=== PATIENT | male | born 1965 | race Caucasian/White ===

== ENCOUNTER → 2020-12-15 12:38 | Outpatient (BNVA) | payer OTHER, SELFPAY | PROVIDERS: PCP Internal Medicine; Visit Provider Orthopaedic Surgery | DX: M16.11 Unilateral primary osteoarthritis, right hip (principal) | CPT/HCPCS: 99212 ==

== ENCOUNTER 2021-01-23 10:00 | Outpatient (RCR) | payer OTHER, SELFPAY | END 2021-03-10 13:21 | disposition home or self-care (01) | LOC: HO.PT 10:00 | PROVIDERS: PCP Internal Medicine; Visit Provider Physician Assistant | DX: M16.10 Unilateral primary osteoarthritis, unspecified hip (principal); Z86.73 Personal history of transient ischemic attack (TIA), and cerebral infarction without residual deficits | CPT/HCPCS: 97110; 97162 ==

== ENCOUNTER 2021-03-15 01:34 | Emergency (ER) | payer MEDICARE, MEDICAID, SELFPAY ==
--- NOTE | ~2021-03-15 | CT_ITS ---
EXAMINATION: CT ABDOMEN AND PELVIS WITH CONTRAST CLINICAL INFORMATION: Left lower quadrant pain COMPARISON: 07/23/2012 TECHNIQUE: Multidetector volumetric images were obtained from the superior aspect of the liver through the pubic symphysis following administration 85 mL of Omnipaque 350 intravenous contrast. Sagittal and coronal reformatted images were obtained on the technologist's workstation. Oral contrast: No This CT examination was performed using dose optimization techniques as appropriate, variously including the following: *Automated exposure control *Adjustment of mA and/or kV according to patient size (this includes techniques or standardized protocols for targeted exams where dose is matched to indication/reason for exam; i.e. extremities or head) *Use of iterative reconstruction technique DLP: 1008 mGy-cm FINDINGS: LUNG BASES: The visualized lung bases demonstrate dependent atelectasis. LIVER, GALLBLADDER, AND BILIARY TREE: The liver demonstrates hypoattenuation suspicious for steatosis. No ductal dilatation is present. The gallbladder is unremarkable with no evidence of radiopaque gallstones, gallbladder wall thickening, or obvious pericholecystic inflammatory changes. PANCREAS: Unremarkable. SPLEEN: Unremarkable. ADRENAL GLANDS: Unremarkable. KIDNEYS AND URETERS: There is a 3 mm calculus in the proximal left ureter resulting in mild hydronephrosis. There is moderate perinephric stranding which tracks along the left retroperitoneum. Left nephrogram appears slightly delayed. Lateral left renal cysts are noted. No right hydronephrosis. BLADDER: Unremarkable. GASTROINTESTINAL TRACT: The small and large bowel are unremarkable. The appendix is unremarkable. No free air is seen. ABDOMINAL WALL: No significant hernia is appreciated. LYMPH NODES: Normal. VASCULAR: Unremarkable. PELVIC VISCERA: Unremarkable. OSSEOUS STRUCTURES: Degenerative changes are noted in the hips, right more severe than left. Mild degenerative changes are present in the spine. CT/CT abdomen pelvis w con IMPRESSION: 1. Proximal left ureteral calculus measuring 3 mm with mild hydronephrosis and moderate perinephric stranding. 2. Hepatic steatosis.
[2021-03-15 01:37] VITALS: BP 180/100; PULSE 87; O2SAT 94
[2021-03-15 01:45] VITALS: BP 178/111; BMI 28.7
--- NOTE | 2021-03-15 01:52 | ECG_ITS ---
Test Reason : CHEST PAIN Blood Pressure : / mmHG Vent. Rate : 094 BPM Atrial Rate : 094 BPM P-R Int : 198 ms QRS Dur : 078 ms QT Int : 364 ms P-R-T Axes : 050 014 024 degrees QTc Int : 455 ms Normal sinus rhythm Septal infarct , age undetermined Abnormal ECG When compared with ECG of 02-AUG-2019 10:35, Septal infarct is now Present Referred By: Tanisha Peck Electronically Signed By:BRENDAN WALLACE MD
--- NOTE | 2021-03-15 01:53 | ED_ITS ---
HPI - Abdominal Pain General Chief Complaint: Nausea/Vomiting/Diarrhea Stated Complaint: ABD PAIN Time Seen by Provider: 03/15/21 01:45 Source: patient and EMS Mode of arrival: EMS Limitations: no limitations History of Present Illness HPI narrative: Patient comes emergency room complaining of left lower quadrant pain. Patient states it is sharp, constant, has been present for the last 3 hours. Patient states he also has diffuse abdominal pain but is more painful in the left lower quadrant. Patient complaining of nausea vomiting, no diarrhea. Patient states that he has never had kidney stones in the past but most people in his family to have kidney stone issues. Patient denies chest pain or shortness of breath MD elicited complaint: abdominal pain Related Data Previous Rx's Medication Instructions Recorded ondansetron HCl [Zofran] 4 mg PO Q6H PRN #14 tab 03/15/21 prednisone 20 mg PO DAILY #4 tab 03/15/21 tamsulosin [Flomax] 0.4 mg PO BEDTIME #10 cap 03/15/21 tramadol 50 mg PO TID PRN #14 tab 03/15/21 Allergies Allergy/AdvReac Type Severity Reaction Status Date / Time diclofenac [From VOLTAREN] Allergy Unknown SEVERE Verified 03/15/21 02:12 RASH, FACIAL SWELLING Diclofenac Sodium Allergy Unknown swelling Uncoded 05/31/19 00:00 valtran Allergy Unknown Unknown Uncoded 03/15/21 02:12 Review of Systems Review of Systems Constitutional : No Weight loss, No Fever, No Chills, No Night Sweats, No Fatigue, No Malaise ENT/Mouth : No Hearing loss, No Ear Pain, No Nasal Congestion, No Sinus Pain, No Hoarseness, No sore throat, No Rhinorrhea, No Swallowing Difficulty Eyes: No Eye Pain, No Swelling, No Redness, No Foreign Body, No Discharge, No Vision Changes Cardiovascular : No Chest Pain, No SOB, No Dyspnea on Exertion, No Orthopnea, No Edema, No Palpitations Respiratory : No Cough, No Sputum, No Wheezing, No Smoke Exposure, No Dyspnea Gastrointestinal : Complaining of nausea and vomiting, No Diarrhea, No Constipation, complaining of left lower quadrant pain, No Hematochezia, No Melena Genitourinary : no irregular bleeding, No Dysuria, No Urinary Frequency, No Akin turia, No Urinary Incontinence, No Urgency, No Flank Pain, No Urinary Flow Changes, No Hesitancy Musculoskeletal : No joint pain, No Myalgias, No Joint Swelling Skin : No Skin Lesions, No rash Neuro : No Weakness, No Numbness, No Paresthesias, No Loss of Consciousness, No Dizziness, No Headache Psych : No Anxiety/Panic, No Depression, No SI/HI/AH/VH, No Social Issues, Heme/Lymph: No Bruising, No Bleeding,No Lymphadenopathy Endocrine : No Polyuria, No Polydipsia, No Temperature Intolerance Physical Exam Vital Signs: Vital Signs: Last Vital Signs Pulse 101 H 03/15/21 03:21 Resp 18 03/15/21 03:21 BP 153/102 H 03/15/21 03:21 Pulse Ox 97 03/15/21 03:21 Body Mass Index 28.7 Appearance: Alert. Oriented X3. Seems very uncomfortable Eyes: Pupils equal, round and reactive to light. ENT: Pharynx normal. Neck: Normal inspection. Neck supple. No lymph nodes noted. No crepitus CVS: Normal heart rate and rhythm. Pulses normal. Normal S1 and S2 Respiratory: No respiratory distress. Breath sounds normal. No Wheezing. No rales Abdomen: Soft , pain to palpation in the entire abdomen but much worse in the left lower quadrant, No rigidity. No distention. No CVA tenderness bilaterally Skin: Skin warm and clammy. Mildly pale, Normal skin turgor. Extremities: No lower extremity edema. No Lacerations. No Rash Neuro: Oriented X 3. No motor deficit. No sensory deficit. Moving all extermities. No slurred speech. Course Course Course Narrative: I discussed with the patient that he has a 3 mm stone. At this time, patient feeling much better, patient will be sent home, instructed to follow-up with urology. MDM - Abdominal Pain Lab Data Result diagrams: 03/15/21 02:13 03/15/21 02:13 Labs: Lab Results 03/15/21 03/15/21 03/15/21 Range/Units 02:13 02:13 02:13 WBC 8.2 (4.8-10.8) X10*3/uL RBC 5.02 (4.60-5.80) X10*6/uL Hgb 16.0 (14.0-18.0) g/dl Hct 45.9 (42-52) % MCV 91.4 (80-98) fL MCH 31.9 (27.0-33.0) pg MCHC 34.9 (31.0-36.0) g/dl RDW 12.6 (11.0-16.0) % Plt Count 176 (160-400) X10*3/uL MPV 9.3 L (9.4-12.4) fL Immature Gran % (Auto) 0.9 H (0.0-0.4) % Neut % (Auto) 73.2 H (45-73) % Lymph % (Auto) 15.4 L (20-40) % Frontier % (Auto) 8.4 (2-11) % Eos % (Auto) 1.9 (0-4) % Baso % (Auto) 0.2 (0-2) % Lymph # (Auto) 1.3 (1.2-4.9) X10*3/uL Frontier # (Auto) 0.7 (0.1-1.2) X10*3/uL Eos # (Auto) 0.2 (0.0-0.4) X10*3/uL Baso # (Auto) 0.0 (0.0-0.2) X10*3/uL Abs Immat Gran (auto) 0.07 H (0.00-0.03) X10*3/uL Absolute Neuts (auto) 6.0 (2.0-8.3) X10*3/uL Absolute Nucleated RBC 0.000 (0.0-0.012) X10*3/uL Nucleated RBC % (auto) 0.0 (0.0-0.2) /100WBC PT 12.4 (9.9-13.0) SEC INR 1.1 (0.9-1.1) Sodium 143 (135-145) mmol/L Potassium 4.2 (3.3-5.1) mmol/L Chloride 110 H (96-108) mmol/L Carbon Dioxide 23 (22-29) mmol/L Anion Gap 14 (12-20) BUN 19 H (9-16) mg/dL Creatinine 1.10 (0.5-1.4) mg/dL Estim Creat Clear Calc 100.3 Estimated GFR > 60 Random Glucose 123 H (60-115) mg/dL Calcium 8.9 (8.4-10.2) mg/dL Total Bilirubin 0.6 (0.0-1.0) mg/dL Direct Bilirubin 0.3 (0.0-0.5) mg/dL AST 35 (5-37) U/L ALT 59 H (0-40) U/L Alkaline Phosphatase 85 (39-117) U/L Troponin I High Sens (<3.5-35.0) ng/L Total Protein 7.5 (6.5-8.0) g/dL Albumin 4.4 (3.5-5.0) g/dL Lipase 45 (8-78) U/L Urine Color Urine Appearance Urine pH (5.0-8.0) Ur Specific Linch (1.005-1.025) Urine Protein (NEG-TRACE) MG/DL Urine Glucose (UA) (NEG) MG/DL Urine Ketones (NEG) MG/DL Urine Blood (NEG) Urine Nitrite (NEG) Ur Leukocyte Esterase (NEG) Urine RBC (0) /HPF Urine WBC (0-4) /HPF Ur Squamous Epith Cells /LPF Urine Bacteria /LPF Urine Mucus /LPF 03/15/21 03/15/21 Range/Units 02:13 03:22 WBC (4.8-10.8) X10*3/uL RBC (4.60-5.80) X10*6/uL Hgb (14.0-18.0) g/dl Hct (42-52) % MCV (80-98) fL MCH (27.0-33.0) pg MCHC (31.0-36.0) g/dl RDW (11.0-16.0) % Plt Count (160-400) X10*3/uL MPV (9.4-12.4) fL Immature Gran % (Auto) (0.0-0.4) % Neut % (Auto) (45-73) % Lymph % (Auto) (20-40) % Frontier % (Auto) (2-11) % Eos % (Auto) (0-4) % Baso % (Auto) (0-2) % Lymph # (Auto) (1.2-4.9) X10*3/uL Frontier # (Auto) (0.1-1.2) X10*3/uL Eos # (Auto) (0.0-0.4) X10*3/uL Baso # (Auto) (0.0-0.2) X10*3/uL Abs Immat Gran (auto) (0.00-0.03) X10*3/uL Absolute Neuts (auto) (2.0-8.3) X10*3/uL Absolute Nucleated RBC (0.0-0.012) X10*3/uL Nucleated RBC % (auto) (0.0-0.2) /100WBC PT (9.9-13.0) SEC INR (0.9-1.1) Sodium (135-145) mmol/L Potassium (3.3-5.1) mmol/L Chloride (96-108) mmol/L Carbon Dioxide (22-29) mmol/L Anion Gap (12-20) BUN (9-16) mg/dL Creatinine (0.5-1.4) mg/dL Estim Creat Clear Calc Estimated GFR Random Glucose (60-115) mg/dL Calcium (8.4-10.2) mg/dL Total Bilirubin (0.0-1.0) mg/dL Direct Bilirubin (0.0-0.5) mg/dL AST (5-37) U/L ALT (0-40) U/L Alkaline Phosphatase (39-117) U/L Troponin I High Sens < 3.5 (<3.5-35.0) ng/L Total Protein (6.5-8.0) g/dL Albumin (3.5-5.0) g/dL Lipase (8-78) U/L Urine Color YELLOW Urine Appearance HAZY Urine pH 6.0 (5.0-8.0) Ur Specific Linch >= 1.030 H (1.005-1.025) Urine Protein TRACE (NEG-TRACE) MG/DL Urine Glucose (UA) NEG (NEG) MG/DL Urine Ketones NEG (NEG) MG/DL Urine Blood 3+ H (NEG) Urine Nitrite NEG (NEG) Ur Leukocyte Esterase NEG (NEG) Urine RBC 50-75 H (0) /HPF Urine WBC 1-4 (0-4) /HPF Ur Squamous Epith Cells 1+ /LPF Urine Bacteria 1+ /LPF Urine Mucus 2+ /LPF Imaging Data CT scan - abdomen: Radiologist's impression: FINDINGS: LUNG BASES: The visualized lung bases demonstrate dependent atelectasis. LIVER, GALLBLADDER, AND BILIARY TREE: The liver demonstrates hypoattenuation suspicious for steatosis. No ductal dilatation is present. The gallbladder is unremarkable with no evidence of radiopaque gallstones, gallbladder wall thickening, or obvious pericholecystic inflammatory changes. PANCREAS: Unremarkable. SPLEEN: Unremarkable. ADRENAL GLANDS: Unremarkable. KIDNEYS AND URETERS: There is a 3 mm calculus in the proximal left ureter resulting in mild hydronephrosis. There is moderate perinephric stranding which tracks along the left retroperitoneum. Left nephrogram appears slightly delayed. Lateral left renal cysts are noted. No right hydronephrosis. BLADDER: Unremarkable. GASTROINTESTINAL TRACT: The small and large bowel are unremarkable. The appendix is unremarkable. No free air is seen. ABDOMINAL WALL: No significant hernia is appreciated. LYMPH NODES: Normal. VASCULAR: Unremarkable. PELVIC VISCERA: Unremarkable. OSSEOUS STRUCTURES: Degenerative changes are noted in the hips, right more severe than left. Mild degenerative changes are present in the spine. CT/CT abdomen pelvis w con IMPRESSION: 1. Proximal left ureteral calculus measuring 3 mm with mild hydronephrosis and moderate perinephric stranding. 2. Hepatic steatosis. ECG Data Attestation: I personally reviewed and interpreted this ECG as follows: (Normal sinus rhythm, heart rate 94, no ST segment depression or elevation, no T-wave inversion, QTC 455) Discharge Plan Discharge Clinical Impression: Ureterolithiasis Patient Disposition: Home, Self-Care Instructions: Kidney Stones (ED) Additional Instructions: Please follow-up with your primary care physician tomorrow. If you have any worsening or new symptoms, please return to the emergency room or call 911 Prescriptions: New tramadol 50 mg tablet 50 mg PO TID PRN (Reason: pain) Qty: 14 RF: 0 ondansetron HCl [Zofran] 4 mg tablet 4 mg PO Q6H PRN (Reason: nausea and vomiting) Qty: 14 RF: 0 tamsulosin [Flomax] 0.4 mg capsule 0.4 mg PO BEDTIME Qty: 10 RF: 0 prednisone 20 mg tablet 20 mg PO DAILY Qty: 4 RF: 0 Referrals: Wiley Christie MD [Physician] - 2 days [facility] Past Medical History Medical History (Updated 03/15/21 @ 05:09 by Tanisha Peck MD) Atrial fibrillation CVA (cerebral vascular accident) Social History Social History Advance Directives: No Advance Directives Information Provided: Yes
[2021-03-15] MEDS: ondansetron HCL 4 MG/2 ML VIAL IVPUSH (01:58)
[2021-03-15] MEDS: Morphine Sulfate 4 MG/ML CARTRIDGE IVPUSH (01:58)
[2021-03-15] MEDS: 0.9 % Sodium Chloride 1,000 ML 999 ML IVCONT (01:59)
[2021-03-15 02:00] VITALS: BP 178/111
[2021-03-15 02:17] LABS: MANUAL DIFF FLAG NO
[2021-03-15 02:19] LABS: Basophils Percent Auto 0.2 % (0-2); Eosinophils Absolute Auto 0.2 X10*3/uL (0.0-0.4); Eosinophils Percent Auto 1.9 % (0-4); Hematocrit 45.9 % (42-52); Imm Gran Abs Auto 0.07 X10*3/uL (0.00-0.03); Imm Gran Pct Auto 0.9 % (0.0-0.4); Lymphocytes Absolute Auto 1.3 X10*3/uL (1.2-4.9); Lymphocytes Percent Auto 15.4 % (20-40); Mean Corpuscular HGB Conc 34.9 g/dl (31.0-36.0); Mean Corpuscular Hemoglobin 31.9 pg (27.0-33.0); Mean Corpuscular Volume 91.4 fL (80-98); Mean Platelet Volume 9.3 fL (9.4-12.4); Monocytes Absolute Auto 0.7 X10*3/uL (0.1-1.2); Monocytes Percent Auto 8.4 % (2-11); Neutrophils Percent Auto 73.2 % (45-73); Platelet Count 176 X10*3/uL (160-400); Red Blood Count 5.02 X10*6/uL (4.60-5.80); Red Cell Distribution Width 12.6 % (11.0-16.0); White Blood Count 8.2 X10*3/uL (4.8-10.8)
[2021-03-15 02:24] LABS: INTERNATIONAL NORM RATIO 1.1 (0.9-1.1); Prothrombin Time 12.4 SEC (9.9-13.0)
[2021-03-15 02:41] LABS: Alanine Aminotransferase 59 U/L (0-40); Albumin Level 4.4 g/dL (3.5-5.0); Alkaline Phosphatase 85 U/L (39-117); Anion Gap 14 (12-20); Aspartate Amino Transferase 35 U/L (5-37); Bilirubin Direct 0.3 mg/dL (0.0-0.5); Bilirubin Total 0.6 mg/dL (0.0-1.0); Blood Urea Nitrogen 19 mg/dL (9-16); Calcium 8.9 mg/dL (8.4-10.2); Carbon Dioxide 23 mmol/L (22-29); Chloride 110 mmol/L (96-108); Creatinine Clr Calc Pharmacy 100.3; Estimated Glomerular Filt Rate > 60; Glucose Random 123 mg/dL (60-115); Lipase 45 U/L (8-78); Potassium 4.2 mmol/L (3.3-5.1); Sodium 143 mmol/L (135-145); Total Protein 7.5 g/dL (6.5-8.0)
[2021-03-15 02:45] LABS: Troponin-I High Sensitivity < 3.5 ng/L (<3.5-35.0)
[2021-03-15] MEDS: HYDROmorphone HCl 1 MG/ML SYRINGE IVPUSH (02:47)
[2021-03-15] MEDS: Prochlorperazine Edisylate 10 MG/2 ML VIAL IVPUSH (02:47)
[2021-03-15 03:21] VITALS: BP 153/102; PULSE 101; RESP 18; O2SAT 97
[2021-03-15 03:31] LABS: Glucose Urine UA NEG (NEG); Leukocyte Esterase Urine NEG (NEG); Nitrite Urine NEG (NEG); Specific Gravity - Urine >= 1.030 (1.005-1.025); Urine Blood 3+ (NEG); Urine Ketones NEG (NEG); Urine Protein TRACE MG/DL (NEG-TRACE)
[2021-03-15 03:32] LABS: Appearance Urine HAZY; Color Urine YELLOW
[2021-03-15 03:44] LABS: Bacteria Urine 1+ /LPF; Mucus Urine 2+ /LPF; RBC Urine 50-75 /HPF (0); Squamous Epithelial Cell Urine 1+ /LPF
[2021-03-15] MEDS: iohexoL 350 MG/ML 100 ML INFUS..BTL 85 ML IV (04:19)
== END 2021-03-15 05:59 | disposition home or self-care (01) ==
PROVIDERS: Emergency Provider Emergency Medicine; PCP Internal Medicine
DX: N13.2 Hydronephrosis with renal and ureteral calculous obstruction (principal); R10.32 Left lower quadrant pain; I48.91 Unspecified atrial fibrillation; Z86.73 Personal history of transient ischemic attack (TIA), and cerebral infarction without residual deficits
CPT/HCPCS: 36415; 74177; 80048; 80076; 81001; 83690; 84484; 85025; 85610; 93005; 96361; 96374; 96375; 99284; J1170; J2270; J2405; Q9967

== ENCOUNTER → 2021-03-31 11:36 | Outpatient (BNVA) | payer MEDICARE, MEDICAID, SELFPAY | PROVIDERS: PCP Internal Medicine; Visit Provider Urology | DX: N20.0 Calculus of kidney (principal) | CPT/HCPCS: Q3014 ==

== ENCOUNTER 2021-06-29 09:02 | Outpatient (REF) | payer MEDICARE, MEDICAID, SELFPAY | END 2021-06-29 09:03 | disposition home or self-care (01) | LOC: HO.HOSX 09:02 | PROVIDERS: Visit Provider Orthopaedic Surgery | DX: Z13.89 Encounter for screening for other disorder (principal) ==

== ENCOUNTER 2021-08-06 12:13 | Outpatient (REF) | payer MEDICARE, MEDICAID, SELFPAY | END 2021-08-06 12:14 | disposition home or self-care (01) | LOC: HO.HOSX 12:13 | PROVIDERS: Visit Provider Orthopaedic Surgery | DX: Z13.89 Encounter for screening for other disorder (principal) ==

== ENCOUNTER 2021-08-24 11:44 | Outpatient (REF) | payer OTHER, MEDICAID, SELFPAY ==
--- NOTE | ~2021-08-24 | XR_ITS ---
EXAMINATION: XR PELVIS CLINICAL INFORMATION: Hip pain COMPARISON: 04/05/2019 TECHNIQUE: AP view of the pelvis. FINDINGS: No fracture or dislocation. The hips are appropriately aligned. There is superior joint space narrowing of both hips with [id number] appearance. Subchondral sclerosis with marginal osteophyte formation noted. The pelvic rim is intact. The sacroiliac joints and pubic sepsis are intact. Normal bowel gas pattern. XR/XR pelvis 1-2V IMPRESSION: Severe degenerative changes of both hips which are progressed from 2019.
== END 2021-08-24 11:45 | disposition home or self-care (01) ==
LOC: HO.HOSX 11:44
PROVIDERS: Visit Provider Orthopaedic Surgery
DX: M16.11 Unilateral primary osteoarthritis, right hip (principal); I63.9 Cerebral infarction, unspecified; I48.91 Unspecified atrial fibrillation
CPT/HCPCS: 72170; 99212

== ENCOUNTER 2021-09-28 13:38 | Outpatient (REF) | payer OTHER, MEDICAID, SELFPAY ==
--- NOTE | ~2021-09-28 | XR_ITS ---
EXAMINATION: XR CHEST CLINICAL INFORMATION: Dyspnea. COMPARISON: CTA chest dated 08/02/2019. TECHNIQUE: 2 views of the chest were obtained. FINDINGS: No focal airspace consolidation. No pleural effusion or pneumothorax. Stable cardiomediastinal silhouette. No acute osseous abnormality. XR/XR chest 2V IMPRESSION: No acute cardiopulmonary findings.
== END 2021-09-28 13:39 | disposition home or self-care (01) ==
LOC: HO.XRAY 13:38
PROVIDERS: PCP Internal Medicine; Visit Provider Internal Medicine
DX: R06.00 Dyspnea, unspecified (principal); I63.9 Cerebral infarction, unspecified; F41.9 Anxiety disorder, unspecified; F32.A Depression, unspecified
CPT/HCPCS: 71046; 99202

== ENCOUNTER 2021-10-13 13:27 | Outpatient (REF) | payer OTHER, MEDICAID, SELFPAY ==
--- NOTE | ~2021-10-13 | US_ITS ---
EXAMINATION: US RETROPERITONEAL LIMITED (RENAL ONLY) CLINICAL INFORMATION: Calculus of kidney.. COMPARISON: CT abdomen pelvis 03/15/2021 TECHNIQUE: Routine retroperitoneal ultrasound of kidneys is performed FINDINGS: RIGHT KIDNEY: (SAG x AP x TRV). The kidney is normal in size, contour, and echogenicity. Renal cortical thickness is normal. No calculi or focal parenchymal lesions. No hydronephrosis. LEFT KIDNEY: There is anechoic upper/mid pole cysts measuring 4.0 3.8 x 3.6 cm and 4.2 x 2.1 x 4.6 cm (SAG x AP x TRV). The kidney is normal in size, contour, and echogenicity. Renal cortical thickness is normal. No calculi or focal parenchymal lesions. No hydronephrosis. US/US renal BI IMPRESSION: 2 anechoic cyst in the upper midpole left kidney. These were noted on the previous CT abdomen exam 03/15/2021 No echogenic stones or hydronephrosis.
== END 2021-10-13 13:28 | disposition home or self-care (01) ==
LOC: HO.US 13:27
PROVIDERS: PCP Internal Medicine; Visit Provider Urology
DX: N20.0 Calculus of kidney (principal)
CPT/HCPCS: 76775

== ENCOUNTER 2021-10-15 10:40 | Emergency (ER) | payer OTHER, MEDICAID, SELFPAY ==
[2021-10-15 10:49] VITALS: BP 151/96; PULSE 91; RESP 16; TEMP 35.7; O2SAT 96; BMI 29.7
--- NOTE | 2021-10-15 11:20 | ED.EAR ---
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 He reports about a month ago he put a Keith head screwdriver in his ear to scratch and itch but ended up causing significant trauma. He reports there was a large amount of bleeding. He was not evaluated at that time and reports bloody discharge for a few days. It eventually improved. He states about 5 days ago he started having recurrent pain and is now constant. He does not have any hearing loss or drainage. No fever or chills. He has been taking 2 or 3 showers a day to get water in his ear and rinse it out with no improvement. MD Complaint: ear pain Location: right ear Duration: constant Severity: moderate Relieving factors: nothing Exacerbating factors: nothing Context: trauma Discharge from ear: no Associated symptoms ear: external ear tenderness Treatment prior to arrival: none Related Data Home Medications Medication Instructions Recorded Confirmed apixaban 2.5 mg tablet (Eliquis) 2.5 mg PO BID 08/24/21 omeprazole 20 mg capsule,delayed 20 mg PO DAILY 08/24/21 release sertraline 150 mg capsule 150 mg PO DAILY 08/24/21 atorvastatin 80 mg tablet 80 mg PO DAILY 09/28/21 clonazepam 1 mg tablet (Klonopin) 1 mg PO DAILY PRN 09/28/21 diazepam 5 mg tablet 5 mg PO TID PRN 09/28/21 fluticasone furoate 100 1 ea INHALATION DAILY 09/28/21 mcg-vilanterol 25 mcg/dose inhalation powder (Breo Ellipta) olanzapine 2.5 mg tablet 2.5 mg PO BID 09/28/21 quetiapine 400 mg tablet 400 mg PO BEDTIME 09/28/21 Previous Rx's Medication Instructions Recorded ondansetron HCl 4 mg tablet 4 mg PO Q6H PRN #14 tab 03/15/21 (Zofran) amoxicillin 875 mg-potassium 1 tab PO BID #20 tab 10/15/21 clavulanate 125 mg tablet ciprofloxacin 0.2 %-hydrocortisone 3 drp OTIC (EARS) BID 7 Days #10 ml 10/15/21 1 % ear drops,suspension (Cipro HC) Allergies Allergy/AdvReac Type Severity Reaction Status Date / Time diclofenac [From VOLTAREN] Allergy Unknown SEVERE Verified 09/28/21 16:05 RASH, FACIAL SWELLING Diclofenac Sodium Allergy Unknown swelling Uncoded 09/28/21 16:05 valtran Allergy Unknown Unknown Uncoded 09/28/21 16:05 Review of Systems Review of Systems: Constitutional: No Fever, No Chills ENT/Mouth: No sore throat, No Rhinorrhea, No Swallowing Difficulty, +Otalgia, No hearing loss Cardiovascular: No Chest Pain, No SOB Respiratory: No Cough, No Sputum Gastrointestinal: No Nausea, No Vomiting, No abdominal Pain Musculoskeletal: No joint pain, No Myalgias Skin: No Skin Lesions, No rash Neuro: No Weakness, No Numbness, No Dizziness, No Headache Psych: + Anxiety/Panic, No Depression Heme/Lymph: No Bruising, No Lymphadenopathy PMFSH Past Medical History Medical History (Updated 10/15/21 @ 11:26 by KIMBERLY Russ) Anxiety and depression Atrial fibrillation CVA (cerebral vascular accident) Dyspnea on exertion Social History Social History Patient Tobacco Use Status: Never used Tobacco Advance Directives: No Advance Directives Information Provided: No Physical Exam Vital Signs: Vital Signs: Last Vital Signs Temp 96.3 F L 10/15/21 10:49 Pulse 91 10/15/21 10:49 Resp 16 10/15/21 10:49 BP 151/96 H 10/15/21 10:49 Pulse Ox 96 10/15/21 10:49 BMI result Body Mass Index 29.7 Appearance: Alert. Oriented X3. No acute distress. HEENT: normal external inspection. Normal left EAC and left TM. Right EAC with erythema and tenderness, no swelling. Right TM with fluid behind the membrane, mild ertyhema, no bulging, no TM perforation. normal oropharynx CVS: Normal heart rate and rhythm. Pulses normal. Respiratory: No respiratory distress. Speaking in complete sentences Skin: Skin warm and dry. Normal skin color. Normal skin turgor. No rashes. Extremities: normal inspection x4 Neuro: Oriented X 3. No motor deficit. No sensory deficit. Course Course Course Narrative: 56-year-old male presents to the ER with right ear pain after he stuck a screwdriver in his ear to scratch and itch about a month ago and caused trauma with bleeding. Exam today shows no TM perforation, it is possible he perforated his ear drum at that time and it is now healed. There is fluid behind the membrane that may be infected, his EAC is erythematous and tender. Will empirically treat for otitis media and external, will refer to ENT if no improvement in pain with treatment. patient agrees with plan. stable for d/c home. Discharge Plan Discharge Clinical Impression: Otitis externa, Otitis media Patient Disposition: Home, Self-Care Instructions: Otitis Externa (DC), Ear Infection (ED) Additional Instructions: Take the prescribed oral antibiotics as directed, take the entire course. Use the prescribed antibiotic drops as directed for 1 week. Do not get water in the ear, when you take a shower but a small piece of cotton in the ear. If you have no improvement after complete treatment, recommend following up with investigative research specialist-name and number below. Prescriptions: New amoxicillin-pot clavulanate 875-125 mg tablet 1 tab PO BID Qty: 20 0RF Cipro HC 0.2-1 % drops,suspension 3 drp otic (ears) BID 7 Days Qty: 10 0RF No Action ondansetron HCl [Zofran] 4 mg tablet 4 mg PO Q6H PRN (Reason: nausea and vomiting) Qty: 14 0RF quetiapine 400 mg tablet 400 mg PO BEDTIME 0RF Breo Ellipta 100-25 mcg/dose blister with device 1 ea inhalation DAILY 0RF diazepam 5 mg tablet 5 mg PO TID PRN0RF olanzapine 2.5 mg tablet 2.5 mg PO BID 0RF atorvastatin 80 mg tablet 80 mg PO DAILY 0RF sertraline 150 mg capsule 150 mg PO DAILY 0RF omeprazole 20 mg capsule,delayed release(DR/EC) 20 mg PO DAILY 0RF Eliquis 2.5 mg tablet 2.5 mg PO BID 0RF clonazepam [Klonopin] 1 mg tablet 1 mg PO DAILY PRN0RF Referrals: Jacoby Rabago [Physician] - 1 week
== END 2021-10-15 11:39 | disposition home or self-care (01) ==
PROVIDERS: Emergency Provider Emergency Medicine; PCP Internal Medicine
DX: H60.91 Unspecified otitis externa, right ear (principal); H66.91 Otitis media, unspecified, right ear; H92.01 Otalgia, right ear; I48.91 Unspecified atrial fibrillation; Z86.73 Personal history of transient ischemic attack (TIA), and cerebral infarction without residual deficits; Z79.01 Long term (current) use of anticoagulants
CPT/HCPCS: 99283

== ENCOUNTER → 2021-10-20 08:35 | Outpatient (BNVA) | payer OTHER, MEDICAID, SELFPAY | PROVIDERS: PCP Internal Medicine; Visit Provider Urology | DX: N28.1 Cyst of kidney, acquired (principal); Z87.442 Personal history of urinary calculi | CPT/HCPCS: Q3014 ==

== ENCOUNTER 2021-10-22 14:25 | Outpatient (REF) | payer OTHER, MEDICAID, SELFPAY ==
--- NOTE | 2021-10-22 17:19 | PFT_ITS ---
FLOWS: FEV1 86% of predicted at 3.58 L. FVC 92% of predicted at 5.02 L. FEV1 to FVC ratio of 0.71. No bronchodilator response. LUNG VOLUMES: Total lung capacity 99% of predicted at 7.54 L. Residual volume 115% of predicted at 2.67 L. Slow vital capacity 92% of predicted at 4.87 L. Expiratory reserve volume 21% of predicted at 0.36 L. Diffusion capacity is mildly decreased, diffusion capacity corrects to normal after adjustment for alveolar ventilation. IMPRESSION: Mild obstructive ventilatory defect. No bronchodilator response. Decreased expiratory reserve volume suggests extrathoracic restriction, likely secondary to abdominal obesity. Sergio Mcneil MD AP/MODL / [id number]
== END 2021-10-22 14:26 | disposition home or self-care (01) ==
LOC: HO.RESP 14:25
PROVIDERS: PCP Internal Medicine; Visit Provider Internal Medicine
DX: R06.00 Dyspnea, unspecified (principal); I63.9 Cerebral infarction, unspecified
CPT/HCPCS: 94060; 94727; 94729

== ENCOUNTER → 2021-10-28 14:34 | Outpatient (BNVA) | payer OTHER, MEDICAID, SELFPAY | PROVIDERS: PCP Internal Medicine; Visit Provider Internal Medicine | DX: J44.9 Chronic obstructive pulmonary disease, unspecified (principal); R06.00 Dyspnea, unspecified; F41.9 Anxiety disorder, unspecified; F32.A Depression, unspecified | CPT/HCPCS: 99212 ==

== ENCOUNTER → 2021-11-09 14:10 | Outpatient (BNVA) | payer OTHER, MEDICAID, SELFPAY | PROVIDERS: PCP Internal Medicine; Visit Provider Internal Medicine Cardiovascular Disease | DX: Z01.810 Encounter for preprocedural cardiovascular examination (principal); M16.11 Unilateral primary osteoarthritis, right hip; I48.91 Unspecified atrial fibrillation; J44.9 Chronic obstructive pulmonary disease, unspecified; R06.00 Dyspnea, unspecified; F41.8 Other specified anxiety disorders; Z86.73 Personal history of transient ischemic attack (TIA), and cerebral infarction without residual deficits; Z88.6 Allergy status to analgesic agent; Z88.8 Allergy status to other drugs, medicaments and biological substances; Z79.899 Other long term (current) drug therapy | CPT/HCPCS: 93005; 99202 ==

== ENCOUNTER → 2021-11-18 07:13 | Outpatient (REF) | payer OTHER, MEDICAID, SELFPAY ==
--- NOTE | ~2021-11-18 | NM_ITS ---
EXERCISE MYOCARDIAL PERFUSION STUDY INDICATION: Shortness of breath, preoperative examination, assess for coronary disease and ischemia TECHNIQUE: The patient was brought in for an exercise perfusion study on 11/18/2021. Patient performed exercise as per Jose J protocol and was injected 39 mCi of sestamibi once target heart rate was achieved. Images were obtained using the SPECT gamma camera interlaced with the gating device. Images were obtained in supine position. Resting perfusion study was performed on 11/19/2021. Patient was administered 39 mCi of sestamibi intravenously at rest. Images were then obtained in supine position. Total DLP 123mGy-cm. Images were processed with the software and compared side to side in short axis, horizontal long axis and vertical long axis views. FINDINGS: Raw images were reviewed. The stress perfusion study showed diminished tracer uptake along the inferior wall. There is improvement with CT attenuation correction suggestive of diaphragmatic attenuation artifact. The gated study shows normal LV systolic function with calculated LVEF of 63%. LV cavity is normal in size. The gated study shows normal wall thickening and contraction of segments. Resting study shows diminished tracer uptake along the inferior wall. There is improvement with CT attenuation correction suggestive of diaphragmatic attenuation artifact. Gating at rest reveals normal wall motion with ejection fraction at 70%. The findings are consistent with fixed inferior defect. No reversible defects. NM/NE cardiolite stress test IMPRESSION: 1. Myocardial perfusion imaging study shows no evidence of any ischemia or infarction. 2. Gated LVEF is 63% during stress and 70% during rest. 3. Transient ischemic dilatation not present. EKG component of the test reported separately.
--- NOTE | 2021-11-18 07:21 | CA_ITS ---
Transthoracic Echocardiogram Patient (Last, First, Middle): Edward Shaw E Gender: Male Date of : 1965 Age: 56 Procedure Date: 11/18/2021 Procedure Type: Transthoracic Echocardiogram Location: OP Height: 185.42 cm Weight: 106.6 kg BSA: 2.30 m2 Heart Rate: bpm BP: 118 / 82 mmHg Dinkey Engine Operator: RED Referring MD: Anders German MD Symptoms: R06.00 - Dyspnea, unspecified Study Quality: Fair Conclusions: - Normal left ventricular size, thickness, and systolic function. The visually estimated ejection fraction is between 55-60%. - Normal right ventricular cavity size and systolic function. - There is mild dilatation of the ascending aorta measuring 3.40 cm. - We will bring him back for a bubble study given h/o stroke and ?intracardiac shunt. Findings Left Ventricle Normal left ventricular size, thickness, and systolic function. The visually estimated ejection fraction is between 55-60%. Regional wall motion abnormalities can not be excluded due to suboptimal endocardial definition. Diastolic function is normal for age. Right Ventricle Normal right ventricular cavity size and systolic function. Atria The left atrium is mildly dilated. Aortic Valve There is a normal trileaflet aortic valve. There is no aortic valve stenosis. There is no aortic valve regurgitation. Mitral Valve The mitral valve appears normal. There is no mitral valve regurgitation. There is no mitral valve stenosis. Pulmonic Valve Normal pulmonic valve structure and function. There is trace pulmonic valve regurgitation. Tricuspid Valve Normal tricuspid valve structure and function. There is trace tricuspid valve regurgitation. Normal right atrial pressure. There is no evidence of pulmonary hypertension. Great Vessels There is mild dilatation of the ascending aorta measuring 3.40 cm. The visualized portions of the pulmonary artery and branches are normal. Venous The inferior vena cava is normal in size and collapses greater than 50% with inspiration. Pericardium/Pleural There is no evidence of pericardial effusion. Prior Study Comparison No prior study available for comparison. Recommendations, Care & Conclusions Recommend contrast study to evaluate intracardiac shunting. Measurements 2D Linear Measurements IVSd: 1.06 0.6-0.9/0.6-1.0 cm LVIDd: 4.16 3.9-5.3/4.2-5.9 cm LVIDd Index: 1.81 2.4-3.2/2.2-3.1 cm/m2 LVIDs: 2.45 2.0-3.6 cm LVPWd: 0.87 0.7-1.1 cm LA Diam: 3.40 2.7-3.8/3.0-4.0 cm LAIDs Index: 1.48 1.5-2.3 cm/m2 LV Mass: 159.91 67-162/88-224 g LV Mass Index: 69.53 43-95/49-115 g/m2 LVOT Diam: 2.00 3.0+(-)1.3 cm Mitral Valve MV Pk E: 0.48 MV PK A: 0.71 MV Decel Time: 185.00 E/A: 0.70 E'Lateral: 10.70 E'Medial: 6.31 E/E' Med: 7.60 E/E' Lat: 4.50 PHT: 54.00 MVA PHT: 4.07 Decel [place]: 2.58 Aortic Valve AoV Pk Juan Manuel: 1.24 AoV Mn Juan Manuel: 0.91 AoV VTI: 0.23 AoV Pk Grad: 6.00 Aov Mn Grad: 4.00 GALLO Cont.VTI: 2.88 LVOT LVOT Pk Juan Manuel: 1.22 LVOT Mn Juan Manuel: 0.84 LVOT VTI: 0.21 LVOT Pk Grad: 6.00 LVOT Mn Grad: 3.00 LVOT Diam: 2.00 LVOT Area: 3.14 Diastolic Function MV Pk E: 0.48 MV Pk A: 0.71 E/A: 0.70 E'Medial: 6.31 E/E' Med: 7.60 E' Laterial: 10.70 E/E' Lat: 4.50 Right Ventricle TAPSE (mm): 2.09 TVS' Juan Manuel: 9.90 Tricuspid Valve TR Pk Juan Manuel: 1.97 TR Pk Grad: 16.00 RA Press: 3.00 RVSP: 19.00 Great Vessels Aorta Sinus of Valsalva: 3.29 2.0-3.[address] [place]: 2.53 1.7-3.4 cm Ao Asc: 3.40 2.1-3.4 cm Ao Arch: 3.20 Updated in Other Vendor System with Status of Final Anders German MD electronically signed on 11/19/2021 10:41:17 AM with status of Final
--- NOTE | 2021-11-18 07:21 | CA_ITS ---
Acquisition Time: 2021-11-18 08:58:49 Total Exercise Time: 00:05:29 Test Indications: SOB,, AFIB, PREOP Medications: SEE CHART Protocol: JYOTSNA Max HR: 136 BPM 82% of Pred: 165 BPM Max BP: 132/068 mmHG Max Work Load: 7.0 METS Exercise stress test with exercise 5 min 29 sec of Jyotsna protocol, with mod sob and report of hip pain with request to slow exercise.EKG nondiagnostic for ischemia due to suboptimal heart rate 76% MPHR. Treadmill slowed to 1 MPH for additional 2.5 min. Test changed to a pharmacological stress test with Lexiscan injection, without anginal symptoms, without arrythmia, with normotensive response to injection, with nondiagnostic EKG for ischemia. In recovery he did have prolonged sinus tachycardia and was treated with Aminophyllne 75mg IVP to reverse Lexiscan with improvement in heart rate. Nuclear images pending. Test reviewed [facility] Dr Garcia. Referred By: Anders German Overread By: JACKIE PENA
== END ==
LOC: HO.CARD 07:13
PROVIDERS: Visit Provider Internal Medicine Cardiovascular Disease
DX: Z01.810 Encounter for preprocedural cardiovascular examination (principal); R06.00 Dyspnea, unspecified
CPT/HCPCS: 78452; 93017; 93306; A9500; J0280; J2785

== ENCOUNTER → 2021-11-26 12:21 | Outpatient (BNVA) | payer OTHER, MEDICAID, SELFPAY | PROVIDERS: PCP Internal Medicine; Visit Provider Physician Assistant | DX: M16.11 Unilateral primary osteoarthritis, right hip (principal) | CPT/HCPCS: 99212 ==

== ENCOUNTER → 2021-11-27 07:05 | Outpatient (REF) | payer OTHER, MEDICAID, SELFPAY ==
--- NOTE | 2021-11-27 07:09 | CA_ITS ---
Transthoracic Echocardiogram Patient (Last, First, Middle): Edward Shaw E Gender: Male Date of : 1965 Age: 56 Procedure Date: 11/27/2021 Procedure Type: Transthoracic Echocardiogram Location: OP Height: 182.88 cm Weight: 104.33 kg BSA: 2.26 m2 Heart Rate: bpm BP: 120 / 90 mmHg Movie Shot Camera Operator: Referring MD: Anders German MD Forming Yardage Control Operator: Anders German MD Symptoms: I63.9 - Cerebral infarction, unspecified Study Quality: Fair ECG Rhythm: Sinus Conclusions: - 1. No evidence of PFO 2. Normal LV systolic function Findings Procedure Information Contrast agent, definity, is being given per protocol without apparent complications. Left Ventricle Normal left ventricular size, thickness, and systolic function. The visually estimated ejection fraction is between 60-65%. There is no evidence of regional wall motion abnormalities. Spectral Doppler is indicative of an impaired relaxation filling pattern. Evidence suggests grade I (mild) diastolic dysfunction. Atria There is no evidence of interatrial shunt by agitated saline. Measurements Tricuspid Valve TR Pk Juan Manuel: 2.45 TR Pk Grad: 24.00 RA Press: 3.00 RVSP: 27.00 Updated in Other Vendor System with Status of Final Branden Carter MD electronically signed on 11/28/2021 12:29:06 PM with status of Final
== END ==
LOC: HO.CARD 07:05
PROVIDERS: PCP Internal Medicine; Visit Provider Internal Medicine Cardiovascular Disease
DX: I63.9 Cerebral infarction, unspecified (principal)
CPT/HCPCS: 93306; Q9957

== ENCOUNTER 2021-12-02 06:15 | Inpatient (IN) | payer OTHER, MEDICAID, SELFPAY ==
[2021-11-19 13:30] VITALS: BP 118/77; PULSE 108; RESP 20; O2SAT 94; BMI 31.7
--- NOTE | 2021-11-19 13:51 | P.CONAN_ITS ---
Documented by User: Nina Cunningham NP 12/01/21 08:45 HPI - Anesthesia Eval Consult details Narrative: 56yo M for Right Total Hip Replacement Elquis for hx stroke Cardiac w/u for SOB. Cleared at [facility] per pulmo [facility] Active Problems Active Problems: All Active Problems (Updated 11/19/21 @ 13:45 by Karely Philippe RN) Osteoarthritis of right hip (Acute) Nephrolithiasis (Acute) Dyspnea on exertion (Acute) Preop cardiovascular exam (Acute) COPD (chronic obstructive pulmonary disease) (Acute) Anxiety and depression (Acute) Dyspnea on exertion (Acute) CVA (cerebral vascular accident) (Acute) Atrial fibrillation (Acute) Past Medical History Medical History (Updated 11/26/21 @ 13:19 by Ana Cristina Mixon) Anxiety and depression Arthritis Atrial fibrillation COPD (chronic obstructive pulmonary disease) CVA (cerebral vascular accident) Dyspnea on exertion GERD (gastroesophageal reflux disease) Kidney stones On anticoagulant therapy Tremor, anxiety related Family History Family History Mother No problems noted. Father No problems noted. Family history of problems with anesthesia: No Surgical History Surgical History (Updated 11/18/21 @ 10:00 by Karely Philippe RN) H/O removal of cyst History of varicose vein ligation and stripping Hx of surgical procedure History of Problems with Anesthesia: No Social History Social History (Updated 11/09/21 @ 14:49 by MIKE Briscoe) Are you a primary skin care technician to a significant other at home: No Do you presently have visiting nurse or other home services: Yes (Home Health Aide) Alcohol intake: never Patient Tobacco Use Status: Never used Tobacco Substance Use Type Other:: Former heavy Marijuana use-> 30 yr ago Have you been hit, kicked, punched, or otherwise hurt by someone within the past year? If so, by whom?: No Are you DNR?: No Advance Directives: No Advance Directives Information Provided: Yes (Given info) Advance Directives on File: No Recently lost weight without trying: No Eating poorly because of decreased appetite: No Nutrition Risks: No Nutritional Risk Narrative Narrative: No recent illness No angina. KING current cardiac w/u Meds Allergies Allergy/AdvReac Type Severity Reaction Status Date / Time diclofenac [From VOLTAREN] Allergy Unknown SEVERE Verified 12/02/21 06:23 RASH, FACIAL SWELLING Home Medications Medication Instructions Recorded Confirmed Last Taken Type apixaban 2.5 mg tablet (Eliquis) 2.5 mg PO BID 08/24/21 12/02/21 11/29/21 History omeprazole 20 mg capsule,delayed 20 mg PO DAILY 08/24/21 11/17/21 Unknown History release atorvastatin 80 mg tablet 80 mg PO DAILY 09/28/21 11/17/21 Unknown History diazepam 5 mg tablet 5 mg PO TID PRN 09/28/21 11/17/21 Unknown History quetiapine 400 mg tablet 400 mg PO BEDTIME 09/28/21 11/17/21 Unknown History hydroxyzine pamoate 25 mg capsule 25 mg PO BID 10/28/21 11/17/21 Unknown History sertraline 150 mg capsule 200 mg PO DAILY cap 10/28/21 11/17/21 Unknown History quetiapine 25 mg tablet 1 tab PO TID PRN 11/18/21 11/18/21 Unknown History Exam Exam Date and Time: November 19, 2021 1351 Height,Weight and Vital Signs: Height 6 ft Weight 106.141 kg Last Vital Signs Pulse 108 H 11/19/21 13:30 Resp 20 11/19/21 13:30 BP 118/77 11/19/21 13:30 Pulse Ox 94 11/19/21 13:30 Pertinent Lab Results Pertinent Lab Results: Laboratory Tests 11/19/21 11/19/21 14:58 14:58 WBC 6.4 Hgb 16.7 Hct 49.3 Plt Count 162 Sodium 140 Potassium 4.3 Chloride 110 H Carbon Dioxide 26 BUN 12 Creatinine 0.83 Narrative Narrative: EKG 10/2021 Sinus rhythm 98 beats per minute, T-wave inversions in inferior and lateral leads with differentials of left ventricle hypertrophy versus ischemia, QT interval 413 milliseconds. ECHO 10/2021 Conclusions: - Normal left ventricular size, thickness, and systolic function. The visually estimated ejection fraction is between 55-60%.? ? ? - Normal right ventricular cavity size and systolic function.? ? - There is mild dilatation of the ascending aorta measuring 3.40 cm.? - We will bring him back for a bubble study given h/o stroke and ?intracardiac shunt. ?? Bubble Study 11/2021 Conclusions: - 1.? No evidence of PFO ? 2. Normal LV systolic function? NM cardiolite stress test 10/2021 IMPRESSION: ? 1.? Myocardial perfusion imaging study shows no evidence of any ischemia or infarction. 2.? Gated LVEF is 63% during stress and 70% during rest. 3. Transient ischemic dilatation not present. ? EKG component of the test reported separately. (Nondiagnostic) PFT 10/2021 IMPRESSION:? Mild obstructive ventilatory defect.? No bronchodilator response.? Decreased expiratory reserve volume suggests extrathoracic restriction, likely secondary to abdominal obesity. Airway Mallampati Class: III (small mouth opening) TM Dist: >3cm Neck ROM: Full Heart: RRR Lungs: CTAB Assessment and Plan Assessment Anesthesia Assessment: Anesthesia Plan Discussed and PAT Visit Final Anesthetic Review Family History of Problems with Anesthesia: No History of Problems with Anesthesia: No Documented by User: Hamilton Lim MD 12/02/21 07:19 [facility] Past Medical History Medical History (Updated 11/26/21 @ 13:19 by Ana Cristina Mixon) Anxiety and depression Arthritis Atrial fibrillation COPD (chronic obstructive pulmonary disease) CVA (cerebral vascular accident) Dyspnea on exertion GERD (gastroesophageal reflux disease) Kidney stones On anticoagulant therapy Tremor, anxiety related Family History Family History Mother No problems noted. Father No problems noted. Surgical History Surgical History (Updated 11/18/21 @ 10:00 by Karely Philippe RN) H/O removal of cyst History of varicose vein ligation and stripping Hx of surgical procedure Social History Social History (Updated 11/09/21 @ 14:49 by MIKE Briscoe) Are you a primary skin care technician to a significant other at home: No Do you presently have visiting nurse or other home services: Yes (Home Health Aide) Alcohol intake: never Patient Tobacco Use Status: Never used Tobacco Substance Use Type Other:: Former heavy Marijuana use-> 30 yr ago Have you been hit, kicked, punched, or otherwise hurt by someone within the past year? If so, by whom?: No Are you DNR?: No Advance Directives: No Advance Directives Information Provided: Yes (Given info) Advance Directives on File: No Recently lost weight without trying: No Eating poorly because of decreased appetite: No Nutrition Risks: No Nutritional Risk Meds Allergies Allergy/AdvReac Type Severity Reaction Status Date / Time diclofenac [From VOLTAREN] Allergy Unknown SEVERE Verified 12/02/21 06:23 RASH, FACIAL SWELLING Home Medications Medication Instructions Recorded Confirmed Last Taken Type apixaban 2.5 mg tablet (Eliquis) 2.5 mg PO BID 08/24/21 12/02/21 11/29/21 History omeprazole 20 mg capsule,delayed 20 mg PO DAILY 08/24/21 11/17/21 Unknown History release atorvastatin 80 mg tablet 80 mg PO DAILY 09/28/21 11/17/21 Unknown History diazepam 5 mg tablet 5 mg PO TID PRN 09/28/21 11/17/21 Unknown History quetiapine 400 mg tablet 400 mg PO BEDTIME 09/28/21 11/17/21 Unknown History hydroxyzine pamoate 25 mg capsule 25 mg PO BID 10/28/21 11/17/21 Unknown History sertraline 150 mg capsule 200 mg PO DAILY cap 10/28/21 11/17/21 Unknown History quetiapine 25 mg tablet 1 tab PO TID PRN 11/18/21 11/18/21 Unknown History Assessment and Plan Assessment Anesthesia Assessment: Chart Reviewed Final Anesthetic Review NPO: Yes ASA Class: III Final Preanesthetic Review: No Changes in Pt Med Stat, Meds/Allgs Chart Reviewed, Consent Obtained/Reviewed and Anes Risks/Benef Reviewed Patient Risk: Intermediate Procedure Risk: Intermediate Anesthetic Plan Anesthetic Plan: GA Disposition: Standard PACU
[2021-11-19 15:09] LABS: Hematocrit 49.3 % (42.0-52.0); Hemoglobin 16.7 g/dl (14.0-18.0); Mean Corpuscular HGB Conc 33.9 g/dl (31.0-36.0); Mean Corpuscular Hemoglobin 30.5 pg (27.0-33.0); Mean Corpuscular Volume 90.1 fL (80.0-98.0); Mean Platelet Volume 8.9 fL (9.4-12.4); Platelet Count 162 X10*3/uL (160-400); Red Blood Count 5.47 X10*6/uL (4.60-5.80); Red Cell Distribution Width 12.5 % (11.0-16.0); White Blood Count 6.4 X10*3/uL (4.8-10.8)
[2021-11-19 15:50] LABS: Anion Gap 8 (12-20); Blood Urea Nitrogen 12 mg/dL (9-16); Calcium 9.2 mg/dL (8.4-10.2); Carbon Dioxide 26 mmol/L (22-29); Chloride 110 mmol/L (96-108); Creatinine Clr Calc Pharmacy 126.6; Estimated Glomerular Filt Rate > 60; Glucose Random 83 mg/dL (60-115); Potassium 4.3 mmol/L (3.3-5.1); Sodium 140 mmol/L (135-145)
[2021-11-19 16:56] LABS: MRSA Nasal PCR NEGATIVE (Negative); SA Nasal PCR POSITIVE (Negative)
[2021-12-02] VITALS (15 sets, daily range): BP systolic 112–202; BP diastolic 74–119; PULSE 85–114; RESP 9–20; TEMP 36.2–36.8; O2SAT 90–99
--- NOTE | ~2021-12-02 | XR_ITS ---
EXAMINATION: XR PELVIS CLINICAL INFORMATION: Post hip replacement. COMPARISON: Previous x-ray of the pelvis August 2021. TECHNIQUE: AP view of the pelvis. FINDINGS: There is a new right hip replacement in satisfactory position. No fracture or dislocation is seen. There is arthritis of the left hip joint. There are postoperative changes to the soft tissues. XR/XR pelvis 1-2V IMPRESSION: Satisfactory appearance of right hip replacement.
[2021-12-02 06:39] LABS: MANUAL DIFF FLAG NO
[2021-12-02 06:42] LABS: Basophils Percent Auto 0.6 % (0-2); Eosinophils Absolute Auto 0.5 X10*3/uL (0.0-0.4); Eosinophils Percent Auto 6.4 % (0-4); Hematocrit 49.4 % (42.0-52.0); Hemoglobin 17.2 g/dl (14.0-18.0); Imm Gran Abs Auto 0.03 X10*3/uL (0.00-0.03); Imm Gran Pct Auto 0.4 % (0.0-0.4); Lymphocytes Absolute Auto 2.2 X10*3/uL (1.2-4.9); Lymphocytes Percent Auto 31.6 % (20-40); Mean Corpuscular HGB Conc 34.8 g/dl (31.0-36.0); Mean Corpuscular Hemoglobin 31.2 pg (27.0-33.0); Mean Corpuscular Volume 89.5 fL (80.0-98.0); Mean Platelet Volume 9.2 fL (9.4-12.4); Monocytes Percent Auto 13.7 % (2-11); Neutrophils Absolute Auto 3.3 x10*3/uL (2.0-8.3); Neutrophils Percent Auto 47.3 % (45-73); Platelet Count 201 X10*3/uL (160-400); Red Blood Count 5.52 X10*6/uL (4.60-5.80); Red Cell Distribution Width 12.7 % (11.0-16.0)
[2021-12-02 06:46] LABS: COVID-19 Test Negative (Negative)
[2021-12-02] MEDS: oxyCODONE HCl ER 10 MG TAB.ER.12H PO ×2 (06:50→19:51)
[2021-12-02] MEDS: Lactated Ringers 1,000 ML 100 ML IVCONT ×3 (07:00→19:49)
[2021-12-02] MEDS: Albuterol Sulfate (0.083%) 2.5 MG/3 ML VIAL.NEB INHALE (07:14)
--- NOTE | 2021-12-02 09:07 | MHC.SHP ---
Pre-Procedural Eval Section A Date of Service: 12/02/21 The patient is an INPATIENT: No Changes since office visit: Yes Patient answered all questions; No Cold of Flu in the past 2 weeks, No New Medical Problems and No Changes in Medication The History & Physical has been completed within 30 days and I have reviewed it.: Yes Section B Chief Complaint: RTHA Allergies: Allergies Allergy/AdvReac Type Severity Reaction Status Date / Time diclofenac [From VOLTAREN] Allergy Unknown SEVERE Verified 12/02/21 06:23 RASH, FACIAL SWELLING Plan I have reviewed the history and physical and performed a pertinent physical examination on my patient. No changes have occurred unless specified.
--- NOTE | 2021-12-02 09:08 | P.BOP_ITS ---
Brief Operative Note Date of Service: 12/02/21 Pre-op diagnosis: right hip OA Post-op diagnosis: same Procedure: Right PANCHITO Implants: Strykler Trident 54/20 deg lip; Accolade 2 127 deg #5 / +2.5 36 ceramic Surgeon: Melo Bucio MD Anesthesia: GETA Was an Evaluation Specialist used for this Procedure?: Yes Evaluation Specialist: Uzma Estrella Estimated blood loss (mL): 250 IV fluids (mL): 1,000 Pathology: other Condition: stable Disposition: PACU
--- NOTE | 2021-12-02 09:11 | P.OP_ITS ---
Operative Note Operative Note Date of Service: 12/02/21 Narrative: Date of Service: 12/02/21 Pre-op diagnosis: right hip OA Post-op diagnosis: same Procedure: Right PANCHITO Implants: Strykler Trident? 54/20 deg lip; Accolade 2 127 deg #5 / +2.5 36 ceramic Surgeon: Melo Bucio MD Anesthesia: GETA Was an Cardiology Clinical Consultant used for this Procedure?: Yes Cardiology Clinical Consultant: Uzma Estrella Estimated blood loss (mL): 250 IV fluids (mL): 1,000 Pathology: other Condition: stable Disposition: PACU Procedure in detail: Patient was brought into the operating room and placed in the left lateral decubitus position. All bony prominences were well padded and the limb was prepped and draped in standard sterile fashion. Time-out was called to identify proper site procedure proper surgeon IV antibiotics and 1 g of transaxemic acid were administered. I began by making a curvilinear incision over the posterolateral aspect of the greater trochanter. Dissection was taken down to the tensor fascia which was incised in line with the incision and a Charnley retractor was placed. Cautery was used to maintain hemostasis. A Werewolf cautery wand was used to maintain hemostasis. The hip was internally rotated and the external rotators were identified. The vessels were cauterized and a full- thickness capsular/external rotator layer was developed starting just proximal to the piriformis. This layer was tagged and a dull Hohmann retractor was placed underneath the neck in the hip was dislocated. The head was deformed and eburnated.. A neck cut was made 1 cm proximal to the lesser trochanter and the head and neck were removed and measured on the back table. I started with a 46mm reamer and sequentially reamed up to a size 54 and impacted a 54 mm cup at approximately 45 degrees of inclination and 25 degrees of version. I then placed a 20 deg posterior-lipped liner and turned my attention to the femur. I identified the piriformis insertion and used this as a starting point for my lexie cutter. The medius tendon was protected with a Hibs retractor. I then used a Charnley awl to identify the canal and a curved curette to remove the lateral bone. I irrigated copiously. I then sequentially broached in the patient's natural version to a size #5 and placed my trial implants. Using a trail head I took the hip through range of motion. I was very satisfied with the stability and length. Therefore I removed all instrumentation and copiously irrigated. I placed my final femoral implant and again took the hip through range of motion and was satisfied with the stability and length using a +2.5 6 trial. The final ceramic head was implanted. I then irrigated for 3 minutes with iodine and placed 1 g of local tranaxemic acid. I then performed a capsular closure with 2.0 fiberwire, Joesph's fascia with 0 Vicryl, subcuticular with 2-0 Vicryl and the skin with gurmeet. Patient was placed into a sterile dressing. Patient was extubated brought to the recovery room in stable condition.There were no known complications.
[2021-12-02] MEDS: oxyCODONE HCl Immed Release 5 MG TABLET PO (10:25)
--- NOTE | 2021-12-02 11:18 | PHA.MEDREC ---
Pharmacy Consult ? Medication Reconciliation Pharmacy has completed the medication reconciliation.
[2021-12-02] MEDS: Sertraline HCL 100 MG TABLET 200 MG PO (12:13)
[2021-12-02] MEDS: Acetaminophen 325 MG TABLET 650 MG PO (12:14)
[2021-12-02] MEDS: HYDROmorphone HCl 0.5 MG/0.5 ML SYRINGE 0.25 MG IVPUSH ×2 (15:23→21:59)
--- NOTE | 2021-12-02 15:59 | P.CONHOSP_ITS ---
History of Present Illness Data of Consult Service Date: 12/02/21 Primary Care Provider: Giovani Choi MD HPI Reason for consult: Routine Medical This is a 56 y/o M with a PMH as outlined below who is admitted post op R PANCHITO. Medical consult requested for routine medical management. Patient is seen and examined in his room this afternoon. He denies any complaints other than hip soreness. Denies cp or sob. In regards to his medical history -- reports a history of CVA, and PAF. Reports he is on Eliquis. Review of Systems Review of Systems: negative except HPI [facility] Medical History Anxiety and depression Arthritis Atrial fibrillation COPD (chronic obstructive pulmonary disease) CVA (cerebral vascular accident) Dyspnea on exertion GERD (gastroesophageal reflux disease) Kidney stones On anticoagulant therapy Tremor, anxiety related Family History Mother No problems noted. Father No problems noted. Surgical History H/O removal of cyst History of varicose vein ligation and stripping Hx of surgical procedure Social History Household Members: None Housing: House Are you a primary morning caregiver to a significant other at home: No Do you presently have visiting nurse or other home services: No Alcohol intake: never Patient Tobacco Use Status: Never used Tobacco Use of substances other than those prescribed or required for medical reasons: No Substance Use Type Other:: Former heavy Marijuana use-> 30 yr ago Have you been hit, kicked, punched, or otherwise hurt by someone within the past year? If so, by whom?: No Do you feel safe in your current relationship?: No Current Relationship Is there a partner from a previous relationship who is making you feel unsafe no w?: No Are you made to feel afraid or neglected: No Amish Healthcare Practices: protestant Are you DNR?: No Advance Directives: No Advance Directives Information Provided: Yes (Given info) Advance Directives on File: No Do you have thoughts of harming others: None Do you have a plan to hurt others: No Plan Recently lost weight without trying: No Eating poorly because of decreased appetite: No Nutrition Risks: No Nutritional Risk Meds Allergies Allergy/AdvReac Type Severity Reaction Status Date / Time diclofenac [From VOLTAREN] Allergy Unknown SEVERE Verified 12/02/21 06:23 RASH, FACIAL SWELLING Active Medications: Current Medications Acetaminophen (Acetaminophen 325 Mg Tablet) 650 mg PO Q6H PRN PRN Reason: Pain, Mild (Pain Scale 1-3) Last Admin: 12/02/21 12:14 Dose: 650 mg Documented by: Atorvastatin Calcium (Atorvastatin Calcium 80 Mg Tablet) 80 mg PO BEDTIME [facility] Celecoxib (Celecoxib 200 Mg Capsule) 200 mg PO BID [facility] Diazepam (Diazepam 5 Mg Tablet) 5 mg PO TID PRN PRN Reason: Anxiety Docusate Sodium (Docusate Sodium 100 Mg Capsule) 100 mg PO BID [facility] Hydromorphone HCl (Hydromorphone Hcl 0.5 Mg/0.5 Ml Syringe) 0.25 mg IVPUSH Q4H PRN; Protocol PRN Reason: Pain, Severe (Pain Scale 7-10) Last Admin: 12/02/21 15:23 Dose: 0.25 mg Documented by: Hydroxyzine HCl (Hydroxyzine Hcl 25 Mg Tablet) 25 mg PO BID [facility] Lactated Ringer's (Lr) 1,000 mls @ 100 mls/hr IVCONT .Q10H [facility] Last Admin: 12/02/21 15:28 Dose: Not Given Documented by: Cefazolin Sodium/Dextrose (Ancef) 2 gm in 50 mls @ 100 mls/hr IV POSTOP [facility] Omeprazole (Omeprazole 20 Mg Capsule.Dr) 20 mg PO DAILY@0630 [facility] Ondansetron HCl (Ondansetron Hcl 4 Mg/2 Ml Vial) 4 mg IVPUSH Q8H PRN PRN Reason: Nausea and Vomiting Oxycodone HCl (Oxycodone Hcl Immed Release 5 Mg Tablet) 5 mg PO Q4H PRN PRN Reason: Pain, Moderate (Pain Scale 4-6 Last Admin: 12/02/21 10:25 Dose: 5 mg Documented by: Oxycodone HCl (Oxycodone Hcl Er 10 Mg Tab.Er.12h) 10 mg PO BID [facility] Quetiapine Fumarate (Quetiapine Fumarate 400 Mg Tablet) 400 mg PO BEDTIME [facility] Sertraline HCl (Sertraline Hcl 100 Mg Tablet) 200 mg PO DAILY [facility] Last Admin: 12/02/21 12:13 Dose: 200 mg Documented by: Sodium Chloride (0.9 % Sodium Chloride Flush 3 Ml Syringe) 3 [facility]USH [facility] Last Admin: 12/02/21 15:15 Dose: Not Given Documented by: Home Medications Medication Instructions Recorded Confirmed Last Taken Type apixaban 2.5 mg tablet (Eliquis) 2.5 mg PO BID 08/24/21 12/02/21 11/29/21 History omeprazole 20 mg capsule,delayed 20 mg PO DAILY 08/24/21 11/17/21 11/29/21 History release atorvastatin 80 mg tablet 80 mg PO DAILY 09/28/21 11/17/21 11/29/21 History diazepam 5 mg tablet 5 mg PO TID PRN 09/28/21 11/17/21 11/29/21 History quetiapine 400 mg tablet 400 mg PO BEDTIME 09/28/21 11/17/21 11/29/21 History hydroxyzine pamoate 25 mg capsule 25 mg PO BID 10/28/21 11/17/21 11/29/21 History sertraline 150 mg capsule 200 mg PO DAILY cap 10/28/21 11/17/21 11/29/21 History multivitamin 1 tab PO DAILY 12/02/21 12/02/21 11/29/21 History sertraline 100 mg tablet 2 tab PO DAILY 12/02/21 12/02/21 11/29/21 History Physical Exam Vital Signs and Narrative: Vital Signs: Last Vital Signs Temp 98.0 F 12/02/21 15:38 Pulse 106 H 12/02/21 15:38 Resp 18 12/02/21 15:38 BP 112/76 12/02/21 15:38 Pulse Ox 90 L 12/02/21 15:38 BMI result Body Mass Index 31.7 Const: Other: Constitutional - Awake and Alert, No apparent distress Eyes - PERRLA, EOMI Cardiovascular - S1S2, RRR, No edema Respiratory - Normal lung expansion, Normal respiratory effort, No respiratory distress, CTA bilaterally Gastrointestinal - NT / ND; +BS; No rebound or guarding - No CVA tenderness Extremities - no calf tenderness bilaterally, no swelling Musculoskeletal - Normal inspection, normal ROM Skin - Warm/Dry Neurological - Alert & oriented x3, No focal deficit Psychological - Appropriate affect Results Labs CBC and Chem 7: 12/02/21 06:30 03/31/22 14:58 Labs: Laboratory Results - last 24 hr 12/02/21 12/02/21 06:15 06:30 MCV 89.5 MCH 31.2 MCHC 34.8 RDW 12.7 Plt Count 201 MPV 9.2 L Immature Gran % (Auto) 0.4 Neut % (Auto) 47.3 Lymph % (Auto) 31.6 [place] % (Auto) 13.7 H Eos % (Auto) 6.4 H Baso % (Auto) 0.6 Lymph # (Auto) 2.2 [place] # (Auto) 1.0 Eos # (Auto) 0.5 H Baso # (Auto) 0.0 Abs Immat Gran (auto) 0.03 Absolute Neuts (auto) 3.3 Absolute Nucleated RBC 0.000 Nucleated RBC % (auto) 0.0 COVID-19 (YENNI) Negative COVID-19 Clin Com See Note Assessment and Plan (1) Atrial fibrillation: Status: Acute Plan 56 yo M with a history of PAF, CVA, Mild COPD not on inhalers who is admitted post elective R PANCHITO. Medical consult requested for routine medical management. The patient appears to be medically stable. In regards to his PAF and Eliquis -- he has had a previous CVA and this Eliquis should be resumed as soon as safe from surgical perspective. In regards to his mild COPD -- he does not appear to be on any inhalers at baseline. Currently no respiratory issues. Anxiety/Depression - continue his baseline medications R PANCHITO -- mgmt per ortho Medically stable at this time, will sign off. Please reconsult or tigerconnect with questions.
[2021-12-02] MEDS: Celecoxib 200 MG CAPSULE PO (19:52)
[2021-12-02] MEDS: QUEtiapine Fumarate 400 MG TABLET PO (19:52)
[2021-12-02] MEDS: hydrOXYzine HCL 25 MG TABLET PO (19:53)
[2021-12-02] MEDS: Docusate Sodium 100 MG CAPSULE PO (19:53)
[2021-12-02] MEDS: 0.9 % Sodium Chloride Flush 3 ML SYRINGE IVFLUSH (19:54)
[2021-12-02] MEDS: diazePAM 5 MG TABLET PO (21:59)
[2021-12-03] VITALS (8 sets, daily range): BP systolic 111–144; BP diastolic 67–79; PULSE 92–107; RESP 16–18; TEMP 36.1–36.7; O2SAT 93–97
[2021-12-03] MEDS: Omeprazole 20 MG CAPSULE.DR PO (05:33)
[2021-12-03] MEDS: Lactated Ringers 1,000 ML 100 ML IVCONT ×2 (05:33→18:28)
[2021-12-03 06:21] LABS: Basophils Percent Auto 0.1 % (0-2); Hematocrit 36.3 % (42.0-52.0); Hemoglobin 12.1 g/dl (14.0-18.0); Imm Gran Abs Auto 0.06 X10*3/uL (0.00-0.03); Imm Gran Pct Auto 0.5 % (0.0-0.4); Lymphocytes Absolute Auto 1.1 X10*3/uL (1.2-4.9); Lymphocytes Percent Auto 9.8 % (20-40); MANUAL DIFF FLAG SCAN; Mean Corpuscular HGB Conc 33.3 g/dl (31.0-36.0); Mean Corpuscular Hemoglobin 30.2 pg (27.0-33.0); Mean Corpuscular Volume 90.5 fL (80.0-98.0); Mean Platelet Volume 9.4 fL (9.4-12.4); Monocytes Absolute Auto 1.6 X10*3/uL (0.1-1.2); Monocytes Percent Auto 14.3 % (2-11); Neutrophils Absolute Auto 8.3 x10*3/uL (2.0-8.3); Neutrophils Percent Auto 75.3 % (45-73); Platelet Count 173 X10*3/uL (160-400); Red Blood Count 4.01 X10*6/uL (4.60-5.80); Red Cell Distribution Width 12.9 % (11.0-16.0); SCAN SMEAR FLAG 1
[2021-12-03 06:40] LABS: Anion Gap 13 (12-20); Blood Urea Nitrogen 22 mg/dL (9-16); Calcium 8.9 mg/dL (8.4-10.2); Carbon Dioxide 27 mmol/L (22-29); Chloride 103 mmol/L (96-108); Creatinine Clr Calc Pharmacy 131.3; Estimated Glomerular Filt Rate > 60; Glucose Fasting 137 mg/dL (60-99); Potassium 4.4 mmol/L (3.3-5.1); Sodium 139 mmol/L (135-145)
[2021-12-03 06:41] LABS: SLIDE REVIEW VERIFIED
--- NOTE | 2021-12-03 06:42 | HO.POSTANES ---
Post Anesthesia Evaluation Post Anesthesia Evaluation Vital Signs: Vital Signs Temp Pulse Resp BP Pulse Ox 12/03/21 03:45 97.6 F 104 H 16 111/67 93 12/02/21 23:47 98.2 F 108 H 16 134/74 92 12/02/21 19:38 98.1 F 108 H 20 141/91 H 93 Anesthesia: General Mental Status: Awake Pain Control: Satisfactory Nausea/Vomiting: None Hydration: Adequate Anesthesia-Related Issues: No Anes. Related Issues
[2021-12-03] MEDS: hydrOXYzine HCL 25 MG TABLET PO ×2 (07:39→20:50)
[2021-12-03] MEDS: Docusate Sodium 100 MG CAPSULE PO ×2 (07:39→20:50)
[2021-12-03] MEDS: oxyCODONE HCl ER 10 MG TAB.ER.12H PO ×2 (07:39→20:50)
[2021-12-03] MEDS: Sertraline HCL 100 MG TABLET 200 MG PO (07:40)
[2021-12-03] MEDS: oxyCODONE HCl Immed Release 5 MG TABLET PO ×3 (07:40→20:55)
[2021-12-03] MEDS: Celecoxib 200 MG CAPSULE PO ×2 (07:40→20:51)
--- NOTE | 2021-12-03 08:48 | P.PNOP_ITS ---
Subjective Subjective Date of Service: 12/03/21 Interval history: POD1 s/p RTHA. Patient resting comfortably in the chair. No overnight events. Pain is managed. No additional compaints. Physical Exam Vital Signs: Vital Signs: Last Vital Signs Temp 97.6 F 12/03/21 07:47 Pulse 92 12/03/21 08:27 Resp 17 12/03/21 07:47 BP 144/77 H 12/03/21 08:27 Pulse Ox 95 12/03/21 08:27 BMI result Body Mass Index 31.7 Const: General: cooperative, healthy appearing and no acute distress Resp: Effort & Inspection: normal respiratory effort and able to speak in complete sentences Cardio: Rate: regular rate Peripheral pulses: Peripheral pulses 2+ throughout GI: Palpation (GI): Soft to palpation Skin: Lesions: no lesions Rashes: no rashes Extrem: Other: Right hip Aquacel is clean, dry, and intact. NVI. Procedures Date of Service Date of Service: 12/03/21 Progress Note: A&P Assessment and plan (1) Status post total hip replacement, right: Status: Acute Assessment and Plan: Continue pain mgmnt Begin ASA for dvt ppx begin PT for RTHA- WBAT Dispo planning-Pending PT eval, pain mgmnt Fall Risk Details Current Medications: Current Medications Acetaminophen (Acetaminophen 325 Mg Tablet) 650 mg PO Q6H PRN PRN Reason: Pain, Mild (Pain Scale 1-3) Last Admin: 12/02/21 12:14 Dose: 650 mg Documented by: Aspirin (Aspirin 325 Mg Tablet) 325 mg PO BID@1100,2300 [facility] Atorvastatin Calcium (Atorvastatin Calcium 80 Mg Tablet) 80 mg PO BEDTIME [facility] Celecoxib (Celecoxib 200 Mg Capsule) 200 mg PO BID [facility] Last Admin: 12/03/21 07:40 Dose: 200 mg Documented by: Diazepam (Diazepam 5 Mg Tablet) 5 mg PO TID PRN PRN Reason: Anxiety Last Admin: 12/02/21 21:59 Dose: 5 mg Documented by: Docusate Sodium (Docusate Sodium 100 Mg Capsule) 100 mg PO BID [facility] Last Admin: 12/03/21 07:39 Dose: 100 mg Documented by: Hydromorphone HCl (Hydromorphone Hcl 0.5 Mg/0.5 Ml Syringe) 0.25 mg IVPUSH Q4H PRN; Protocol PRN Reason: Pain, Severe (Pain Scale 7-10) Last Admin: 12/02/21 21:59 Dose: 0.25 mg Documented by: Hydroxyzine HCl (Hydroxyzine Hcl 25 Mg Tablet) 25 mg PO BID [facility] Last Admin: 12/03/21 07:39 Dose: 25 mg Documented by: Lactated Ringer's (Lr) 1,000 mls @ 100 mls/hr IVCONT .Q10H [facility] Last Admin: 12/03/21 05:33 Dose: 100 mls/hr Documented by: Cefazolin Sodium/Dextrose (Ancef) 2 gm in 50 mls @ 100 mls/hr IV POSTOP [facility] Omeprazole (Omeprazole 20 Mg Capsule.Dr) 20 mg PO DAILY@0630 [facility] Last Admin: 12/03/21 05:33 Dose: 20 mg Documented by: Ondansetron HCl (Ondansetron Hcl 4 Mg/2 Ml Vial) 4 mg IVPUSH Q8H PRN PRN Reason: Nausea and Vomiting Oxycodone HCl (Oxycodone Hcl Immed Release 5 Mg Tablet) 5 mg PO Q4H PRN PRN Reason: Pain, Moderate (Pain Scale 4-6 Last Admin: 12/03/21 07:40 Dose: 5 mg Documented by: Oxycodone HCl (Oxycodone Hcl Er 10 Mg Tab.Er.12h) 10 mg PO BID [facility] Last Admin: 12/03/21 07:39 Dose: 10 mg Documented by: Quetiapine Fumarate (Quetiapine Fumarate 400 Mg Tablet) 400 mg PO BEDTIME [facility] Last Admin: 12/02/21 19:52 Dose: 400 mg Documented by: Sertraline HCl (Sertraline Hcl 100 Mg Tablet) 200 mg PO DAILY [facility] Last Admin: 12/03/21 07:40 Dose: 200 mg Documented by: Sodium Chloride (0.9 % Sodium Chloride Flush 3 Ml Syringe) 3 ml IVFLUSH QSHIFT [facility] Last Admin: 12/02/21 19:54 Dose: 3 ml Documented by: Time Spent With Patient Time: Total time spent is greater than 50% in coordination of care (as documented) at patient's floor/unit and/or counseling patient: Quality Stroke Does the patient have a stroke diagnosis?: No VTE Prior VTE?: No VTE Risk Level:: Surgical - very high VTE Device Contraindication: N/A - Device Ordered VTE Drug Contraindication: N/A - Med Ordered
[2021-12-03] MEDS: Aspirin 325 MG TABLET PO ×2 (11:46→22:13)
--- NOTE | 2021-12-03 16:13 | MHC.CM.PN ---
PATIENT LIVES ALONE HE HAS 19 HOURS OF WEEKLY EPIC APPLICATION COORDINATOR SERVICES HE ALSO HAS A WALKER AND ROLLATOR NEW REFERRAL TO [facility] PER REQUEST. POSSIBLE DC TO HOME TOMORROW BROTHER IN LAW [facility] WILL PROVIDE TRANSPORT HOME. PATIENT HAS BEEN COVID-19 VACCINATED X 2. PFIZER SERIES. IMM 12/03 IN CHART.
[2021-12-03] MEDS: 0.9 % Sodium Chloride Flush 3 ML SYRINGE IVFLUSH (18:10)
[2021-12-03] MEDS: QUEtiapine Fumarate 400 MG TABLET PO (20:50)
[2021-12-03] MEDS: Atorvastatin Calcium 80 MG TABLET PO (20:51)
[2021-12-03] MEDS: diazePAM 5 MG TABLET PO (20:55)
[2021-12-04 03:43] VITALS: BP 110/73; PULSE 88; RESP 16; TEMP 36.8; O2SAT 93
[2021-12-04] MEDS: Lactated Ringers 1,000 ML 100 ML IVCONT (04:17)
[2021-12-04 05:58] LABS: MANUAL DIFF FLAG NO
[2021-12-04 06:01] LABS: Basophils Percent Auto 0.4 % (0-2); Eosinophils Absolute Auto 0.1 X10*3/uL (0.0-0.4); Eosinophils Percent Auto 1.4 % (0-4); Hematocrit 33.2 % (42.0-52.0); Hemoglobin 11.1 g/dl (14.0-18.0); Imm Gran Pct Auto 1.1 % (0.0-0.4); Lymphocytes Absolute Auto 2.4 X10*3/uL (1.2-4.9); Lymphocytes Percent Auto 26.8 % (20-40); Mean Corpuscular HGB Conc 33.4 g/dl (31.0-36.0); Mean Corpuscular Hemoglobin 31.1 pg (27.0-33.0); Mean Platelet Volume 9.3 fL (9.4-12.4); Monocytes Absolute Auto 1.3 X10*3/uL (0.1-1.2); Monocytes Percent Auto 14.2 % (2-11); Neutrophils Percent Auto 56.1 % (45-73); Platelet Count 131 X10*3/uL (160-400); Red Blood Count 3.57 X10*6/uL (4.60-5.80); Red Cell Distribution Width 13.2 % (11.0-16.0)
[2021-12-04] MEDS: Omeprazole 20 MG CAPSULE.DR PO (06:03)
[2021-12-04 06:31] LABS: Anion Gap 9 (12-20); Blood Urea Nitrogen 20 mg/dL (9-16); Carbon Dioxide 29 mmol/L (22-29); Chloride 106 mmol/L (96-108); Creatinine Clr Calc Pharmacy 129.7; Estimated Glomerular Filt Rate > 60; Glucose Fasting 110 mg/dL (60-99); Potassium 4.2 mmol/L (3.3-5.1); Sodium 140 mmol/L (135-145)
[2021-12-04 07:44] VITALS: BP 151/105; PULSE 84; RESP 18; TEMP 36; O2SAT 97
--- NOTE | 2021-12-04 08:09 | P.DS_ITS ---
DS: Providers Provider Date of Service: 12/04/21 Date of admission: 12/02/21 06:15 Primary care physician: Giovani Choi MD Consults: 12/02/21 11:00 Consult to Hospitalist Routine Consulting Provider: Hospitalist Reason For Exam: routine medical management DS: Diagnosis Discharge Diagnosis (1) Status post total hip replacement, right: Status: Acute DS: Summary Hospital Course Hospital Course: The patient underwent a successful arthroplasty, was transferred to PACU and then to the floor to recover. During their stay, their vitals were stable, afebrile at 96.8 . Labs were unremarkable, H/H 11.1/33.2. POD 1 he was started on ASA for DVT ppx- resume eliquis PO d 2 . He also received services PT and OT twice a day. Prior to discharge, their dressing was change, incision clean dry and intact, new Aquacel dressing applied and the plan was to be discharged home with vna Time Spent with Patient Time attestation: Total time spent providing and/or coordinating discharge services: Discharge coordination time: Less than 30 minutes Quality: Safe Use of Opioids Does Pt have an Active Cancer Diagnosis on the Problem List?: No Quality: Stroke Does the patient have a stroke diagnosis?: No Physical Exam Vital Signs: Vital Signs: Last Vital Signs Temp 96.8 F 12/04/21 07:44 Pulse 84 12/04/21 07:44 Resp 18 12/04/21 07:44 BP 151/105 H 12/04/21 07:44 Pulse Ox 97 12/04/21 07:44 BMI result Body Mass Index 31.7 Extrem: Other: incision clean dry and intact. Stephanie intact. No erythema or effusion. Calf supple nontender. Neurovascularly intact. DS: Data Data Completed and Pending Pending studies at discharge: Pending at discharge 12/02/21 08:48 Surgical [PTH] Routine Labs on day of discharge: Laboratory Results - last 24 hr 12/04/21 12/04/21 05:44 05:44 WBC 9.0 RBC 3.57 L Hgb 11.1 L Hct 33.2 L MCV 93.0 MCH 31.1 MCHC 33.4 RDW 13.2 Plt Count 131 L MPV 9.3 L Immature Gran % (Auto) 1.1 H Neut % (Auto) 56.1 Lymph % (Auto) 26.8 [place] % (Auto) 14.2 H Eos % (Auto) 1.4 Baso % (Auto) 0.4 Lymph # (Auto) 2.4 [place] # (Auto) 1.3 H Eos # (Auto) 0.1 Baso # (Auto) 0.0 Abs Immat Gran (auto) 0.10 H Absolute Neuts (auto) 5.0 Absolute Nucleated RBC 0.000 Nucleated RBC % (auto) 0.0 Sodium 140 Potassium 4.2 Chloride 106 Carbon Dioxide 29 Anion Gap 9 L BUN 20 H Creatinine 0.81 Estim Creat Clear Calc 129.7 Estimated GFR > 60 Fasting Glucose 110 H Calcium 8.0 L D Discharge Plan Discharge Patient Disposition: Home Health Service Discharge Diagnosis: s/p RTHA Referrals: Uzma Estrella PA-C [Physician Weed Control Inspector] - 1 Week (12/17/21 at 1:45) Discharge Medications: New celecoxib 200 mg Capsule 200 mg PO BID 30 Days Qty: 60 0RF docusate sodium 100 mg Capsule 100 mg PO BID 30 Days Qty: 60 0RF oxycodone 5 mg Tablet 5 mg PO Q4H PRN (Reason: Pain, Moderate (Pain Scale 4-6) 7 Days Qty: 42 0RF acetaminophen 325 mg Tablet 650 mg PO Q6H PRN (Reason: Pain, Mild (Pain Scale 1-3)) 30 Days Qty: 240 0RF Continued (DME) Electric reclining chair See Rx Instructions .ROUTE .MEDSUPPLY Qty: 1 0RF Rx Instructions: As directed multivitamin Tablet 1 tab PO DAILY 0RF sertraline 100 mg tablet 2 tab PO DAILY 0RF quetiapine 400 mg tablet 400 mg PO BEDTIME 0RF diazepam 5 mg tablet 5 mg PO TID PRN (Reason: Anxiety) 0RF atorvastatin 80 mg tablet 80 mg PO DAILY 0RF omeprazole 20 mg capsule,delayed release(DR/EC) 20 mg PO DAILY 0RF Eliquis 2.5 mg tablet 2.5 mg PO BID 0RF sertraline 150 mg capsule 200 mg PO DAILY 0RF hydroxyzine pamoate 25 mg capsule 25 mg PO BID 0RF Discharge Orders: Discharge Order (Routine); Ordered 12/04/21 Ordered By: Wero Ramirez Diet: regular diet Activity on Discharge: Use cane or walker Stand Alone Forms: Patient Portal Discharge page Care Plan Goals: rstore fxn to right hip Health Concerns: none Plan of Treatment: Physical Therapy for total hip arthroplasty: posterior precautions, gait training, ROM, strength Limit stair climbing No showering, no tub bath-keep dressing clean, dry and intact No driving x6 weeks Continue Eliquis at regular dose Follow up with [facility] in 2 weeks Assessment: stable for d/c
[2021-12-04 08:50] VITALS: PULSE 84; O2SAT 97
[2021-12-04] MEDS: Aspirin 325 MG TABLET PO (09:21)
[2021-12-04] MEDS: Docusate Sodium 100 MG CAPSULE PO (09:22)
[2021-12-04] MEDS: Celecoxib 200 MG CAPSULE PO (09:22)
[2021-12-04] MEDS: hydrOXYzine HCL 25 MG TABLET PO (09:22)
[2021-12-04] MEDS: oxyCODONE HCl Immed Release 5 MG TABLET PO (09:22)
[2021-12-04] MEDS: oxyCODONE HCl ER 10 MG TAB.ER.12H PO (09:23)
[2021-12-04 11:22] VITALS: BP 129/90; PULSE 84; RESP 18; TEMP 36.2; O2SAT 97
--- NOTE | 2021-12-04 11:38 | MHC.CM.PN ---
NURSE CAR STARTER NOTE DISCHARGE PLAN HOME WITH [facility] REFERRAL FOR HOME PHYSICAL THERAPY TRANSPORTATION PATIENT TO SELF [facility] ORTHOPEDIC SURGEON FOLLOW UP PER DISCHARGE INSTRUCTIONS IMM COMPLETED ON 12/02/21
--- NOTE | 2021-12-04 12:19 | W.MHC.F2F ---
Service Date Service Date: 12/04/21 Encounter Date of encounter: 12/04/21 Reasons for Services Signs and symptoms assessed: Pt. is considered homebound due to recent surgery. Unable to drive, poor balance, poor gait mechanics. Reason for physical therapy: home safety and mobility, therapeutic exercises, restore joint function, gait/transfer training, assess need for DME and ADL training Homebound: Leaving the home is medically contraindicated at this time without the asist of a device and/or another person due th the listed conditions above and below. Reason homebound: unsteady gait / fall risk, leg weakness, pain with ambulation, pain with transfers, poor balance / fall risk and unable to drive Homebound supporting statement: Pt. is considered homebound due to recent surgery. Unable to drive, poor balance, poor gait mechanics. Certification: Based on the above findings, I certify that this patient is confined to the home and needs intermittent intermediate care, physical therapy and/or speech therapy, or continues to need occupational therapy. The patient is under my care, and I have initiated the establishment of the plan of care. The patient will be followed by a physician who will periodically review the plan of care.
== END 2021-12-04 13:16 | disposition home health service (06) | DRG 470 ==
LOC: HO.SSSA 06:19 → HO.S3 10:01
PROVIDERS: Nurse Practitioner; Physician Assistant; Admitting Provider Orthopaedic Surgery; PCP Internal Medicine; Visit Provider Orthopaedic Surgery
PROC: 0SR903A Replacement of Right Hip Joint with Ceramic Synthetic Substitute, Uncemented, Open Approach (ICD-10-PCS; CPT 27130; principal; 2021-12-02 07:30)
DX: M16.11 Unilateral primary osteoarthritis, right hip (principal); K21.9 Gastro-esophageal reflux disease without esophagitis; F41.9 Anxiety disorder, unspecified; F32.A Depression, unspecified; I48.0 Paroxysmal atrial fibrillation; J44.9 Chronic obstructive pulmonary disease, unspecified; Z87.442 Personal history of urinary calculi; Z86.73 Personal history of transient ischemic attack (TIA), and cerebral infarction without residual deficits; Z20.822 Contact with and (suspected) exposure to COVID-19; Z79.01 Long term (current) use of anticoagulants; Z79.899 Other long term (current) drug therapy
CPT/HCPCS: 36415; 72170; 80048; 85025; 85027; 86850; 86900; 86901; 87635; 87640; 87641; 88304; 88311; 97110; 97116; 97162; 97166; C1776; J0131; J0690; J1100; J1170; J2250; J2405; J3010

== ENCOUNTER → 2021-12-09 10:23 | Outpatient (BNVA) | payer OTHER, MEDICAID, SELFPAY | PROVIDERS: PCP Internal Medicine; Visit Provider Physician Assistant | DX: Z47.1 Aftercare following joint replacement surgery (principal); Z96.641 Presence of right artificial hip joint | CPT/HCPCS: 99212 ==

== ENCOUNTER 2021-12-17 08:43 | Outpatient (RCR) | payer OTHER, MEDICAID, SELFPAY | END 2022-01-29 09:43 | disposition home or self-care (01) | LOC: HO.PT 08:43 | PROVIDERS: PCP Internal Medicine; Visit Provider Physician Assistant | DX: Z96.641 Presence of right artificial hip joint (principal) ==

== ENCOUNTER → 2021-12-18 09:39 | Outpatient (BNVA) | payer OTHER, MEDICAID, SELFPAY | PROVIDERS: PCP Internal Medicine; Visit Provider Orthopaedic Surgery | DX: Z47.1 Aftercare following joint replacement surgery (principal); Z96.641 Presence of right artificial hip joint | CPT/HCPCS: 99212 ==

== ENCOUNTER → 2022-01-15 11:10 | Outpatient (BNVA) | payer OTHER, MEDICAID, SELFPAY | PROVIDERS: PCP Internal Medicine; Visit Provider Physician Assistant | DX: Z47.1 Aftercare following joint replacement surgery (principal); Z96.641 Presence of right artificial hip joint | CPT/HCPCS: 99212 ==

== ENCOUNTER → 2022-01-28 10:31 | Outpatient (BNVA) | payer OTHER, MEDICAID, SELFPAY | PROVIDERS: PCP Internal Medicine; Visit Provider Internal Medicine | DX: Z01.810 Encounter for preprocedural cardiovascular examination (principal); I48.92 Unspecified atrial flutter; Q21.1 Atrial septal defect; Z86.73 Personal history of transient ischemic attack (TIA), and cerebral infarction without residual deficits; R06.00 Dyspnea, unspecified; J44.9 Chronic obstructive pulmonary disease, unspecified; F41.9 Anxiety disorder, unspecified; F32.A Depression, unspecified | CPT/HCPCS: 99212 ==

== ENCOUNTER 2022-02-17 10:00 | Outpatient (RCR) | payer OTHER, MEDICAID, SELFPAY ==
--- NOTE | 2022-01-13 08:49 | MHC.PT.EP ---
[facility] [place] Office [place] Office [place] Office [address] Isacc [place] [address] [phone] F: [phone] F: [phone] F: [phone] F: [phone] Physical Therapy Plan of Care Date of Evaluation: Date of Surgery: 12/02/2021 Diagnosis: s/p R THR Assessment: Patient is a 56 year old male presenting to PT s/p R THR on 12/02/2021. He presents today with impairments in pain, hip strength, hip ROM, gait mechanics. Pt's current occupation is none since stroke in 2019, with baseline physical activities including ambulation, self care, stair negotiation. Pt expresses terminal supervisor goal of getting back to normal, and is motivated to work towards this in PT. Clinical presentation today is most consistent with signs and sx associated with s/p R THR and pt will benefit from skilled PT to address the following problems and impairments noted upon evaluation: pain, hip strength, hip ROM, gait mechanics. These problems limit the patient with the following functional activities: ambulation, stair negotiation, and ADLs. The prescribed treatment plan of care is medically necessary. Co-morbidities of afib, taking anticoagulants, and hx CVA were identified and taken into considerations of plan of care. Pt was educated on HEP, role of PT, prognosis, POC, reviewed posterior hip precautions. Frequency and Duration: The patient will be seen 2 x week x 4 weeks Short Term Goals: Pt will demonstrate improved hip strength by 1/3 MMT in 2 weeks for improved lumbopelvic stability. Pt will demonstrate gait mechanics with min to no antalgia in 2 weeks. Chcf Goals: Pt will demonstrate improved LEFI score by 9 points in 4 weeks for improved functional mobility. Pt will demonstrate step over step on stairs in 4 weeks with min to no pain. Pt will demonstrate ability to ambulate community distances with min to no pain in 4 weeks for return to PLOF. Treatment Plan: Modalities to reduce pain, spasms and effusion. Manual therapy to restore motion and function. Therapeutic exercise to improve strength and flexibility. Neuromuscular re-education for posture and balance. Therapeutic activities to return to functional activities of daily living. Electronically signed by: Jasmin Lou, PT, DPT, ATC Please sign and return to therapist. Thank you for your referral.
--- NOTE | 2022-02-23 15:41 | MHC.PT.DC ---
[facility] [place] Office [place] Office [place] Office [address] Isacc [place] [address] [phone] F: [phone] F: [phone] F: [phone] F: [phone] Physical Therapy Discharge Report Diagnosis: s/p R THR Date of Surgery: 12/02/2021 Date of Evaluation: 01/13/22 Date of Discharge: 02/23/22 Treatments to Date: 7 Cancellations to Date: 2 No Shows to Date: 2 Discharge Status: Improved Function Independent with HEP Discharge Summary: Pt attended last scheduled appointment with TEST GRADER. Pt is now functioning at baseline and having minimal to no pain. He is independent and compliant with his HEP. Skilled PT is no longer indicated at this time. Electronically signed by: Jasmin Lou, PT, DPT, ATC Please sign and return to therapist. Thank you for your referral.
== END 2022-02-23 15:42 | disposition home or self-care (01) ==
LOC: HO.PTCHIC 10:00
PROVIDERS: PCP Internal Medicine; Visit Provider Physician Assistant
DX: Z96.641 Presence of right artificial hip joint (principal)
CPT/HCPCS: 97110; 97162; 97530

== ENCOUNTER 2022-02-26 08:30 | Outpatient (REF) | payer OTHER, MEDICAID, SELFPAY ==
--- NOTE | ~2022-02-26 | XR_ITS ---
EXAMINATION: XR AP PELVIS XR HIP, RIGHT CLINICAL INFORMATION: Hip pain. COMPARISON: None TECHNIQUE: AP pelvis one view. Right hip 3 views. FINDINGS: AP PELVIS: There is a right hip prosthesis in satisfactory alignment. There is severe loss of left hip joint space with periarticular spurring and subchondral cystic changes along the superior lateral femoral head and the acetabulum. No loose body seen. RIGHT HIP: There is right hip femoral and acetabular prosthesis in satisfactory alignment. No periprosthetic loosening or fracture seen. The soft tissues are normal. There are no loose bodies. XR/XR pelvis 1-2V IMPRESSION: Severe degenerative changes left hip joint. Total right hip prosthesis in satisfactory alignment without any fracture, periprosthetic loosening or loose bodies.
--- NOTE | ~2022-02-26 | XR_ITS ---
EXAMINATION: XR AP PELVIS XR HIP, RIGHT CLINICAL INFORMATION: Hip pain. COMPARISON: None TECHNIQUE: AP pelvis one view. Right hip 3 views. FINDINGS: AP PELVIS: There is a right hip prosthesis in satisfactory alignment. There is severe loss of left hip joint space with periarticular spurring and subchondral cystic changes along the superior lateral femoral head and the acetabulum. No loose body seen. RIGHT HIP: There is right hip femoral and acetabular prosthesis in satisfactory alignment. No periprosthetic loosening or fracture seen. The soft tissues are normal. There are no loose bodies. XR/XR hip RT min 2V IMPRESSION: Severe degenerative changes left hip joint. Total right hip prosthesis in satisfactory alignment without any fracture, periprosthetic loosening or loose bodies.
== END 2022-02-26 08:31 | disposition home or self-care (01) ==
LOC: HO.HOSX 08:30
PROVIDERS: Visit Provider Physician Assistant
DX: M25.551 Pain in right hip (principal); M25.552 Pain in left hip; Z96.641 Presence of right artificial hip joint
CPT/HCPCS: 72170; 73502; 99212

== ENCOUNTER 2022-03-02 11:32 | Emergency (ER) | payer OTHER, MEDICAID, SELFPAY ==
--- NOTE | ~2022-03-02 | XR_ITS ---
EXAMINATION: XR CHEST CLINICAL INFORMATION: Chest pain COMPARISON: None TECHNIQUE: Frontal view of the chest was obtained. FINDINGS: No significant abnormality is noted involving the heart, lungs, mediastinum, bony thorax or soft tissues. XR/XR chest 1V IMPRESSION: Unremarkable chest examination.
--- NOTE | 2022-03-02 11:35 | ECG_ITS ---
Test Reason : shortness of breath/ chest pain Blood Pressure : / mmHG Vent. Rate : 095 BPM Atrial Rate : 095 BPM P-R Int : 168 ms QRS Dur : 072 ms QT Int : 322 ms P-R-T Axes : 054 018 016 degrees QTc Int : 404 ms Normal sinus rhythm Nonspecific T wave abnormality Abnormal ECG When compared with ECG of 15-MAR-2021 02:20, Criteria for Septal infarct are no longer Present Referred By: Generic ED Physician Electronically Signed By:BRENDAN WALLACE MD
[2022-03-02 11:52] LABS: MANUAL DIFF FLAG NO
[2022-03-02 11:54] LABS: Basophils Absolute Auto 0.1 X10*3/uL (0.0-0.2); Basophils Percent Auto 0.4 % (0-2); Eosinophils Absolute Auto 0.6 X10*3/uL (0.0-0.4); Eosinophils Percent Auto 5.2 % (0-4); Hematocrit 52.1 % (42.0-52.0); Imm Gran Abs Auto 0.09 X10*3/uL (0.00-0.03); Imm Gran Pct Auto 0.8 % (0.0-0.4); Lymphocytes Absolute Auto 3.3 X10*3/uL (1.2-4.9); Lymphocytes Percent Auto 29.3 % (20-40); Mean Corpuscular HGB Conc 34.5 g/dl (31.0-36.0); Mean Corpuscular Hemoglobin 30.2 pg (27.0-33.0); Mean Corpuscular Volume 87.3 fL (80.0-98.0); Monocytes Absolute Auto 1.5 X10*3/uL (0.1-1.2); Monocytes Percent Auto 13.2 % (2-11); Neutrophils Absolute Auto 5.8 x10*3/uL (2.0-8.3); Neutrophils Percent Auto 51.1 % (45-73); Platelet Count 257 X10*3/uL (160-400); Red Blood Count 5.97 X10*6/uL (4.60-5.80); Red Cell Distribution Width 12.4 % (11.0-16.0); White Blood Count 11.4 X10*3/uL (4.8-10.8)
[2022-03-02 12:01] LABS: D Dimer High Sensitivity 201 NG/ML
[2022-03-02 12:06] VITALS: BP 119/86; PULSE 102; RESP 19; TEMP 36.6; O2SAT 92; BMI 30.4
[2022-03-02 12:10] LABS: Appearance Urine CLEAR; Color Urine YELLOW; Glucose Urine UA NEG (NEG); Leukocyte Esterase Urine NEG (NEG); Nitrite Urine NEG (NEG); PH 5.5 (5.0-8.0); Specific Gravity - Urine >= 1.030 (1.005-1.025); Urine Blood NEG (NEG); Urine Ketones NEG (NEG); Urine Protein NEG (NEG-TRACE)
[2022-03-02 12:18] LABS: Troponin-I High Sensitivity < 3.5 ng/L (<3.5-35.0)
[2022-03-02 12:19] LABS: Anion Gap 14 (12-20); Blood Urea Nitrogen 24 mg/dL (9-16); Calcium 9.3 mg/dL (8.4-10.2); Carbon Dioxide 23 mmol/L (22-29); Chloride 107 mmol/L (96-108); Creatinine Clr Calc Pharmacy 106.3; Estimated Glomerular Filt Rate > 60; Glucose Random 93 mg/dL (60-115); Potassium 4.4 mmol/L (3.3-5.1); Sodium 140 mmol/L (135-145)
== END 2022-03-02 17:27 | disposition left against medical advice (07) ==
PROVIDERS: Emergency Provider Emergency Medicine; PCP Internal Medicine
DX: R07.89 Other chest pain (principal); R06.02 Shortness of breath; Z79.899 Other long term (current) drug therapy
CPT/HCPCS: 36415; 71045; 80048; 81003; 84484; 85025; 85379; 93005; 99283; 99284

== ENCOUNTER 2022-03-03 05:42 | Emergency (ER) | payer OTHER, MEDICAID, SELFPAY ==
[2022-03-03 06:06] VITALS: BP 131/91; PULSE 77; RESP 20; TEMP 36.6; O2SAT 96; BMI 31.1
--- NOTE | 2022-03-03 07:17 | ED.SOB ---
HPI - SOB/Dyspnea General Chief Complaint: General Medical Stated Complaint: sent by pcp after lab results Time Seen by Provider: 03/03/22 06:40 Source: patient and old records reviewed Mode of arrival: ambulatory Limitations: no limitations History of Present Illness HPI Narrative: 56 yo male with hx of COPD not on INH, CVA, anxiety, afib on eliquis, PFO here with weeks of dyspnea which he suspects it is due to anxiety. At this time he is not toxic. He has no complaints he feels reassured that his labs, CXR, EKG was negative. He just wanted someone to go over his labs and has no complaints today. He plans to follow up with his PCP today. They are going to put him on an INH soon. MD elicited complaint: shortness of breath Pertinent past history: COPD Onset (ago): month(s) Timing: intermittent Severity: mild Exacerbating factors: exertion Relieving factors: nothing Known history of: COPD Associated symptoms: other (anxiety) Treatment prior to arrival: none Related Data Home Medications Medication Instructions Recorded Confirmed omeprazole 20 mg capsule,delayed 20 mg PO DAILY 08/24/21 01/28/22 release atorvastatin 80 mg tablet 80 mg PO DAILY 09/28/21 01/28/22 diazepam 5 mg tablet 5 mg PO TID PRN Anxiety 09/28/21 01/28/22 hydroxyzine pamoate 25 mg capsule 25 mg PO BID 10/28/21 01/28/22 multivitamin 1 tab PO DAILY 12/02/21 01/28/22 sertraline 100 mg tablet 2 tab PO DAILY 12/02/21 01/28/22 lisinopril 10 mg tablet 10 mg PO DAILY 01/28/22 01/28/22 olanzapine 2.5 mg tablet mg PO DAILY 01/28/22 01/28/22 quetiapine 400 mg tablet 400 mg PO BEDTIME PRN 01/28/22 01/28/22 melatonin 3 mg tablet 3 - 6 mg PO BEDTIME PRN 02/26/22 Previous Rx's Medication Instructions Recorded Electric reclining chair #1 ea 12/01/21 acetaminophen 325 mg tablet 650 mg PO Q6H PRN Pain, Mild (Pain 12/04/21 Scale 1-3) 30 days #240 tabs celecoxib 200 mg capsule 200 mg PO BID 30 days #60 caps 12/04/21 apixaban 5 mg tablet 5 mg PO BID #60 tabs 01/28/22 Allergies Allergy/AdvReac Type Severity Reaction Status Date / Time diclofenac [From VOLTAREN] Allergy Unknown SEVERE Verified 02/26/22 10:31 RASH, FACIAL SWELLING Review of Systems Review of Systems: Constitutional : No Fever, No Chills ENT/Mouth : No sore throat, No Rhinorrhea, No Swallowing Difficulty Eyes: No Eye Pain, No Swelling, No Redness Cardiovascular : No Chest Pain, positive SOB, No Orthopnea, no Edema Respiratory : No Cough, No Sputum, No Wheezing, positive dyspnea Gastrointestinal : No Nausea, No Vomiting, No Diarrhea, No abdominal Pain, No Hematochezia, No Melena Genitourinary : No Dysuria, No Urinary Frequency, No Hematuria Musculoskeletal : No joint pain, No Myalgias Skin : No Skin Lesions, No rash Neuro : No Weakness, No Numbness, No Dizziness, No Headache Psych : pos Anxiety/Panic, No Depression Heme/Lymph: No Bruising, No Lymphadenopathy Endocrine : No Polyuria, No Polydipsia All other systems reviewed and are negative [facility] Past Medical History Medical History Anxiety and depression Arthritis Atrial fibrillation COPD (chronic obstructive pulmonary disease) CVA (cerebral vascular accident) Dyspnea on exertion GERD (gastroesophageal reflux disease) Kidney stones On anticoagulant therapy Tremor, anxiety related Surgical History H/O removal of cyst History of right hip replacement History of varicose vein ligation and stripping Hx of surgical procedure Family History Family History Mother No problems noted. Father No problems noted. Social History Social History Household Members: None Housing: House Are you a primary health careers instructor to a significant other at home: No Do you presently have visiting nurse or other home services: No Alcohol intake: never Patient Tobacco Use Status: Never used Tobacco service: No Current occupational status: disabled Physical Exam Vital Signs: Vital Signs: Last Vital Signs Temp 97.8 F 03/03/22 06:06 Pulse 81 03/03/22 07:47 Resp 18 03/03/22 07:47 BP 131/91 H 03/03/22 06:06 Pulse Ox 96 03/03/22 06:06 O2 Del Method 03/03/22 06:06 BMI result Body Mass Index 31.1 Appearance: Alert. Oriented X3. No acute distress. Anxious Eyes: Pupils equal, round and reactive to light. ENT: Pharynx normal. Neck: Normal inspection. Neck supple. CVS: Normal heart rate and rhythm. Pulses normal. Respiratory: No respiratory distress. Breath sounds very faint upper lobe end exp wheezes - mild Abdomen: Soft and nontender. Skin: Skin warm and dry. Normal skin color. Normal skin turgor. Extremities: No lower extremity edema. No calf ttp Neuro: Oriented X 3. No motor deficit. No sensory deficit. MDM - SOB/Dyspnea MDM Narrative Medical decision making narrative: 56 yo male with hx of COPD not on INH, CVA, anxiety, afib on eliquis, PFO comes in with dyspnea for weeks duration - his workup yesterday was reassuring including labs, CXR, EKG he feels reassured and has no complaints today. I do note a faint wheeze on exam. He does not have a rescue INH will order albuterol INH and refer him to his PCP. Discharge Plan Discharge Clinical Impression: Acute bronchospasm Patient Disposition: Home, Self-Care Instructions: Bronchospasm (ED) Additional Instructions: return to ED for any worsening symptoms or concerns please follow up with your doctor to go back on maintenance inhalers you can take the albuterol INH 2 puffs every 4 hours as needed for wheezing Prescriptions: No Action (DME) Electric reclining chair See Rx Instructions .ROUTE .MEDSUPPLY Qty: 1 0RF Rx Instructions: As directed multivitamin Tablet 1 tab PO DAILY sertraline 100 mg tablet 2 tab PO DAILY celecoxib 200 mg Capsule 200 mg PO BID 30 Days Qty: 60 0RF acetaminophen 325 mg Tablet 650 mg PO Q6H PRN (Reason: Pain, Mild (Pain Scale 1-3)) 30 Days Qty: 240 0RF diazepam 5 mg tablet 5 mg PO TID PRN (Reason: Anxiety) atorvastatin 80 mg tablet 80 mg PO DAILY quetiapine 400 mg tablet 400 mg PO BEDTIME PRN melatonin 3 mg tablet 3 - 6 mg PO BEDTIME PRN omeprazole 20 mg capsule,delayed release(DR/EC) 20 mg PO DAILY hydroxyzine pamoate 25 mg capsule 25 mg PO BID olanzapine 2.5 mg tablet PO DAILY lisinopril 10 mg tablet 10 mg PO DAILY apixaban 5 mg tablet 5 mg PO BID Qty: 60 4RF Interventions: ED Discharge Assessment Last Done: 03/03/22 07:49 Discharge Date/Time: 03/03/22 07:49
[2022-03-03] MEDS: Albuterol Sulfate 90 MCG 8 GM INHALER 2 PUFF INHALE (07:43)
[2022-03-03 07:47] VITALS: PULSE 81; RESP 18; O2SAT 96
== END 2022-03-03 07:49 | disposition home or self-care (01) ==
PROVIDERS: Emergency Provider Emergency Medicine; PCP Internal Medicine
DX: J98.01 Acute bronchospasm (principal); F41.9 Anxiety disorder, unspecified; I48.91 Unspecified atrial fibrillation; J44.9 Chronic obstructive pulmonary disease, unspecified; Z86.73 Personal history of transient ischemic attack (TIA), and cerebral infarction without residual deficits; Z79.01 Long term (current) use of anticoagulants; Z79.02 Long term (current) use of antithrombotics/antiplatelets; Z79.899 Other long term (current) drug therapy
CPT/HCPCS: 94640; 99284

== ENCOUNTER → 2022-04-27 13:33 | Outpatient (BNVA) | payer OTHER, MEDICAID, SELFPAY | PROVIDERS: PCP Internal Medicine; Visit Provider Internal Medicine | DX: J44.9 Chronic obstructive pulmonary disease, unspecified (principal); F41.9 Anxiety disorder, unspecified; F32.A Depression, unspecified; R06.00 Dyspnea, unspecified | CPT/HCPCS: 99212 ==

== ENCOUNTER → 2022-05-13 12:44 | Outpatient (BNVA) | payer OTHER, MEDICAID, SELFPAY | PROVIDERS: PCP Internal Medicine; Visit Provider Physician Assistant | DX: M16.12 Unilateral primary osteoarthritis, left hip (principal) | CPT/HCPCS: 99212 ==

== ENCOUNTER 2022-05-18 06:00 | Inpatient (IN) | payer OTHER, MEDICAID, SELFPAY ==
[2022-05-12 11:59] VITALS: BP 118/90; PULSE 86; RESP 18; O2SAT 95; BMI 31.7
[2022-05-12 13:59] LABS: MRSA Nasal PCR NEGATIVE (Negative); SA Nasal PCR POSITIVE (Negative)
--- NOTE | 2022-05-17 08:39 | HO.ANESPROP2 ---
Documented by User: Nina Cunningham NP 05/17/22 09:01 HPI - Anesthesia Eval Consult details Narrative: 57yo M for Left Hip Total Replacement s/p Right Total Hip 11/2021 with GA-ETT 7.5 (no issues) PCP cleared Cardiac cleared (was w/u prior to left hip and Bubble study did not show PFO, but per 01/28/22 Dr Gemran visit, pt had JIMMY at [facility] that showed clear PFO reported which was noted to be fenestrated and complex . Closure not indicated at this time. Eval by pulnael 04/2022 for SOB. Thought to be r/t deconditioning and anxiety Eliquis for afib/PFO/hx stroke [facility] Active Problems Active Problems: All Active Problems (Updated 05/13/22 @ 20:34 by Wero Ramirez PA-C) Osteoarthritis of left hip (Acute) Osteoarthritis of right hip (Acute) Nephrolithiasis (Acute) Dyspnea on exertion (Acute) Preop cardiovascular exam (Acute) Status post total hip replacement, right (Acute) Atrial flutter (Acute) PFO (patent foramen ovale) (Acute) COPD (chronic obstructive pulmonary disease) (Acute) Anxiety and depression (Acute) Dyspnea on exertion (Acute) CVA (cerebral vascular accident) (Acute) Past Medical History Medical History Anxiety and depression Arthritis Atrial fibrillation COPD (chronic obstructive pulmonary disease) CVA (cerebral vascular accident) Dyspnea on exertion Elevated cholesterol GERD (gastroesophageal reflux disease) HTN (hypertension) Kidney stones On anticoagulant therapy Tremor, anxiety related Family History Family History Mother No problems noted. Father No problems noted. 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 If so, by whom?: No Spiritual Healthcare Practices: none Episcopalian Healthcare Practices: prayer Cultural Healthcare Practices: none Are you DNR?: No Advance Directives: No Advance Directives Information Provided: Yes Advance Directives on File: No Recently lost weight without trying: No Nutrition Risks: No Nutritional Risk Poor oral hygiene: No service: No Current occupational status: disabled Meds Allergies Allergy/AdvReac Type Severity Reaction Status Date / Time diclofenac [From VOLTAREN] Allergy Severe SEVERE Verified 05/12/22 11:58 RASH, FACIAL SWELLING, hives Home Medications Medication Instructions Recorded Confirmed Last Taken Type omeprazole 20 mg capsule,delayed 20 mg PO DAILY 08/24/21 05/13/22 05/17/22 History release atorvastatin 80 mg tablet 80 mg PO BEDTIME 09/28/21 05/13/22 05/15/22 History diazepam 5 mg tablet 5 mg PO TID PRN Anxiety 09/28/21 05/13/22 05/17/22 History hydroxyzine pamoate 25 mg capsule 25 mg PO BID PRN Anxiety 10/28/21 05/13/22 04/17/22 History multivitamin 1 tab PO DAILY 12/02/21 05/13/22 05/17/22 History sertraline 100 mg tablet 2 tab PO DAILY 12/02/21 05/13/22 05/15/22 History lisinopril 10 mg tablet 10 mg PO DAILY 01/28/22 05/13/22 05/15/22 History quetiapine 400 mg tablet 400 mg PO BEDTIME PRN Anxiety 01/28/22 05/13/22 05/12/22 History Exam Exam Date and Time: May 17, 2022 0839 Height,Weight and Vital Signs: Height 6 ft Weight 106.2 kg Last Vital Signs Pulse 86 05/12/22 11:59 Resp 18 05/12/22 11:59 BP 118/90 H 05/12/22 11:59 Pulse Ox 95 05/12/22 11:59 O2 Del Method 05/12/22 11:59 Pertinent Lab Results Pertinent Lab Results: Laboratory Tests 05/12/22 05/12/22 12:30 12:36 Nasal Screen MRSA (PCR) NEGATIVE Nasal S. aureus Screen POSITIVE A Nasal MRSA/S.aureus Interp SEE NOTE Blood Type AB Positive Antibody Screen NEGATIVE Labs from outside lab 04/29/22: BMP and CBC WNL Narrative Narrative: EKG 02/2022 Vent. Rate : 095 BPM ? ? Atrial Rate : 095 BPM ?? P-R Int : 168 ms? QRS Dur : 072 ms ? ? QT Int : 322 ms ? ? ? P-R-T Axes : 054 018 016 degrees ?? QTc Int : 404 ms ? Normal sinus rhythm Nonspecific T wave abnormality Abnormal ECG When compared with ECG of 15-MAR-2021 02:20, Criteria for Septal infarct are no longer Present ECHO 10/2021 Conclusions: - Normal left ventricular size, thickness, and systolic function. The visually estimated ejection fraction is between 55-60%.? ? ? - Normal right ventricular cavity size and systolic function.? ? - There is mild dilatation of the ascending aorta measuring 3.40 cm.? - We will bring him back for a bubble study given h/o stroke and ?intracardiac shunt. ?? Bubble Study 11/2021 Conclusions: - 1.? No evidence of PFO ? 2. Normal LV systolic function? NM cardiolite stress test 10/2021 IMPRESSION: ? 1.? Myocardial perfusion imaging study shows no evidence of any ischemia or infarction. 2.? Gated LVEF is 63% during stress and 70% during rest. 3. Transient ischemic dilatation not present. ? EKG component of the test reported separately. (Nondiagnostic) PFT 10/2021 IMPRESSION:? Mild obstructive ventilatory defect.? No bronchodilator response.? Decreased expiratory reserve volume suggests extrathoracic restriction, likely secondary to abdominal obesity. Assessment and Plan Assessment Anesthesia Assessment: Chart Reviewed Final Anesthetic Review Family History of Problems with Anesthesia: No History of Problems with Anesthesia: No Documented by User: Jcarlos Johnson MD 05/18/22 16:55 HPI - Anesthesia Eval Consult details Narrative: 57yo M for Left Hip Total Replacement s/p Right Total Hip 11/2021 with GA-ETT 7.5 (no issues) PCP cleared Cardiac cleared (was w/u prior to left hip and Bubble study did not show PFO, but per 01/28/22 Dr German visit, pt had JIMMY at [facility] that showed clear PFO reported which was noted to be fenestrated and complex . Closure not indicated at this time. Eval by celso 04/2022 for SOB. Thought to be r/t deconditioning and anxiety Eliquis for afib/PFO/hx stroke SOB and hand tremors since CVA , left sided weakness improved now [facility] Past Medical History Medical History Anxiety and depression Arthritis Atrial fibrillation COPD (chronic obstructive pulmonary disease) CVA (cerebral vascular accident) Dyspnea on exertion Elevated cholesterol GERD (gastroesophageal reflux disease) HTN (hypertension) Kidney stones On anticoagulant therapy Tremor, anxiety related Family History Family History Mother No problems noted. Father No problems noted. 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 If so, by whom?: No Spiritual Healthcare Practices: none Episcopalian Healthcare Practices: prayer Cultural Healthcare Practices: none Are you DNR?: No Advance Directives: No Advance Directives Information Provided: Yes Advance Directives on File: No Recently lost weight without trying: No Nutrition Risks: No Nutritional Risk Poor oral hygiene: No service: No Current occupational status: disabled Meds Allergies Allergy/AdvReac Type Severity Reaction Status Date / Time diclofenac [From VOLTAREN] Allergy Severe SEVERE Verified 05/12/22 11:58 RASH, FACIAL SWELLING, hives Home Medications Medication Instructions Recorded Confirmed Last Taken Type omeprazole 20 mg capsule,delayed 20 mg PO DAILY 08/24/21 05/13/22 05/17/22 History release atorvastatin 80 mg tablet 80 mg PO BEDTIME 09/28/21 05/13/22 05/15/22 History diazepam 5 mg tablet 5 mg PO TID PRN Anxiety 09/28/21 05/13/22 05/17/22 History hydroxyzine pamoate 25 mg capsule 25 mg PO BID PRN Anxiety 10/28/21 05/13/22 04/17/22 History multivitamin 1 tab PO DAILY 12/02/21 05/13/22 05/17/22 History sertraline 100 mg tablet 2 tab PO DAILY 12/02/21 05/13/22 05/15/22 History lisinopril 10 mg tablet 10 mg PO DAILY 01/28/22 05/13/22 05/15/22 History quetiapine 400 mg tablet 400 mg PO BEDTIME PRN Anxiety 01/28/22 05/13/22 05/12/22 History Exam Airway Mallampati Class: IV TM Dist: >3cm Neck ROM: Full Loose/Missing/Broken Teeth: Yes (Chipped teeth and fillings ) Heart: S1,S2 Lungs: b/l breath sounds Assessment and Plan Assessment Anesthesia Assessment: Anesthesia Plan Discussed Final Anesthetic Review NPO: Yes ASA Class: III Final Preanesthetic Review: Meds/Allgs Chart Reviewed, Consent Obtained/Reviewed and Anes Risks/Benef Reviewed Patient Risk: Intermediate Procedure Risk: Intermediate Anesthetic Plan Anesthetic Plan: GA Disposition: Standard PACU
[2022-05-18] VITALS (21 sets, daily range): BP systolic 95–151; BP diastolic 47–96; PULSE 89–108; RESP 12–22; TEMP 36.2–37.2; O2SAT 93–97
--- NOTE | ~2022-05-18 | XR_ITS ---
EXAMINATION: XR PELVIS CLINICAL INFORMATION: Left hip replacement COMPARISON: Previous x-ray February 2022 TECHNIQUE: AP view of the pelvis. FINDINGS: There is a new left hip replacement in satisfactory position. No fracture or dislocation is seen. There is a right hip replacement that appears unremarkable. Bones of the pelvis are unremarkable. XR/XR pelvis 1-2V IMPRESSION: Satisfactory appearance of left hip replacement.
[2022-05-18 06:38] LABS: COVID-19 Test Negative (Negative); IDNOW Serial# 16C4AD1C
[2022-05-18] MEDS: oxyCODONE HCl ER 10 MG TAB.ER.12H PO ×2 (06:45→20:02)
[2022-05-18] MEDS: Albuterol Sulfate (0.083%) 2.5 MG/3 ML VIAL.NEB INHALE (06:54)
[2022-05-18] MEDS: Lactated Ringers 1,000 ML 100 ML IVCONT ×2 (07:22→14:13)
--- NOTE | 2022-05-18 07:39 | MHC.SHP ---
Pre-Procedural Eval Section A Date of Service: 05/18/22 The patient is an INPATIENT: No Changes since office visit: Yes Patient answered all questions; No Cold of Flu in the past 2 weeks, No New Medical Problems and No Changes in Medication The History & Physical has been completed within 30 days and I have reviewed it.: Yes Section B Chief Complaint: LT PANCHITO Allergies: Allergies Allergy/AdvReac Type Severity Reaction Status Date / Time diclofenac [From VOLTAREN] Allergy Severe SEVERE Verified 05/12/22 11:58 RASH, FACIAL SWELLING, hives Plan I have reviewed the history and physical and performed a pertinent physical examination on my patient. No changes have occurred unless specified.
[2022-05-18] MEDS: ceFAZolin Sodium/Dextrose,Iso 2 GM/50 ML PIGGYBACK IV ×2 (07:47→14:16)
--- NOTE | 2022-05-18 09:41 | PM.OP ---
Brief Operative Note Date of Service: 05/18/22 Pre-op diagnosis: Left hip OA Post-op diagnosis: same Procedure: Left PANCHITO Implants: [place] Accolade2 #54/post lipped liner Rafael Stryker2 #6/ +2.5 36 ceramic femoral head Surgeon: Melo Bucio MD Anesthesia: GETA and local Was an Dispatcher Automobile Rental used for this Procedure?: Yes Dispatcher [employer] Rental: Wero Ramirez Estimated blood loss (mL): 250 IV fluids (mL): 1,000 Pathology: other Condition: stable Disposition: PACU
--- NOTE | 2022-05-18 09:48 | W.PM.OPN ---
Operative Note Operative Note Date of Service: 05/18/22 Narrative: Brief Operative Note Date of Service: 05/18/22 Pre-op diagnosis: Left hip OA Post-op diagnosis: same Procedure: Left PANCHITO Implants: Rafael Accolade2 #54/post lipped liner Rafael Stryker2 #6/ +2.5 36 ceramic femoral head Surgeon: Melo Bucio MD Anesthesia: GETA and local Was an Hardwood Flooring Specialist used for this Procedure?: Yes Hardwood Flooring Specialist: Wero Ramirez Estimated blood loss (mL): 250 IV fluids (mL): 1,000 Pathology: other Condition: stable Disposition: PACU Procedure in detail: Patient was brought into the operating room and placed in the right lateral decubitus position. All bony prominences were well padded and the limb was prepped and draped in standard sterile fashion. Time-out was called to identify proper site procedure proper surgeon IV antibiotics and 1 g of transaxemic acid were administered. I began by making a curvilinear incision over the posterolateral aspect of the greater trochanter. Dissection was taken down to the tensor fascia which was incised in line with the incision and a Charnley retractor was placed. Cautery was used to maintain hemostasis. A werewolf device was also used. The hip was internally rotated and the external rotators were identified. The vessels were cauterized and a full-thickness capsular/external rotator layer was developed starting just proximal to the piriformis. This layer was tagged and a dull Hohmann retractor was placed underneath the neck in the hip was dislocated. A neck cut was made 1 cm proximal to the lesser trochanter and the head and neck were removed and measured as a 50mm on the back table. The head was eburnated. I started with a 46mm reamer and sequentially reamed up to a size 54 and impacted a 54mm cup at approximately 45 degrees of inclination and 25 degrees of version. I then placed a 20deg posterior lipped liner and turned my attention to the femur. I identified the piriformis insertion and used this as a starting point for my lexie cutter. The medius tendon was protected with a Hibs retractor. I then used a Charnley awl to identify the canal and a curved curette to remove the lateral bone. I irrigated copiously. I then sequentially broached in the patient's natural version to a size 6, 127deg and placed my trial implants. Using a trail head I took the hip through range of motion. I was very satisfied with the stability and length. Therefore I removed all instrumentation and copiously irrigated. I placed my final femoral implant and again took the hip through range of motion and was satisfied with the stability and length using a +2.5 36 mm head. The head was impacted in place and the hip was reduced. I then irrigated for 3 minutes with iodine and placed 1 g of local tranaxemic acid. I performed a capsular closure with 2.0 fiberwire, Joesph's fascia with 0 Vicryl, subcuticular with 2-0 Vicryl and the skin with gurmeet. Patient was placed into a sterile dressing. Patient was extubated brought to the recovery room in stable condition. There were no known complications.
[2022-05-18] MEDS: HYDROmorphone HCl 0.5 MG/0.5 ML SYRINGE 0.25 MG IVPUSH ×3 (10:25→23:10)
--- NOTE | 2022-05-18 17:34 | P.CONHOSP_ITS ---
History of Present Illness Data of Consult Service Date: 05/18/22 Primary Care Provider: Giovani Choi MD HPI 54 yo male with HTN, HLD, GERD, HTN, h/o stroke with residual tremors, s/p righ PANCHITO in past and underwent Left PANCHITO today and is doing very well post op, ambulating with walker and pain is well controlled. Review of Systems Review of Systems: no fever no hip pain Yes all other systems are reviewed and are negative [facility] Medical History Anxiety and depression Arthritis Atrial fibrillation COPD (chronic obstructive pulmonary disease) CVA (cerebral vascular accident) Dyspnea on exertion Elevated cholesterol GERD (gastroesophageal reflux disease) HTN (hypertension) Kidney stones On anticoagulant therapy Tremor, anxiety related Family History Mother No problems noted. Father No problems noted. Surgical History H/O removal of cyst History of right hip replacement History of varicose vein ligation and stripping Hx of surgical procedure Social History Household Members: None Housing: House Are you a primary home health care provider to a significant other at home: No Do you presently have visiting nurse or other home services: Yes ([employer] 19 hours/week) Alcohol intake: never Patient Tobacco Use Status: Never used Tobacco Use of substances other than those prescribed or required for medical reasons: No Currently Displaying Signs/Symptoms of Drug Intoxication Withdrawal: No Have you been hit, kicked, punched, or otherwise hurt by someone within the past year? If so, by whom?: No Spiritual Healthcare Practices: none Jew Healthcare Practices: prayer Cultural Healthcare Practices: none Are you DNR?: No Advance Directives: No Advance Directives Information Provided: Yes Advance Directives on File: No Recently lost weight without trying: No Nutrition Risks: No Nutritional Risk Poor oral hygiene: No service: No Current occupational status: disabled Meds Allergies Allergy/AdvReac Type Severity Reaction Status Date / Time diclofenac [From VOLTAREN] Allergy Severe SEVERE Verified 05/12/22 11:58 RASH, FACIAL SWELLING, hives Active Medications: Current Medications Acetaminophen (Acetaminophen 325 Mg Tablet) 650 mg PO Q6H PRN PRN Reason: Pain, Mild (Pain Scale 1-3) Aspirin (Aspirin 325 Mg Tablet) 325 mg PO BID [facility] Celecoxib (Celecoxib 200 Mg Capsule) 200 mg PO BID [facility] Diazepam (Diazepam 5 Mg Tablet) 5 mg PO TID PRN PRN Reason: Anxiety Docusate Sodium (Docusate Sodium 100 Mg Capsule) 100 mg PO BID [facility] Hydromorphone HCl (Hydromorphone Hcl 0.5 Mg/0.5 Ml Syringe) 0.25 mg IVPUSH Q4H PRN; Protocol PRN Reason: Pain, Severe (Pain Scale 7-10) Hydroxyzine HCl (Hydroxyzine Hcl 25 Mg Tablet) 25 mg PO BID PRN PRN Reason: Anxiety Lactated Ringer's (Lr) 1,000 mls @ 100 mls/hr IVCONT .Q10H [facility] Stop: 05/19/22 14:09 Last Admin: 05/18/22 14:13 Dose: 100 mls/hr Omeprazole (Omeprazole 20 Mg Capsule.Dr) 20 mg PO DAILY@0600 [facility] Ondansetron HCl (Ondansetron Hcl 4 Mg/2 Ml Vial) 4 mg IVPUSH Q8H PRN PRN Reason: Nausea and Vomiting Oxycodone HCl (Oxycodone Hcl Immed Release 5 Mg Tablet) 5 mg PO Q4H PRN PRN Reason: Pain, Moderate (Pain Scale 4-6 Oxycodone HCl (Oxycodone Hcl Er 10 Mg Tab.Er.12h) 10 mg PO BID [facility] Quetiapine Fumarate (Quetiapine Fumarate 400 Mg Tablet) 400 mg PO BEDTIME PRN PRN Reason: Anxiety Sertraline HCl (Sertraline Hcl 100 Mg Tablet) 200 mg PO DAILY [facility] Sodium Chloride (0.9 % Sodium Chloride Flush 3 Ml Syringe) 3 ml IVFLUSH QSHIFT [facility] Home Medications Medication Instructions Recorded Confirmed Last Taken Type omeprazole 20 mg capsule,delayed 20 mg PO DAILY 08/24/21 05/13/22 05/17/22 History release atorvastatin 80 mg tablet 80 mg PO BEDTIME 09/28/21 05/13/22 05/15/22 History diazepam 5 mg tablet 5 mg PO TID PRN Anxiety 09/28/21 05/13/22 05/17/22 History hydroxyzine pamoate 25 mg capsule 25 mg PO BID PRN Anxiety 10/28/21 05/13/22 04/17/22 History multivitamin 1 tab PO DAILY 12/02/21 05/13/22 05/17/22 History sertraline 100 mg tablet 2 tab PO DAILY 12/02/21 05/13/22 05/15/22 History lisinopril 10 mg tablet 10 mg PO DAILY 01/28/22 05/13/22 05/15/22 History quetiapine 400 mg tablet 400 mg PO BEDTIME PRN Anxiety 01/28/22 05/13/22 05/12/22 History metoprolol succinate 25 mg 1 tab PO DAILY 05/18/22 05/18/22 Unknown History tablet,extended release 24 hr Physical Exam Vital Signs and Narrative: Vital Signs: Last Vital Signs Temp 97.6 F 05/18/22 17:31 Pulse 108 H 05/18/22 17:31 Resp 18 05/18/22 17:31 BP 131/84 05/18/22 17:31 Pulse Ox 95 05/18/22 17:31 O2 Del Method 05/18/22 17:31 O2 Flow Rate 2 05/18/22 17:31 BMI result Body Mass Index 31.7 Const: Other: General: AO X 3, no acute distress Resp: CTA bilateral CVS: S1,S2,RRR GI: +BS, NT, no distention Skin: No rash Neuro: motor grossly intact Psych: appropriate affect Results Labs CBC and Chem 7: 05/19/22 06:13 05/19/22 06:13 Labs: Laboratory Results - last 24 hr 05/18/22 06:11 COVID-19 (YENNI) Negative COVID-19 Clin Com See Note Imaging Radiologist's Impressions: Impressions Pelvis X-Ray 05/18/22 11:25 IMPRESSION: Satisfactory appearance of left hip replacement. Assessment and Plan (1) Atrial flutter: Status: Acute (2) PFO (patent foramen ovale): Status: Acute (3) COPD (chronic obstructive pulmonary disease): Status: Acute Plan #Aflutter--metoprolol for rate control, stroke prevention witn Gautam once Ok with surgery #HTN--metoprolol, Lisinopril #HLD--Lipitor #Anxiety/Depression--Seroquel, Sertraline #GERD--Omeprazol #s/p Left PANCHITO... management per Ortho, including as soon as possible to be back on Eliquis
[2022-05-18] MEDS: Atorvastatin Calcium 80 MG TABLET PO (20:02)
[2022-05-18] MEDS: Celecoxib 200 MG CAPSULE PO (20:02)
[2022-05-18] MEDS: Docusate Sodium 100 MG CAPSULE PO (20:02)
[2022-05-19] VITALS (7 sets, daily range): BP systolic 108–134; BP diastolic 61–76; PULSE 95–104; RESP 16–20; TEMP 36.1–36.9; O2SAT 94–96
[2022-05-19] MEDS: Lactated Ringers 1,000 ML 100 ML IVCONT ×2 (00:13→10:49)
[2022-05-19] MEDS: Omeprazole 20 MG CAPSULE.DR PO (06:37)
[2022-05-19] MEDS: oxyCODONE HCl Immed Release 5 MG TABLET PO (06:42)
[2022-05-19 07:14] LABS: Basophils Percent Auto 0.1 % (0-2); Eosinophils Percent Auto 0.1 % (0-4); Hematocrit 33.9 % (42.0-52.0); Hemoglobin 11.5 g/dl (14.0-18.0); Imm Gran Abs Auto 0.08 X10*3/uL (0.00-0.03); Imm Gran Pct Auto 0.6 % (0.0-0.4); Lymphocytes Absolute Auto 1.6 X10*3/uL (1.2-4.9); Lymphocytes Percent Auto 11.2 % (20-40); MANUAL DIFF FLAG SCAN; Mean Corpuscular HGB Conc 33.9 g/dl (31.0-36.0); Mean Corpuscular Hemoglobin 30.8 pg (27.0-33.0); Mean Corpuscular Volume 90.9 fL (80.0-98.0); Mean Platelet Volume 9.5 fL (9.4-12.4); Monocytes Absolute Auto 1.7 X10*3/uL (0.1-1.2); Platelet Count 188 X10*3/uL (160-400); Red Blood Count 3.73 X10*6/uL (4.60-5.80); Red Cell Distribution Width 13.7 % (11.0-16.0); SCAN SMEAR FLAG 1; White Blood Count 14.5 X10*3/uL (4.8-10.8)
--- NOTE | 2022-05-19 07:30 | PM.PNORT ---
Subjective Subjective Date of Service: 05/19/22 Interval history: POD1 s/p LTHA. Resting in bed comfortably. No overnight events. Pain is managed. No additional complaints. Physical Exam Vital Signs: Vital Signs: Last Vital Signs Temp 97 F 05/19/22 07:01 Pulse 101 H 05/19/22 07:01 Resp 18 05/19/22 07:01 BP 108/66 05/19/22 07:01 Pulse Ox 94 05/19/22 07:01 O2 Del Method 05/19/22 07:01 O2 Flow Rate 2 05/18/22 17:31 BMI result Body Mass Index 31.7 Const: General: cooperative, healthy appearing and no acute distress Resp: Effort & Inspection: normal respiratory effort and able to speak in complete sentences Cardio: Rate: regular rate Peripheral pulses: Peripheral pulses 2+ throughout GI: Palpation (GI): Soft to palpation Skin: Lesions: no lesions Rashes: no rashes Extrem: Other: Left hip Aquacel is clean, dry, and intact. Able to dorsiflex and plantarflex. Sensation intact. Pedal pulse intact., Procedures Date of Service Date of Service: 05/19/22 Progress Note: A&P Assessment and plan (1) S/P total left hip arthroplasty: Status: Acute Assessment and Plan: Continue pain mgmnt Begin ASA for dvt ppx - resume Eliquis at 48 hours begin PT for LTHA Dispo planning-Pending PT eval, pain mgmnt Time Spent With Patient Time: Total time spent is greater than 50% in coordination of care (as documented) at patient's floor/unit and/or counseling patient: Quality Stroke Does the patient have a stroke diagnosis?: No VTE Prior VTE?: No VTE Risk Level:: Medical - moderate - high VTE Device Contraindication: N/A - Device Ordered VTE Drug Contraindication: N/A - Med Ordered
[2022-05-19 08:03] LABS: Anion Gap 12 (12-20); Blood Urea Nitrogen 19 mg/dL (9-16); Calcium 8.7 mg/dL (8.4-10.2); Carbon Dioxide 28 mmol/L (22-29); Chloride 102 mmol/L (96-108); Creatinine Clr Calc Pharmacy 128.2; Estimated Glomerular Filt Rate > 60; Glucose Fasting 132 mg/dL (60-99); Potassium 4.4 mmol/L (3.3-5.1); Sodium 138 mmol/L (135-145)
[2022-05-19] MEDS: Sertraline HCL 100 MG TABLET 200 MG PO (08:06)
[2022-05-19] MEDS: oxyCODONE HCl ER 10 MG TAB.ER.12H PO ×2 (08:06→20:55)
[2022-05-19] MEDS: Celecoxib 200 MG CAPSULE PO ×2 (08:06→20:55)
[2022-05-19] MEDS: lisinopriL 10 MG TABLET PO (08:07)
[2022-05-19] MEDS: Docusate Sodium 100 MG CAPSULE PO ×2 (08:07→20:55)
[2022-05-19] MEDS: Metoprolol Succinate ER 25 MG TAB.ER.24H PO (08:07)
[2022-05-19] MEDS: Aspirin 325 MG TABLET PO ×2 (08:07→20:55)
[2022-05-19] MEDS: HYDROmorphone HCl 0.5 MG/0.5 ML SYRINGE 0.25 MG IVPUSH ×2 (08:08→18:24)
[2022-05-19 08:23] LABS: SLIDE REVIEW VERIFIED
--- NOTE | 2022-05-19 09:16 | MHC.CM.PN ---
PATIENT LIVES ALONE.HE HAS A NEW FURNACE CONVERTER WHO PROVIDES 15 HOURS OF HOME AND ADL ASSISTANCE. NEW REFERRAL TO [facility] FOR HOME P.T. HCP TO BE COMPLETED AND PLACED IN CHART HE IS NAMING HIS SISTER AGENT. HE HAS A CANE AND WALKER IN PREP FOR THIS SURGERY. COVID VACCINATED. IMM 05/19 IN CHART
--- NOTE | 2022-05-19 12:33 | HO.PM.IMPN ---
Subjective Subjective Date of Service: 05/19/22 Interval History: f/u on med consult, s/p elective LTHA doing well, pain is controlled Review of Systems no fever no hip pain Physical Exam Vital Signs: Vital Signs: Last Vital Signs Temp 97.4 F 05/19/22 11:02 Pulse 101 H 05/19/22 11:02 Resp 18 05/19/22 11:02 BP 109/61 05/19/22 11:02 Pulse Ox 94 05/19/22 11:02 O2 Del Method 05/19/22 11:02 O2 Flow Rate 2 05/18/22 17:31 BMI result Body Mass Index 31.7 Const: Other: General: AO X 3, no acute distress Resp: CTA bilateral CVS: S1,S2,RRR GI: +BS, NT, no distention Skin: No rash Neuro: motor grossly intact Psych: appropriate affect Objective Data Active Medications Acetaminophen (Acetaminophen 325 Mg Tablet) 650 mg PO Q6H PRN PRN Reason: Pain, Mild (Pain Scale 1-3) Aspirin (Aspirin 325 Mg Tablet) 325 mg PO BID [facility] Last Admin: 05/19/22 08:07 Dose: 325 mg Documented By: DOROTA Atorvastatin Calcium (Atorvastatin Calcium 80 Mg Tablet) 80 mg PO BEDTIME [facility] Last Admin: 05/18/22 20:02 Dose: 80 mg Documented By: JOSSELIN Celecoxib (Celecoxib 200 Mg Capsule) 200 mg PO BID [facility] Last Admin: 05/19/22 08:06 Dose: 200 mg Documented By: DOROTA Diazepam (Diazepam 5 Mg Tablet) 5 mg PO TID PRN PRN Reason: Anxiety Docusate Sodium (Docusate Sodium 100 Mg Capsule) 100 mg PO BID [facility] Last Admin: 05/19/22 08:07 Dose: 100 mg Documented By: DOROTA Hydromorphone HCl (Hydromorphone Hcl 0.5 Mg/0.5 Ml Syringe) 0.25 mg IVPUSH Q4H PRN; Protocol PRN Reason: Pain, Severe (Pain Scale 7-10) Last Admin: 05/19/22 08:08 Dose: 0.25 mg Documented By: DOROTA Hydroxyzine HCl (Hydroxyzine Hcl 25 Mg Tablet) 25 mg PO BID PRN PRN Reason: Anxiety Lactated Ringer's (Lr) 1,000 mls @ 100 mls/hr IVCONT .Q10H [facility] Stop: 05/19/22 14:09 Last Admin: 05/19/22 10:49 Dose: 100 mls/hr Documented By: DOROTA Lisinopril (Lisinopril 10 Mg Tablet) 10 mg PO DAILY [facility]; Protocol Last Admin: 05/19/22 08:07 Dose: 10 mg Documented By: DOROTA Metoprolol Succinate (Metoprolol Succinate Er 25 Mg Tab.Er.24h) 25 mg PO DAILY [facility]; Protocol Last Admin: 05/19/22 08:07 Dose: 25 mg Documented By: DOROTA Omeprazole (Omeprazole 20 Mg Capsule.Dr) 20 mg PO DAILY@0600 [facility] Last Admin: 05/19/22 06:37 Dose: 20 mg Documented By: DOROTA Ondansetron HCl (Ondansetron Hcl 4 Mg/2 Ml Vial) 4 mg IVPUSH Q8H PRN PRN Reason: Nausea and Vomiting Oxycodone HCl (Oxycodone Hcl Immed Release 5 Mg Tablet) 5 mg PO Q4H PRN PRN Reason: Pain, Moderate (Pain Scale 4-6 Last Admin: 05/19/22 06:42 Dose: 5 mg Documented By: DOROTA Oxycodone HCl (Oxycodone Hcl Er 10 Mg Tab.Er.12h) 10 mg PO BID [facility] Last Admin: 05/19/22 08:06 Dose: 10 mg Documented By: DOROTA Quetiapine Fumarate (Quetiapine Fumarate 400 Mg Tablet) 400 mg PO BEDTIME PRN PRN Reason: Anxiety Sertraline HCl (Sertraline Hcl 100 Mg Tablet) 200 mg PO DAILY [facility] Last Admin: 05/19/22 08:06 Dose: 200 mg Documented By: DOROTA Sodium Chloride (0.9 % Sodium Chloride Flush 3 Ml Syringe) 3 ml IVFLUSH QSHIFT [facility] Last Admin: 05/19/22 06:30 Dose: Not Given Documented By: DOROTA Non-Admin Reason: IV Running Labs CBC & Chem 7: 05/19/22 06:13 05/19/22 06:13 Labs: Laboratory Results - last 24 hr 05/19/22 05/19/22 06:13 06:13 MCV 90.9 MCH 30.8 MCHC 33.9 RDW 13.7 Plt Count 188 D MPV 9.5 Immature Gran % (Auto) 0.6 H Neut % (Auto) 76.0 H Lymph % (Auto) 11.2 L [place] % (Auto) 12.0 H Eos % (Auto) 0.1 Baso % (Auto) 0.1 Lymph # (Auto) 1.6 [place] # (Auto) 1.7 H Eos # (Auto) 0.0 Baso # (Auto) 0.0 Abs Immat Gran (auto) 0.08 H Absolute Neuts (auto) 11.0 H Absolute Nucleated RBC 0.000 Nucleated RBC % (auto) 0.0 Smear Tech's Comments VERIFIED Anion Gap 12 Estim Creat Clear Calc 128.2 Estimated GFR > 60 Fasting Glucose 132 H Calcium 8.7 D Assessment and Plan (1) HTN (hypertension): Status: Acute (2) Atrial flutter: Status: Acute Plan 57/m with HTN, HLD, AFIB history of storke, here w/ elective PANCHITO #Permanent Aflutter--metoprolol for rate control, stroke prevention witn Eliquis once Ok with surgery #HTN--continue metoprolol, Lisinopril #HLD--continue Lipitor #Anxiety/Depression--Seroquel, Sertraline #GERD--Omeprazol #s/p Left PANCHITO... management per Ortho, including as soon as possible to be back on Eliquis Quality Stroke Does the patient have a stroke diagnosis?: No VTE Prior VTE?: No VTE Risk Level:: Medical - moderate - high VTE Device Contraindication: N/A - Device Ordered VTE Drug Contraindication: N/A - Med Ordered
--- NOTE | 2022-05-19 14:44 | HO.POSTANES ---
Post Anesthesia Evaluation Post Anesthesia Evaluation Vital Signs: Vital Signs Temp Pulse Resp BP Pulse Ox O2 Del Method 05/19/22 14:16 101 H 109/61 94 05/19/22 11:02 97.4 F 101 H 18 109/61 94 Room Air 05/19/22 08:08 101 H 108/66 94 05/19/22 07:01 97 F 101 H 18 108/66 94 Room Air 05/19/22 03:16 97.0 F 104 H 16 122/72 95 Room Air Anesthesia: General Mental Status: Awake Pain Control: Satisfactory Nausea/Vomiting: None Hydration: Adequate Anesthesia-Related Issues: No Anes. Related Issues
[2022-05-19] MEDS: 0.9 % Sodium Chloride Flush 3 ML SYRINGE IVFLUSH ×2 (17:02→20:55)
[2022-05-19] MEDS: QUEtiapine Fumarate 400 MG TABLET PO (20:55)
[2022-05-19] MEDS: Atorvastatin Calcium 80 MG TABLET PO (20:55)
[2022-05-20] VITALS: BP 130/72; PULSE 93; RESP 18; TEMP 36.1; O2SAT 92
[2022-05-20 03:29] VITALS: BP 108/59; PULSE 93; RESP 18; TEMP 36.1; O2SAT 96
[2022-05-20 06:11] LABS: MANUAL DIFF FLAG NO
[2022-05-20] MEDS: Omeprazole 20 MG CAPSULE.DR PO (06:11)
[2022-05-20 06:20] LABS: Basophils Percent Auto 0.2 % (0-2); Eosinophils Absolute Auto 0.2 X10*3/uL (0.0-0.4); Hematocrit 31.4 % (42.0-52.0); Hemoglobin 10.4 g/dl (14.0-18.0); Imm Gran Abs Auto 0.07 X10*3/uL (0.00-0.03); Imm Gran Pct Auto 0.8 % (0.0-0.4); Lymphocytes Absolute Auto 2.6 X10*3/uL (1.2-4.9); Lymphocytes Percent Auto 28.7 % (20-40); Mean Corpuscular HGB Conc 33.1 g/dl (31.0-36.0); Mean Corpuscular Hemoglobin 30.5 pg (27.0-33.0); Mean Corpuscular Volume 92.1 fL (80.0-98.0); Mean Platelet Volume 9.5 fL (9.4-12.4); Monocytes Absolute Auto 1.2 X10*3/uL (0.1-1.2); Monocytes Percent Auto 13.1 % (2-11); Neutrophils Percent Auto 55.2 % (45-73); Platelet Count 137 X10*3/uL (160-400); Red Blood Count 3.41 X10*6/uL (4.60-5.80); Red Cell Distribution Width 14.1 % (11.0-16.0); White Blood Count 9.1 X10*3/uL (4.8-10.8)
[2022-05-20 06:52] LABS: Anion Gap 11 (12-20); Blood Urea Nitrogen 23 mg/dL (9-16); Calcium 8.1 mg/dL (8.4-10.2); Carbon Dioxide 26 mmol/L (22-29); Chloride 106 mmol/L (96-108); Creatinine Clr Calc Pharmacy 136.6; Estimated Glomerular Filt Rate > 60; Glucose Fasting 98 mg/dL (60-99); Potassium 4.2 mmol/L (3.3-5.1); Sodium 139 mmol/L (135-145)
[2022-05-20 07:37] VITALS: BP 105/61; PULSE 88; RESP 18; TEMP 36.7; O2SAT 93
[2022-05-20 08:29] VITALS: BP 105/61; PULSE 88; O2SAT 93
--- NOTE | 2022-05-20 08:43 | P.DS_ITS ---
DS: Providers Provider Date of Service: 05/20/22 Date of admission: 05/18/22 06:00 Primary care physician: Giovani Choi MD Consults: 05/18/22 17:05 Consult to Hospitalist Routine Consulting Provider: Hospitalist Reason For Exam: H/O STROKE, MEDICAL MANAGEMENT DS: Diagnosis Discharge Diagnosis (1) HTN (hypertension): Status: Acute (2) Atrial flutter: Status: Acute DS: Summary Hospital Course Hospital Course: The patient underwent a successful Left total hip arthroplasty, they were transferred to PACU and then to the floor to recover. During their stay, their vitals were stable, afebrile at 98.1. Labs were unremarkable, H/H 10.4/31.4. POD 1 they were started on Lovenox for DVT ppx and then he was to resume Eliquis 5mg po BID at 48hrs post op, they also received Physical Therapy services twice a day. Prior to discharge, their dressing was changed, incision clean dry and intact, new Aquacel dressing applied and the plan was to be discharged home with VNA services. Time Spent with Patient Time attestation: Total time spent providing and/or coordinating discharge services: Discharge coordination time: Less than 30 minutes Quality: Safe Use of Opioids Does Pt have an Active Cancer Diagnosis on the Problem List?: No Quality: Stroke Does the patient have a stroke diagnosis?: No Physical Exam Vital Signs: Vital Signs: Last Vital Signs Temp 98.1 F 05/20/22 07:37 Pulse 88 05/20/22 08:29 Resp 18 05/20/22 07:37 BP 105/61 05/20/22 08:29 Pulse Ox 93 05/20/22 08:29 O2 Del Method 05/20/22 07:37 O2 Flow Rate 2 05/18/22 17:31 BMI result Body Mass Index 31.7 Const: General: cooperative, healthy appearing and no acute distress Resp: Effort & Inspection: normal respiratory effort and able to speak in complete sentences Cardio: Rate: regular rate Peripheral pulses: Peripheral pulses 2+ throughout GI: Palpation (GI): Soft to palpation Skin: Lesions: no lesions Rashes: no rashes Extrem: Other: Left hip Aquacel changed. Incision site is clean, dry, intact with no erythema or drainage. Stephanie intact. Able to dorsiflex and plantarflex. Sensation intact. Pedal pulse intact., DS: Data Data Completed and Pending Completed studies during hospitalization [Text1]: Procedures Replacement of Right Hip Joint with Ceramic Synthetic Substitute, Uncemented, Open Approach (12/02/21) Pending studies at discharge: Pending at discharge 05/18/22 08:50 Surgical [PTH] Routine Labs on day of discharge: Laboratory Results - last 24 hr 05/20/22 05/20/22 05:30 06:02 WBC 9.1 RBC 3.41 L Hgb 10.4 L Hct 31.4 L MCV 92.1 MCH 30.5 MCHC 33.1 RDW 14.1 Plt Count 137 L D MPV 9.5 Immature Gran % (Auto) 0.8 H Neut % (Auto) 55.2 Lymph % (Auto) 28.7 [place] % (Auto) 13.1 H Eos % (Auto) 2.0 Baso % (Auto) 0.2 Lymph # (Auto) 2.6 [place] # (Auto) 1.2 Eos # (Auto) 0.2 Baso # (Auto) 0.0 Abs Immat Gran (auto) 0.07 H Absolute Neuts (auto) 5.0 Absolute Nucleated RBC 0.000 Nucleated RBC % (auto) 0.0 Sodium 139 Potassium 4.2 Chloride 106 Carbon Dioxide 26 Anion Gap 11 L BUN 23 H Creatinine 0.76 Estim Creat Clear Calc 136.6 Estimated GFR > 60 Fasting Glucose 98 Calcium 8.1 L D Discharge Plan Discharge Patient Disposition: Home Health Service Discharge Diagnosis: LT PANCHITO Referrals: Wero Ramirez PA-C [Physician Insurance Adjustor] - 2 Weeks (06/03/22 12:45 [facility] Orthopedic Surgeons Wero Ramirez PA-C) Discharge Medications: New celecoxib 200 mg Capsule 200 mg PO BID 14 Days Qty: 28 0RF acetaminophen 325 mg Tablet 650 mg PO Q6H PRN (Reason: Pain, Mild (Pain Scale 1-3)) 30 Days Qty: 240 0RF docusate sodium 100 mg Capsule 100 mg PO BID 14 Days Qty: 28 0RF oxycodone 5 mg Tablet 5 mg PO Q4H PRN (Reason: Pain, Moderate (Pain Scale 4-6) 7 Days Qty: 42 0RF Rx Instructions: Partial Fill upon patient request. Continued (DME) Electric reclining chair See Rx Instructions .ROUTE .MEDSUPPLY Qty: 1 0RF Rx Instructions: As directed multivitamin Tablet 1 tab PO DAILY sertraline 100 mg tablet 2 tab PO DAILY metoprolol succinate 25 mg tablet extended release 24 hr 1 tab PO DAILY diazepam 5 mg tablet 5 mg PO TID PRN (Reason: Anxiety) atorvastatin 80 mg tablet 80 mg PO BEDTIME quetiapine 400 mg tablet 400 mg PO BEDTIME PRN (Reason: Anxiety) omeprazole 20 mg capsule,delayed release(DR/EC) 20 mg PO DAILY hydroxyzine pamoate 25 mg capsule 25 mg PO BID PRN (Reason: Anxiety) lisinopril 10 mg tablet 10 mg PO DAILY apixaban 5 mg tablet 5 mg PO BID Qty: 60 4RF Discharge Orders: Discharge Order (Routine); Ordered 05/20/22 Ordered By: Uzma Estrella Diet: Regular diet Activity on Discharge: Use cane or walker Stand Alone Forms: Patient Portal Discharge page Care Plan Goals: Restore function of joint Health Concerns: none Plan of Treatment: Physical Therapy Pain management DVT prophylaxis Assessment: * Physical Therapy for Total hip arthroplasty: wbat, posterior precautions, gait training, ROM, strength * Limit stair climbing * No showering, no tub bath-keep dressing clean, dry and intact * No driving x6 weeks * Resume Eliquis 48 hours after surgery * Follow up with [facility] Orthopedics in 2 weeks: 06/03/22 @ 12;45pm * --you will also have your first out patient PT eval on the day of your post op appt-so please plan on being in the office that day for an extended period of time.
--- NOTE | 2022-05-20 08:53 | HO.PM.IMPN ---
Subjective Subjective Date of Service: 05/20/22 Interval History: f/u on med consult, s/p elective LTHA doing well, pain is controlled, no new issues Review of Systems no fever no hip pain Physical Exam Vital Signs: Vital Signs: Last Vital Signs Temp 98.1 F 05/20/22 07:37 Pulse 88 05/20/22 08:29 Resp 18 05/20/22 07:37 BP 105/61 05/20/22 08:29 Pulse Ox 93 05/20/22 08:29 O2 Del Method 05/20/22 07:37 O2 Flow Rate 2 05/18/22 17:31 BMI result Body Mass Index 31.7 Const: Other: General: AO X 3, no acute distress Resp: CTA bilateral CVS: S1,S2,RRR GI: +BS, NT, no distention Skin: No rash, surgery wound intact Neuro: motor grossly intact Psych: appropriate affect Objective Data Active Medications Acetaminophen (Acetaminophen 325 Mg Tablet) 650 mg PO Q6H PRN PRN Reason: Pain, Mild (Pain Scale 1-3) Aspirin (Aspirin 325 Mg Tablet) 325 mg PO BID [facility] Last Admin: 05/19/22 20:55 Dose: 325 mg Documented By: SHARMAINE Atorvastatin Calcium (Atorvastatin Calcium 80 Mg Tablet) 80 mg PO BEDTIME [facility] Last Admin: 05/19/22 20:55 Dose: 80 mg Documented By: SHARMAINE Celecoxib (Celecoxib 200 Mg Capsule) 200 mg PO BID [facility] Last Admin: 05/19/22 20:55 Dose: 200 mg Documented By: SHARMAINE Diazepam (Diazepam 5 Mg Tablet) 5 mg PO TID PRN PRN Reason: Anxiety Docusate Sodium (Docusate Sodium 100 Mg Capsule) 100 mg PO BID [facility] Last Admin: 05/19/22 20:55 Dose: 100 mg Documented By: SHARMAINE Hydromorphone HCl (Hydromorphone Hcl 0.5 Mg/0.5 Ml Syringe) 0.25 mg IVPUSH Q4H PRN; Protocol PRN Reason: Pain, Severe (Pain Scale 7-10) Last Admin: 05/19/22 18:24 Dose: 0.25 mg Documented By: DOROTA Hydroxyzine HCl (Hydroxyzine Hcl 25 Mg Tablet) 25 mg PO BID PRN PRN Reason: Anxiety Lisinopril (Lisinopril 10 Mg Tablet) 10 mg PO DAILY [facility]; Protocol Last Admin: 05/19/22 08:07 Dose: 10 mg Documented By: DOROTA Metoprolol Succinate (Metoprolol Succinate Er 25 Mg Tab.Er.24h) 25 mg PO DAILY [facility]; Protocol Last Admin: 05/19/22 08:07 Dose: 25 mg Documented By: DOROTA Omeprazole (Omeprazole 20 Mg Capsule.Dr) 20 mg PO DAILY@0600 [facility] Last Admin: 05/20/22 06:11 Dose: 20 mg Documented By: SHARMAINE Ondansetron HCl (Ondansetron Hcl 4 Mg/2 Ml Vial) 4 mg IVPUSH Q8H PRN PRN Reason: Nausea and Vomiting Oxycodone HCl (Oxycodone Hcl Immed Release 5 Mg Tablet) 5 mg PO Q4H PRN PRN Reason: Pain, Moderate (Pain Scale 4-6 Last Admin: 05/19/22 06:42 Dose: 5 mg Documented By: DOROTA Oxycodone HCl (Oxycodone Hcl Er 10 Mg Tab.Er.12h) 10 mg PO BID [facility] Last Admin: 05/19/22 20:55 Dose: 10 mg Documented By: SHARMAINE Quetiapine Fumarate (Quetiapine Fumarate 400 Mg Tablet) 400 mg PO BEDTIME PRN PRN Reason: Anxiety Last Admin: 05/19/22 20:55 Dose: 400 mg Documented By: SHARMAINE Sertraline HCl (Sertraline Hcl 100 Mg Tablet) 200 mg PO DAILY [facility] Last Admin: 05/19/22 08:06 Dose: 200 mg Documented By: DOROTA Sodium Chloride (0.9 % Sodium Chloride Flush 3 Ml Syringe) 3 ml IVFLUSH QSHIFT [facility] Last Admin: 05/19/22 20:55 Dose: 3 ml Documented By: SHARMAINE Labs CBC & Chem 7: 05/20/22 05:30 05/20/22 06:02 Labs: Laboratory Results - last 24 hr 05/20/22 05/20/22 05:30 06:02 MCV 92.1 MCH 30.5 MCHC 33.1 RDW 14.1 Plt Count 137 L D MPV 9.5 Immature Gran % (Auto) 0.8 H Neut % (Auto) 55.2 Lymph % (Auto) 28.7 [place] % (Auto) 13.1 H Eos % (Auto) 2.0 Baso % (Auto) 0.2 Lymph # (Auto) 2.6 [place] # (Auto) 1.2 Eos # (Auto) 0.2 Baso # (Auto) 0.0 Abs Immat Gran (auto) 0.07 H Absolute Neuts (auto) 5.0 Absolute Nucleated RBC 0.000 Nucleated RBC % (auto) 0.0 Anion Gap 11 L Estim Creat Clear Calc 136.6 Estimated GFR > 60 Fasting Glucose 98 Calcium 8.1 L D Assessment and Plan (1) HTN (hypertension): Status: Acute Plan 57/m with HTN, HLD, AFIB history of storcuong, here w/ elective PANCHITO #Permanent Aflutter--metoprolol for rate control, stroke prevention witn Eliquis once Ok with surgery #HTN--continue metoprolol, Lisinopril #HLD--continue Lipitor #Anxiety/Depression--Seroquel, Sertraline #GERD--Omeprazol #s/p Left PANCHITO... management per Ortho, including as soon as possible to be back on Eliquis medically ok to dc and may resume prior home meds Quality Stroke Does the patient have a stroke diagnosis?: No VTE Prior VTE?: No VTE Risk Level:: Medical - moderate - high VTE Device Contraindication: N/A - Device Ordered VTE Drug Contraindication: N/A - Med Ordered
--- NOTE | 2022-05-20 09:18 | W.MHC.F2F ---
Service Date Service Date: 05/20/22 Encounter Date of encounter: 05/20/22 Reasons for Services Signs and symptoms assessed: Pt. is considered homebound due to recent surgery. Unable to drive, poor balance, poor gait mechanics. Reason for physical therapy: home safety and mobility, therapeutic exercises, restore joint function, gait/transfer training, assess need for DME and ADL training Reason for occupational therapy: home safety and mobility, therapeutic exercises, restore joint function, gait/transfer training, assess need for DME and ADL training Homebound: Leaving the home is medically contraindicated at this time without the asist of a device and/or another person due th the listed conditions above and below. Reason homebound: unsteady gait / fall risk, leg weakness, pain with ambulation, pain with transfers and unable to drive Homebound supporting statement: Pt. is considered homebound due to recent surgery. Unable to drive, poor balance, poor gait mechanics. Certification: Based on the above findings, I certify that this patient is confined to the home and needs intermittent care home care, physical therapy and/or speech therapy, or continues to need occupational therapy. The patient is under my care, and I have initiated the establishment of the plan of care. The patient will be followed by a physician who will periodically review the plan of care.
--- NOTE | 2022-05-20 09:19 | MHC.CM.PN ---
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 RN AWARE OF PLAN.
[2022-05-20] MEDS: oxyCODONE HCl ER 10 MG TAB.ER.12H PO (09:34)
[2022-05-20] MEDS: Celecoxib 200 MG CAPSULE PO (09:34)
[2022-05-20] MEDS: Sertraline HCL 100 MG TABLET 200 MG PO (09:34)
[2022-05-20] MEDS: Aspirin 325 MG TABLET PO (09:35)
[2022-05-20] MEDS: Metoprolol Succinate ER 25 MG TAB.ER.24H PO (09:35)
[2022-05-20] MEDS: Docusate Sodium 100 MG CAPSULE PO (09:35)
[2022-05-20] MEDS: 0.9 % Sodium Chloride Flush 3 ML SYRINGE IVFLUSH (09:35)
[2022-05-20] MEDS: lisinopriL 10 MG TABLET PO (09:35)
[2022-05-20 10:49] VITALS: BP 95/57; PULSE 92; RESP 18; TEMP 36.3; O2SAT 96
== END 2022-05-20 14:00 | disposition home health service (06) | DRG 470 ==
LOC: HO.SSSA 06:09 → HO.S3 16:52
PROVIDERS: Physician Assistant; Admitting Provider Orthopaedic Surgery; PCP Internal Medicine; Visit Provider Orthopaedic Surgery
PROC: 0SRB03A Replacement of Left Hip Joint with Ceramic Synthetic Substitute, Uncemented, Open Approach (ICD-10-PCS; CPT 27130; principal; 2022-05-18 07:30)
DX: M16.12 Unilateral primary osteoarthritis, left hip (principal); I48.92 Unspecified atrial flutter; I10 Essential (primary) hypertension; F32.A Depression, unspecified; F41.9 Anxiety disorder, unspecified; G25.2 Other specified forms of tremor; I69.398 Other sequelae of cerebral infarction; Z20.822 Contact with and (suspected) exposure to COVID-19; Z96.641 Presence of right artificial hip joint; Z79.01 Long term (current) use of anticoagulants; Z79.899 Other long term (current) drug therapy
CPT/HCPCS: 27130; 36415; 72170; 80048; 85025; 86850; 86900; 86901; 87635; 87640; 87641; 88304; 88305; 88311; 97110; 97116; 97162; 97166; C1776; J0131; J0690; J1100; J1170; J2250; J2370; J2405; J2550; J2795; J3010

== ENCOUNTER 2022-06-23 | Outpatient (REF) | payer OTHER, MEDICAID, SELFPAY ==
--- NOTE | ~2022-06-23 | XR_ITS ---
EXAMINATION: XR HIP, LEFT CLINICAL INFORMATION: Pain. COMPARISON: AP pelvis 05/18/2022 TECHNIQUE: Two views of the left hip. AP pelvis one view FINDINGS: AP pelvis and left hip: There are bilateral hip prosthesis in alignment. Visualized SI joints are symmetrical. AP and frog-leg views left hip reveal left hip prosthesis in alignment with no lucency seen along the femoral stem to suspect any loosening. There is minimal lucency along the acetabular prosthesis measuring 3 mm, similar to previous exam from 05/18/2022.. XR/XR hip LT w PEL1V IMPRESSION: Total hip prostheses are stable compared to previous study 05/18/2022. No periprosthetic fracture seen. Minimal lucency along the left femoral prosthesis is stable compared to 05/18/2022.
== END 2022-06-23 00:01 | disposition home or self-care (01) ==
LOC: HO.HOSX
PROVIDERS: Visit Provider Physician Assistant
DX: M25.552 Pain in left hip (principal)
CPT/HCPCS: 73502

== ENCOUNTER 2022-07-13 13:00 | Outpatient (RCR) | payer OTHER, MEDICAID, SELFPAY ==
--- NOTE | 2022-06-03 14:04 | MHC.PT.EP ---
[facility] [place] Office [place] Office [place] Office [address] Isacc Newton [address] [phone] F: [phone] F: [phone] F: [phone] F: [phone] Physical Therapy Plan of Care Date of Evaluation: Date of Surgery: 05/18/22 Diagnosis: S/P LEFT PANCHITO Assessment: 57 YO MALE REF TO PT S/P LEFT PANCHITO (POSTERIOR APPROACH) ON 05/18/22. OF IMPORTANCE, HE UNDERWENT Rt PANCHITO (POSTERIOR APPROACH) IN 11/2021. HE RESIDES ALONE IN A 1 LEVEL HOME AND IS CURRENTLY AMB W A CANE. 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 OBJECTIVE FINDINGS: PO ROM DEFICITS LEFT HIP, TIGHT HIP FLEXORS/ CALF MM, (+) STRENGTH DEFICITS, AND MILD LEFT PROX LE DISCOMFORT AND HS SORENESS. Pt IS SAFETY AWARE WITH RESTRICTIONS/ PRECAUTIONS. FUNCTIONALLY, Pt IS CURRENTLY HAS ALTERED GAIT MECHANICS, DIFFIC STAIR MGMT, AND RESTRICTED WITH MORE PHYSICALLY DEMANDING ADLs. Pt WOULD BENEFIT FROM PT AT THIS TIME TO GUIDE HIM IN HIS POST-OP COURSE, DEV A PROGR HEP, ADDRESS PAIN MGMT, AND OBTAINING MAXIMAL LEVEL OF FUNCTIONAL INDEPENDENCE. Frequency and Duration: The patient will be seen 2 x WK x 10 WKS Short Term Goals: *Pt INDEP W PANCHITO POSTERIOR APPROACH PRECAUTIONS AND SELF-MGMT OF POST-OP STATUS TO PROMOTE OPTIMAL HEALING *Pt WILL DEMON EFFICIENT GAIT MECHANICS W LEAST RESTRICTIVE ASST DEVICE ON LEVEL GROUND AND STAIRS *Pt'S LEFT HIP PAIN WILL DECR TO 2-10/29 *Pt DEMON APPROP BED MOB/ POSITIONING/ SIT <-> STAND/ CAR TRANSFERS *Pt DEMON IMPROVED SELF-PACING OF HEP Penitentiary Goals: *Pt WILL IMPROVE LUMBOPELVIC/ ROSA LE STRENGTH TO 5-/5 *Pt INCREASE FUNCT INDEP / ACTIVITY JACLYN EVIDENT W IMPROVED LEFI SCORE (AT EVAL 26/80) *Pt INDEP W PROGR HEP AND SELF-SX MGMT TECHN Treatment Plan: Modalities to reduce pain, spasms and effusion. Manual therapy to restore motion and function. Therapeutic exercise to improve strength and flexibility. Neuromuscular re-education for posture and balance. Therapeutic activities to return to functional activities of daily living. Electronically signed by: CLAUDIA WEAVERPT Please sign and return to therapist. Thank you for your referral.
--- NOTE | 2022-07-22 14:29 | MHC.PT.DC ---
[facility] [place] Office [place] Office [place] Office [address] Isacc Newton [address] [phone] F: [phone] F: [phone] F: [phone] F: [phone] Physical Therapy Discharge Report Diagnosis: S/P LEFT PANCHITO Date of Surgery: 05/18/22 Date of Evaluation: 06/03/22 Date of Discharge: 07/22/22 Treatments to Date: 7 Cancellations to Date: 4 No Shows to Date: 3 Discharge Status: Visit Non-compliance Discharge Summary: Pt has failed to comply with [facility] attendance policy and no showed his last 3 scheduled appointments. Electronically signed by: Jasmin Lou, PT, DPT, ATC Please sign and return to therapist. Thank you for your referral.
== END 2022-07-22 14:29 | disposition home or self-care (01) ==
LOC: HO.PTCHIC 13:00
PROVIDERS: Visit Provider Physician Assistant
DX: Z96.642 Presence of left artificial hip joint (principal)
CPT/HCPCS: 97110; 97140; 97162

== ENCOUNTER → 2022-09-16 09:56 | Outpatient (BNVA) | payer OTHER, MEDICAID, SELFPAY | PROVIDERS: PCP Internal Medicine; Visit Provider Internal Medicine | DX: R06.00 Dyspnea, unspecified (principal); G47.33 Obstructive sleep apnea (adult) (pediatric); F41.9 Anxiety disorder, unspecified; F32.A Depression, unspecified; E66.9 Obesity, unspecified; Z68.32 Body mass index [BMI] 32.0-32.9, adult | CPT/HCPCS: 99212 ==

== ENCOUNTER → 2022-10-06 11:04 | Outpatient (REF) | payer OTHER, MEDICAID, SELFPAY | LOC: HO.SL 11:04 | PROVIDERS: Visit Provider Internal Medicine | DX: Z13.89 Encounter for screening for other disorder (principal) ==

== ENCOUNTER 2022-10-13 08:30 | Outpatient (REF) | payer OTHER, MEDICAID, SELFPAY ==
--- NOTE | ~2022-10-13 | US_ITS ---
EXAMINATION: US RETROPERITONEAL LIMITED (RENAL ONLY) CLINICAL INFORMATION: Calculus of kidney. COMPARISON: Ultrasound retroperitoneal limited (renal only) 10/13/2021. CT abdomen and pelvis with contrast 03/15/2021. Ultrasound abdomen complete 11/08/2013. TECHNIQUE: Real-time imaging of the kidneys. FINDINGS: RIGHT KIDNEY: 11.2 x 6.4 x 6.3 cm (SAG x AP x TRV). The kidney is normal in size, contour, and echogenicity. Renal cortical thickness is normal. No renal calculi or hydronephrosis. Lower pole 1.5 cm hypoechoic mass versus cyst. LEFT KIDNEY: 13.2 x 6.0 x 6.5 cm (SAG x AP x TRV). The kidney is normal in size, contour, and echogenicity. Renal cortical thickness is normal. No renal calculi or hydronephrosis. Benign-appearing cysts measuring up to 5.1 cm. US/US renal BI IMPRESSION: 1. Right lower pole 1.5 cm hypoechoic mass versus cyst. Recommend further evaluation with CT or MR renal protocol. 2. Benign-appearing left renal cysts. Followup imaging is not routinely recommended for benign appearing cysts.
== END 2022-10-13 08:31 | disposition home or self-care (01) ==
LOC: HO.US 08:30
PROVIDERS: PCP Internal Medicine; Visit Provider Urology
DX: N20.0 Calculus of kidney (principal)
CPT/HCPCS: 76775

== ENCOUNTER 2022-10-20 07:14 | Outpatient (REF) | payer OTHER, MEDICAID, SELFPAY ==
--- NOTE | ~2022-10-20 | MR_ITS ---
EXAMINATION: MR BRAIN WITHOUT CONTRAST CLINICAL INFORMATION: Tremor, cerebellar infarction COMPARISON: CTA head and neck 08/23/2019, MRI brain without contrast 06/02/2019 TECHNIQUE: Multiplanar multisequence MR imaging of the brain was obtained without intravenous contrast. FINDINGS: There is no acute infarct on diffusion-weighted imaging. There is no intracranial hemorrhage on iron-sensitive imaging. No extra-axial collection or mass effect/herniation. Scattered periventricular and deep white matter T2 FLAIR hyperintensities consistent with mild underlying microangiopathy. Chronic infarct involving the posterior right cerebellum. Small chronic lacunar infarcts involving the inferomedial left cerebellar hemisphere. No hydrocephalus. The ventricles are normal in morphology and size. The major flow voids at the skull base are preserved. The midline structures are normal. The cerebellar tonsils are normally positioned. The craniocervical junction is normal. Marrow signal is within normal limits. The visualized soft tissues are without significant abnormality. Moderate ethmoid sinus opacification and mild mucosal thickening and retention cysts involving the maxillary sinuses a small layering fluid in the right maxillary antrum. MR/MR head/brain wo con IMPRESSION: 1. No acute intracranial abnormality 2. Chronic right cerebellar infarct and small chronic lacunar infarcts involving the inferomedial left cerebellum. No evidence of new interval ischemic injury. 3. Mild chronic microangiopathy
== END 2022-10-20 07:15 | disposition home or self-care (01) ==
LOC: HO.MRI 07:14
PROVIDERS: PCP Internal Medicine; Visit Provider Psychiatry & Neurology Neurology
DX: R25.1 Tremor, unspecified (principal); Z86.73 Personal history of transient ischemic attack (TIA), and cerebral infarction without residual deficits
CPT/HCPCS: 70551

== ENCOUNTER → 2022-10-21 08:23 | Outpatient (BNVA) | payer OTHER, MEDICAID, SELFPAY | PROVIDERS: PCP Internal Medicine; Visit Provider Urology | DX: N20.0 Calculus of kidney (principal); N28.1 Cyst of kidney, acquired | CPT/HCPCS: 99212 ==

== ENCOUNTER → 2023-01-10 08:54 | Outpatient (BNVA) | payer OTHER, MEDICAID, SELFPAY | PROVIDERS: PCP Internal Medicine; Visit Provider Internal Medicine | DX: I48.91 Unspecified atrial fibrillation (principal); I63.9 Cerebral infarction, unspecified; Z86.010 Personal history of colon polyps | CPT/HCPCS: 99202 ==

== ENCOUNTER 2023-03-02 10:20 | Outpatient (AMB) | payer OTHER, MEDICAID, SELFPAY ==
--- NOTE | 2023-03-02 10:25 | A.OFFVIS_ITS ---
Intake Vital Signs 03/02/23 10:26 Height 6 ft 1 in Weight 244 lb 11.41 oz BMI 32.3 BP 104/80 Blood Pressure Location Lt brachial Position Sitting Pulse 72 Pulse Source Monitor Intake Visit Reasons: OVERDUE 6 MON FUP Intake Note: Overdue 6 month follow up with EKG. Pt c/o stabbing chest pains that comes and goes instantly. He is also very short of breath with exertion. Sheet Tailer Required: No Accompanied by: Self / Same As Patient Allergies diclofenac [From VOLTAREN] Allergy (Severe, Verified 03/02/23 10:28) SEVERE RASH, FACIAL SWELLING, hives Medication List - Last Reconciled 03/02/23 by Anders German MD albuterol sulfate 90 mcg/actuation 2 puffs inhalation Q4H PRN apixaban 5 mg PO BID atorvastatin 80 mg PO BEDTIME diazepam 5 mg PO TID PRN [Electric reclining chair As directed] lisinopril 10 mg PO DAILY metoprolol succinate ER 1 tab PO DAILY multivitamin 1 tab PO DAILY olanzapine mg PO omeprazole 20 mg PO DAILY peg 3350-electrolytes 236-22.74-6.74 -5.86 gram (Golytely) 240 mL PO Q10M primidone 50 mg PO BID quetiapine 400 mg PO BEDTIME PRN sertraline 2 tabs PO DAILY HPI HPI Comments History of Present Illness Details Pleasant 56-year-old gentleman who was referred to us for perioperative cardiovascular risk assessment for right hip surgery. He has background history of atrial fibrillation, DVT / PE and CVA. He has been on Eliquis. he is saying since the stroke he has been short of breath with minimal exertion. He has seen Dr. Sanchez for pulmonology and he has been found to have mild obstructive lung disease. His dyspnea is out of proportion to the lung disease. He is a lifelong nonsmoker. He has no exertional chest discomfort. He has tremors in his hands for which he has seen Neurology in the past but no obvious improvement has happened. he has significant anxiety which mostly developed after the stroke. Received his chart from [facility] which showed that he had a fenestrated PFO with [id number]-ca-yepf shunting noticed on JIMMY. He saw [facility] Cardiology after discharge. I had a discussion with Dr. Reji Gomez who saw the patient after discharge from [place]. It appears he had a cardiac event monitor which showed atrial flutter. It was decided to start the patient on Eliquis and not disclose the patent [place] ovale unless he develops another episode of TIA/stroke. Since then he has been taking Eliquis and has been stable. We did stress testing and echocardiography which did not show any significant issues. His transthoracic echocardiography with bubble study did not show a PFO but it appears with JIMMY done in [place] he had a clear PFO reported which was noted to be fenestrated and complex. He continues to be is fairly short of breath but he has been told by pulmonology that this is all related to anxiety. He was taught some breathing exercises and he plans to start doing them. He is concerning left hip surgery now. He underwent right hip replacement uneventfully. 03/02/23: He returns for follow-up. He is saying he underwent bilateral hip replacement and has been recovering well. He is exercising. He has atypical left-sided needle like sensation off and on lasting for few seconds. He is still complaining of dyspnea and is saying that pulmonology has told him that this is due to anxiety. He has a PFO and I have checked his oxygen level laying and standing and it does not change with upright posture. [facility], [facility] Medical History (Updated 03/02/23 @ 19:21 by Anders German MD) Anxiety and depression Arthritis Atrial fibrillation Atrial flutter COPD (chronic obstructive pulmonary disease) CVA (cerebral vascular accident) Dyspnea on exertion Elevated cholesterol GERD (gastroesophageal reflux disease) HTN (hypertension) Kidney stones Obesity (BMI 30-39.9) On anticoagulant therapy [place] (obstructive sleep apnea) PFO (patent foramen ovale) Somnolence Tremor, anxiety related Surgical History H/O removal of cyst History of right hip replacement History of varicose vein ligation and stripping Hx of colonoscopy Hx of surgical procedure Family History Mother No problems noted. Father No problems noted. 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) Alcohol intake: never Patient Tobacco Use Status: Never used Tobacco service: No Current occupational status: disabled Review of Systems Const Denies weakness ENT Denies dizziness Card Denies chest pain, Denies chest pain with activity, Denies syncope, Denies rapid heart rate, Denies pedal edema, Denies edema, Denies leg edema, Denies lightheadedness, Denies palpitations, Denies dyspnea, Denies dyspnea on exertion and Denies orthopnea Resp Denies cough, Denies dyspnea and Denies dyspnea on exertion GI Denies hematochezia and Denies change in stool character Musc Denies abnormal gait, Denies muscle cramps, Denies muscle weakness, Denies numbness, Denies radiating pain into limb and Denies tingling Neuro Denies abnormal gait, Denies dizziness, Denies syncope, Denies numbness, Denies tingling and Denies weakness Endo Denies palpitations Physical Exam Vital Signs: Last Vital Signs Pulse 72 03/02/23 10:26 BP 104/80 03/02/23 10:26 BMI result Body Mass Index 32.3 GENERAL APPEARANCE: in no acute distress, pleasant. Anxious appearing NECK: no carotid bruit, no jugular venous distention. SKIN: no suspicious lesions, warm and dry. HEART: no murmurs, regular rate and rhythm. LUNGS: clear to auscultation bilaterally. ABDOMEN: soft, nontender. EXTREMITIES: no edema. significant tremors both hands. PERIPHERAL PULSES: equal. NEUROLOGIC: No gross deficits, AAO X 3 Office Procedures EKG Details: Sinus with premature atrial complexes 70 per minute, normal axis, can not rule out septal infarct, QTC 411 milliseconds. [id number], Complete Assessment & Plan Assessment & Plan (1) Dyspnea on exertion: Code(s): R06.00 - Dyspnea, unspecified (2) CVA (cerebral vascular accident): Comment: 05/2019 Code(s): I63.9 - Cerebral infarction, unspecified (3) Atrial flutter: Code(s): I48.92 - Unspecified atrial flutter Plan Pleasant 57-year-old gentleman who is here for follow-up. He previously had a stroke and was diagnosed with a PFO. He had workup done and was diagnosed with atrial flutter and started on Eliquis. Since then he had not had his stroke. He did not have PFO closure. He has dyspnea which is out of proportion to lung disease or any cardiovascular issues. He has significant anxiety which is definitely cardiac waiting to dyspnea. A checked his saturations laying and standing and oxygen saturations actually improved from laying to standing position. I do not believe that the PFO is causing any dyspnea/platypnea orthodeoxia. Blood pressure control is good. Continue same medications for now. Thank you for allowing me to participate in the care of your patient. Please feel free to contact me if you have any questions. Coding Level of Care Code Est Pt Level 4 (11389) Diagnoses Dyspnea on exertion R06.00 CVA (cerebral vascular accident) I63.9 Atrial flutter I48.92 CPT Codes EKG - CPT: 30777-[id number], Complete ([id number])
[2023-03-02 10:26] VITALS: BP 104/80; PULSE 72; BMI 32.3
== END 2023-03-02 10:55 | disposition home or self-care (01) ==
PROVIDERS: Visit Provider Internal Medicine Cardiovascular Disease
DX: I49.1 Atrial premature depolarization (principal)
CPT/HCPCS: 93010; 99214

== ENCOUNTER → 2023-03-02 10:20 | Outpatient (BNVA) | payer OTHER, MEDICAID, SELFPAY | PROVIDERS: Visit Provider Internal Medicine Cardiovascular Disease | DX: I48.92 Unspecified atrial flutter (principal); R06.00 Dyspnea, unspecified; I63.9 Cerebral infarction, unspecified; I26.99 Other pulmonary embolism without acute cor pulmonale; Q21.12 Patent foramen ovale; I49.1 Atrial premature depolarization; Z79.01 Long term (current) use of anticoagulants | CPT/HCPCS: 93005; 99212 ==

== ENCOUNTER → 2023-03-03 09:36 | Outpatient (REF) | payer OTHER, MEDICAID, SELFPAY | LOC: HO.SL 09:36 | PROVIDERS: Visit Provider Internal Medicine | DX: G47.33 Obstructive sleep apnea (adult) (pediatric) (principal); R40.0 Somnolence | CPT/HCPCS: 95806 ==

== ENCOUNTER → 2023-03-03 09:52 | Outpatient (BNV) | payer OTHER, MEDICAID, SELFPAY | PROVIDERS: Visit Provider Internal Medicine | DX: R06.83 Snoring (principal) | CPT/HCPCS: 95806 ==

== ENCOUNTER 2023-05-20 15:21 | Outpatient (REF) | payer OTHER, MEDICAID, SELFPAY ==
--- NOTE | ~2023-05-20 | MR_ITS ---
EXAMINATION: MR KIDNEYS, WITHOUT AND WITH CONTRAST CLINICAL INFORMATION: Complex renal cyst. COMPARISON: Previous CT of the abdomen and pelvis February 2021 and renal ultrasound September 2022. TECHNIQUE: Sagittal axial and coronal sequences through the abdomen without and with contrast. Patient received 10 mL IV Gadavist contrast. FINDINGS: The lung bases are clear. Liver is normal in size and contour. There is signal loss in the liver on out of phase sequences suggestive of fatty infiltration. There are several small cysts in the liver. The largest measures 1 cm in the posterior segment of the right lobe. The gallbladder is normal. No intrahepatic or extrahepatic biliary duct dilatation. The pancreas is normal. The spleen is normal. There is a 1.4 cm lesion exophytic to the anterior limb of the left adrenal gland. This is low signal on T1-weighted sequences, high signal on T2-weighted sequences and demonstrates no evidence of enhancement. This is compatible with a simple cyst. The adrenal glands are otherwise normal. The kidneys are normal in contour and symmetric in size. There are small subcentimeter simple left renal cysts, Bosniak type I. There is a bilobed cyst exophytic to the lateral left kidney with single thin septation. This is low signal on T1-weighted sequences and high signal on T2-weighted sequences. This measures 6.4 x 4.3 x 4.7 cm in dimensions. This demonstrates no solid component and no evidence of enhancement. This is suggestive of a Bosniak type II cyst. No imaging followup of left renal cysts recommended. There is mild diverticulosis of the colon. No ascites or enlarged lymph nodes. Vascular structures are normal. Small umbilical hernia containing fat. Degenerative changes of the spine. MR/MR kidney wo/w con IMPRESSION: Left renal cysts. Bilobed cyst with single thin septation exophytic to the lateral left kidney, Bosniak type II cyst. This measures 6.4 x 4.7 cm in greatest dimensions. Multiple left renal subcentimeter simple Bosniak type I renal cysts. No imaging followup of left renal cysts recommended. Fatty liver. Small liver cysts. Diverticulosis of the colon.
[2023-05-20] MEDS: gadobutroL 10 ML VIAL IVPUSH (16:30)
[2023-05-20 16:49] LABS: Blood Urea Nitrogen 19 mg/dL (9-16); Estimated Glomerular Filt Rate > 60
== END 2023-05-20 15:22 | disposition home or self-care (01) ==
LOC: HO.MRI 15:21
PROVIDERS: Absent Provider Urology; PCP Internal Medicine; Visit Provider Urology
DX: N28.1 Cyst of kidney, acquired (principal)
CPT/HCPCS: 36415; 74181; 82565; 84520; A9585

== ENCOUNTER 2023-06-03 09:12 | Outpatient (AMB) | payer OTHER, MEDICAID, SELFPAY ==
--- NOTE | 2023-06-03 09:18 | MHC.OFFVIS ---
Intake Intake Visit Reasons: 6 month/MRI(set) Intake Note: Patient is Present for Telephone Follow Up MRI Urology Med: None Antibiotic Allergy: None Blood Thinner: Apixaban Pharamcy: CVS Allergies diclofenac [From VOLTAREN] Allergy (Severe, Verified 06/03/23 09:21) SEVERE RASH, FACIAL SWELLING, hives Medication List - Last Reconciled 06/03/23 by Wiley Christie MD albuterol sulfate 90 mcg/actuation 2 puffs inhalation Q4H PRN apixaban 5 mg PO BID atorvastatin 80 mg PO BEDTIME diazepam 5 mg PO TID PRN [Electric reclining chair As directed] lisinopril 10 mg PO DAILY metoprolol succinate ER 1 tab PO DAILY multivitamin 1 tab PO DAILY olanzapine mg PO omeprazole 20 mg PO DAILY peg 3350-electrolytes 236-22.74-6.74 -5.86 gram (Golytely) 240 mL PO Q10M primidone 50 mg PO BID quetiapine 400 mg PO BEDTIME PRN sertraline 2 tabs PO DAILY HPI HPI Comments History of Present Illness Details Edward is a pleasant male. He is a patient of Dr Choi. He is seen for the following urologic conditions - nephrolithiasis - renal cyst Telemedicine Evaluation 15 min Consultation [employer] Becki Video attempted MRI renal cyst Bosniak 2 Continue 12 month follow-up for stones Nephrolithiasis Seen at the emergency room February 2021 Distal left ureteric stone - Was able to pass with medical expulsion therapy Renal imaging CT scan - 03/11 left distal ureteric stone 3 mm with perinephric stranding, 5 mm stone lower pole right side - 10/13 renal ultrasound left renal cysts stable 3-5 cm, no evidence of stones - 03/13 renal MRI, Bosniak 2 4 cm cyst left side, no evidence stones Therapeutic plan - increase fluid intake - interval surveillance [facility] Medical History Somnolence [place] (obstructive sleep apnea) Obesity (BMI 30-39.9) Elevated cholesterol HTN (hypertension) PFO (patent foramen ovale) Atrial flutter Tremor, anxiety related On anticoagulant therapy Kidney stones Arthritis GERD (gastroesophageal reflux disease) COPD (chronic obstructive pulmonary disease) Anxiety and depression Dyspnea on exertion CVA (cerebral vascular accident) Atrial fibrillation Surgical History Hx of colonoscopy History of right hip replacement Hx of surgical procedure History of varicose vein ligation and stripping H/O removal of cyst Family History Mother No problems noted. Father No problems noted. 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) Alcohol intake: never Patient Tobacco Use Status: Never used Tobacco service: No Current occupational status: disabled Review of Systems Const All systems reviewed & are unremarkable except as noted in HPI and below Reports no additional complaints Resp Reports no additional complaints GI Reports no additional complaints Reports as per HPI Musc Reports no additional complaints Physical Exam Telemedicine evaluation Appropriate responses Regular breathing rate and rhythm HEENT Head: Yes normal to inspection Ears: hearing grossly normal bilaterally Eyes General: appearance normal, both eyes and all related structures Neck Neck: Yes normal visual inspection Chest Chest palpation & inspection: normal inspection of the chest Resp Effort & Inspection: normal respiratory effort and able to speak in complete sentences Assessment & Plan Assessment & Plan (1) Complex renal cyst: Code(s): N28.1 - Cyst of kidney, acquired (2) Nephrolithiasis: Code(s): N20.0 - Calculus of kidney Plan Twelve month follow-up Orders: Orders US renal BI 364 Days N20.0 - Calculus of kidney Patient Instructions: Imaging studies, laboratory and physical exam results were discussed and reviewed in detail. No major barriers to patient understanding were identified. An opportunity to ask questions regarding the treatment plan was provided. All questions were answered. The patient expressed understanding and agreement with the above treatment plan. The patient is aware they should contact our office by phone for worsening of their current condition or the appearance of new urologic symptoms. Compliance is encouraged with any medications and followup testing that is ordered. It is a privilege to participate in the urologic care of your patient. If you have any questions or concerns regarding treatment for the above conditions, or other urologic issues, please do not hesitate to contact me. The office telephone contact is [phone]. This note is constructed using voice recognition software. While every effort has been made to ensure accuracy aircraft lay out worker errors may have been included. Yours sincerely, Dr Wiley Christie MD, [facility] - Urology Providers of Expert, Compassionate Care for the Genitourinary System Telehealth Telehealth Location of provider rendering services: practice address Location of patient: address on file Patient Identification confirmed using: Name, : Yes Telehealth method: video Patient verbally consented to treatment: Yes Patient verbally consented to billing insurance company: Yes Patient informed of any privacy concerns related to visit: Yes Coding Level of Care Code Est Pt Level 4 (45139) Diagnoses Complex renal cyst N28.1 Nephrolithiasis N20.0
== END 2023-06-03 10:45 | disposition home or self-care (01) ==
LOC: HO.HUSH 09:12
PROVIDERS: PCP Internal Medicine; Visit Provider Urology
DX: N28.1 Cyst of kidney, acquired (principal); N20.0 Calculus of kidney
CPT/HCPCS: 99213

== ENCOUNTER → 2023-06-03 09:12 | Outpatient (BNVA) | payer OTHER, MEDICAID, SELFPAY | PROVIDERS: PCP Internal Medicine; Visit Provider Urology ==

== ENCOUNTER 2023-07-04 11:55 | Outpatient (REF) | payer OTHER, MEDICAID, SELFPAY ==
--- NOTE | ~2023-07-04 | XR_ITS ---
EXAMINATION: XR LUMBOSACRAL SPINE CLINICAL INFORMATION: Lower back pain COMPARISON: None available. TECHNIQUE: Three views of the lumbosacral spine. FINDINGS: There are 5 not ribs bearing vertebral bodies and lumbar spine. Vertebral bodies are well aligned and intervertebral discs are preserved. Pedicles are intact. There is minimal marginal spurring of endplates of lumbar spine vertebral bodies. XR/XR lumbar spine 2-3V IMPRESSION: Mild degenerative changes with marginal spurring.
== END 2023-07-04 11:56 | disposition home or self-care (01) ==
LOC: HO.HMGCX 11:55
PROVIDERS: PCP Internal Medicine; Visit Provider Internal Medicine
DX: M54.50 Low back pain, unspecified (principal)
CPT/HCPCS: 72100

== ENCOUNTER 2023-08-03 07:46 | Day surgery (SDC) | payer OTHER, MEDICAID, SELFPAY ==
--- NOTE | 2023-08-01 13:49 | P.CONAN_ITS ---
Documented by User: Nina Cunningham NP 08/02/23 09:10 HPI - Anesthesia Eval Consult details Narrative: 58yo M for Colonoscopy Cardiac cleared Eliquis for afib PMFSH Active Problems Active Problems: All Active Problems (Updated 03/02/23 @ 19:21 by Anders German MD) Atrial flutter (Acute) Atrial fibrillation (Acute) Personal history of colonic polyps (Acute) Complex renal cyst (Acute) Somnolence (Acute) CAM[place] (obstructive sleep apnea) (Acute) Obesity (BMI 30-39.9) (Acute) S/P total left hip arthroplasty (Acute) Osteoarthritis of left hip (Acute) Osteoarthritis of right hip (Acute) Nephrolithiasis (Acute) Dyspnea on exertion (Acute) Preop cardiovascular exam (Acute) Status post total hip replacement, right (Acute) Anxiety and depression (Acute) Dyspnea on exertion (Acute) CVA (cerebral vascular accident) (Acute) Past Medical History Medical History Somnolence CAM[place] (obstructive sleep apnea) Obesity (BMI 30-39.9) Elevated cholesterol HTN (hypertension) PFO (patent foramen ovale) Atrial flutter Tremor, anxiety related On anticoagulant therapy Kidney stones Arthritis GERD (gastroesophageal reflux disease) COPD (chronic obstructive pulmonary disease) Anxiety and depression Dyspnea on exertion CVA (cerebral vascular accident) Atrial fibrillation Family History Family History Mother No problems noted. Father No problems noted. 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) Alcohol intake: never Comment: patient refused alarm Patient Tobacco Use Status: Never used Tobacco service: No Current occupational status: disabled Meds Allergies Allergy/AdvReac Type Severity Reaction Status Date / Time diclofenac [From [facility]] Allergy Severe SEVERE Verified 06/03/23 09:21 RASH, FACIAL SWELLING, hives Home Medications Medication Instructions Recorded Confirmed Last Taken Type omeprazole 20 mg capsule,delayed 20 mg PO DAILY 08/24/21 06/03/23 05/17/22 History release atorvastatin 80 mg tablet 80 mg PO BEDTIME 09/28/21 06/03/23 05/15/22 History diazepam 5 mg tablet 5 mg PO TID PRN Anxiety 09/28/21 06/03/23 05/17/22 History multivitamin 1 tab PO DAILY 12/02/21 06/03/23 05/17/22 History sertraline 100 mg tablet 2 tab PO DAILY 12/02/21 06/03/23 05/15/22 History lisinopril 10 mg tablet 10 mg PO DAILY 01/28/22 06/03/23 05/15/22 History quetiapine 400 mg tablet 400 mg PO BEDTIME PRN Anxiety 01/28/22 06/03/23 05/12/22 History metoprolol succinate 25 mg 1 tab PO DAILY 05/18/22 06/03/23 Unknown History tablet,extended release 24 hr primidone 50 mg tablet 50 mg PO BID 10/21/22 06/03/23 Unknown History albuterol sulfate 90 mcg/actuation 2 puff inhalation Q4H PRN 03/02/23 06/03/23 Unknown History aerosol inhaler olanzapine 2.5 mg tablet mg PO 03/02/23 06/03/23 Unknown History Exam Narrative Narrative: EKG 02/2023 Sinus with premature atrial complexes 70 per minute, normal axis, can not rule out septal infarct, QTC 411 milliseconds. ECHO 2021 Conclusions: - Normal left ventricular size, thickness, and systolic function. The visually estimated ejection fraction is between 55-60%. - Normal right ventricular cavity size and systolic function. - There is mild dilatation of the ascending aorta measuring 3.40 cm. - We will bring him back for a bubble study given h/o stroke and ?intracardiac shunt. W/ Contrast Conclusions: - 1. No evidence of PFO 2. Normal LV systolic function Assessment and Plan Assessment Anesthesia Assessment: Chart Reviewed Final Anesthetic Review Family History of Problems with Anesthesia: No History of Problems with Anesthesia: No Documented by User: Brad Rhodes MD 08/03/23 07:30 [facility] Past Medical History Medical History Somnolence [place] (obstructive sleep apnea) Obesity (BMI 30-39.9) Elevated cholesterol HTN (hypertension) PFO (patent foramen ovale) Atrial flutter Tremor, anxiety related On anticoagulant therapy Kidney stones Arthritis GERD (gastroesophageal reflux disease) COPD (chronic obstructive pulmonary disease) Anxiety and depression Dyspnea on exertion CVA (cerebral vascular accident) Atrial fibrillation Family History Family History Mother No problems noted. Father No problems noted. 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) Alcohol intake: never Comment: patient refused alarm Patient Tobacco Use Status: Never used Tobacco service: No Current occupational status: disabled Meds Allergies Allergy/AdvReac Type Severity Reaction Status Date / Time diclofenac [From [facility]] Allergy Severe SEVERE Verified 06/03/23 09:21 RASH, FACIAL SWELLING, hives Home Medications Medication Instructions Recorded Confirmed Last Taken Type omeprazole 20 mg capsule,delayed 20 mg PO DAILY 08/24/21 06/03/23 05/17/22 History release atorvastatin 80 mg tablet 80 mg PO BEDTIME 09/28/21 06/03/23 05/15/22 History diazepam 5 mg tablet 5 mg PO TID PRN Anxiety 09/28/21 06/03/23 05/17/22 History multivitamin 1 tab PO DAILY 12/02/21 06/03/23 05/17/22 History sertraline 100 mg tablet 2 tab PO DAILY 12/02/21 06/03/23 05/15/22 History lisinopril 10 mg tablet 10 mg PO DAILY 01/28/22 06/03/23 05/15/22 History quetiapine 400 mg tablet 400 mg PO BEDTIME PRN Anxiety 01/28/22 06/03/23 05/12/22 History metoprolol succinate 25 mg 1 tab PO DAILY 05/18/22 06/03/23 Unknown History tablet,extended release 24 hr primidone 50 mg tablet 50 mg PO BID 10/21/22 06/03/23 Unknown History albuterol sulfate 90 mcg/actuation 2 puff inhalation Q4H PRN 03/02/23 06/03/23 Unknown History aerosol inhaler olanzapine 2.5 mg tablet mg PO 03/02/23 06/03/23 Unknown History Exam Airway Mallampati Class: II TM Dist: >3cm Neck ROM: Limited Heart: rrr Lungs: cta Assessment and Plan Assessment Anesthesia Assessment: Anesthesia Plan Discussed Final Anesthetic Review NPO: Yes ASA Class: III Final Preanesthetic Review: No Changes in Pt Med Stat, Meds/Allgs Chart Reviewed, Consent Obtained/Reviewed and Anes Risks/Benef Reviewed Patient Risk: Intermediate Procedure Risk: Low Anesthetic Plan Anesthetic Plan: MAC: and Agree w/ Assess. and Plan Disposition: Standard PACU
[2023-08-03 07:57] VITALS: BMI 33.9
[2023-08-03 08:28] VITALS: BP 109/82; PULSE 89; RESP 16; TEMP 35.8; O2SAT 94
[2023-08-03] MEDS: Lactated Ringers 1,000 ML 100 ML IVCONT (08:30)
--- NOTE | 2023-08-03 08:56 | MHC.SHP ---
Pre-Procedural Eval Section A Date of Service: 08/03/23 Section B Chief Complaint: screening Relevant Family History (Specify if Yes): No Relevant Social History: None Present Medications: see Short Stay Collaborative assessment Medical History: Significant History (Somnolence [place] (obstructive sleep apnea) Obesity (BMI 30-39.9) Elevated cholesterol HTN (hypertension) PFO (patent foramen ovale) Atrial flutter Tremor, anxiety related On anticoagulant therapy Kidney stones Arthritis GERD (gastroesophageal reflux disease) COPD (chronic obstructive pulmonary disease) History of Previous Operations: Relevant previous surgery/procedure and date(s) (Hx of colonoscopy History of right hip replacement Hx of surgical procedure History of varicose vein ligation and stripping H/O removal of cyst) Allergies: Allergies Allergy/AdvReac Type Severity Reaction Status Date / Time diclofenac [From [facility]] Allergy Severe SEVERE Verified 08/03/23 08:00 RASH, FACIAL SWELLING, hives Review of Systems Sugical H&P ROS: Negative: Constitution, Cardiovascular, Respiratory, Neurological, Psychiatric, Hem-Onc, Allergic/Immunologic, Gastrointestinal, Genitourinary, Musculoskeletal, Integumentary, Endocrine and Eyes/Ears/Nose/Throat Exam Surgical H&P Exam: Normal: HEENT, Normal: Heart, Normal: Lungs, Normal: Extremities, Normal: Abdomen, Normal: Skin and Normal: Neurological Plan Diagnosis/Plan: Unchanged I have reviewed the history and physical and performed a pertinent physical examination on my patient. No changes have occurred unless specified. Time Spent With Patient Time: Total time managing care of this patient today ____ minutes.
--- NOTE | 2023-08-03 08:57 | W.PM.OPN ---
Operative Note Operative Note Date of Service: 08/03/23 Narrative: Operative Information Procedure Description: Colonoscopy Indication: colon screening Anesthesia: MAC COLONOSCOPY Instrument: Olympus variable stiffness ADULT scope 190L Colonoscopy Monitoring: Vital signs and clinical assessment, continuous EKG monitoring, Pulse oximetry, Carbon Dioxide monitoring and blood pressure monitoring were done throughout the procedure. Colon withdrawal time was 10 minutes. Procedure: The patient was placed in the left lateral decubitis position and pre-procedure medications were administered. After a digital rectal examination of the ano-rectum, the video colonoscope was inserted into the rectum and advanced through the colon to the cecum/TI. The colonoscope was slowly withdrawn in a retrograde panoramic fashion and the colon mucosa was carefully examined including a retroflexed view of the rectum. Findings and interventions are described below. Procedure Difficulty: easy Findings: Terminal Ileum-normal Cecum:normal Ascending Colon: 5-6 mm sessile polyp, removed with cold snare Transverse Colon -normal Descending Colon:normal Sigmoid Colon: 3-5 mm sessile polyp removed with cold forceps Rectum: Retroflexion with small internal hemorrhoids, grade I Anorectum - normal Colon preparation: [place] Bowel Preparation Scale Right colon; 1-2 Transverse colon: 2 Left colon; 1-2 (0 = Unprepared colon segment with mucosa not seen due to solid stool that cannot be cleared. 1 = Portion of mucosa of the colon segment seen, but other areas of the colon segment not well seen due to staining, residual stool and/or opaque liquid. 2 = Minor amount of residual staining, small fragments of stool and/or opaque liquid, but mucosa of colon segment seen well. 3 = Entire mucosa of colon segment seen well with no residual staining, small fragments of stool or opaque liquid) Impression and Post Procedure Diagnosis: poor prep polyps internal hemorrhoids Plan: High fiber diet leaflet Avoid straining at stool, epsom salts and sitz bath, anusol supps or cream Repeat Colonoscopy in 1- year due to prep or earlier if clinically indicated Above findings were reviewed with the patient and relevant handouts were provided if indicated.
[2023-08-03 09:38] VITALS: BP 94/59; PULSE 93; RESP 16; TEMP 36.6; O2SAT 94
[2023-08-03 09:53] VITALS: BP 106/77; PULSE 97; RESP 15; TEMP 36.6; O2SAT 95
== END 2023-08-03 12:11 | disposition home or self-care (01) ==
PROVIDERS: PCP Internal Medicine; Visit Provider Internal Medicine Gastroenterology
PROC: 0DJD8ZZ Inspection of Lower Intestinal Tract, Via Natural or Artificial Opening Endoscopic (ICD-10-PCS; CPT 45378; principal; 2023-08-03 09:30)
DX: Z12.11 Encounter for screening for malignant neoplasm of colon (principal); Z86.010 Personal history of colon polyps; D12.2 Benign neoplasm of ascending colon; K63.5 Polyp of colon; K64.0 First degree hemorrhoids; Q21.12 Patent foramen ovale; I48.92 Unspecified atrial flutter; I48.91 Unspecified atrial fibrillation; E78.00 Pure hypercholesterolemia, unspecified; G47.33 Obstructive sleep apnea (adult) (pediatric); J44.9 Chronic obstructive pulmonary disease, unspecified; F41.8 Other specified anxiety disorders; Z86.73 Personal history of transient ischemic attack (TIA), and cerebral infarction without residual deficits; E66.9 Obesity, unspecified; Z68.32 Body mass index [BMI] 32.0-32.9, adult; Z79.01 Long term (current) use of anticoagulants; Z79.899 Other long term (current) drug therapy; Z88.8 Allergy status to other drugs, medicaments and biological substances; Z98.890 Other specified postprocedural states
CPT/HCPCS: 45385; 45380; 88305; J2704

== ENCOUNTER → 2023-08-03 07:46 | Outpatient (BNV) | payer OTHER, MEDICAID, SELFPAY | PROVIDERS: PCP Internal Medicine; Visit Provider Internal Medicine Gastroenterology | DX: Z12.11 Encounter for screening for malignant neoplasm of colon (principal); D12.2 Benign neoplasm of ascending colon; D12.5 Benign neoplasm of sigmoid colon; K64.0 First degree hemorrhoids; Z91.198 Patient's noncompliance with other medical treatment and regimen for other reason | CPT/HCPCS: 45380; 45385 ==

== ENCOUNTER 2023-09-07 08:18 | Outpatient (AMB) | payer OTHER, MEDICAID, SELFPAY ==
[2023-09-07 09:02] VITALS: BP 120/70; PULSE 89; BMI 34.1
--- NOTE | 2023-09-07 09:02 | MHC.OFFVIS ---
Intake Vital Signs 09/07/23 09:02 Height 6 ft Weight 251 lb 5.231 oz BMI 34.1 BP 120/70 Blood Pressure Location Lt brachial Position Sitting Pulse 89 Pulse Source Pulse Oximeter Intake Visit Reasons: 6 mth f/up Intake Note: 6 mnth f/up pt its feeling its good. [employer] Agent Required: No Accompanied by: Self / Same As Patient Allergies diclofenac [From [facility]] Allergy (Severe, Verified 09/07/23 09:44) SEVERE RASH, FACIAL SWELLING, hives Medication List - Last Reviewed 09/07/23 by Aliya Webb MA apixaban (Eliquis) 5 mg PO BID atorvastatin 80 mg PO BEDTIME diazepam 5 mg PO TID PRN [Electric reclining chair As directed] metoprolol succinate ER 1 tab PO DAILY multivitamin 1 tab PO DAILY omeprazole 20 mg PO DAILY primidone 50 mg PO BID quetiapine 400 mg PO BEDTIME PRN sertraline 2 tabs PO DAILY HPI HPI Comments History of Present Illness Details Pleasant 58-year-old gentleman who was referred to us for perioperative cardiovascular risk assessment for right hip surgery. He has background history of atrial fibrillation, DVT / PE and CVA. He has been on Eliquis. he is saying since the stroke he has been short of breath with minimal exertion. He has seen Dr. Sanchez for pulmonology and he has been found to have mild obstructive lung disease. His dyspnea is out of proportion to the lung disease. He is a lifelong nonsmoker. He has no exertional chest discomfort. He has tremors in his hands for which he has seen Neurology in the past but no obvious improvement has happened. he has significant anxiety which mostly developed after the stroke. Received his chart from [facility] which showed that he had a fenestrated PFO with [id number] shunting noticed on JIMMY. He saw [facility] after discharge. I had a discussion with Dr. Reji Gomez who saw the patient after discharge from [place]. It appears he had a cardiac event monitor which showed atrial flutter. It was decided to start the patient on Eliquis and not disclose the patent [place] ovale unless he develops another episode of TIA/stroke. Since then he has been taking Eliquis and has been stable. We did stress testing and echocardiography which did not show any significant issues. His transthoracic echocardiography with bubble study did not show a PFO but it appears with JIMMY done in [place] he had a clear PFO reported which was noted to be fenestrated and complex. He continues to be is fairly short of breath but he has been told by pulmonology that this is all related to anxiety. He was taught some breathing exercises and he plans to start doing them. He is concerning left hip surgery now. He underwent right hip replacement uneventfully. 03/02/23: He returns for follow-up. He is saying he underwent bilateral hip replacement and has been recovering well. He is exercising. He has atypical left-sided needle like sensation off and on lasting for few seconds. He is still complaining of dyspnea and is saying that pulmonology has told him that this is due to anxiety. He has a PFO and I have checked his oxygen level laying and standing and it does not change with upright posture. 09/07/23: He returns for follow-up. He is getting non anginal left-sided chest pains as before. He is saying his breathing is similar to before. He has noticed some wheezing recently when the cord weather. He is taking primidone for tremors and tremors are improving. [facility] Medical History (Updated 09/07/23 @ 09:52 by Dipesh Sanchez MD) Snoring Asthma Somnolence [place] (obstructive sleep apnea) Obesity (BMI 30-39.9) Elevated cholesterol HTN (hypertension) PFO (patent foramen ovale) Atrial flutter Tremor, anxiety related On anticoagulant therapy Kidney stones Arthritis GERD (gastroesophageal reflux disease) COPD (chronic obstructive pulmonary disease) Anxiety and depression Dyspnea on exertion CVA (cerebral vascular accident) Atrial fibrillation Surgical History Hx of colonoscopy History of right hip replacement Hx of surgical procedure History of varicose vein ligation and stripping H/O removal of cyst Family History Mother No problems noted. Father No problems noted. 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) Alcohol intake: never Comment: patient refused alarm Patient Tobacco Use Status: Never used Tobacco service: No Current occupational status: disabled Review of Systems Const Reports chills, Reports fatigue, Reports fever(s), Reports frequent falls, Reports weakness, Reports weight gain and Reports weight loss ENT Reports dizziness Card Reports chest pain, Reports leg edema, Reports lightheadedness, Reports palpitations, Reports dyspnea and Reports dyspnea on exertion Resp Reports cough, Reports dyspnea and Reports dyspnea on exertion GI Reports hematochezia Musc Reports abnormal gait, Reports muscle weakness, Reports numbness, Reports radiating pain into limb and Reports tingling Neuro Reports abnormal gait, Reports dizziness, Reports frequent falls, Reports numbness, Reports tingling and Reports weakness Endo Reports fatigue and Reports palpitations Physical Exam Vital Signs: Last Vital Signs Pulse 89 09/07/23 09:02 BP 120/70 09/07/23 09:02 BMI result Body Mass Index 34.1 GENERAL APPEARANCE: in no acute distress, pleasant. NECK: no carotid bruit, no jugular venous distention. SKIN: no suspicious lesions, warm and dry. HEART: no murmurs, regular rate and rhythm. LUNGS: Mild end expiratory wheezes. ABDOMEN: soft, nontender. EXTREMITIES: no edema. Mild tremors in hands. PERIPHERAL PULSES: equal. NEUROLOGIC: No gross deficits, AAO X 3 Assessment & Plan Assessment & Plan (1) Atrial flutter: Code(s): I48.92 - Unspecified atrial flutter (2) CVA (cerebral vascular accident): Comment: 05/2019 Code(s): I63.9 - Cerebral infarction, unspecified (3) Dyspnea on exertion: Code(s): R06.00 - Dyspnea, unspecified Plan Pleasant 58 year gentleman here for follow-up. He has history of previous CVA and was found to have a PFO. His workup revealed atrial flutter and was started on Eliquis and PFO was not closed. He has done well since then and has no further CVA/TIA. He has chronic dyspnea. This was felt to be related to anxiety in the past. He is getting some wheezes with the change in weather. I have advised him to see Dr. Sanchez. Previously he could not tolerate inhalers due to significant tremors in his hands. He is currently taking primidone and tremors are improving. Overall clinically stable. No bleeding concerns with apixaban. He will see us back in 6 months. Thank you for allowing me to participate in the care of your patient. Please feel free to contact me if you have any questions. Coding Level of Care Code Est Pt Level 3 (05960) Diagnoses Atrial flutter I48.92 CVA (cerebral vascular accident) I63.9 Dyspnea on exertion R06.00
== END 2023-09-07 09:29 | disposition home or self-care (01) ==
PROVIDERS: PCP Internal Medicine; Visit Provider Internal Medicine Cardiovascular Disease
DX: I48.92 Unspecified atrial flutter (principal); I63.9 Cerebral infarction, unspecified; R06.00 Dyspnea, unspecified
CPT/HCPCS: 99213

== ENCOUNTER → 2023-09-07 08:18 | Outpatient (BNVA) | payer OTHER, MEDICAID, SELFPAY | PROVIDERS: PCP Internal Medicine; Visit Provider Internal Medicine Cardiovascular Disease | DX: J45.20 Mild intermittent asthma, uncomplicated (principal); R06.83 Snoring; F41.9 Anxiety disorder, unspecified; F32.A Depression, unspecified; I48.92 Unspecified atrial flutter; R06.00 Dyspnea, unspecified; Z86.73 Personal history of transient ischemic attack (TIA), and cerebral infarction without residual deficits | CPT/HCPCS: 94010; 99212 ==

== ENCOUNTER 2023-09-07 09:27 | Outpatient (AMB) | payer OTHER, MEDICAID, SELFPAY ==
[2023-09-07 09:32] VITALS: BP 100/62; PULSE 92; O2SAT 95; BMI 34.3
--- NOTE | 2023-09-07 09:32 | MHC.OFFVIS ---
Intake Vital Signs 09/07/23 09:32 Height 6 ft Weight 253 lb BMI 34.3 BP 100/62 Blood Pressure Location Lt brachial Position Sitting Pulse 92 Pulse Source Pulse Oximeter Pulse Oximetry (%) 95 Oxygen Delivery Method Room Air Intake Visit Reasons: Wheezing Intake Note: pt is here for same day sick visit, pt states whenever anything strenous he wheezes. Was better for a while but is now back for 2 weeks. Radiation Control Health Physicist Required: No Allergies diclofenac [From VOLTAREN] Allergy (Severe, Verified 09/07/23 09:44) SEVERE RASH, FACIAL SWELLING, hives Medication List - Last Reconciled 09/07/23 by Dipesh Sanchez MD apixaban (Eliquis) 5 mg PO BID atorvastatin 80 mg PO BEDTIME diazepam 5 mg PO TID PRN [Electric reclining chair As directed] metoprolol succinate ER 1 tab PO DAILY multivitamin 1 tab PO DAILY omeprazole 20 mg PO DAILY primidone 50 mg PO BID quetiapine 400 mg PO BEDTIME PRN sertraline 2 tabs PO DAILY Do you need a note to return to daycare/school/sports/work: No HPI Wheezing HPI Details THIS 58 YEARS OLD GENTLEMAN IS SENT FROM CARDIOLOGY OFFICE FOR AN URGENT VISIT THIS A.M., HE WAS FOUND TO HAVE SOME EXPIRATORY WHEEZES. THE PATIENT CLAIMS THAT HE HAS OCCASIONAL, INTERMITTENT WHEEZING, MOSTLY WHEN HE IS VERY ANXIOUS. HE WAS SEEN BY ME IN AUGUST 2022 AND WHO THERE WAS NO SIGNIFICANT OBSTRUCTIVE AIRWAY DISORDER, HOWEVER HE WAS ADVISED TO HAVE ALBUTEROL HFA ON HAND AND USE IT P.R.N.. HE CLAIMS THAT ALBUTEROL MAKES HIM MORE ANXIOUS AND INCREASES THE TREMORS, SO HE HAS NOT USED IT AT ALL. WHEN I SAW HIM LAST YEAR IN AUGUST THERE WAS A QUESTION OF SLEEP APNEA. HE DID HAVE HOME-BASED SLEEP STUDY IN FEBRUARY 2023 AND THERE WAS NO EVIDENCE OF SLEEP APNEA BUT HE DID HAVE SNORING FOR 50% OF THE SLEEP TIME. HE DID NOT NEED. TO USE CPAP SINCE THEN HE HAS NOT COME BACK FOR FOLLOW-UP, EXCEPT TODAY FOR AN URGENT. VISIT THIS GENTLEMAN QUIT SMOKING LONG TIME AGO AND DENIES ANY DRINKING OF ALCOHOL. HE HAS A CASE OF SEVERE ANXIETY AND DEPRESSION WITH PSYCHOTIC FEATURES. HE IS ON SEROQUEL 400 MG AT NIGHTTIME ALONG WITH PRIMIDONE 50 MG B.I.D. AND SERTRALINE 100 MG 2 TABLETS A DAY. HE DOES HAVE ONGOING FINE TREMORS PROBABLY SECONDARY TO SIDE EFFECT FROM SEROQUEL. BUT HE WALKS AROUND WITHOUT ANY PROBLEM [facility] Medical History (Updated 09/07/23 @ 11:18 by Dipesh Sanchez MD) Snoring Asthma Somnolence [place] (obstructive sleep apnea) Obesity (BMI 30-39.9) Elevated cholesterol HTN (hypertension) PFO (patent foramen ovale) Atrial flutter Tremor, anxiety related On anticoagulant therapy Kidney stones Arthritis GERD (gastroesophageal reflux disease) COPD (chronic obstructive pulmonary disease) Anxiety and depression Dyspnea on exertion CVA (cerebral vascular accident) Atrial fibrillation Surgical History Hx of colonoscopy History of right hip replacement Hx of surgical procedure History of varicose vein ligation and stripping H/O removal of cyst Family History Mother No problems noted. Father No problems noted. 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 All systems reviewed & are unremarkable except as noted in HPI and below Eyes Reports no additional complaints ENT Reports no additional complaints Card Denies chest pain, Reports irregular heart rhythm and Denies leg edema Resp Reports as per HPI GI Reports no additional complaints Reports no additional complaints Musc Reports arthralgias (hips) Skin/Breast Reports system reviewed and no additional complaints, except as documented Neuro Reports lack of coordination and Reports tremor(s) (hands) Psych Reports anxiety Endo Reports no additional complaints Physical Exam Vital Signs: Last Vital Signs Pulse 92 09/07/23 09:32 BP 100/62 09/07/23 09:32 Pulse Ox 95 09/07/23 09:32 Oxygen Delivery Method Room Air 09/07/23 09:32 BMI result Body Mass Index 34.3 Const General: comfortable (Somewhat anxious.), no acute distress, alert and awake Orientation/consciousness: patient oriented x3 HEENT Head: Yes normal to inspection General nose exam: No nasal polyps present and No nasal discharge present Face and sinus: Yes sinuses nontender Mouth: oropharynx abnormals (OROPHARYNX IS SOMEWHAT CROWDED, MALLAMPATI CLASS 4) Throat: Yes posterior oropharynx normal Eyes General: appearance normal, both eyes and all related structures Neck Neck: Yes normal visual inspection, Yes no lymphadenopathy, Yes trachea midline, Yes no JVD and Yes other (NECK CIRCUMFERENCE 17 IN) Thyroid: Thyroid normal Chest Chest palpation & inspection: normal inspection of the chest, normal palpation of entire chest wall and no tenderness Resp Other: I have listen to his chest very carefully and I did not hear any wheezes or crepitations. Effort & Inspection: normal respiratory effort Auscultation: clear to auscultation bilaterally, no crackles, no rhonchi and no wheezes Percussion: percussion normal Cardio Palpation: normal PMI Rate: regular rate Rhythm: regular rhythm Heart sounds: no gallops and no murmurs Peripheral pulses: Peripheral pulses 2+ throughout GI Palpation (GI): Soft to palpation, nontender, No hepatosplenomegaly present and no masses Auscultation: normal bowel sounds Back/Spine/Pelvis Thoracic/Lumbar Spine: thoracic and lumbar spine normal to inspection Skin General skin exam: no rashes or lesions noted Neuro General: patient oriented x3 and no focal motor deficits Cranial nerves: Yes CN's II-XII intact bilaterally Extrem General: Yes normal to inspection, Yes no clubbing, cyanosis or edema and Yes no calf tenderness Psych Appearance: grossly normal and well kempt Speech and movement: Normal speech and movement present Affect: Anxious affect present Office Procedures Spirometry Testing Spirometry Comments: Spirometry done in the office, Dr. Sanchez has the results results scanned to his chart. 71460- Spirometry Results Reviewed Results Reviewed: HOME-BASED SLEEP STUDY IN FEBRUARY 2023 WAS NEGATIVE FOR SLEEP APNEA, BUT DID RECORD EXCESSIVE SNORING, FOR 50% OF THE SLEEP TIME. SPIROMETRY IN OFFICE Assessment & Plan Assessment & Plan (1) Asthma: Comment: HE DOES HAVE MILD INTERMITTENT BRONCHIAL ASTHMA. CAN NOT USE ALBUTEROL BECAUSE IT INCREASES THE TREMORS AND CAUSES ANXIETY. Code(s): J45.909 - Unspecified asthma, uncomplicated Plan: WILL PRESCRIBE LEVALBUTEROL HFA TO USE 1 OR 2 PUFFS Q 4-6 HOURS P.R.N.. HE MAY NEED TO USE IT ONLY ONCE IN A WHILE. (2) Snoring: Comment: PER SLEEP STUDY HE DID SHOW EXCESSIVE AMOUNT OF SNORING. ON EXAMINATION DOES NOT SEEM TO HAVE ANY SIGNIFICANT NARROWING OF THE UPPER AIRWAYS. Code(s): R06.83 - Snoring Plan: ADVISED TO SLEEP IN LATERAL POSITION, HE HAS ALREADY LOST SOME WEIGHT. (3) Anxiety and depression: Comment: Patient does have H/O chronic Anxiety , and Depression , being treated with meds , and is stable . But I think it flares up every now and then. Some of his wheezing is related to anxiety. Code(s): F41.9 - Anxiety disorder, unspecified; F32.A - Depression, unspecified Plan: I explained to him in detail and advised him to keep on taking his medications regularly. Orders: Orders AMB Spirometry Testing Today J45.909 - Unspecified asthma, uncomplicated Coding Level of Care Code Est Pt Level 3 (36666) Diagnoses Asthma J45.909 Snoring R06.83 Anxiety and depression F41.9; F32.A CPT Codes Spirometry - CPT: 78885- Spirometry ([id number])
== END 2023-09-07 09:59 | disposition home or self-care (01) ==
PROVIDERS: PCP Internal Medicine; Visit Provider Internal Medicine
DX: J45.909 Unspecified asthma, uncomplicated (principal); R06.83 Snoring; F41.9 Anxiety disorder, unspecified; F32.A Depression, unspecified
CPT/HCPCS: 94010; 99213

== ENCOUNTER 2023-11-14 09:16 | Outpatient (AMB) | payer OTHER, MEDICAID, SELFPAY ==
--- NOTE | 2023-11-14 09:33 | A.OFFVIS_ITS ---
Intake Vital Signs 11/14/23 09:34 Height 6 ft Weight 255 lb 11.779 oz BMI 34.7 BP 114/80 Blood Pressure Location Lt brachial Position Sitting Pulse 95 Pulse Source Pulse Oximeter Pulse Oximetry (%) 95 Oxygen Delivery Method Room Air Intake Visit Reasons: Wheezing Intake Note: pt is here for follow up and states he is now mountain biking, still whee zing,nightime sleep is doing well. please send in levalbuterol. 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 Required: No Allergies diclofenac [From VOLTAREN] Allergy (Severe, Verified 11/14/23 09:51) SEVERE RASH, FACIAL SWELLING, hives Medication List - Last Reconciled 11/14/23 by Dipesh Sanchez MD apixaban (Eliquis) 5 mg PO BID atorvastatin 80 mg PO BEDTIME diazepam 5 mg PO TID PRN [Electric reclining chair As directed] levalbuterol tartrate 45 mcg/actuation 2 puffs inhalation Q4-6H PRN 30 days metoprolol succinate ER 1 tab PO DAILY multivitamin 1 tab PO DAILY omeprazole 20 mg PO DAILY primidone 50 mg PO BID quetiapine 400 mg PO BEDTIME PRN sertraline 2 tabs PO DAILY Do you need a note to return to daycare/school/sports/work: No HPI Wheezing HPI Details THIS 58 YEARS OLD GENTLEMAN IS HERE FOR FOLLOW-UP AFTER 3 MONTHS, HIS DIAGNOSIS IS MAINLY BRONCHIAL ASTHMA, WHICH REMAINS UNDER CONTROL. HE GETS THE WHEEZING AND SOME TIGHT FEELING IN THE CHEST ONLY WHEN HE GOES FOR MOUNTAIN BIKING, OR WHEN HE EXERTS, LEVALBUTEROL INHALER 1 OR 2 PUFFS DO HELP. HE IS TRYING TO WALK AND HIKE MUCH HE CAN, TO LOSE WEIGHT. OVERALL HE FEELS GOOD. HE CLAIMS THAT HE SLEEPS OKAY, STILL SNORES SOME. [facility] Medical History Snoring Asthma Somnolence [place] (obstructive sleep apnea) Obesity (BMI 30-39.9) Elevated cholesterol HTN (hypertension) PFO (patent foramen ovale) Atrial flutter Tremor, anxiety related On anticoagulant therapy Kidney stones Arthritis GERD (gastroesophageal reflux disease) COPD (chronic obstructive pulmonary disease) Anxiety and depression Dyspnea on exertion CVA (cerebral vascular accident) Atrial fibrillation Surgical History Hx of colonoscopy History of right hip replacement Hx of surgical procedure History of varicose vein ligation and stripping H/O removal of cyst Family History Mother No problems noted. Father No problems noted. 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 All systems reviewed & are unremarkable except as noted in HPI and below Eyes Reports no additional complaints ENT Reports no additional complaints Card Denies chest pain, Reports irregular heart rhythm and Denies leg edema Resp Reports as per HPI GI Reports no additional complaints Reports no additional complaints Musc Reports arthralgias (hips) Skin/Breast Reports system reviewed and no additional complaints, except as documented Neuro Reports lack of coordination and Reports tremor(s) (hands) Psych Reports anxiety Endo Reports no additional complaints Physical Exam Vital Signs: Last Vital Signs Pulse 95 11/14/23 09:34 BP 114/80 11/14/23 09:34 Pulse Ox 95 11/14/23 09:34 Oxygen Delivery Method Room Air 11/14/23 09:34 BMI result Body Mass Index 34.7 Const General: comfortable (Somewhat anxious.), no acute distress, alert and awake Orientation/consciousness: patient oriented x3 HEENT Head: Yes normal to inspection General nose exam: No nasal polyps present and No nasal discharge present Face and sinus: Yes sinuses nontender Mouth: oropharynx abnormals (OROPHARYNX IS SOMEWHAT CROWDED, MALLAMPATI CLASS 4) Throat: Yes posterior oropharynx normal Eyes General: appearance normal, both eyes and all related structures Neck Neck: Yes normal visual inspection, Yes no lymphadenopathy, Yes trachea midline, Yes no JVD and Yes other (NECK CIRCUMFERENCE 17 IN) Thyroid: Thyroid normal Chest Chest palpation & inspection: normal inspection of the chest, normal palpation of entire chest wall and no tenderness Resp Other: PERCUSSION NOTE IS RESONANT, BREATH SOUNDS ARE EQUAL ON BOTH SIDES NO WHEEZES OR RHONCHI ARE HEARD Effort & Inspection: normal respiratory effort Auscultation: clear to auscultation bilaterally, no crackles, no rhonchi and no wheezes Percussion: percussion normal Cardio Palpation: normal PMI Rate: regular rate Rhythm: regular rhythm Heart sounds: no gallops and no murmurs Peripheral pulses: Peripheral pulses 2+ throughout GI Palpation (GI): Soft to palpation, nontender, No hepatosplenomegaly present and no masses Auscultation: normal bowel sounds Back/Spine/Pelvis Thoracic/Lumbar Spine: thoracic and lumbar spine normal to inspection Skin General skin exam: no rashes or lesions noted Neuro General: patient oriented x3 and no focal motor deficits Cranial nerves: Yes CN's II-XII intact bilaterally Extrem General: Yes normal to inspection, Yes no clubbing, cyanosis or edema and Yes no calf tenderness Psych Appearance: grossly normal and well kempt Speech and movement: Normal speech and movement present Affect: Anxious affect present Assessment & Plan Assessment & Plan (1) Asthma: Comment: HE DOES HAVE MILD INTERMITTENT BRONCHIAL ASTHMA. CAN NOT USE ALBUTEROL BECAUSE IT INCREASES THE TREMORS AND CAUSES ANXIETY. Code(s): J45.909 - Unspecified asthma, uncomplicated Plan: LEVALBUTEROL-45 2 PUFFS Q 6 HOURS P.R.N. (2) Snoring: Comment: PER SLEEP STUDY HE DID SHOW EXCESSIVE AMOUNT OF SNORING. ON EXAMINATION DOES NOT SEEM TO HAVE ANY SIGNIFICANT NARROWING OF THE UPPER AIRWAYS. Code(s): R06.83 - Snoring Plan: STRESSED THAT HE SHOULD TRY TO LOSE WEIGHT,. HE EDUCATED THAT HE SHOULD ALWAYS TRY TO SLEEP IN LATERAL POSITION. Coding Level of Care Code Est Pt Level 3 (71850) Diagnoses Asthma J45.909 Snoring R06.83
[2023-11-14 09:34] VITALS: BP 114/80; PULSE 95; O2SAT 95; BMI 34.7
== END 2023-11-14 09:51 | disposition home or self-care (01) ==
PROVIDERS: PCP Internal Medicine; Visit Provider Internal Medicine
DX: J45.909 Unspecified asthma, uncomplicated (principal); R06.83 Snoring
CPT/HCPCS: 99213

== ENCOUNTER → 2023-11-14 09:16 | Outpatient (BNVA) | payer OTHER, MEDICAID, SELFPAY | PROVIDERS: PCP Internal Medicine; Visit Provider Internal Medicine | DX: J45.909 Unspecified asthma, uncomplicated (principal) | CPT/HCPCS: 99212 ==

== ENCOUNTER 2024-03-12 08:48 | Outpatient (AMB) | payer OTHER, MEDICAID, SELFPAY ==
[2024-03-12 08:57] VITALS: BP 120/60; PULSE 92; BMI 34.9
--- NOTE | 2024-03-12 08:57 | MHC.OFFVIS ---
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: No Accompanied by: Self / Same As Patient Allergies diclofenac [From VOLTAREN] Allergy (Severe, Verified 11/14/23 09:51) SEVERE RASH, FACIAL SWELLING, hives Medication List - Last Reconciled 03/12/24 by Anders German MD apixaban (Eliquis) 5 mg PO BID atorvastatin 80 mg PO BEDTIME diazepam 5 mg PO TID PRN [Electric reclining chair As directed] levalbuterol tartrate 45 mcg/actuation 2 puffs inhalation Q4-6H PRN 30 days metoprolol succinate ER 25 mg PO DAILY multivitamin 1 tab PO DAILY omeprazole 20 mg PO DAILY quetiapine 400 mg PO BEDTIME PRN sertraline 2 tabs PO DAILY HPI Comments Details: Pleasant 58-year-old gentleman who was referred to us for perioperative cardiovascular risk assessment for right hip surgery. He has background history of atrial fibrillation, DVT / PE and CVA. He has been on Eliquis. he is saying since the stroke he has been short of breath with minimal exertion. He has seen Dr. Sanchez for pulmonology and he has been found to have mild obstructive lung disease. His dyspnea is out of proportion to the lung disease. He is a lifelong nonsmoker. He has no exertional chest discomfort. He has tremors in his hands for which he has seen Neurology in the past but no obvious improvement has happened. he has significant anxiety which mostly developed after the stroke. Received his chart from [facility] which showed that he had a fenestrated PFO with [id number] shunting noticed on JIMMY. He saw [facility] after discharge. I had a discussion with Dr. Reji Gomez who saw the patient after discharge from [place]. It appears he had a cardiac event monitor which showed atrial flutter. It was decided to start the patient on Eliquis and not disclose the patent [place] ovale unless he develops another episode of TIA/stroke. Since then he has been taking Eliquis and has been stable. We did stress testing and echocardiography which did not show any significant issues. His transthoracic echocardiography with bubble study did not show a PFO but it appears with JIMMY done in [place] he had a clear PFO reported which was noted to be fenestrated and complex. He continues to be is fairly short of breath but he has been told by pulmonology that this is all related to anxiety. He was taught some breathing exercises and he plans to start doing them. He is concerning left hip surgery now. He underwent right hip replacement uneventfully. 03/02/23: He returns for follow-up. He is saying he underwent bilateral hip replacement and has been recovering well. He is exercising. He has atypical left-sided needle like sensation off and on lasting for few seconds. He is still complaining of dyspnea and is saying that pulmonology has told him that this is due to anxiety. He has a PFO and I have checked his oxygen level laying and standing and it does not change with upright posture. 09/07/23: He returns for follow-up. He is getting non anginal left-sided chest pains as before. He is saying his breathing is similar to before. He has noticed some wheezing recently when the cord weather. He is taking primidone for tremors and tremors are improving. 03/12/24: He is here for follow-up. He is saying that he has good and bad days but mostly good days. When he gets symptoms he notices that he is wheezing and is short of breath. Taking medications regularly. Compliant with Eliquis. [facility] Medical History Snoring Asthma Somnolence [place] (obstructive sleep apnea) Obesity (BMI 30-39.9) Elevated cholesterol HTN (hypertension) PFO (patent foramen ovale) Atrial flutter Tremor, anxiety related On anticoagulant therapy Kidney stones Arthritis GERD (gastroesophageal reflux disease) COPD (chronic obstructive pulmonary disease) Anxiety and depression Dyspnea on exertion CVA (cerebral vascular accident) Atrial fibrillation Surgical History Hx of colonoscopy History of right hip replacement Hx of surgical procedure History of varicose vein ligation and stripping H/O removal of cyst Family History Mother No problems noted. Father No problems noted. 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) Alcohol intake: never Comment: patient refused alarm Patient Tobacco Use Status: Never used Tobacco service: No Current occupational status: disabled Review of Systems Const Denies chills, Denies fatigue, Denies fever(s), Denies frequent falls, Denies weakness, Denies weight gain and Denies weight loss ENT Denies dizziness Card Denies chest pain, Denies leg edema, Denies lightheadedness, Denies palpitations, Denies dyspnea and Denies dyspnea on exertion Resp Denies cough, Denies dyspnea and Denies dyspnea on exertion GI Denies hematochezia Musc Denies abnormal gait, Denies muscle weakness, Denies numbness, Denies radiating pain into limb and Denies tingling Neuro Denies abnormal gait, Denies dizziness, Denies frequent falls, Denies numbness, Denies tingling and Denies weakness Endo Denies fatigue and Denies palpitations Physical Exam Vital Signs: Last Vital Signs Pulse 92 03/12/24 08:57 BP 120/60 03/12/24 08:57 BMI result Body Mass Index 34.9 GENERAL APPEARANCE: in no acute distress, pleasant. NECK: no carotid bruit, no jugular venous distention. SKIN: no suspicious lesions, warm and dry. HEART: no murmurs, regular rate and rhythm. LUNGS: Clear to auscultation.. ABDOMEN: soft, nontender. EXTREMITIES: no edema. No tremors. PERIPHERAL PULSES: equal. NEUROLOGIC: No gross deficits, AAO X 3 Office Procedures EKG Details: Sinus rhythm 90 beats per minute, normal axis, nonspecific T-wave changes, QTC 420 milliseconds. [id number], Complete Assessment & Plan Assessment & Plan (1) Atrial flutter: Code(s): I48.92 - Unspecified atrial flutter Category: Medical (2) CVA (cerebral vascular accident): Comment: 05/2019 Code(s): I63.9 - Cerebral infarction, unspecified Category: Medical (3) Dyspnea on exertion: Code(s): R06.00 - Dyspnea, unspecified Category: Medical Plan Pleasant 58 year gentleman here for follow-up. He has history of previous CVA and was found to have a PFO. His workup revealed atrial flutter and was started on Eliquis and PFO was not closed. He has done well since then and has no further CVA/TIA. He has chronic dyspnea. He follows up with pulmonology. Clinically stable and not heart failure. No bleeding concerns with apixaban. He will see us back in 6 months. Thank you for allowing me to participate in the care of your patient. Please feel free to contact me if you have any questions. Coding Level of Care Code Est Pt Level 3 (99238) Diagnoses Atrial flutter I48.92 CVA (cerebral vascular accident) I63.9 Dyspnea on exertion R06.00 CPT Codes EKG - CPT: 51596-Eszttnzurjzpcozuf, Complete ([id number])
== END 2024-03-12 09:26 | disposition home or self-care (01) ==
PROVIDERS: PCP Internal Medicine; Visit Provider Internal Medicine Cardiovascular Disease
DX: I48.92 Unspecified atrial flutter (principal); I63.9 Cerebral infarction, unspecified; R06.00 Dyspnea, unspecified
CPT/HCPCS: 93010; 99213

== ENCOUNTER → 2024-03-12 08:48 | Outpatient (BNVA) | payer OTHER, MEDICAID, SELFPAY | PROVIDERS: PCP Internal Medicine; Visit Provider Internal Medicine Cardiovascular Disease | DX: I48.92 Unspecified atrial flutter (principal); R06.00 Dyspnea, unspecified; Z79.01 Long term (current) use of anticoagulants; Z86.73 Personal history of transient ischemic attack (TIA), and cerebral infarction without residual deficits | CPT/HCPCS: 93005; 99212 ==

== ENCOUNTER 2024-05-23 07:33 | Outpatient (REF) | payer MEDICARE, MEDICAID, SELFPAY ==
--- NOTE | ~2024-05-23 | US_ITS ---
EXAMINATION: US RETROPERITONEAL LIMITED (RENAL ONLY) CLINICAL INFORMATION: Calculus of kidney. COMPARISON: MRI kidney 05/20/2023. Renal ultrasound 10/13/2022 and 10/13/2021. CT abdomen and pelvis 03/15/2021. TECHNIQUE: Real-time imaging of the kidneys. FINDINGS: RIGHT KIDNEY: 10.7 x 7.0 x 5.6 cm (SAG x AP x TRV). The kidney is normal in size, contour, and echogenicity. Renal cortical thickness is normal. No calculi or focal parenchymal lesions. No hydronephrosis. LEFT KIDNEY: 11.0 x 6.4 x 5.8 cm (SAG x AP x TRV). The kidney is normal in size, contour, and echogenicity. Renal cortical thickness is normal. No renal calculi or hydronephrosis. At the upper pole of the left kidney there are either 2 adjacent benign Bosniak class I cysts or a single cyst with a thin septation noted, unchanged from prior. On the MRI, this had more of the appearance of a single cyst with a septation, Bosniak class II. In any event, This requires no additional imaging or follow up. No solid renal masses are seen. US/US renal BI IMPRESSION: Benign left renal cysts. Similar findings have been shown at the time of the patient's prior MRI. There is no need for any additional follow-up. Electronically signed by: Josep Pepe MD 07/06/2024 05:16 [facility]
== END 2024-05-23 07:34 | disposition home or self-care (01) ==
LOC: HO.US 07:33
PROVIDERS: PCP Internal Medicine; Visit Provider Urology
DX: N20.0 Calculus of kidney (principal); J45.909 Unspecified asthma, uncomplicated; R06.83 Snoring; R06.00 Dyspnea, unspecified
CPT/HCPCS: 76775; 99212

== ENCOUNTER 2024-05-23 08:30 | Outpatient (AMB) | payer MEDICARE, MEDICAID, SELFPAY ==
[2024-05-23 09:12] VITALS: BP 102/70; PULSE 89; O2SAT 94; BMI 35.0
--- NOTE | 2024-05-23 09:12 | MHC.OFFVIS ---
Vital Signs 05/23/24 09:12 Height 6 ft Weight 257 lb 15.053 oz BMI 35.0 BP 102/70 Blood Pressure Location Lt brachial Position Sitting Pulse 89 Pulse Source Pulse Oximeter Pulse Oximetry (%) 94 Oxygen Delivery Method Room Air Intake Visit Reasons: Wheezing Intake Note: pt is here for follow up and states walking is bad with breathing, but riding a bike is okay. 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: No Allergies diclofenac [From [facility]] Allergy (Severe, Verified 05/23/24 09:22) SEVERE RASH, FACIAL SWELLING, hives Medication List - Last Reconciled 05/23/24 by Dipesh Sanchez MD apixaban (Eliquis) 5 mg PO BID atorvastatin 80 mg PO BEDTIME diazepam 5 mg PO TID PRN [Electric reclining chair As directed] levalbuterol tartrate 45 mcg/actuation 2 puffs inhalation Q4-6H PRN 30 days metoprolol succinate ER 25 mg PO DAILY multivitamin 1 tab PO DAILY omeprazole 20 mg PO DAILY peg 3350-electrolytes 236-22.74-6.74 -5.86 gram (Golytely) 240 mL PO Q10M quetiapine 400 mg PO BEDTIME PRN sertraline 2 tabs PO DAILY Do you need a note to return to daycare/school/sports/work: No HPI HPI Wheezing: Details: This 59 years old gentleman is here for follow-up after 6 months He is a case of mild obstructive airway disorder, and has been treated for very mild bronchial asthma. His main complaint is getting short of breath if he walks fast or up hill, however he is bicycling up to 30 minutes at home without much shortness of breath. When he is bicycling his O2 sat remains around 96%. He still has difficulty in walking especially if he walks up hill and his O2 sat does go down. He says that he sleeps very well . Off course this is with the help of meds, Quetiapine 400 mg at bedtime and sertraline 100 mg b.i.d.. He has not been able to lose weight as he can not walk much due to tremors. [facility] Medical History Snoring Asthma Somnolence [place] (obstructive sleep apnea) Obesity (BMI 30-39.9) Elevated cholesterol HTN (hypertension) PFO (patent foramen ovale) Atrial flutter Tremor, anxiety related On anticoagulant therapy Kidney stones Arthritis GERD (gastroesophageal reflux disease) COPD (chronic obstructive pulmonary disease) Anxiety and depression Dyspnea on exertion CVA (cerebral vascular accident) Atrial fibrillation Surgical History Hx of colonoscopy History of right hip replacement Hx of surgical procedure History of varicose vein ligation and stripping H/O removal of cyst Family History Mother No problems noted. Father No problems noted. 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 All systems reviewed & are unremarkable except as noted in HPI and below Eyes Reports no additional complaints ENT Reports no additional complaints Card Denies chest pain, Reports irregular heart rhythm and Denies leg edema Resp Reports as per HPI GI Reports no additional complaints Reports no additional complaints Musc Reports arthralgias (hips) Skin/Breast Reports system reviewed and no additional complaints, except as documented Neuro Reports lack of coordination and Reports tremor(s) (hands) Psych Reports anxiety Endo Reports no additional complaints Physical Exam Vital Signs: Last Vital Signs Pulse 89 05/23/24 09:12 BP 102/70 05/23/24 09:12 Pulse Ox 94 05/23/24 09:12 Oxygen Delivery Method Room Air 05/23/24 09:12 BMI result Body Mass Index 35.0 Const General: comfortable (Somewhat anxious.), no acute distress, alert and awake Orientation/consciousness: patient oriented x3 HEENT Head: Yes normal to inspection General nose exam: No nasal polyps present and No nasal discharge present Face and sinus: Yes sinuses nontender Mouth: oropharynx abnormals (OROPHARYNX IS SOMEWHAT CROWDED, MALLAMPATI CLASS 4) Throat: Yes posterior oropharynx normal Eyes General: appearance normal, both eyes and all related structures Neck Neck: Yes normal visual inspection, Yes no lymphadenopathy, Yes trachea midline, Yes no JVD and Yes other (NECK CIRCUMFERENCE 17 IN) Thyroid: Thyroid normal Chest Chest palpation & inspection: normal inspection of the chest, normal palpation of entire chest wall and no tenderness Resp Other: PERCUSSION NOTE IS RESONANT, BREATH SOUNDS ARE EQUAL ON BOTH SIDES NO WHEEZES OR RHONCHI ARE HEARD Effort & Inspection: normal respiratory effort Auscultation: clear to auscultation bilaterally, no crackles, no rhonchi and no wheezes Percussion: percussion normal Cardio Palpation: normal PMI Rate: regular rate Rhythm: regular rhythm Heart sounds: no gallops and no murmurs Peripheral pulses: Peripheral pulses 2+ throughout GI Palpation (GI): Soft to palpation, nontender, No hepatosplenomegaly present and no masses Auscultation: normal bowel sounds Back/Spine/Pelvis Thoracic/Lumbar Spine: thoracic and lumbar spine normal to inspection Skin General skin exam: no rashes or lesions noted Neuro General: patient oriented x3 and no focal motor deficits Cranial nerves: Yes CN's II-XII intact bilaterally Extrem General: Yes normal to inspection, Yes no clubbing, cyanosis or edema and Yes no calf tenderness Psych Appearance: grossly normal and well kempt Speech and movement: Normal speech and movement present Affect: Anxious affect present Assessment & Plan Assessment & Plan (1) Asthma: Comment: HE DOES HAVE MILD INTERMITTENT BRONCHIAL ASTHMA. CANNOT USE ALBUTEROL BECAUSE IT INCREASES THE TREMORS AND CAUSES ANXIETY. Code(s): J45.909 - Unspecified asthma, uncomplicated Category: Medical Plan: Use levalbuterol-45, 2 puffs Q 6 hours p.r.n. if there is any persistent wheezing , prescription is renewed (2) Snoring: Comment: PER SLEEP STUDY HE DID SHOW EXCESSIVE AMOUNT OF SNORING BUT NO SLEEP APNEA. HE DID HAVE A MILD NOCTURNAL HYPOXEMIA. Code(s): R06.83 - Snoring Category: Medical Plan: HE HAS BEEN INSTRUCTED TO LOSE WEIGHT BUT IT IS DIFFICULT TO ACHIEVE IN HIS CASE. HE DOES NOT HAVE ANY OBSTRUCTIVE CONDITIONS OF THE NASOPHARYNX. HE IS ADVISED TO ALWAYS TRY TO SLEEP IN LATERAL POSITION. (3) Dyspnea on exertion: Comment: Most likely Functional . MAY BE SEC TO POOR PHYSICAL CONDITIONING , AND ANXIETY . PATIENT EDUCATED AND REASSURED. Code(s): R06.00 - Dyspnea, unspecified Category: Medical Plan: PATIENT EDUCATED AND REASSURED AND REINSTRUCTED TO DO DEEP BREATHING EXERCISES 3 TIMES A DAY. Coding Level of Care Code Est Pt Level 3 (17773) Diagnoses Asthma J45.909 Snoring R06.83 Dyspnea on exertion R06.00
== END 2024-05-23 09:37 | disposition home or self-care (01) ==
PROVIDERS: PCP Internal Medicine; Visit Provider Internal Medicine
DX: J45.909 Unspecified asthma, uncomplicated (principal); R06.83 Snoring; R06.00 Dyspnea, unspecified
CPT/HCPCS: 99213

== ENCOUNTER 2024-06-05 08:54 | Outpatient (AMB) | payer MEDICARE, MEDICAID, SELFPAY ==
--- NOTE | 2024-06-05 09:16 | A.OFFVIS_ITS ---
Intake Visit Reasons: 1Y Ultrasound(set) Intake Note: Patient is Present for 1y f/u Urology Med: None Antibiotic Allergy: None Blood Thinner: Apixaban High Reach Operator Required: No Allergies diclofenac [From [facility]] Allergy (Severe, Verified 06/05/24 09:17) SEVERE RASH, FACIAL SWELLING, hives HPI Comments Details: Edward is a pleasant male. He is a patient of Dr Choi. He is seen for the following urologic conditions - nephrolithiasis - renal cyst Yearly stone follow-up MRI renal cyst Bosniak 2 Continue 12 month follow-up for stones Discussed diet changes for obesity Unable to walk secondary to stroke 12 month follow-up Nephrolithiasis Seen at the emergency room February 2021 Distal left ureteric stone - Was able to pass with medical expulsion therapy Renal imaging CT scan - 03/11 left distal ureteric stone 3 mm with perinephric stranding, 5 mm stone lower pole right side - 10/13 renal ultrasound left renal cysts stable 3-5 cm, no evidence of stones - 03/13 renal MRI, Bosniak 2 4 cm cyst left side, no evidence stones - 03/14 renal MRI, Bosniak 2 4 cm lesion and no evidence of stones Therapeutic plan - increase fluid intake - interval surveillance [facility] Medical History Snoring Asthma Somnolence [place] (obstructive sleep apnea) Obesity (BMI 30-39.9) Elevated cholesterol HTN (hypertension) PFO (patent foramen ovale) Atrial flutter Tremor, anxiety related On anticoagulant therapy Kidney stones Arthritis GERD (gastroesophageal reflux disease) COPD (chronic obstructive pulmonary disease) Anxiety and depression Dyspnea on exertion CVA (cerebral vascular accident) Atrial fibrillation Surgical History Hx of colonoscopy History of right hip replacement Hx of surgical procedure History of varicose vein ligation and stripping H/O removal of cyst Family History Mother No problems noted. Father No problems noted. 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) Alcohol intake: never Comment: patient refused alarm Patient Tobacco Use Status: Never used Tobacco service: No Current occupational status: disabled Review of Systems Const Denies chills and Denies fever(s) Card Reports no additional complaints and Denies syncope Resp Denies cough GI Denies abdominal pain and Denies heartburn Reports as per HPI and Denies change in libido Neuro Denies syncope Psych Denies change in libido Endo Denies change in libido Physical Exam Const General: cooperative, healthy appearing, comfortable and no acute distress Orientation/consciousness: patient oriented x3 HEENT Face and sinus: Yes normal facial exam Mouth: moist mucous membranes Neck Neck: Yes normal visual inspection, Yes full ROM and Yes trachea midline Chest Chest palpation & inspection: normal inspection of the chest Resp Effort & Inspection: normal respiratory effort, able to speak in complete sentences and no respiratory distress GI Inspection: Yes normal to inspection Back/Spine/Pelvis Cervical Spine: normal cervical lordosis Thoracic/Lumbar Spine: thoracic and lumbar spine normal to inspection Skin General skin exam: no rashes or lesions noted Neuro General: patient oriented x3, gait normal, tone normal and moves all extremities Extrem General: Yes normal to inspection and Yes capillary refill normal Assessment & Plan Assessment & Plan (1) Complex renal cyst: Code(s): N28.1 - Cyst of kidney, acquired Category: Medical Plan Twelve month follow-up imaging Orders: Orders US renal BI 12 Months N28.1 - Cyst of kidney, acquired Patient Instructions: Imaging studies, laboratory and physical exam results were discussed and reviewed in detail. No major barriers to patient understanding were identified. An opportunity to ask questions regarding the treatment plan was provided. All questions were answered. The patient expressed understanding and agreement with the above treatment plan. The patient is aware they should contact our office by phone for worsening of their current condition or the appearance of new urologic symptoms. Compliance is encouraged with any medications and followup testing that is ordered. It is a privilege to participate in the urologic care of your patient. If you have any questions or concerns regarding treatment for the above conditions, or other urologic issues, please do not hesitate to contact me. The office telephone contact is [phone]. This note is constructed using voice recognition software. While every effort has been made to ensure accuracy solutions manager errors may have been included. Yours sincerely, Dr Wiley Christie MD, MALIKA [facility] - Urology Providers of Expert, Compassionate Care for the Genitourinary System Coding Level of Care Code Est Pt Level 4 (69320) Diagnoses Complex renal cyst N28.1
== END 2024-06-05 09:57 | disposition home or self-care (01) ==
PROVIDERS: PCP Internal Medicine; Visit Provider Urology
DX: N28.1 Cyst of kidney, acquired (principal)
CPT/HCPCS: 99214

== ENCOUNTER → 2024-06-05 08:54 | Outpatient (BNVA) | payer MEDICARE, MEDICAID, SELFPAY | PROVIDERS: PCP Internal Medicine; Visit Provider Urology | DX: N28.1 Cyst of kidney, acquired (principal); N20.0 Calculus of kidney | CPT/HCPCS: 99212 ==

== ENCOUNTER 2024-06-14 05:59 | Outpatient (REF) | payer MEDICARE, MEDICAID, SELFPAY ==
[2024-06-14 06:14] LABS: MANUAL DIFF FLAG NO
[2024-06-14 07:59] LABS: Basophils Percent Auto 0.6 % (0-2); Eosinophils Absolute Auto 0.4 X10*3/uL (0.0-0.4); Eosinophils Percent Auto 5.3 % (0-4); Hematocrit 46.6 % (42.0-52.0); Imm Gran Abs Auto 0.01 X10*3/uL (0.00-0.03); Imm Gran Pct Auto 0.1 % (0.0-0.4); Lymphocytes Absolute Auto 2.6 X10*3/uL (1.2-4.9); Lymphocytes Percent Auto 38.4 % (20-40); Mean Corpuscular HGB Conc 34.5 g/dl (31.0-36.0); Mean Corpuscular Hemoglobin 31.6 pg (27.0-33.0); Mean Corpuscular Volume 91.6 fL (80.0-98.0); Mean Platelet Volume 9.4 fL (9.4-12.4); Monocytes Absolute Auto 0.7 X10*3/uL (0.1-1.2); Monocytes Percent Auto 10.7 % (2-11); Neutrophils Absolute Auto 3.1 x10*3/uL (2.0-8.3); Neutrophils Percent Auto 44.9 % (45-73); Platelet Count 178 X10*3/uL (160-400); Red Blood Count 5.09 X10*6/uL (4.60-5.80); Red Cell Distribution Width 12.7 % (11.0-16.0); White Blood Count 6.8 X10*3/uL (4.8-10.8)
[2024-06-14 08:02] LABS: Estimated Average Glucose 111 mg/dL; Hemoglobin A1C 153.0721 umol/L; Hemoglobin A1c % 5.5 % (<6.0); Total Hemoglobin (HGBA1C) 4133.0682 umol/L
[2024-06-14 08:11] LABS: Amphetamine Screen Urine Not Detected (Not Detect); Barbiturates, Urine Not Detected (Not Detect); Benzodiazepines Screen Urine POSITIVE (Not Detect); Buprenorphine Scr Not Detected (Not Detect); Cannabinoid Screen Urine Not Detected (Not Detect); Cocaine Screen Urine Not Detected (Not Detect); Fentanyl, urine Not Detected (Not Detect); Methadone Screen, Urine Not Detected (Not Detect); Opiate Screen Urine Not Detected (Not Detect); Oxycodone Screen Urine Not Detected (Not Detect); Phencyclidine Screen Urine Not Detected (Not Detect)
[2024-06-14 08:17] LABS: Hemoglobin 16.1 g/dl (14.0-18.0)
[2024-06-14 08:27] LABS: Alanine Aminotransferase 78 U/L (0-40); Albumin Level 3.9 g/dL (3.5-5.0); Alkaline Phosphatase 68 U/L (39-117); Aspartate Amino Transferase 58 U/L (5-37); Bilirubin Direct 0.2 mg/dL (0.0-0.5); Bilirubin Total 0.7 mg/dL (0.0-1.0); Blood Urea Nitrogen 19 mg/dL (9-16); Cholesterol 157 mg/dL (<200); HDL Cholesterol 38 mg/dL (>40); LDL Cholesterol Calculated 85 mg/dL (<100); Total Protein 7.3 g/dL (6.5-8.0); Triglycerides 171 mg/dL (<150)
== END 2024-06-14 06:00 | disposition home or self-care (01) ==
LOC: HO.LAB 05:59
PROVIDERS: PCP Internal Medicine; Visit Provider Registered Nurse Psychiatric/Mental Health
DX: Z79.899 Other long term (current) drug therapy (principal)
CPT/HCPCS: 80061; 80076; 80307; 83036; 84436; 84443; 84520; 85025

== ENCOUNTER 2024-07-20 10:17 | Outpatient (REF) | payer MEDICARE, MEDICAID, SELFPAY | END 2024-07-20 10:18 | disposition home or self-care (01) | LOC: HO.CT 10:17 | PROVIDERS: PCP Internal Medicine; Visit Provider Registered Nurse | DX: I63.9 Cerebral infarction, unspecified (principal) | CPT/HCPCS: 70450 ==

== ENCOUNTER 2024-08-07 06:40 | Day surgery (SDC) | payer MEDICARE, MEDICAID, SELFPAY ==
[2024-08-03 14:00] VITALS: BMI 34.0
--- NOTE | 2024-08-06 09:55 | HO.ANESPROP2 ---
Documented by User: Nina Cunningham NP 08/06/24 09:57 HPI - Anesthesia Eval Consult details Narrative: 59yo M for Colonoscopy Eliquis for afib Follows [facility]. Afib, PFO (not closed), CVA. Last office visit 02/2024 and stable [facility] Active Problems Active Problems: All Active Problems Personal history of colonic polyps (Acute) Complex renal cyst (Acute) S/P total left hip arthroplasty (Acute) Osteoarthritis of left hip (Acute) Status post total hip replacement, right (Acute) Preop cardiovascular exam (Acute) Dyspnea on exertion (Acute) Nephrolithiasis (Acute) Osteoarthritis of right hip (Acute) Tremor, anxiety related (Acute) Snoring (Acute) Asthma (Acute) Atrial flutter (Acute) Atrial fibrillation (Acute) Somnolence (Acute) [place] (obstructive sleep apnea) (Acute) Obesity (BMI 30-39.9) (Acute) Anxiety and depression (Acute) Dyspnea on exertion (Acute) CVA (cerebral vascular accident) (Acute) Past Medical History Medical History Snoring Asthma Somnolence [place] (obstructive sleep apnea) Obesity (BMI 30-39.9) Elevated cholesterol HTN (hypertension) PFO (patent foramen ovale) Atrial flutter Tremor, anxiety related On anticoagulant therapy Kidney stones Arthritis GERD (gastroesophageal reflux disease) COPD (chronic obstructive pulmonary disease) Anxiety and depression Dyspnea on exertion CVA (cerebral vascular accident) Atrial fibrillation Family History Family History Mother No problems noted. Father No problems noted. 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 If so, by whom?: No Are you DNR?: No Advance Directives: No Advance Directives Information Provided: Yes service: No Current occupational status: disabled Meds Allergies Allergy/AdvReac Type Severity Reaction Status Date / Time diclofenac [From [facility]] Allergy Severe SEVERE Verified 06/05/24 09:17 RASH, FACIAL SWELLING, hives Home Medications ?Medication ?Instructions ?Recorded ?Confirmed ?Last Taken ?Type omeprazole 20 mg capsule,delayed 20 mg PO DAILY 08/24/21 08/03/24 08/05/24 History release atorvastatin 80 mg tablet 80 mg PO BEDTIME 09/28/21 08/03/24 08/05/24 History diazepam 5 mg tablet 5 mg PO TID PRN Anxiety 09/28/21 08/03/24 08/06/24 22:00 History sertraline 100 mg tablet 2 tab PO DAILY 12/02/21 08/03/24 08/05/24 History quetiapine 400 mg tablet 400 mg PO BEDTIME PRN Anxiety 01/28/22 08/03/24 08/05/24 History metoprolol succinate 25 mg 25 mg PO DAILY 03/12/24 08/03/24 04/09/24 History tablet,extended release 24 hr multivitamin 1 tab PO DAILY 03/12/24 08/03/24 08/05/24 History Exam Height,Weight and Vital Signs: Height 6 ft 1 in Weight 117.027 kg Assessment and Plan Assessment Anesthesia Assessment: Chart Reviewed Final Anesthetic Review Family History of Problems with Anesthesia: No History of Problems with Anesthesia: No Documented by User: Pat Jones MD 08/07/24 08:35 PMFSH Active Problems Active Problems: All Active Problems Personal history of colonic polyps (Acute) Complex renal cyst (Acute) S/P total left hip arthroplasty (Acute) Osteoarthritis of left hip (Acute) Status post total hip replacement, right (Acute) Preop cardiovascular exam (Acute) Dyspnea on exertion (Acute) Nephrolithiasis (Acute) Osteoarthritis of right hip (Acute) Tremor, anxiety related (Acute) Snoring (Acute) Asthma (Acute) Atrial flutter (Acute) Atrial fibrillation (Acute) Somnolence (Acute) [place] (obstructive sleep apnea) (Acute) Obesity (BMI 30-39.9) (Acute) Anxiety and depression (Acute) Dyspnea on exertion (Acute) CVA (cerebral vascular accident) (Acute)2019 On eliquis. Last dose 08/05/24 Past Medical History Medical History Snoring Asthma Somnolence [place] (obstructive sleep apnea) Obesity (BMI 30-39.9) Elevated cholesterol HTN (hypertension) PFO (patent foramen ovale) Atrial flutter Tremor, anxiety related On anticoagulant therapy Kidney stones Arthritis GERD (gastroesophageal reflux disease) COPD (chronic obstructive pulmonary disease) Anxiety and depression Dyspnea on exertion CVA (cerebral vascular accident) Atrial fibrillation Family History Family History Mother No problems noted. Father No problems noted. 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 If so, by whom?: No Are you DNR?: No Advance Directives: No Advance Directives Information Provided: Yes service: No Current occupational status: disabled Meds Allergies Allergy/AdvReac Type Severity Reaction Status Date / Time diclofenac [From [facility]] Allergy Severe SEVERE Verified 06/05/24 09:17 RASH, FACIAL SWELLING, hives Home Medications ?Medication ?Instructions ?Recorded ?Confirmed ?Last Taken ?Type omeprazole 20 mg capsule,delayed 20 mg PO DAILY 08/24/21 08/03/24 08/05/24 History release atorvastatin 80 mg tablet 80 mg PO BEDTIME 09/28/21 08/03/24 08/05/24 History diazepam 5 mg tablet 5 mg PO TID PRN Anxiety 09/28/21 08/03/24 08/06/24 22:00 History sertraline 100 mg tablet 2 tab PO DAILY 12/02/21 08/03/24 08/05/24 History quetiapine 400 mg tablet 400 mg PO BEDTIME PRN Anxiety 01/28/22 08/03/24 08/05/24 History metoprolol succinate 25 mg 25 mg PO DAILY 03/12/24 08/03/24 04/09/24 History tablet,extended release 24 hr multivitamin 1 tab PO DAILY 03/12/24 08/03/24 08/05/24 History Exam Height,Weight and Vital Signs: Height 6 ft 1 in Weight 117.027 kg Vital Signs Temp Pulse Resp BP Pulse Ox O2 Del Method 08/07/24 07:00 98.5 F 91 20 152/90 H 94 Room Air Airway Mallampati Class: III TM Dist: >3cm Neck ROM: Full Loose/Missing/Broken Teeth: No Heart: RRR Lungs: CTAB Assessment and Plan Assessment Anesthesia Assessment: Anesthesia Plan Discussed and Chart Reviewed Final Anesthetic Review Family History of Problems with Anesthesia: No History of Problems with Anesthesia: No NPO: Yes ASA Class: III Final Preanesthetic Review: No Changes in Pt Med Stat, Meds/Allgs Chart Reviewed, Consent Obtained/Reviewed and Anes Risks/Benef Reviewed Patient Risk: Intermediate Procedure Risk: Low Assessment/Block/Sedation in SS: Assess/Block/Sedation-SS Anesthetic Plan Anesthetic Plan: TIVA Disposition: Standard PACU
[2024-08-07 07:00] VITALS: BP 152/90; PULSE 91; RESP 20; TEMP 36.9; O2SAT 94; BMI 34.4
[2024-08-07] MEDS: Lactated Ringers 1,000 ML 100 ML IVCONT (07:23)
--- NOTE | 2024-08-07 07:43 | MHC.SHP ---
Pre-Procedural Eval Section A - 24 Hr Update-Section A only Date of Service: 08/07/24 Section B - Complete if H&P > 30 days Chief Complaint: Personal history of colonic polyps Details of Present Illness: uncle with CRC Relevant Family History (Specify if Yes): Yes Relevant Social History: None Present Medications: see Short Stay Collaborative assessment Medical History: Significant History ( Snoring Asthma Somnolence [place] (obstructive sleep apnea) Obesity (BMI 30-39.9) Elevated cholesterol HTN (hypertension) PFO (patent foramen ovale) Atrial flutter Tremor, anxiety related On anticoagulant therapy Kidney stones Arthritis GERD (gastroesophageal reflux disease) COPD (chronic obstructive p) History of Previous Operations: Relevant previous surgery/procedure and date(s) (History of total left hip replacement Hx of colonoscopy History of right hip replacement Hx of surgical procedure History of varicose vein ligation and stripping H/O removal of cyst) Allergies: Allergies Allergy/AdvReac Type Severity Reaction Status Date / Time diclofenac [From VOLTAREN] Allergy Severe SEVERE Verified 06/05/24 09:17 RASH, FACIAL SWELLING, hives Review of Systems Sugical H&P ROS: Negative: Constitution, Cardiovascular, Respiratory, Neurological, Psychiatric, Hem-Onc, Allergic/Immunologic, Gastrointestinal, Genitourinary, Musculoskeletal, Integumentary, Endocrine and Eyes/Ears/Nose/Throat Exam Surgical H&P Exam: Normal: HEENT, Normal: Heart, Normal: Lungs, Normal: Extremities, Normal: Abdomen, Normal: Skin and Normal: Neurological Plan Diagnosis/Plan: Unchanged I have reviewed the history and physical and performed a pertinent physical examination on my patient. No changes have occurred unless specified. Time Spent With Patient Time: Total time managing care of this patient today ____ minutes.
--- NOTE | 2024-08-07 08:50 | P.OPN-COLO_ITS ---
Colonoscopy Operative Note Operative Note Date of Service: 08/07/24 Narrative: Operative Information Procedure Description: Colonoscopy Indication: screening Anesthesia: MAC COLONOSCOPY Instrument: Olympus variable stiffness ADULT scope 190L Colonoscopy Monitoring: Vital signs and clinical assessment, continuous EKG monitoring, Pulse oximetry, Carbon Dioxide monitoring and blood pressure monitoring were done throughout the procedure. Colon withdrawal time was 14 minutes. Procedure: The patient was placed in the left lateral decubitis position and pre-procedure medications were administered. After a digital rectal examination of the ano-rectum, the video colonoscope was inserted into the rectum and advanced through the colon to the cecum/TI. The colonoscope was slowly withdrawn in a retrograde panoramic fashion and the colon mucosa was carefully examined including a retroflexed view of the rectum. Findings and interventions are described below. Procedure Difficulty: easy Findings: Terminal Ileum-normal Cecum: 2-3 mm sessile polyp removed with cold forceps Ascending Colon: x2 sessile polyps 4-6 mm removed with cold forceps, x2 sessile polyps 7-9 mm removed with cold snare Transverse Colon -normal Descending Colon:normal Sigmoid Colon: mild diverticulosis Rectum: Retroflexion with small internal hemorrhoids seen, grade I Anorectum - normal Intervention: cold snare, cold forceps Colon preparation: [place] Bowel Preparation Scale Right colon; 2 Transverse colon: 2 Left colon; 1-2 (0 = Unprepared colon segment with mucosa not seen due to solid stool that cannot be cleared. 1 = Portion of mucosa of the colon segment seen, but other areas of the colon segment not well seen due to staining, residual stool and/or opaque liquid. 2 = Minor amount of residual staining, small fragments of stool and/or opaque liquid, but mucosa of colon segment seen well. 3 = Entire mucosa of colon segment seen well with no residual staining, small fragments of stool or opaque liquid) Impression and Post Procedure Diagnosis: diverticulosis colon polyps x 5 internal hemorrhoids Plan: High fiber diet leaflet Avoid straining at stool, epsom salts and sitz bath, anusol supps or cream Repeat Colonoscopy in 1 year due to polyps and fair prep on the left or earlier if clinically indicated can restart apixiban tomorrow Above findings were reviewed with the patient and relevant handouts were provided if indicated.
[2024-08-07 08:56] VITALS: BP 113/73; PULSE 75; RESP 15; TEMP 36.7; O2SAT 93
[2024-08-07 09:18] VITALS: BP 128/81; PULSE 72; RESP 17; TEMP 36.7; O2SAT 96
== END 2024-08-07 09:34 | disposition home or self-care (01) ==
PROVIDERS: PCP Internal Medicine; Visit Provider Internal Medicine Gastroenterology
PROC: 0DJD8ZZ Inspection of Lower Intestinal Tract, Via Natural or Artificial Opening Endoscopic (ICD-10-PCS; CPT 45378; principal; 2024-08-07 08:20)
DX: Z12.11 Encounter for screening for malignant neoplasm of colon (principal); K51.40 Inflammatory polyps of colon without complications; D12.2 Benign neoplasm of ascending colon; K57.30 Diverticulosis of large intestine without perforation or abscess without bleeding; K64.0 First degree hemorrhoids; Z86.0101 Personal history of adenomatous and serrated colon polyps; I10 Essential (primary) hypertension; E78.00 Pure hypercholesterolemia, unspecified; I48.91 Unspecified atrial fibrillation; J45.909 Unspecified asthma, uncomplicated; G47.33 Obstructive sleep apnea (adult) (pediatric); Z86.73 Personal history of transient ischemic attack (TIA), and cerebral infarction without residual deficits; Z79.01 Long term (current) use of anticoagulants; Z79.02 Long term (current) use of antithrombotics/antiplatelets; Z79.899 Other long term (current) drug therapy
CPT/HCPCS: 45385; 45380; 88305; J2003; J2704

== ENCOUNTER → 2024-08-07 06:40 | Outpatient (BNV) | payer MEDICARE, MEDICAID, SELFPAY | PROVIDERS: PCP Internal Medicine; Visit Provider Internal Medicine Gastroenterology | DX: Z12.11 Encounter for screening for malignant neoplasm of colon (principal); D12.2 Benign neoplasm of ascending colon; K63.5 Polyp of colon; K57.30 Diverticulosis of large intestine without perforation or abscess without bleeding; K64.0 First degree hemorrhoids | CPT/HCPCS: 45380; 45385 ==

== ENCOUNTER 2024-09-03 08:36 | Outpatient (REF) | payer MEDICARE, MEDICAID, SELFPAY ==
[2024-09-03 13:47] LABS: MANUAL DIFF FLAG NO
[2024-09-03 14:42] LABS: Basophils Percent Auto 0.4 % (0-2); Eosinophils Absolute Auto 0.3 X10*3/uL (0.0-0.4); Hematocrit 47.1 % (42.0-52.0); Hemoglobin 16.7 g/dl (14.0-18.0); Imm Gran Abs Auto 0.02 X10*3/uL (0.00-0.03); Imm Gran Pct Auto 0.3 % (0.0-0.4); Lymphocytes Absolute Auto 2.2 X10*3/uL (1.2-4.9); Lymphocytes Percent Auto 31.6 % (20-40); Mean Corpuscular HGB Conc 35.5 g/dl (31.0-36.0); Mean Corpuscular Hemoglobin 32.1 pg (27.0-33.0); Mean Corpuscular Volume 90.6 fL (80.0-98.0); Mean Platelet Volume 9.9 fL (9.4-12.4); Monocytes Absolute Auto 0.8 X10*3/uL (0.1-1.2); Monocytes Percent Auto 12.2 % (2-11); Neutrophils Absolute Auto 3.5 x10*3/uL (2.0-8.3); Neutrophils Percent Auto 50.5 % (45-73); Platelet Count 202 X10*3/uL (160-400); Red Cell Distribution Width 12.6 % (11.0-16.0); White Blood Count 6.9 X10*3/uL (4.8-10.8)
[2024-09-03 14:44] LABS: INTERNATIONAL NORM RATIO 1.1 (0.9-1.1)
[2024-09-03 15:37] LABS: Albumin Level 4.2 g/dL (3.5-5.0); Alkaline Phosphatase 81 U/L (39-117); Anion Gap 9 (12-20); Aspartate Amino Transferase 42 U/L (5-37); Bilirubin Total 0.5 mg/dL (0.0-1.0); Blood Urea Nitrogen 17 mg/dL (9-16); Carbon Dioxide 26 mmol/L (22-29); Chloride 108 mmol/L (96-108); Estimated Glomerular Filt Rate > 60; Ferritin 177 ng/mL (20-250); Glucose Random 85 mg/dL (60-115); Potassium 4.3 mmol/L (3.3-5.1); Sodium 139 mmol/L (135-145); Total Protein 8.1 g/dL (6.5-8.0)
[2024-09-03 18:48] LABS: Alanine Aminotransferase 51 U/L (0-40)
[2024-09-04 04:47] LABS: HBc Num1 0.07 S/CO (0.00-0.79); HBsAGNum1 0.33 S/CO (0.00-0.99); Hepatitis A Antibody IgM 0.17 Index (0-0.79); Hepatitis B Core Antibody Nonreactive (Nonreactive); Hepatitis B Surface Antigen Negative (Negative); ~HepC Num1 0.08 S/CO (0.00-0.79); ~Hepatitis A Antibody IgM Nonreactive (Nonreactive); ~Hepatitis B Surface Antibody NONREACTIVE (Nonreactive); ~Hepatitis C Antibody Nonreactive (Nonreactive)
[2024-09-04 16:18] LABS: Immunoglobulin G 1433 mg/dL (600-1640)
[2024-09-05 14:49] LABS: Anti Nuclear Antibody Screen NEGATIVE (NEGATIVE)
[2024-09-05 17:23] LABS: Transglutaminase Ab IgG <1.0 U/mL; Transglutaminase IgA <1.0 U/mL
[2024-09-05 19:28] LABS: Alpha 1 Anti-trypsin 150 mg/dL (83-199); Ceruloplasmin 20 mg/dL (14-30)
[2024-09-06 18:14] LABS: Smooth Muscle Antibody <20 U (<20)
[2024-09-10 10:58] LABS: FIB-ALT 41 U/L (9-46); FIB-Alpha-2-Macroglobulin 402 mg/dL (106-279); FIB-Apolipoprotein A1 157 mg/dL (94-176); FIB-GGT 52 U/L (3-85); FIB-Haptoglobin 137 mg/dL (43-212); FIB-Total Bilirubin 0.4 mg/dL (0.2-1.2); Liver Fibrosis Score 0.56; Liver Fibrosis Stage F2; Nec Inflam Act Grade A1; Reference ID 5293608
== END 2024-09-03 08:37 | disposition home or self-care (01) ==
LOC: HO.LAB 08:36
PROVIDERS: PCP Internal Medicine; Visit Provider Internal Medicine Gastroenterology
DX: R10.33 Periumbilical pain (principal); G89.29 Other chronic pain; R79.89 Other specified abnormal findings of blood chemistry; K52.839 Microscopic colitis, unspecified; R79.82 Elevated C-reactive protein (CRP); K75.81 Nonalcoholic steatohepatitis (NASH); Z11.59 Encounter for screening for other viral diseases; Z72.89 Other problems related to lifestyle
CPT/HCPCS: 36415; 80053; 81596; 82103; 82390; 82728; 82784; 85025; 85610; 86015; 86038; 86364; 86704; 86706; 86709; 86803; 87340

== ENCOUNTER 2024-09-03 08:36 | Outpatient (AMB) | payer MEDICARE, MEDICAID, SELFPAY ==
--- NOTE | 2024-09-03 08:36 | A.OFFVIS_ITS ---
Intake Visit Reasons: f/u Intake Note: Edward presents as a telehealth today - states that he has been feeling good and not having any concerns! 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 Required: No Allergies diclofenac [From VOLTAREN] Allergy (Severe, Verified 09/03/24 08:36) SEVERE RASH, FACIAL SWELLING, hives HPI HPI f/u: Details: 59 yr old m being called for f/u Reviewed colonoscopy 08/14 x 5 polyps removed, mild diverticulosis prior hx of polyps removed at colonoscopy at [facility] He feels well no drinking or smoking no abdo pain, nausea, abn bowel s he has been told he has fatty liver, LFT are mildly elevated, CT a/P 2020 with steatosis exam: good color talking easily, no SOB A/P: 1/ colon polyps, 2/ possible MASLD PLAN: 1/ check liver serologies, 2/ repeat colon later in the year with 2 d prep and stop eliquis 2 d before 3/ genetic testing if >10 polyps over cumulative colonoscopies PFSH Medical History Snoring Asthma Somnolence CAMDEN (obstructive sleep apnea) Obesity (BMI 30-39.9) Elevated cholesterol HTN (hypertension) PFO (patent foramen ovale) Atrial flutter Tremor, anxiety related On anticoagulant therapy Kidney stones Arthritis GERD (gastroesophageal reflux disease) COPD (chronic obstructive pulmonary disease) Anxiety and depression Dyspnea on exertion CVA (cerebral vascular accident) Atrial fibrillation Surgical History History of total left hip replacement Hx of colonoscopy History of right hip replacement Hx of surgical procedure History of varicose vein ligation and stripping H/O removal of cyst Family History Mother No problems noted. Father No problems noted. 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) Alcohol intake: never Comment: patient refused alarm Patient Tobacco Use Status: Never used Tobacco service: No Current occupational status: disabled Telehealth Telehealth Telehealth Platform: [facility] Location of provider rendering services: practice address Location of patient: address on file Patient Identification confirmed using: Name, : Yes Telehealth method: video Patient verbally consented to treatment: Yes Patient verbally consented to billing insurance company: Yes Patient informed of any privacy concerns related to visit: Yes Minutes spent on Phone/Video with Pt.: 8 Assessment & Plan Assessment & Plan (1) Abnormal LFTs: Code(s): R7. - Other specified abnormal findings of blood chemistry Category: Medical Plan: see above Orders: Orders Transglutaminase Ab IgG Today G89.29 - Other chronic pain, R10.33 - Periumbilical pain, R79.89 - Other specified abnormal findings of blood chemistry Complete Blood Count Auto Diff Today R7.89 - Other specified abnormal findings of blood chemistry Comprehensive Met. Panel Today K75.81 - Nonalcoholic steatohepatitis (GOLDEN), R7.89 - Other specified abnormal findings of blood chemistry Prothrombin Time INR Today R7.89 - Other specified abnormal findings of blood chemistry Alpha 1 Anti-trypsin Today R7.89 - Other specified abnormal findings of blood chemistry Liver Fibrosis Pnl Today R79.89 - Other specified abnormal findings of blood chemistry Immunoglobulin G Today K52.839 - Microscopic colitis, unspecified, R79.89 - Other specified abnormal findings of blood chemistry Ceruloplasmin Today R79.89 - Other specified abnormal findings of blood chemistry BARBARA Reflex Titer and Pattern Today R79.82 - Elevated C-reactive protein (CRP), R79.89 - Other specified abnormal findings of blood chemistry US abdomen higuera w elastography Today K74.60 - Unspecified cirrhosis of liver, K75.81 - Nonalcoholic steatohepatitis (GOLDEN), R79.89 - Other specified abnormal findings of blood chemistry Transglutaminase IgA Today R79.89 - Other specified abnormal findings of blood chemistry Ferritin Today R79.89 - Other specified abnormal findings of blood chemistry Hepatitis A,B,C Profile Today R79.89 - Other specified abnormal findings of blood chemistry Smooth Muscle Antibody Today R79.89 - Other specified abnormal findings of blood chemistry Medications: New sodium,potassium,mag sulfates 17.5-3.13-1.6 gram (Suprep Bowel Prep Kit) DILUTE; drink 1/2 at 6-8 pm and half at 11 PM- 1AM 354 mL 0RF Coding Level of Care Code Tele Est Pt Level 4 (90000) Diagnoses Abnormal LFTs R79.89
== END 2024-09-03 15:53 | disposition home or self-care (01) ==
LOC: HO.HGI 08:36
PROVIDERS: PCP Internal Medicine; Visit Provider Internal Medicine Gastroenterology
DX: R79.89 Other specified abnormal findings of blood chemistry (principal)
CPT/HCPCS: 98016

== ENCOUNTER 2024-09-10 08:37 | Outpatient (AMB) | payer OTHER, MEDICAID, SELFPAY ==
[2024-09-10 09:11] VITALS: BP 132/64; PULSE 81; BMI 34.0
--- NOTE | 2024-09-10 09:11 | MHC.OFFVIS ---
Vital Signs 09/10/24 09:11 Height 6 ft 1 in Weight 257 lb 15.053 oz BMI 34.0 BP 132/64 Blood Pressure Location Lt brachial Position Sitting Pulse 81 Pulse Source Pulse Oximeter Intake Visit Reasons: 6 mth f/up Intake Note: 6 mth f/up Manager [place] Required: No Accompanied by: Self / Same As Patient Allergies diclofenac [From VOLTAREN] Allergy (Severe, Verified 09/03/24 08:36) SEVERE RASH, FACIAL SWELLING, hives Medication List - Last Reconciled 09/10/24 by Anders German MD apixaban (Eliquis) 5 mg PO BID atorvastatin 80 mg PO BEDTIME diazepam 5 mg PO TID PRN levalbuterol tartrate 45 mcg/actuation 2 puffs inhalation Q4-6H PRN 30 days lisinopril 10 mg PO DAILY metoprolol tartrate 25 mg PO BID multivitamin 1 tab PO DAILY omeprazole 20 mg PO DAILY primidone 50 mg PO BEDTIME quetiapine 400 mg PO BEDTIME PRN sertraline 2 tabs PO DAILY sodium,potassium,mag sulfates 17.5-3.13-1.6 gram (Suprep Bowel Prep Kit) DILUTE; drink 1/2 at 6-8 pm and half at 11 PM- 1AM HPI Comments Details: Pleasant 59-year-old gentleman who was referred to us for perioperative cardiovascular risk assessment for right hip surgery. He has background history of atrial fibrillation, DVT / PE and CVA. He has been on Eliquis. he is saying since the stroke he has been short of breath with minimal exertion. He has seen Dr. Sanchez for pulmonology and he has been found to have mild obstructive lung disease. His dyspnea is out of proportion to the lung disease. He is a lifelong nonsmoker. He has no exertional chest discomfort. He has tremors in his hands for which he has seen Neurology in the past but no obvious improvement has happened. he has significant anxiety which mostly developed after the stroke. Received his chart from [facility] which showed that he had a fenestrated PFO with [id number] shunting noticed on JIMMY. He saw [facility] after discharge. I had a discussion with Dr. Reji Gomez who saw the patient after discharge from [place]. It appears he had a cardiac event monitor which showed atrial flutter. It was decided to start the patient on Eliquis and not disclose the patent [place] ovale unless he develops another episode of TIA/stroke. Since then he has been taking Eliquis and has been stable. We did stress testing and echocardiography which did not show any significant issues. His transthoracic echocardiography with bubble study did not show a PFO but it appears with JIMMY done in [place] he had a clear PFO reported which was noted to be fenestrated and complex. He continues to be is fairly short of breath but he has been told by pulmonology that this is all related to anxiety. He was taught some breathing exercises and he plans to start doing them. He is concerning left hip surgery now. He underwent right hip replacement uneventfully. 03/02/23: He returns for follow-up. He is saying he underwent bilateral hip replacement and has been recovering well. He is exercising. He has atypical left-sided needle like sensation off and on lasting for few seconds. He is still complaining of dyspnea and is saying that pulmonology has told him that this is due to anxiety. He has a PFO and I have checked his oxygen level laying and standing and it does not change with upright posture. 09/07/23: He returns for follow-up. He is getting non anginal left-sided chest pains as before. He is saying his breathing is similar to before. He has noticed some wheezing recently when the cord weather. He is taking primidone for tremors and tremors are improving. 03/12/24: He is here for follow-up. He is saying that he has good and bad days but mostly good days. When he gets symptoms he notices that he is wheezing and is short of breath. Taking medications regularly. Compliant with Eliquis. 09/10/24: He returns for f/u. He has been feeling good. Continues to have shortness of breath but he feels that he is more adjusted to this. He is trying to exercise on bike and eating more vegetables and fruits. Blood pressure is well controlled. [facility] Medical History Snoring Asthma Somnolence CAMDEN (obstructive sleep apnea) Obesity (BMI 30-39.9) Elevated cholesterol HTN (hypertension) PFO (patent foramen ovale) Atrial flutter Tremor, anxiety related On anticoagulant therapy Kidney stones Arthritis GERD (gastroesophageal reflux disease) COPD (chronic obstructive pulmonary disease) Anxiety and depression Dyspnea on exertion CVA (cerebral vascular accident) Atrial fibrillation Surgical History History of total left hip replacement Hx of colonoscopy History of right hip replacement Hx of surgical procedure History of varicose vein ligation and stripping H/O removal of cyst Family History Mother No problems noted. Father No problems noted. 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) Alcohol intake: never Comment: patient refused alarm Patient Tobacco Use Status: Never used Tobacco service: No Current occupational status: disabled Review of Systems Const Denies chills, Denies fatigue, Denies fever(s), Denies frequent falls, Denies weakness, Denies weight gain and Denies weight loss ENT Denies dizziness Card Denies chest pain, Denies leg edema, Denies lightheadedness, Denies palpitations, Denies dyspnea and Denies dyspnea on exertion Resp Denies cough, Denies dyspnea and Denies dyspnea on exertion GI Denies hematochezia Musc Denies abnormal gait, Denies muscle weakness, Denies numbness, Denies radiating pain into limb and Denies tingling Neuro Denies abnormal gait, Denies dizziness, Denies frequent falls, Denies numbness, Denies tingling and Denies weakness Endo Denies fatigue and Denies palpitations Physical Exam Vital Signs: Last Vital Signs Pulse 81 09/10/24 09:11 BP 132/64 09/10/24 09:11 BMI result Body Mass Index 34.0 GENERAL APPEARANCE: in no acute distress, pleasant. NECK: no carotid bruit, no jugular venous distention. SKIN: no suspicious lesions, warm and dry. HEART: no murmurs, regular rate and rhythm. LUNGS: Clear to auscultation.. ABDOMEN: soft, nontender. EXTREMITIES: no edema. No tremors. PERIPHERAL PULSES: equal. NEUROLOGIC: No gross deficits, AAO X 3 Assessment & Plan Assessment & Plan (1) Atrial flutter: Code(s): I48.92 - Unspecified atrial flutter Category: Medical (2) CVA (cerebral vascular accident): Comment: 05/2019 Code(s): I63.9 - Cerebral infarction, unspecified Category: Medical (3) Dyspnea on exertion: Code(s): R06.00 - Dyspnea, unspecified Category: Medical Plan Pleasant 59 year gentleman here for follow-up. He has history of previous CVA and was found to have a PFO. His workup revealed atrial flutter and was started on Eliquis and PFO was not closed. He has done well since then and has no further CVA/TIA. He has chronic dyspnea. He follows up with pulmonology. Clinically stable and not heart failure. No bleeding concerns with apixaban. He will see us back in 6 months. Thank you for allowing me to participate in the care of your patient. Please feel free to contact me if you have any questions. Coding Level of Care Code Est Pt Level 3 (66875) Diagnoses Atrial flutter I48.92 CVA (cerebral vascular accident) I63.9 Dyspnea on exertion R06.00
== END 2024-09-10 09:31 | disposition home or self-care (01) ==
PROVIDERS: PCP Internal Medicine; Visit Provider Internal Medicine Cardiovascular Disease
DX: I48.92 Unspecified atrial flutter (principal); I63.9 Cerebral infarction, unspecified; R06.00 Dyspnea, unspecified
CPT/HCPCS: 99213

== ENCOUNTER → 2024-09-10 08:37 | Outpatient (BNVA) | payer OTHER, MEDICAID, SELFPAY | PROVIDERS: PCP Internal Medicine; Visit Provider Internal Medicine Cardiovascular Disease | DX: I48.92 Unspecified atrial flutter (principal); R06.00 Dyspnea, unspecified; Z86.73 Personal history of transient ischemic attack (TIA), and cerebral infarction without residual deficits | CPT/HCPCS: 99212 ==

== ENCOUNTER 2024-10-22 08:34 | Outpatient (AMB) | payer MEDICARE, MEDICAID, SELFPAY ==
--- NOTE | 2024-10-22 08:49 | MHC.OFFVIS ---
Vital Signs 10/22/24 08:50 Height 6 ft 1 in Weight 259 lb 0.69 oz BMI 34.2 BP 102/64 Blood Pressure Location Lt brachial Position Sitting Pulse 80 Pulse Source Pulse Oximeter Pulse Oximetry (%) 96 Oxygen Delivery Method Room Air Intake Visit Reasons: Wheezing Intake Note: pt is here for follow up and states he wheezes when he rushes. Flexographic Press Set Up Operator Required: No Allergies diclofenac [From VOLTAREN] Allergy (Severe, Verified 10/22/24 08:53) SEVERE RASH, FACIAL SWELLING, hives Medication List - Last Reconciled 10/22/24 by Dipesh Sanchez MD apixaban (Eliquis) 5 mg PO BID atorvastatin 80 mg PO BEDTIME diazepam 5 mg PO TID PRN lisinopril 10 mg PO DAILY metoprolol tartrate 25 mg PO BID multivitamin 1 tab PO DAILY omeprazole 20 mg PO DAILY primidone 50 mg PO BEDTIME quetiapine 400 mg PO BEDTIME PRN sertraline 2 tabs PO DAILY sodium,potassium,mag sulfates 17.5-3.13-1.6 gram (Suprep Bowel Prep Kit) DILUTE; drink 1/2 at 6-8 pm and half at 11 PM- 1AM Do you need a note to return to daycare/school/sports/work: No HPI HPI Wheezing: Details: THIS 59 YEARS OLD GENTLEMAN WHO IS GROSSLY OBESE, AND HAS A VERY MILD CASE OF BRONCHIAL ASTHMA ESPECIALLY WITH COMPLAINT OF SHORTNESS OF BREATH WHEN HE CLIMBS STAIRS, .COMES AFTER 6 MONTHS FOR FOLLOW-UP SINCE HIS LAST VISIT HE HAS NOT USE LEVALBUTEROL BECAUSE HE SAY IS THIS ALSO CAUSES SOME TACHYCARDIA. HE HAS REMAINED STABLE FAR PULMONARY STATUS IS CONCERNED. HE STILL HAS THE SAME COMPLAINT OF FEELING SHORT OF BREATH BUT MOSTLY WHEN HE CLIMBS UP OR DOWNSTAIRS. HE DOES EXERCISE ON BICYCLE FOR MORE THAN 30 MINUTES AND HE HAS NO SHORTNESS OF BREATH. DURING BICYCLING HE CHECKS HIS O2 SAT AND IT REMAINS 96 ARE ABOVE. DURING THE DAYTIME HE HAS NO COUGH OR WHEEZING. HE STILL SNORES AT NIGHT AND THAT IS DUE TO HIS BEING OVERWEIGHT. HIS HOME-BASED SLEEP STUDY DID NOT SHOW OBSTRUCTIVE SLEEP APNEA. THIS GENTLEMAN IS ON HEAVY DUTY SEROQUEL AND SERTRALINE FOR HIS CHRONIC PSYCHOLOGIC ISSUES, AND HE DOES HAVE SOME MUSCLE TREMORS PROBABLY A SIDE EFFECT OF ANTI PSYCHOTIC MED. [facility] Medical History Snoring Asthma Somnolence CAMDEN (obstructive sleep apnea) Obesity (BMI 30-39.9) Elevated cholesterol HTN (hypertension) PFO (patent foramen ovale) Atrial flutter Tremor, anxiety related On anticoagulant therapy Kidney stones Arthritis GERD (gastroesophageal reflux disease) COPD (chronic obstructive pulmonary disease) Anxiety and depression Dyspnea on exertion CVA (cerebral vascular accident) Atrial fibrillation Surgical History History of total left hip replacement Hx of colonoscopy History of right hip replacement Hx of surgical procedure History of varicose vein ligation and stripping H/O removal of cyst Family History Mother No problems noted. Father No problems noted. Maternal Uncle Colon cancer Social History Household Members: None Housing: House Are you a primary pet caretaker to a significant other at home: No Do you presently have visiting nurse or other home services: Yes (ENVIRONMENTAL SYSTEMS COORDINATOR 19 hours/week) Alcohol intake: never Comment: patient refused alarm Patient Tobacco Use Status: Never used Tobacco service: No Current occupational status: disabled Review of Systems Const Details: Appears anxious , talks fast . All systems reviewed & are unremarkable except as noted in HPI and below Eyes Reports no additional complaints ENT Reports no additional complaints Card Denies chest pain, Reports irregular heart rhythm and Denies leg edema Resp Reports as per HPI GI Reports no additional complaints Reports no additional complaints Musc Reports arthralgias (hips) Skin/Breast Reports system reviewed and no additional complaints, except as documented Neuro Reports lack of coordination and Reports tremor(s) (hands) Psych Reports anxiety Endo Reports no additional complaints Physical Exam Vital Signs: Last Vital Signs Pulse 80 10/22/24 08:50 BP 102/64 10/22/24 08:50 Pulse Ox 96 10/22/24 08:50 Oxygen Delivery Method Room Air 10/22/24 08:50 BMI result Body Mass Index 34.2 Const General: comfortable (Somewhat anxious.), no acute distress, alert and awake Orientation/consciousness: patient oriented x3 HEENT Head: Yes normal to inspection General nose exam: No nasal polyps present and No nasal discharge present Face and sinus: Yes sinuses nontender Mouth: oropharynx abnormals (OROPHARYNX IS SOMEWHAT CROWDED, MALLAMPATI CLASS 4) Throat: Yes posterior oropharynx normal Eyes General: appearance normal, both eyes and all related structures Neck Neck: Yes normal visual inspection, Yes no lymphadenopathy, Yes trachea midline, Yes no JVD and Yes other (NECK CIRCUMFERENCE 17 IN) Thyroid: Thyroid normal Chest Chest palpation & inspection: normal inspection of the chest, normal palpation of entire chest wall and no tenderness Resp Other: PERCUSSION NOTE IS RESONANT, BREATH SOUNDS ARE EQUAL ON BOTH SIDES NO WHEEZES OR RHONCHI ARE HEARD Effort & Inspection: normal respiratory effort Auscultation: clear to auscultation bilaterally, no crackles, no rhonchi and no wheezes Percussion: percussion normal Cardio Palpation: normal PMI Rate: regular rate Rhythm: regular rhythm Heart sounds: no gallops and no murmurs Peripheral pulses: Peripheral pulses 2+ throughout GI Palpation (GI): Soft to palpation, nontender, No hepatosplenomegaly present and no masses Auscultation: normal bowel sounds Back/Spine/Pelvis Thoracic/Lumbar Spine: thoracic and lumbar spine normal to inspection Skin General skin exam: no rashes or lesions noted Neuro General: patient oriented x3 and no focal motor deficits Cranial nerves: Yes CN's II-XII intact bilaterally Extrem General: Yes normal to inspection, Yes no clubbing, cyanosis or edema and Yes no calf tenderness Psych Appearance: grossly normal and well kempt Speech and movement: Normal speech and movement present Affect: Anxious affect present Assessment & Plan Assessment & Plan (1) Asthma: Comment: HE DOES HAVE MILD INTERMITTENT BRONCHIAL ASTHMA LIKE SYMPTOMS., NO REAL WHEEZING ATTACKS CANNOT USE ALBUTEROL BECAUSE IT INCREASES THE TREMORS AND CAUSES ANXIETY. HE ALSO COULD NOT USE LEVALBUTEROL. MOSTLY THE SYMPTOMS ARE PRODUCED BY EXERCISE LIKE GOING UPSTAIRS OR WALKING UP HILL Code(s): J45.909 - Unspecified asthma, uncomplicated Category: Medical Plan: THERE IS NO NEED TO USE ANY BRONCHODILATOR INHALER. HE IS INSTRUCTED. TO TRY TO LOSE WEIGHT HE IS INSTRUCTED TO GO SLOW WHEN HE GOES UPPER DOWNSTAIRS. (2) Snoring: Comment: PER SLEEP STUDY HE DID SHOW EXCESSIVE AMOUNT OF SNORING BUT NO SLEEP APNEA. HE DID HAVE A MILD NOCTURNAL HYPOXEMIA. Code(s): R06.83 - Snoring Category: Medical Plan: AGAIN ADVISED TO LOSE WEIGHT AND ALSO ADVISED TO SLEEP IN LATERAL POSITION. (3) CAMDEN (obstructive sleep apnea): Comment: DIRECT OBSERVATION, POSTOPERATIVELY IN THE RECOVERY ROOM, INDICATED OF OF OBSTRUCTIVE SLEEP APNEA. PATIENT ALSO DOES HAVE CLINICAL SYMPTOMS OF SLEEP APNEA INCLUDING DAYTIME SLEEPINESS WITH ESS=12/24 HOWEVER HOME-BASED SLEEP STUDY DID NOT SHOW EVIDENCE OF SLEEP APNEA. IT SHOWED MOSTLY SNORING. Code(s): G47.33 - Obstructive sleep apnea (adult) (pediatric) Category: Medical Plan: AGAIN DISCUSSED WITH THE PATIENT AND ADVISED HIM TO LOSE WEIGHT AND ALSO SLEEP IN LATERAL POSITION. I DID DISCUSS WITH HIM THAT IF WE WERE TO DOCUMENT THAT HE HAS SLEEP APNEA WOULD HE USE CPAP AND HE ACTUALLY DECLINED. (4) Dyspnea on exertion: Comment: Most likely Functional . MAY BE SEC TO POOR PHYSICAL CONDITIONING , AND ANXIETY . Code(s): R06.00 - Dyspnea, unspecified Category: Medical Plan: PATIENT IS A GAIN ADVISED TO LOSE WEIGHT, WALK ABOUT 2 MILES EVERY DAY. AND WHEN HE CLIMBS STAIRS HE SHOULD TAKE HIS TIME AND GO SLOW. Coding Level of Care Code Est Pt Level 3 (90099) Diagnoses Asthma J45.909 Snoring R06.83 CAMDEN (obstructive sleep apnea) G47.33 Dyspnea on exertion R06.00
[2024-10-22 08:50] VITALS: BP 102/64; PULSE 80; O2SAT 96; BMI 34.2
--- OUTSIDE RECORDS SUMMARY | 2024-10-22 09:01 | XMS_ITS | Encounter Summary ---
Author Organization [facility] Address [address] [place] [address] Care Team Providers Care Tariff Compiling Clerk Name Role Phone Alonso Maya MD Primary Care Provider Case Frankel Primary Care Provider Unavail able Giovani Choi Primary Care Provider Unavailab le Encounter Details Date Type Department Care Team Description 12/26/2013 Wet Pan Mixer Report Medical Records [address] [place], [place] [id number] Oscar Wood Social History Tobacco Use Types Packs/Day Years Used Date Smoking Tobacco: Never Smokeless Tobacco: Never Alcohol Use Standard Drinks/Week Comments No 0 (1 standard drink = 0.6 oz pur e alcohol) Sex Assigned at Date Recorded Not on file documented as of this encounter Plan of Treatment Not on file documented as of this encounter Visit Diagnoses Not on filedocumented in this encounter Care Teams Tariff Compiling Clerk Relationship Specialty Start Date End Date Alonso Maya MD [address] [place] [address] PCP - General Internal Medicine 03/14/12 10/01/21 Case Frankel [address] [place] [address] PCP - General Internal Medicine 10/02/21 10/12/22 Giovani Choi [address] [place], [place] [phone] PCP - General Internal Medicine 10/13/22 documented as of this encounter
--- OUTSIDE RECORDS SUMMARY | 2024-10-22 09:01 | XMS_ITS | Encounter Summary ---
Author Organization [facility] Address [address] [place] [address] Care Team Providers Care Team Physician Name Role Phone Alonso Maya MD Primary Care Provider [phone] Case Frankel Primary Care Provider Unavail able Giovani Choi Primary Care Provider Unavailab le Encounter Details Date Type Department Care Team Description 10/05/2019 Release of Information Medical Records [address] [place], [place] [id number] Abstract, Provider Social History Tobacco Use Types Packs/Day Years [...] on filedocumented in this encounter Care Teams Team Physician Relationship Specialty Start Date End Date Alonso Maya MD [address] [place] [address] PCP - General Internal Medicine 03/14/12 10/01/21 Case Frankel [address] [place] [address] PCP - General Internal Medicine 10/02/21 10/12/22 Giovani Choi [address] [place], [place] [id number] PCP - General Internal Medicine 10/13/22 documented as of this encounter
--- OUTSIDE RECORDS SUMMARY | 2024-10-22 09:01 | XMS_ITS | Encounter Summary ---
Author Organization [facility] Address [address] [place] [address] Care Team Providers Care Brick Pitcher Name Role Phone Alonso Maya MD Primary Care Provider [phone] Case Frankel Primary Care Provider Unavail able Giovani Choi Primary Care Provider Unavailab le Encounter Details Date Type Department Care Team Description 10/28/2020 Telephone Adult Medicine [address] [address] Bharti Lord PA Social History Tobacco Use Types Packs/Day Years Used Date Smoking Tobacco: Never Smokeless Tobacco: Never Alcohol Use Standard Drinks/Week Comments No 0 (1 standard drink = 0.6 oz pur e alcohol) Sex Assigned at Date Recorded Not on file COVID-19 Exposure Response Date Recorded In the last month, have you been in contact with someone who was confirmed or suspected to have Coronavirus / COVID-19? Unable to assess 10/15/2020 7:13 AM EST documented as of this encounter Miscellaneous Notes * Telephone Encounter - Charlie Kiran C.M.A. - 10/28/2020 4:31 PM EST Attempted to call pt back again. [facility] [place] no voicemail picked up this time. * Telephone Encounter - Charlie Kiran C.M.A. - 10/28/2020 12:44 PM EST Called and lvm for pt to call the office to see if appt is needed. [id number] * Telephone Encounter - Bharti Boswell PA-C - 10/28/2020 8:24 AM EST It appears that patient was not at [facility]. Unless he has an acute problem going on and would like to continue with appt tomorrow we can keep but if he does not then appt can be canceled. THank you. documented in this encounter Plan of Treatment Not on file documented as of this encounter Visit Diagnoses Not on filedocumented in this encounter Care Teams Brick Pitcher Relationship Specialty Start Date End Date Alonso Maya MD [address] [place] [address] PCP - General Internal Medicine 03/14/12 10/01/21 Case Frankel [address] [place] [address] PCP - General Internal Medicine 10/02/21 10/12/22 Giovani Choi [address] [place] [address] PCP - General Internal Medicine 10/13/22 documented as of this encounter
--- OUTSIDE RECORDS SUMMARY | 2024-10-22 09:01 | XMS_ITS | Encounter Summary ---
Author Organization [facility] Address [address] [place] [address] Care Team Providers Care Crib Tender Name Role Phone Alonso Maya MD Primary Care Provider [phone] Case Frankel Primary Care Provider Unavail able Giovani Choi Primary Care Provider Unavailab le Encounter Details Date Type Department Care Team Description 08/06/2019 Scrap Shear Operator Report Medical Records [address] [place], [place] [id number] Tk Rosales MD Social History Tobacco Use Types Packs/Day Years [...] on filedocumented in this encounter Care Teams Crib Tender Relationship Specialty Start Date End Date Alonso Maya MD [address] [place] [address] PCP - General Internal Medicine 03/14/12 10/01/21 Case Frankel [address] [place] [address] PCP - General Internal Medicine 10/02/21 10/12/22 Giovani Choi [address] [place], [place] [phone] PCP - General Internal Medicine 10/13/22 documented as of this encounter
--- OUTSIDE RECORDS SUMMARY | 2024-10-22 09:01 | XMS_ITS | Encounter Summary ---
Author Organization [facility] Address [address] [place] [address] Care Team Providers Care Pathology Secretary/Transcriptionist Name Role Phone Alonso Maya MD Primary Care Provider [phone] Case Frankel Primary Care Provider Unavail able Giovani Choi Primary Care Provider Unavailab le Encounter Details Date Type Department Care Team Description 09/06/2019 High School Business Teacher Report Medical Records [address] [id number] Flo Harrison MD Social History Tobacco Use Types Packs/Day [...] on filedocumented in this encounter Care Teams Pathology Secretary/Transcriptionist Relationship Specialty Start Date End Date Alonso Maya MD [address] [place] [address] PCP - General Internal Medicine 03/14/12 10/01/21 Case Frankel [address] [place], [place] [phone] PCP - General Internal Medicine 10/02/21 10/12/22 Giovani Choi [address] [place], [place] [phone] PCP - General Internal Medicine 10/13/22 documented as of this encounter
--- OUTSIDE RECORDS SUMMARY | 2024-10-22 09:01 | XMS_ITS | Encounter Summary ---
Author Organization [facility] Address [address] [place] [address] Care Team Providers Care Slab Installer Name Role Phone Alonso Maya MD Primary Care Provider [phone] Case Frankel Primary Care Provider Unavail able Giovani Choi Primary Care Provider Unavailab le Encounter Details Date Type Department Care Team Description 03/17/2021 Tax Assistant Report Medical Records [address] [place] [address] Kim Lenz NP Social History Tobacco Use Types Packs/Day Years [...] or suspected to have Coronavirus / COVID-19? No / Unsure 03/20/2021 7:57 AM EDT documented as of this encounter Plan of Treatment Not on file documented as of this encounter Visit Diagnoses Not on filedocumented in this encounter Care Teams Slab Installer Relationship Specialty Start Date End Date Alonso Maya MD [address] [place] [address] PCP - General Internal Medicine 03/14/12 10/01/21 Case Frankel [address] [place] [address] PCP - General Internal Medicine 10/02/21 10/12/22 Giovani Choi [address] [place] [address] PCP - General Internal Medicine 10/13/22 documented as of this encounter
--- OUTSIDE RECORDS SUMMARY | 2024-10-22 09:01 | XMS_ITS | Encounter Summary ---
Author Organization [facility] Address [address] [place] [address] Care Team Providers Care Rice Field Worker Name Role Phone Alonso Maya MD Primary Care Provider [phone] Case Frankel Primary Care Provider Unavail able Giovani Choi Primary Care Provider Unavailab le Encounter Details Date Type Department Care Team Description 02/27/2014 Release of Information Medical Records [address] [place], [place] [id number] Abstract, Provider Social History Tobacco Use Types [...] on filedocumented in this encounter Care Teams Rice Field Worker Relationship Specialty Start Date End Date Alonso Maya MD [address] [place] [address] PCP - General Internal Medicine 03/14/12 10/01/21 Case Frankel [address] [place] [place] [address] PCP - General Internal Medicine 10/02/21 10/12/22 Giovani Choi [address] [place], [place] [phone] PCP - General Internal Medicine 10/13/22 documented as of this encounter
--- OUTSIDE RECORDS SUMMARY | 2024-10-22 09:01 | XMS_ITS | Encounter Summary ---
Author Organization [facility] Address [address] [place] [address] Care Team Providers Care Print Production Manager Name Role Phone Alonso Maya MD Primary Care Provider [phone] Case Frankel Primary Care Provider Unavail able Giovani Choi Primary Care Provider Unavailab le Encounter Details Date Type Department Care Team Description 07/30/2021 Release of Information Medical Records [address] [place], [place] [id number] Abstract, Provider Social History Tobacco Use Types [...] have Coronavirus / COVID-19? No / Unsure 07/24/2021 10:37 AM EST documented as of this encounter Plan of Treatment Not on file documented as of this encounter Visit Diagnoses Not on filedocumented in this encounter Care Teams Print Production Manager Relationship Specialty Start Date End Date Alonso Maya MD [address] [place] [address] PCP - General Internal Medicine 03/14/12 10/01/21 Case Frankel [address] [place] [address] PCP - General Internal Medicine 10/02/21 10/12/22 Giovani Choi [address] [place] [address] PCP - General Internal Medicine 10/13/22 documented as of this encounter
--- OUTSIDE RECORDS SUMMARY | 2024-10-22 09:01 | XMS_ITS | Encounter Summary ---
Author Organization [facility] Address [address] [place] [address] Care Team Providers Care Collar Shaper Operator Name Role Phone Alonso Maya MD Primary Care Provider [phone] Case Frankel Primary Care Provider Unavail able Giovani Choi Primary Care Provider Unavailab le Encounter Details Date Type Department Care Team Description 03/19/2014 Corn Press Operator Report Medical Records [address] [place], [place] [id number] Oscar Wood Social History Tobacco Use Types [...] on filedocumented in this encounter Care Teams Collar Shaper Operator Relationship Specialty Start Date End Date Alonso Maya MD [address] [place] [address] PCP - General Internal Medicine 03/14/12 10/01/21 Case Frankel [address] [place] [address] PCP - General Internal Medicine 10/02/21 10/12/22 Giovani Choi [address] [place], [place] [phone] PCP - General Internal Medicine 10/13/22 documented as of this encounter
--- OUTSIDE RECORDS SUMMARY | 2024-10-22 09:01 | XMS_ITS | Encounter Summary ---
Author Organization [facility] Address [address] [place] [address] Care Team Providers Care Geoduck Diver Name Role Phone Alonso Maya MD Primary Care Provider [phone] Case Frankel Primary Care Provider Unavail able Giovani Choi Primary Care Provider Unavailab le Encounter Details Date Type Department Care Team Description 03/31/2021 Oven Dauber Report Medical Records [address] [place], [place] [id number] Wiley Christie MD Social History Tobacco Use Types Packs/Day [...] have Coronavirus / COVID-19? No / Unsure 03/31/2021 7:27 AM EDT documented as of this encounter Plan of Treatment Not on file documented as of this encounter Visit Diagnoses Not on filedocumented in this encounter Care Teams Geoduck Diver Relationship Specialty Start Date End Date Alonso Maya MD [address] [place] [address] PCP - General Internal Medicine 03/14/12 10/01/21 Case Frankel [address] [place] [address] PCP - General Internal Medicine 10/02/21 10/12/22 Giovani Choi [address] [place] [address] PCP - General Internal Medicine 10/13/22 documented as of this encounter
--- OUTSIDE RECORDS SUMMARY | 2024-10-22 09:01 | XMS_ITS | Encounter Summary ---
Author Organization [facility] Address [address] [place] [address] Care Team Providers Care Flight Crew Ordnanceman Name Role Phone Alonso Maya MD Primary Care Provider Case Frankel Primary Care Provider Unavail able Giovani Choi Primary Care Provider Unavailab le Reason for Referral * Radiology Services (Routine) - Closed Specialty Diagnoses / Procedures Referred By Contac t Referred To Contact Radiology Diagnoses Chronic obstructive pulmonary disease, unspecified COPD type (HCC) Mediastinal lymphadenopathy Pulmonary nodules Ground glass opacity present on imaging of lung Procedures CHG DIAGNOSTIC COMPUTED TOMOGRAPHY THORAX W/O CNTRST Ronaldo Garcia MD [address] [place] [phone] [address] [address] Referral ID Status Reason Start Date Expiration Date Visits Re quested Visits Authorized [id number] Closed 03/09/2021 08/25/2021 1 1 Encounter Details Date Type Department Care Team Description 09/09/2020 Telephone Pulmonology [address] [place] [address] Ronaldo Garcia MD [address] [place] [phone] Social History Tobacco Use Types Packs/Day Years [...] have Coronavirus / COVID-19? No / Unsure 09/02/2020 7:32 AM EST documented as of this encounter Miscellaneous Notes * Telephone Encounter - Radha Nunes MA - 09/15/2020 10:01 AM EST Patient calling to find out if her has to come to his 10/03 appointment, please clarify so I can contact the patient and inform him. * Telephone Encounter - Ayaka Pace - 09/09/2020 4:40 PM EST Pt missed call from dr abdullahi please call back * Telephone Encounter - Ronaldo Garcia MD - 09/09/2020 4:24 PM EST I called and I spoke with the patient, CT scan described enlarging of the GGO. I reviewed it and I compared with old ones and from my point of view there is not any significant changes. I requested another CT scan in 6 months for reevaluation. Letter + Copy sent home. documented in this encounter Plan of Treatment Not on file documented as of this encounter Results * CHG DIAGNOSTIC COMPUTED TOMOGRAPHY THORAX W/O CNTRST (03/20/2021 9:30 AM EDT) 03/20/2021 11:5 6 AM EDT Impressions [place] OTHER EXTERNAL - 03/21/2021 12:57 PM EDT IMPRESSION: Previous bilateral parenchymal opacities have resolved. Interval resection of the previous anterior mediastinal mass. ??Minimal pneumomediastinum and moderate degree of subcutaneous emphysema in the right chest wall likely secondary to recent laparoscopic mediastinal surgery performed 3 days prior. POS - [id number] Narrative TAWANDA PATEL OTHER EXTERNAL - 03/21/2021 12:57 PM EDT EXAM: Chest CT HISTORY: Follow-up right lung opacities. ??Status post resection of an enlarging anterior mediastinal mass 3 days ago, enlarging mediastinal mass noted on outside chest CT January 2021. COMPARISON: ??09/02/2020, 04/29/2020, and 01/16/2020. TECHNIQUE: Multidetector CT is obtained from lung apex to base without IV contrast. Sagittal and coronal reformatted images obtained. ??Automated exposure control utilized. TOTAL CTDIvol: 2.45 mGy FINDINGS: Lungs/pleura: Previous bilateral groundglass opacities have resolved. ??Subpleural opacities and septal thickening in the posterior right lower lobe which were new findings on the previous exam have also resolved. ??Stable mild scarring in the lateral left lower lobe and posterior right lower lobe. ??Stable 3 mm left upper lobe nodule on image 117. ??No mass or infiltrate. No pleural effusions. Lymph nodes/mediastinum: Sensitivity for lymphadenopathy is limited without IV contrast. ?? Subcentimeter mediastinal lymph nodes. ??No definite enlarged hilar lymph nodes. ??Interval resection of the previous hypodense anterior mediastinal lesion. ??Minimal air in the anterior mediastinum and minimal fluid in the right anterior mediastinum likely from postsurgical change as resection was performed 3 days prior. Cardiovascular: No cardiomegaly or pericardial effusion. ??Mild coronary calcifications. ??No thoracic aortic aneurysm. Soft tissues: Partially imaged thyroid gland is not enlarged. No esophageal abnormality. ?? Moderate degree of subcutaneous emphysema in the right anterolateral and lateral chest wall, likely secondary to recent mediastinal procedure. ??Linear densities extending to the skin surface in the right lower lateral chest wall from recent port placements. Upper abdomen: Hepatic steatosis. ??Partially imaged lobular cyst arising in the left upper kidney measuring up to 5.5 cm. Stable 1.6 x 1.5 cm hypodense lesion with density 8-10 Hounsfield units located in the left suprarenal region which abuts the left kidney and left adrenal gland and could represent an exophytic cyst or adrenal adenoma. ??No right adrenal mass. ?? Bones: No compression deformities. ??No destructive bone lesion. Procedure Note Estefania Lu MD - 03/21/2021 EXAM: Chest CT HISTORY: Follow-up right lung opacities. Status post resection of anenlarging anterior mediastinal mass 3 days ago, enlarging mediastinal mass noted on outsidechest CT January 2021. COMPARISON: 09/02/2020, 04/29/2020, and 01/16/2020. TECHNIQUE: Multidetector CT is obtained from lung apex to base without IVcontrast. Sagittal and coronal reformatted images obtained. Automated exposure controlutilized. TOTAL CTDIvol: 2.45 mGy FINDINGS: Lungs/pleura: Previous bilateral groundglass opacities have resolved.Subpleural opacities and septal thickening in the posterior right lower lobe which were newfindings on the previous exam have also resolved. Stable mild scarring in the lateral left lowerlobe and posterior right lower lobe. Stable 3 mm left upper lobe nodule on image 117. [place] or infiltrate. No pleural effusions. Lymph nodes/mediastinum: Sensitivity for lymphadenopathy is limitedwithout IV contrast. Subcentimeter mediastinal lymph nodes. No definite enlarged hilar lymphnodes. Interval resection of the previous hypodense anterior mediastinal lesion. Minimalair in the anterior mediastinum and minimal fluid in the right anterior mediastinum likelyfrom postsurgical change as resection was performed 3 days prior. Cardiovascular: No cardiomegaly or pericardial effusion. Mild coronarycalcifications. No thoracic aortic aneurysm. Soft tissues: Partially imaged thyroid gland is not enlarged. Noesophageal abnormality. Moderate degree of subcutaneous emphysema in the right anterolateral andlateral chest wall, likely secondary to recent mediastinal procedure. Linear densitiesextending to the skin surface in the right lower lateral chest wall from recent portplacements. Upper abdomen: Hepatic steatosis. Partially imaged lobular cyst arisingin the left upper kidney measuring up to 5.5 cm. Stable 1.6 x 1.5 cm hypodense lesion withdensity 8-10 Hounsfield units located in the left suprarenal region which abuts theleft kidney and left adrenal gland and could represent an exophytic cyst or adrenal adenoma.No right adrenal mass. Bones: No compression deformities. No destructive bone lesion. IMPRESSION IMPRESSION: Previous bilateral parenchymal opacities have resolved. Interval resection of the previous anterior mediastinal mass. Minimalpneumomediastinum and moderate degree of subcutaneous emphysema in the right chest wall likelysecondary to recent laparoscopic mediastinal surgery performed 3 days prior. POS - [id number] Authorizing Provider Result Israel Garcia MD CT SCANS TAWANDA PATEL OTHER EXTERNAL documented in this encounter Visit Diagnoses Diagnosis Chronic obstructive pulmonary disease, unspecified COPD type (HCC)- Primary Mediastinal lymphadenopathy Enlargement of lymph nodes Pulmonary nodules Other nonspecific abnormal finding of lung field Ground glass opacity present on imaging of lung Chronic obstructive pulmonary disease, unspecified COPD type (HCC) Mediastinal lymphadenopathy Enlargement of lymph nodes Pulmonary nodules Other nonspecific abnormal finding of lung field Ground glass opacity present on imaging of lung documented in this encounter Care Teams Flight Crew Ordnanceman Relationship Specialty Start Date End Date Alonso Maya MD [address] [place] [address] PCP - General Internal Medicine 03/14/12 10/01/21 Case Frankel [address] [place], [place] [id number] PCP - General Internal Medicine 10/02/21 10/12/22 Giovani Choi [address] [place] [address] PCP - General Internal Medicine 10/13/22 documented as of this encounter
--- OUTSIDE RECORDS SUMMARY | 2024-10-22 09:01 | XMS_ITS | Encounter Summary ---
Author Organization [facility] Address [address] [place] [address] Care Team Providers Care Control Electrician Name Role Phone Alonso Maya MD Primary Care Provider [phone] Case Frankel Primary Care Provider Unavail able Giovani Choi Primary Care Provider Unavailab le Reason for Visit * Reason Onset Date Comments PT-1 09/11/2019 Encounter Details Date Type Department Care Team Description 09/11/2019 Telephone Adult Medicine [address] [id number] Alonso Maya MD [address] [place] [address] [id number] PT-1 Social History Tobacco Use Types Packs/Day Years Used Date Smoking Tobacco: Never Smokeless Tobacco: Never Alcohol Use Standard Drinks/Week Comments No 0 (1 standard drink = 0.6 oz pur e alcohol) Sex Assigned at Date Recorded Not on file documented as of this encounter Miscellaneous Notes * Telephone Encounter - Jose Quinteros M.A. - 09/15/2019 12:56 PM EST Completed [id number] * Telephone Encounter - Tejal Ramos - 09/11/2019 1:39 PM EST [facility] Medicaid Group new provider or submitter number is [id number] Verify and document patients [place] Health insurance ID # (NOT [facility] ID): [id number] Payor: WORKERS COMP / Plan: WORKERS [place] / Product Type: OTHER Patient mailing address: [address] [place] [phone] Telephone Information: Work Phone Not on file. Mobile Not on file. Pt. demographics verified? YES If not accurate, update registration. Is this a NEW request or a RENEWAL? renewal Name of treating facility: [facility] Name (first & last) of treating provider? required : Dr Soren Garcia What is the medical reason why the patient is seeing the above provider? Breathing problems Address/Zip code for treating provider: [address] [facility] [address] [place] [address] Phone # for treating provider: [phone] Is the provider in the [facility] [employer] network (do they accept [place] Health insurance)? YES What specialtly is this provider? Pulmology When is the visit scheduled for? 11-16-19 How often you will be seeing this particular provider? Twice a month Do you have friends or family who can transport you to this visit? NO If yes, do not complete request. Is there anything stopping you from using public transportation? If yes, explain. : YES Is there a medical reason (diagnosis) why you are unable to use public transportation? If yes, explain: yes - breathing problems, hip problems - difficulty walking, heart problems - patient had a stroke 06-02-19 Is this is for an Adult Day Program or Suboxone clinic no If yes to above what is arrival time and what is departure time If yes to above how many days a week? Do you need a wheelchair van? NO If you use a wheelchair what is the height, width & length of the wheelchair? Do you need an escort to accompany you? If yes, explain why. NO Will you have an alternative pick-up address? NO Do you have a service animal? NO PT DOES NOT NEED RELEASE OF INFORMATION SIGNED documented in this encounter Plan of Treatment Not on file documented as of this encounter Visit Diagnoses Not on filedocumented in this encounter Care Teams Control Electrician Relationship Specialty Start Date End Date Alonso Maya MD [address] [place] [address] PCP - General Internal Medicine 03/14/12 10/01/21 Case Frankel [address] [place] [address] PCP - General Internal Medicine 10/02/21 10/12/22 Giovani Choi [address] [place] [address] PCP - General Internal Medicine 10/13/22 documented as of this encounter
--- OUTSIDE RECORDS SUMMARY | 2024-10-22 09:01 | XMS_ITS | Encounter Summary ---
Author Organization [facility] Address [address] [place] [address] Care Team Providers Care Hvac Sheet Metal Installer Helper Name Role Phone Case Frankel Primary Care Provider Unavail able Giovani Choi Primary Care Provider Unavailab le Encounter Details Date Type Department Care Team Description 10/04/2022 SCAN [facility] Thoracic Surgery M[place] [address] [facility] [address] [place] [phone] Marianna Moya MD [address] [facility] [address] [place] [address] Social History Tobacco Use Types Packs/Day Years [...] on filedocumented in this encounter Care Teams Hvac Sheet Metal Installer Helper Relationship Specialty Start Date End Date Case Frankel PCP - General Internal Medicine 10/02/21 10/12/22 Giovani Choi PCP - General Internal Medicine 10/13/22 documented as of this encounter
--- OUTSIDE RECORDS SUMMARY | 2024-10-22 09:01 | XMS_ITS | Encounter Summary ---
Author Organization [facility] Address [address] [place] [address] Care Team Providers Care Coil Former Name Role Phone Alonso Maya MD Primary Care Provider [phone] Case Frankel Primary Care Provider Unavail able Giovani Choi Primary Care Provider Unavailab le Reason for Visit * Reason Onset Date Comments TEST RESULTS 08/29/2020 Encounter Details Date Type Department Care Team Description 08/29/2020 Telephone Rheumatology - [address] [address] Carlos Zheng PA TEST RESULTS Social History Tobacco Use Types Packs/Day Years [...] have Coronavirus / COVID-19? No / Unsure 08/18/2020 8:22 AM EST documented as of this encounter Miscellaneous Notes * Telephone Encounter - Alonso Maya MD - 08/29/2020 6:02 PM EST I have printed a copy of the report pt may pick it up next week * Telephone Encounter - Pamela Beth - 08/29/2020 11:08 AM EST Please advise * Telephone Encounter - Judy Lujan M.A. - 08/29/2020 10:23 AM EST Xrays ordered by PCP. Forwarded to [facility]. * Telephone Encounter - Sea Marcano - 08/29/2020 10:12 AM EST Patient had xrays done on 08/08/2020. Office visit on 08/12/2020. He is looking for documentation to give to ip attorney to submit for disability. documented in this encounter Plan of Treatment Not on file documented as of this encounter Visit Diagnoses Not on filedocumented in this encounter Care Teams Coil Former Relationship Specialty Start Date End Date Alonso Maya MD [address] [place], [place] [phone] PCP - General Internal Medicine 03/14/12 10/01/21 Case Frankel [address] [place], [place] [phone] PCP - General Internal Medicine 10/02/21 10/12/22 Giovani Choi [address] [phone] PCP - General Internal Medicine 10/13/22 documented as of this encounter
--- OUTSIDE RECORDS SUMMARY | 2024-10-22 09:01 | XMS_ITS | Encounter Summary ---
Author Organization [facility] Address [address] [place] [address] Care Team Providers Care Automation Qa Analyst Name Role Phone Alonso Maya MD Primary Care Provider [phone] Case Frankel Primary Care Provider Unavail able Giovani Choi Primary Care Provider Unavailab le Reason for Visit * Reason Onset Date Comments Provider Call Back 08/01/2019 Encounter Details Date Type Department Care Team Description 08/01/2019 Telephone Adult Medicine [address] [phone] Alonso Maya MD [address] [place] [address] [phone] Provider Call Back Social History Tobacco Use Types Packs/Day Years Used Date Smoking Tobacco: Never Smokeless Tobacco: Never Alcohol Use Standard Drinks/Week Comments No 0 (1 standard drink = 0.6 oz pur e alcohol) Sex Assigned at Date Recorded Not on file documented as of this encounter Miscellaneous Notes * Telephone Encounter - Karely Villalobos M.A. - 08/01/2019 3:40 PM EST Pt is asking for Dr. Maya to refer him to a neuro center machine operator . He had been referred to Dr. Marques by [facility] where he went to rehab after his stroke, pt is unable to reach Dr. Salazar by phone he has been trying for 2 months pt is now asking pcp to refer him * Telephone Encounter - Grecia Mobley M.A. - 08/01/2019 3:39 PM EST Please review and advise * Telephone Encounter - Ivania Mcnamaramayte - 08/01/2019 1:44 PM EST Caller requesting call back from provider: Is the caller the patient? YES If caller is not the patient, what is the callers name? N/A Callers relationship to patient? N/A If person calling is not the patient themselves, is there a verbal release in FYI or permanent comments for this person: YES Reason for call back: Pt was referred to Dr. Naomi Otero for neurology ophthamology regarding his stroke however pt is having a hard time getting ahold of their office and is wondering if her can get a referral to a different office Caller offered to speak with the nurse for assistance: NO Response: Patient offered to speak with nurse for assistance and patient agreed. Message forwarded to nurse. documented in this encounter Plan of Treatment Not on file documented as of this encounter Visit Diagnoses Not on filedocumented in this encounter Care Teams Automation Qa Analyst Relationship Specialty Start Date End Date Alonso Maya MD [address] [place], [place] [phone] PCP - General Internal Medicine 03/14/12 10/01/21 Case Frankel [address] [place], [place] [phone] PCP - General Internal Medicine 10/02/21 10/12/22 Giovani Choi [address] [place], [place] [phone] PCP - General Internal Medicine 10/13/22 documented as of this encounter
--- OUTSIDE RECORDS SUMMARY | 2024-10-22 09:01 | XMS_ITS | Encounter Summary ---
Author Organization [facility] Address [address] [place] [address] Care Team Providers Care Yacht Rigger Name Role Phone Alonso Maya MD Primary Care Provider [phone] Case Frankel Primary Care Provider Unavail able Giovani Choi Primary Care Provider Unavailab le Encounter Details Date Type Department Care Team Description 09/10/2019 Orders Only Pulmonology - [place] [address] [facility] [address] [place] [address] Ronaldo Garcia MD [address] [facility] [address] [place] [address] Shortness of breath; Snoring; PND (paroxysmal nocturnal dyspnea); Chronic insomnia Social History Tobacco Use Types Packs/Day Years Used Date Smoking Tobacco: Never Smokeless Tobacco: Never Alcohol Use Standard Drinks/Week Comments No 0 (1 standard drink = 0.6 oz pur e alcohol) Sex Assigned at Date Recorded Not on file documented as of this encounter Plan of Treatment Not on file documented as of this encounter Procedures Procedure Name Priority Date/Time Associated Diagnosis Comments CHG RADIOLOGIC EXAM CHEST 2 VIEWS Routine 09/07/2019 Shortness of breath Snoring PND (paroxysmal nocturnal dyspnea) Chronic insomnia documented in this encounter Results * RADIOLOGIC EXAM CHEST 2 VIEWS (09/07/2019) Ronaldo Garcia MD RADIOLOGY documented in this encounter Visit Diagnoses Diagnosis Shortness of breath Snoring Other dyspnea and respiratory abnormality PND (paroxysmal nocturnal dyspnea) Other dyspnea and respiratory abnormality Chronic insomnia Insomnia, unspecified documented in this encounter Care Teams Yacht Rigger Relationship Specialty Start Date End Date Alonso Maya MD [address] [place] [address] PCP - General Internal Medicine 03/14/12 10/01/21 Case Frankel [address] [place] [phone] PCP - General Internal Medicine 10/02/21 2 Giovani Choi [address] [place] [address] PCP - General Internal Medicine 10/13/22 documented as of this encounter
--- OUTSIDE RECORDS SUMMARY | 2024-10-22 09:01 | XMS_ITS | Encounter Summary ---
Author Organization [facility] Address [address] [place] [address] Care Team Providers Care Perishable Freight Inspector Name Role Phone Alonso Maya MD Primary Care Provider [phone] Case Frankel Primary Care Provider Unavail able Giovani Choi Primary Care Provider Unavailab le Encounter Details Date Type Department Care Team Description 08/10/2019 Assistant Refinery Operator Report Medical Records [address] [place] [address] Reji Parker MD [address] [facility] [address] [place] [address] Social History Tobacco Use Types Packs/Day Years [...] on filedocumented in this encounter Care Teams Perishable Freight Inspector Relationship Specialty Start Date End Date Alonso Maya MD [address] [place] [address] PCP - General Internal Medicine 03/14/12 10/01/21 Case Frankel [address] [place] [address] PCP - General Internal Medicine 10/02/21 10/12/22 Giovani Choi [address] [place] [address] PCP - General Internal Medicine 10/13/22 documented as of this encounter
--- OUTSIDE RECORDS SUMMARY | 2024-10-22 09:02 | XMS_ITS | Encounter Summary ---
Author Organization [facility] Address [address] [place] [address] Care Team Providers Care Truck Chauffeur Name Role Phone Alonso Maya MD Primary Care Provider [phone] Case Frankel Primary Care Provider Unavail able Giovani Choi Primary Care Provider Unavailab le Reason for Visit * Reason Onset Date Comments Medication 06/20/2019 colon prep Encounter Details Date Type Department Care Team Description 06/20/2019 Refill Gastroenterology - [place] [address] [facility] [address] [place] [address] Yumiko Lopes MD [address] [place] [address] Medication (colon prep) Social History Tobacco Use Types Packs/Day Years Used Date Smoking Tobacco: Never Smokeless Tobacco: Never Alcohol Use Standard Drinks/Week Comments No 0 (1 standard drink = 0.6 oz pur e alcohol) Sex Assigned at Date Recorded Not on file documented as of this encounter Miscellaneous Notes * Telephone Encounter - Dennise Lowe - 06/20/2019 8:25 AM EDT Patient has been booked for 09/04/19 please send over prep. Thank you documented in this encounter Plan of Treatment Not on file documented as of this encounter Visit Diagnoses Not on filedocumented in this encounter Care Teams Truck Chauffeur Relationship Specialty Start Date End Date Alonso Maya MD [address] [place] [address] PCP - General Internal Medicine 03/14/12 10/01/21 Case Frankel [address] [place] [address] PCP - General Internal Medicine 10/02/21 10/12/22 Giovani Choi [address] [place] [address] PCP - General Internal Medicine 10/13/22 documented as of this encounter
--- OUTSIDE RECORDS SUMMARY | 2024-10-22 09:02 | XMS_ITS | Encounter Summary ---
Author Organization [facility] Address [address] [place] [address] Care Team Providers Care Tele Marketing Executive Name Role Phone Alonso Maya MD Primary Care Provider [phone] Case Frankel Primary Care Provider Unavail able Giovani Choi Primary Care Provider Unavailab le Encounter Details Date Type Department Care Team Description 03/13/2019 Industrial Pharmacist Report Medical Records [address] [phone] Paloma Galvan MD Social History Tobacco Use Types Packs/Day [...] on filedocumented in this encounter Care Teams Tele Marketing Executive Relationship Specialty Start Date End Date Alonso Maya MD [address] [place] [address] PCP - General Internal Medicine 03/14/12 10/01/21 Case Frankel [address] [place] [address] PCP - General Internal Medicine 10/02/21 10/12/22 Giovani Choi [address] [place] [address] PCP - General Internal Medicine 10/13/22 documented as of this encounter
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
--- OUTSIDE RECORDS SUMMARY | 2024-10-22 09:02 | XMS_ITS | Encounter Summary ---
Author Organization [facility] Address [address] [place] [address] Care Team Providers Care Meat Products Demonstrator Name Role Phone Alonso Maya MD Primary Care Provider [phone] Case Frankel Primary Care Provider Unavail able Giovani Choi Primary Care Provider Unavailab le Reason for Visit * Reason Onset Date Comments Error 12/12/2018 Encounter Details Date Type Department Care Team Description 12/12/2018 Telephone Adult Medicine [address] [id number] Alonso Maya MD [address] [place] [address] [phone] Error Social History Tobacco Use Types Packs/Day Years Used Date Smoking Tobacco: Never Smokeless Tobacco: Never Alcohol Use Standard Drinks/Week Comments No 0 (1 standard drink = 0.6 oz pur e alcohol) Sex Assigned at Date Recorded Not on file documented as of this encounter Miscellaneous Notes * Telephone Encounter - Kimberley Corcoran - 12/12/2018 9:02 AM EDT documented in this encounter Plan of Treatment Not on file documented as of this encounter Visit Diagnoses Not on filedocumented in this encounter Care Teams Meat Products Demonstrator Relationship Specialty Start Date End Date Alonso Maya MD [address] [place] [address] [phone] PCP - General Internal Medicine 03/14/12 10/01/21 Case Frankel [address] [place] [address] PCP - General Internal Medicine 10/02/21 10/12/22 Giovani Choi [address] [place] [address] PCP - General Internal Medicine 10/13/22 documented as of this encounter
--- OUTSIDE RECORDS SUMMARY | 2024-10-22 09:02 | XMS_ITS | Encounter Summary ---
Author Organization [facility] Address [address] [place] [address] Care Team Providers Care Business Insurance Agent Name Role Phone Alonso Maya MD Primary Care Provider [phone] Case Frankel Primary Care Provider Unavail able Gioavni Choi Primary Care Provider Unavailab le Reason for Visit * Reason Onset Date Comments medication problems 01/09/2020 Encounter Details Date Type Department Care Team Description 01/09/2020 Telephone Adult Medicine [address] [address] Alonso Maya MD [address] [place] [address] medication problems Social History Tobacco Use Types Packs/Day Years Used Date Smoking Tobacco: Never Smokeless Tobacco: Never Alcohol Use Standard Drinks/Week Comments No 0 (1 standard drink = 0.6 oz pur e alcohol) Sex Assigned at Date Recorded Not on file documented as of this encounter Miscellaneous Notes * Telephone Encounter - Bharti Boswell PA-C - 01/09/2020 4:15 PM EDT Seroquel not appropaite. PCP team is not prescribing it. He needs to contact appropriate prescriber * Telephone Encounter - Doris Murphy M.A. - 01/09/2020 3:59 PM EDT Please advise / * Telephone Encounter - Tejal Ramos - 01/09/2020 3:50 PM EDT Who is calling? The patient Name of the medication quetiapine (SEROQUEL) 200 MG tablet What is the specific problem or interaction? Patient states this medication went to [facility] pharmacy and it was meant to go to [facility] in [facility], patient would like this Rx to please be re-faxed [email or web address] and states he would like it to be noted this is where he wants all of his Rx medications to be faxed to in future, any questions regarding this patient would like Dr Maya or his nurse to please call him back at [phone], thank you. If the patient is having a problem with taking the med - how long has the problem been going on? N/A documented in this encounter Plan of Treatment Not on file documented as of this encounter Visit Diagnoses Not on filedocumented in this encounter Care Teams Business Insurance Agent Relationship Specialty Start Date End Date Alonso Maya MD [address] [place] [address] PCP - General Internal Medicine 03/14/12 10/01/21 Case Frankel [address] [place] [address] PCP - General Internal Medicine 10/02/21 10/12/22 Giovani Choi [address] [place] [address] PCP - General Internal Medicine 10/13/22 documented as of this encounter
--- OUTSIDE RECORDS SUMMARY | 2024-10-22 09:02 | XMS_ITS | Clinical Summary ---
Author Organization [facility] Address [address] [place] [address] Care Team Providers Care Strategic Partnership Representative Name Role Phone Alonso Maya MD Primary Care Provider [phone] Allergies Active Allergy Reactions Criticality Noted Date [...] Antigen (p24) (06/02/2019 12:38 PM EDT) Pathologist [facility] HIV-1/2 Antibody Negative Negative HOSPITAL [...] Inactivated Comments 06/02/2019 12:38 PM Care Teams Strategic Partnership Representative Relationship Specialty Start Date End Date Alonso Maya MD [address] [address] PCP - General 06/02/19
--- OUTSIDE RECORDS SUMMARY | 2024-10-22 09:02 | XMS_ITS | Clinical Summary ---
Author Organization [employer] [facility] it Address [address] [place] [address] Care Team Providers Care Lithographic Artist Name Role Phone Giovani Choi MD Primary Care Provider [phone] Surgical History Surgery Date Site/Laterality Comments VARICOSE VEIN SURGERY PROCEDURE: [place] LIGJ DIVJ &/EXCJ VARICOSE VEIN CLUSTER 1 LEG WISDOM TOOTH EXTRACTION PROCEDURE: HISTORICAL WISDOM TEETH EXTRACTION OTHER SURGICAL HISTORY 03/09/2014 PROCEDURE: WI RESECTION RIBS EXTRAPLEURAL ALL STAGES; COMMENT: Right side; initial work releated injury OTHER SURGICAL HISTORY 03/17/2021 PROCEDURE: WI THYMECTOMY PRTL/TOT RAD MEDSTNL DSJ SPX; COMMENT: [...] Documents on File Type Date Recorded Patient Kettle Loader Expl anation Health Care Decision (hx) 03/18/2021 AD HICKEY DIRECTIVE Health Care Decision (hx) 03/18/2021 AD HICKEY DIRECTIVE Health Care Decision (hx) 03/18/2021 AD HICKEY DIRECTIVE Health Care Decision (hx) 03/18/2021 AD HICKEY DIRECTIVE Health Care Decision (hx) 03/18/2021 AD HICKEY DIRECTIVE Care Teams Lithographic Artist Relationship Specialty Start Date End Date Giovani Choi MD [address] [place], [place] PCP - General 10/13/22
--- OUTSIDE RECORDS SUMMARY | 2024-10-22 09:02 | XMS_ITS | Encounter Summary ---
Author Organization [facility] Address [address] [place] [address] Care Team Providers Care Bank Vault Custodian Name Role Phone Alonso Maya MD Primary Care Provider [phone] Case Frankel Primary Care Provider Unavail able Giovani Choi Primary Care Provider Unavailab le Reason for Visit * Reason Onset Date Comments pain, limb 11/28/2018 Encounter Details Date Type Department Care Team Description 11/28/2018 Telephone Vascular Surgery - [address] [place] [address] Manuel Hsu MD pain, limb Social History Tobacco Use Types Packs/Day Years Used Date Smoking Tobacco: Never Smokeless Tobacco: Never Alcohol Use Standard Drinks/Week Comments No 0 (1 standard drink = 0.6 oz pur e alcohol) Sex Assigned at Date Recorded Not on file documented as of this encounter Miscellaneous Notes * Telephone Encounter - Renata Moreno M.A. - 11/28/2018 2:42 PM EDT Patient had surgery done 2 weeks ago and has lots of discomfort and would like to know if he can get some type of pain reliver such as Motrin? documented in this encounter Plan of Treatment Not on file documented as of this encounter Visit Diagnoses Not on filedocumented in this encounter Care Teams Bank Vault Custodian Relationship Specialty Start Date End Date Alonso Maya MD [address] [place] [address] PCP - General Internal Medicine 03/14/12 10/01/21 Case Frankel [address] [place] [address] PCP - General Internal Medicine 10/02/21 10/12/22 Giovani Choi [address] [place] [address] PCP - General Internal Medicine 10/13/22 documented as of this encounter
--- OUTSIDE RECORDS SUMMARY | 2024-10-22 09:02 | XMS_ITS | Encounter Summary ---
Author Organization [facility] Address [address] [place] [address] Care Team Providers Care Concrete Fence Builder Name Role Phone Alonso Maya MD Primary Care Provider [phone] Case Frankel Primary Care Provider Unavail able Giovani Choi Primary Care Provider Unavailab le Encounter Details Date Type Department Care Team Description 04/15/2020 Orders Only Medical Records [address] [place] [address] Yumiko Lopes MD [address] [place] [address] Social History Tobacco Use Types Packs/Day Years Used Date Smoking Tobacco: Never Smokeless Tobacco: Never Alcohol Use Standard Drinks/Week Comments No 0 (1 standard drink = 0.6 oz pur e alcohol) Sex Assigned at Date Recorded Not on file documented as of this encounter Progress Notes * Claudette Lopes MD - 04/20/2020 3:08 PM EDT Dear Edward, The polyp(s) that were removed during your colonoscopy were precancerous, but benign. Fortunately, we removed them and therefore, they will not cause any more problems in the future. Based on the number, the size, and the features of the polyp(s) removed, I recommend a follow-up colonoscopy in 3 years. Before, the 3 years are due, we will send you a reminder in the mail asking you to contact our office to have the colonoscopy scheduled. I would like to personally thank you for allowing us to take care of you. Please don't hesitate to call us for any questions or concerns. Regards, Tyson Lopes MD Board Certified Gastroenterology and Internal Medicine Transplant Hepatology [facility] documented in this encounter Plan of Treatment Not on file documented as of this encounter Procedures Procedure Name Priority Date/Time Associated Diagnosis Comments OUTSIDE PATHOLOGY Routine 04/01/2020 documented in this encounter Results * OUTSIDE PATHOLOGY (04/01/2020) H Jai Lopes MD OUTSIDE LAB documented in this encounter Visit Diagnoses Not on filedocumented in this encounter Care Teams Concrete Fence Builder Relationship Specialty Start Date End Date Alonso Maya MD [address] [place] [address] PCP - General Internal Medicine 03/14/12 10/01/21 Case Frankel [address] [place] [address] PCP - General Internal Medicine 10/02/21 10/12/22 Giovani Choi [address] [place] [address] PCP - General Internal Medicine 10/13/22 documented as of this encounter
--- OUTSIDE RECORDS SUMMARY | 2024-10-22 09:02 | XMS_ITS | Encounter Summary ---
Author Organization [facility] Address [address] [place] [address] Care Team Providers Care Bleach Mixer Name Role Phone Alonso Maya MD Primary Care Provider [phone] Case Frankel Primary Care Provider Unavail able Giovani Choi Primary Care Provider Unavailab le Reason for Visit * Reason Onset Date Comments Medication 01/18/2018 Encounter Details Date Type Department Care Team Description 01/18/2018 Telephone Gastroenterology - [address] [address] William Waddell PA-C Medication Social History Tobacco Use Types Packs/Day Years Used Date Smoking Tobacco: Never Smokeless Tobacco: Never Alcohol Use Standard Drinks/Week Comments No 0 (1 standard drink = 0.6 oz pur e alcohol) Sex Assigned at Date Recorded Not on file documented as of this encounter Miscellaneous Notes * Telephone Encounter - William Waddell PA-C - 01/18/2018 12:54 PM EDT All set. * Telephone Encounter - Airam Loja - 01/18/2018 11:38 AM EDT Please re-send polyethylene glycol (COLYTE WITH FLAVOR PACKS) 240 G solution, pt rescheduled for 01/30/18. Prep not at pharmacy. documented in this encounter Plan of Treatment Not on file documented as of this encounter Visit Diagnoses Not on filedocumented in this encounter Care Teams Bleach Mixer Relationship Specialty Start Date End Date Alonso Maya MD [address] [place] [address] PCP - General Internal Medicine 03/14/12 10/01/21 Case Frankel [address] [place] [address] PCP - General Internal Medicine 10/02/21 10/12/22 Giovani Choi [address] [place] [address] PCP - General Internal Medicine 10/13/22 documented as of this encounter
--- OUTSIDE RECORDS SUMMARY | 2024-10-22 09:02 | XMS_ITS | Encounter Summary ---
Author Organization [facility] Address [address] [place] [address] Care Team Providers Care Motion Graphics Designer Name Role Phone Alonso Maya MD Primary Care Provider [phone] Case Frankel Primary Care Provider Unavail able Giovani Choi Primary Care Provider Unavailab le Encounter Details Date Type Department Care Team Description 12/15/2020 Senior Manager Mergers & Acquisitions Report Medical Records [address] [place], [place] [id number] Melo Bucio MD Social History Tobacco Use Types Packs/Day [...] have Coronavirus / COVID-19? No / Unsure 12/02/2020 10:36 AM EDT documented as of this encounter Plan of Treatment Not on file documented as of this encounter Visit Diagnoses Not on filedocumented in this encounter Care Teams Motion Graphics Designer Relationship Specialty Start Date End Date Alonso Maya MD [address] [place] [address] PCP - General Internal Medicine 03/14/12 10/01/21 Case Frankel [address] [place] [address] PCP - General Internal Medicine 10/02/21 10/12/22 Giovani Choi [address] [place] [address] PCP - General Internal Medicine 10/13/22 documented as of this encounter
--- OUTSIDE RECORDS SUMMARY | 2024-10-22 09:02 | XMS_ITS | Encounter Summary ---
Author Organization [facility] Address [address] [place] [address] Care Team Providers Care Online Trader Name Role Phone Alonso Maya MD Primary Care Provider [phone] Case Frankel Primary Care Provider Unavail able Giovani Choi Primary Care Provider Unavailab le Reason for Visit * Reason Onset Date Comments medication problems 03/21/2019 Encounter Details Date Type Department Care Team Description 03/21/2019 Telephone Adult Medicine [address] [phone] Alonso Maya MD [address] [place] [address] [phone] medication problems Social History Tobacco Use Types Packs/Day Years Used Date Smoking Tobacco: Never Smokeless Tobacco: Never Alcohol Use Standard Drinks/Week Comments No 0 (1 standard drink = 0.6 oz pur e alcohol) Sex Assigned at Date Recorded Not on file documented as of this encounter Miscellaneous Notes * Telephone Encounter - Alonso Maya MD - 03/21/2019 1:27 PM EDT Will trial mobic which has been sent This is a once daily medication * Telephone Encounter - Karely Villalobos M.A. - 03/21/2019 9:51 AM EDT Celebrex is not covered by pt ins. Please advise * Telephone Encounter - Kayy Plata - 03/21/2019 9:29 AM EDT Who is calling? fax Name of the medication celecoxib (CELEBREX) 100 MG capsule What is the specific problem or interaction? Not covered by insurance If the patient is having a problem with taking the med - how long has the problem been going on? N/A documented in this encounter Plan of Treatment Not on file documented as of this encounter Visit Diagnoses Not on filedocumented in this encounter Care Teams Online Trader Relationship Specialty Start Date End Date Alonso Maya MD [address] [place] [address] PCP - General Internal Medicine 03/14/12 10/01/21 Case Frankel [address] [place] [address] PCP - General Internal Medicine 10/02/21 10/12/22 Giovani Choi [address] [place] [address] PCP - General Internal Medicine 10/13/22 documented as of this encounter
--- OUTSIDE RECORDS SUMMARY | 2024-10-22 09:02 | XMS_ITS | Encounter Summary ---
Author Organization [facility] Address [address] [place] [address] Care Team Providers Care Sports Journalist Name Role Phone Alonso Maya MD Primary Care Provider [phone] Case Frankel Primary Care Provider Unavail able Giovani Choi Primary Care Provider Unavailab le Encounter Details Date Type Department Care Team Description 02/16/2021 Mathematics Lecturer Report Medical Records [address] [place] [address] Marianna Moya MD [address] [place] [address] Social History Tobacco Use Types Packs/Day Years [...] have Coronavirus / COVID-19? No / Unsure 02/16/2021 7:35 AM EDT documented as of this encounter Plan of Treatment Not on file documented as of this encounter Visit Diagnoses Not on filedocumented in this encounter Care Teams Sports Journalist Relationship Specialty Start Date End Date Alonso Maya MD [address] [place] [address] PCP - General Internal Medicine 03/14/12 10/01/21 Case Frankel [address] [place] [address] PCP - General Internal Medicine 10/02/21 10/12/22 Giovani Choi [address] [place] [address] PCP - General Internal Medicine 10/13/22 documented as of this encounter
--- OUTSIDE RECORDS SUMMARY | 2024-10-22 09:02 | XMS_ITS | Encounter Summary ---
Author Organization [facility] Address [address] [place] [address] Care Team Providers Care Rn Lab Name Role Phone Alonso Maya MD Primary Care Provider [phone] Case Frankel Primary Care Provider Unavail able Giovani Choi Primary Care Provider Unavailab le Reason for Visit * Reason Onset Date Comments REFERRAL 11/03/2017 Gastro Encounter Details Date Type Department Care Team Description 11/03/2017 Telephone Gastroenterology - [address] [phone] Alonso Maya MD [address] [place] [address] REFERRAL (Gastro) Social History Tobacco Use Types Packs/Day Years Used Date Smoking Tobacco: Never Smokeless Tobacco: Never Alcohol Use Standard Drinks/Week Comments No 0 (1 standard drink = 0.6 oz pur e alcohol) Sex Assigned at Date Recorded Not on file documented as of this encounter Miscellaneous Notes * Telephone Encounter - Ada Guerin - 11/03/2017 1:04 PM EDT All attempts have been exhausted to reach the patient to schedule an appointment in Gastro Department. Taking off from the referral report. documented in this encounter Plan of Treatment Not on file documented as of this encounter Visit Diagnoses Not on filedocumented in this encounter Care Teams Rn Lab Relationship Specialty Start Date End Date Alonso Maya MD [address] [place] [address] PCP - General Internal Medicine 03/14/12 10/01/21 Case Frankel [address] [place] [address] PCP - General Internal Medicine 10/02/21 10/12/22 Giovani Choi [address] [place] [address] PCP - General Internal Medicine 10/13/22 documented as of this encounter
--- OUTSIDE RECORDS SUMMARY | 2024-10-22 09:02 | XMS_ITS | Encounter Summary ---
Author Organization [facility] Address [address] [place] [address] Care Team Providers Care Audiometrist Name Role Phone Alonso Maya MD Primary Care Provider [phone] Case Frankel Primary Care Provider Unavail able Giovani Choi Primary Care Provider Unavailab le Encounter Details Date Type Department Care Team Description 06/02/2019 Hospital Medical Records [address] [place] [address] Social History Tobacco Use Types Packs/Day Years [...] on filedocumented in this encounter Care Teams Audiometrist Relationship Specialty Start Date End Date Alonso Maya MD [address] [place] [address] PCP - General Internal Medicine 03/14/12 10/01/21 Case Frankel [address] [place], [place] [phone] PCP - General Internal Medicine 10/02/21 10/12/22 Giovani Choi [address] [place], [place] [phone] PCP - General Internal Medicine 10/13/22 documented as of this encounter
--- OUTSIDE RECORDS SUMMARY | 2024-10-22 09:02 | XMS_ITS | Encounter Summary ---
Author Organization [facility] Address [address] [place] [address] Care Team Providers Care Technical Implementation Lead Name Role Phone Alonso Maya MD Primary Care Provider [phone] Case Frankel Primary Care Provider Unavail able Giovani Choi Primary Care Provider Unavailab le Encounter Details Date Type Department Care Team Description 11/23/2018 Transfer Records Medical Records [address] [place], [place] [phone] Abstract, Provider Social History Tobacco Use Types [...] on filedocumented in this encounter Care Teams Technical Implementation Lead Relationship Specialty Start Date End Date Alonso Maya MD [address] [place] [address] PCP - General Internal Medicine 03/14/12 10/01/21 Case Frankel [address] [place] [address] PCP - General Internal Medicine 10/02/21 10/12/22 Giovani Choi [address] [place] [address] PCP - General Internal Medicine 10/13/22 documented as of this encounter
--- OUTSIDE RECORDS SUMMARY | 2024-10-22 09:02 | XMS_ITS | Encounter Summary ---
Author Organization [facility] Address [address] [place] [address] Care Team Providers Care Olive Knocker Name Role Phone Alonso Maya MD Primary Care Provider [phone] Case Frankel Primary Care Provider Unavail able Giovani Choi Primary Care Provider Unavailab le Encounter Details Date Type Department Care Team Description 06/17/2019 Hospital Medical Records [address] [place] [address] [employer] Social History Tobacco Use Types Packs/Day Years [...] on filedocumented in this encounter Care Teams Olive Knocker Relationship Specialty Start Date End Date Alonso Maya MD [address] [place] [address] PCP - General Internal Medicine 03/14/12 10/01/21 Case Frankel [address] [place] [address] PCP - General Internal Medicine 10/02/21 10/12/22 Giovani Choi [address] [place], [place] [phone] PCP - General Internal Medicine 10/13/22 documented as of this encounter
--- OUTSIDE RECORDS SUMMARY | 2024-10-22 09:02 | XMS_ITS | Encounter Summary ---
Author Organization [facility] Address [address] [place] [address] Care Team Providers Care City Plant Supervisor Name Role Phone Alonso Maya MD Primary Care Provider [phone] Case Frankel Primary Care Provider Unavail able Giovani Choi Primary Care Provider Unavailab le Encounter Details Date Type Department Care Team Description 06/04/2019 Spray Painter Report Medical Records [address] [place], [place] [id number] Abstract, Provider Social History Tobacco Use Types [...] on filedocumented in this encounter Care Teams City Plant Supervisor Relationship Specialty Start Date End Date Alonso Maya MD [address] [place] [address] PCP - General Internal Medicine 03/14/12 10/01/21 Case Frankel [address] [place] [address] PCP - General Internal Medicine 10/02/21 10/12/22 Giovani Choi [address] [place] [address] PCP - General Internal Medicine 10/13/22 documented as of this encounter
--- OUTSIDE RECORDS SUMMARY | 2024-10-22 09:02 | XMS_ITS | Encounter Summary ---
Author Organization [facility] Address [address] [place] [address] Care Team Providers Care Risk Analyst Name Role Phone Alonso Maya MD Primary Care Provider [phone] Case Frankel Primary Care Provider Unavail able Giovani Choi Primary Care Provider Unavailab le Encounter Details Date Type Department Care Team Description 05/31/2019 Hydrogen Cell Tender Report Medical Records [address] [place], [place] [id number] Wero Ramirez Social History Tobacco Use Types Packs/Day Years [...] on filedocumented in this encounter Care Teams Risk Analyst Relationship Specialty Start Date End Date Alonso Maya MD [address] [place] [address] PCP - General Internal Medicine 03/14/12 10/01/21 Case Frankel [address] [place] [address] PCP - General Internal Medicine 10/02/21 10/12/22 Giovani Choi [address] [place], [place] [phone] PCP - General Internal Medicine 10/13/22 documented as of this encounter
--- OUTSIDE RECORDS SUMMARY | 2024-10-22 09:02 | XMS_ITS | Encounter Summary ---
Author Organization [facility] Address [address] [place] [address] Care Team Providers Care Wind Turbine Technician Name Role Phone Alonso Maya MD Primary Care Provider [phone] Case Frankel Primary Care Provider Unavail able Giovani Choi Primary Care Provider Unavailab le Encounter Details Date Type Department Care Team Description 11/09/2017 Crook Operator Report Medical Records [address] [id number] Luz Berg MD [address] [facility] [address] [place] [address] Social History Tobacco Use Types Packs/Day Years [...] on filedocumented in this encounter Care Teams Wind Turbine Technician Relationship Specialty Start Date End Date Alonso Maya MD [address] [place] [address] PCP - General Internal Medicine 03/14/12 10/01/21 Case Frankel [address] [place] [address] PCP - General Internal Medicine 10/02/21 10/12/22 Giovani Choi [address] [place] [address] PCP - General Internal Medicine 10/13/22 documented as of this encounter
--- OUTSIDE RECORDS SUMMARY | 2024-10-22 09:02 | XMS_ITS | Encounter Summary ---
Author Organization [facility] Address [address] [place] [address] Care Team Providers Care Foreign Policy Officer Name Role Phone Alonso Maya MD Primary Care Provider [phone] Case Frankel Primary Care Provider Unavail able Giovani Choi Primary Care Provider Unavailab le Encounter Details Date Type Department Care Team Description 01/31/2021 Hospital Medical Records [address] [place] [address] Aashish Jones Social History Tobacco Use Types Packs/Day Years [...] have Coronavirus / COVID-19? Unable to assess 01/26/2021 7:45 AM EDT documented as of this encounter Plan of Treatment Not on file documented as of this encounter Visit Diagnoses Not on filedocumented in this encounter Care Teams Foreign Policy Officer Relationship Specialty Start Date End Date Alonso Maya MD [address] [place] [address] PCP - General Internal Medicine 03/14/12 10/01/21 Case Frankel [address] [place] [address] PCP - General Internal Medicine 10/02/21 10/12/22 Giovani Choi [address] [place] [address] PCP - General Internal Medicine 10/13/22 documented as of this encounter
--- OUTSIDE RECORDS SUMMARY | 2024-10-22 09:02 | XMS_ITS | Encounter Summary ---
Author Organization [facility] Address [address] [place] [address] Care Team Providers Care Grinding Supervisor Name Role Phone Alonso Maya MD Primary Care Provider [phone] Case Frankel Primary Care Provider Unavail able Giovani Choi Primary Care Provider Unavailab le Encounter Details Date Type Department Care Team Description 03/27/2020 Refill Gastroenterology [address] [place] [address] Yumiko Lopes MD [address] [place] [address] [id number] Social History Tobacco Use Types Packs/Day Years [...] on filedocumented in this encounter Care Teams Grinding Supervisor Relationship Specialty Start Date End Date Alonso Maya MD [address] [place] [address] PCP - General Internal Medicine 03/14/12 10/01/21 Case Frankel [address] [place] [address] PCP - General Internal Medicine 10/02/21 10/12/22 Giovani Choi [address] [place] [address] PCP - General Internal Medicine 10/13/22 documented as of this encounter
--- OUTSIDE RECORDS SUMMARY | 2024-10-22 09:02 | XMS_ITS | Encounter Summary ---
Author Organization [facility] Address [address] [place] [address] Care Team Providers Care Revenue Integrity Analyst Name Role Phone Alonso Maya MD Primary Care Provider [phone] Case Frankel Primary Care Provider Unavail able Giovani Choi Primary Care Provider Unavailab le Encounter Details Date Type Department Care Team Description 05/07/2020 Qualified Craft Worker Electrician Report Medical Records [address] [place] [address] Giovani Jones MD Social History Tobacco Use Types Packs/Day [...] on filedocumented in this encounter Care Teams Revenue Integrity Analyst Relationship Specialty Start Date End Date Alonso Maya MD [address] [place] [address] PCP - General Internal Medicine 03/14/12 10/01/21 Case Frankel [address] [place] [address] PCP - General Internal Medicine 10/02/21 10/12/22 Giovani Choi [address] [place] [address] PCP - General Internal Medicine 10/13/22 documented as of this encounter
--- OUTSIDE RECORDS SUMMARY | 2024-10-22 09:02 | XMS_ITS | Encounter Summary ---
Author Organization [facility] Address [address] [place] [address] Care Team Providers Care Material Assistant Name Role Phone Alonso Maya MD Primary Care Provider [phone] Case Frankel Primary Care Provider Unavail able Giovani Choi Primary Care Provider Unavailab le Reason for Visit * Reason Comments E-prescribe Rx Request Encounter Details Date Type Department Care Team Description 01/29/2020 Refill Adult Medicine [address] [id number] Alonso Maya MD [address] [place] [address] E-prescribe Rx Request Social History Tobacco Use Types Packs/Day Years Used Date Smoking Tobacco: Never Smokeless Tobacco: Never Alcohol Use Standard Drinks/Week Comments No 0 (1 standard drink = 0.6 oz pur e alcohol) Sex Assigned at Date Recorded Not on file documented as of this encounter Miscellaneous Notes * Telephone Encounter - Isabela See C.M.A. - 01/30/2020 11:32 AM EDT Lv 10/26/19 Appt 03/20/20 Lab Results Component Value Date CHOL 169 09/21/2019 LDL 73 09/21/2019 HDL 34 09/21/2019 TRIG 314 09/21/2019 SGOT 48 09/21/2019 SGPT 95 09/21/2019 Lab Results Component Value Date NA 139 01/11/2019 K 4.2 01/11/2019 CO2 25 01/11/2019 CL 108 01/11/2019 BUN 21 01/11/2019 CREAT 1.13 01/11/2019 GLU 88 01/11/2019 CA 9.3 01/11/2019 GFR > 60 01/11/2019 \ * Telephone Encounter - Rosamaria Lugo - 01/30/2020 10:21 AM EDT Patient would like script to be: E-PRESCRIBED/FAXED TO PHARMACY WHEN WAS THE PATIENT'S LAST APPOINTMENT IN ADULT MEDICINE? 10/26/19 WHEN WAS THE LAST TIME THE PATIENT SAW THEIR PCP? Same as above Does patient have an upcoming appointment? Yes 03/20/20 (THE MEDICATION REQUESTED IS ON THE MED LIST ABOVE) All of the medications requested were on the CURRENT MEDS list Did you check the Pharmacy information above?: YES Patient wants: 30 -day supply Is this a mail order prescription request ? NO If the refill is from a FAXED refill request what is the RX # listed on the fax? N/A Patients current insurance carrier is: Payor: WORKERS COMP / Plan: WORKERS COMPENSATION/[place] / Product Type: OTHER documented in this encounter Plan of Treatment Not on file documented as of this encounter Visit Diagnoses Not on filedocumented in this encounter Care Teams Material Assistant Relationship Specialty Start Date End Date Alonso Maya MD [address] [place] [address] PCP - General Internal Medicine 03/14/12 10/01/21 Case Frankel [address] [place] [address] PCP - General Internal Medicine 10/02/21 10/12/22 Giovani Choi [address] [place] [address] PCP - General Internal Medicine 10/13/22 documented as of this encounter
--- OUTSIDE RECORDS SUMMARY | 2024-10-22 09:02 | XMS_ITS | Encounter Summary ---
Author Organization [facility] Address [address] [place] [address] Care Team Providers Care Funds Transfer Clerk Name Role Phone Alonso Maya MD Primary Care Provider [phone] Case Frankel Primary Care Provider Unavail able Giovani Choi Primary Care Provider Unavailab le Encounter Details Date Type Department Care Team Description 10/05/2017 Sander Wooden Pencils Report Medical Records [address] [place], [place] [id number] Abstract, Provider Social History Tobacco Use Types [...] on filedocumented in this encounter Care Teams Funds Transfer Clerk Relationship Specialty Start Date End Date Alonso Maya MD [address] [place] [address] [phone] PCP - General Internal Medicine 03/14/12 10/01/21 Case Frankel [address] [place] [address] PCP - General Internal Medicine 10/02/21 10/12/22 Giovani Choi [address] [place] [address] PCP - General Internal Medicine 10/13/22 documented as of this encounter
--- OUTSIDE RECORDS SUMMARY | 2024-10-22 09:02 | XMS_ITS | Encounter Summary ---
Author Organization [facility] Address [address] [place] [address] Care Team Providers Care Airconditioning Drafting Officer Name Role Phone Alonso Maya MD Primary Care Provider [phone] Case Frankel Primary Care Provider Unavail able Giovani Choi Primary Care Provider Unavailab le Encounter Details Date Type Department Care Team Description 05/09/2019 Release of Information Medical Records [address] [place], [place] [id number] Abstract, Provider Social History Tobacco Use Types [...] on filedocumented in this encounter Care Teams Airconditioning Drafting Officer Relationship Specialty Start Date End Date Alonso Maya MD [address] [place] [address] PCP - General Internal Medicine 03/14/12 10/01/21 Case Frankel [address] [place] [address] PCP - General Internal Medicine 10/02/21 10/12/22 Giovani Choi [address] [place], [place] [phone] PCP - General Internal Medicine 10/13/22 documented as of this encounter
--- OUTSIDE RECORDS SUMMARY | 2024-10-22 09:03 | XMS_ITS | Encounter Summary ---
Author Organization [facility] Address [address] [place] [address] Care Team Providers Care Assembler Plastic Boat Name Role Phone Alonso Maya MD Primary Care Provider [phone] Case Frankel Primary Care Provider Unavail able Giovani Choi Primary Care Provider Unavailab le Reason for Visit * Reason Onset Date Comments Anticoagulation 10/19/2019 Colonoscopy 04/01 Dr Lopes [facility] Encounter Details Date Type Department Care Team Description 10/19/2019 Telephone Gastroenterology - [address] [place] [address] Yumiko Lopes MD [address] [place] [address] [phone] Anticoagulation (Colonoscopy 04/01/2020 Dr Lopes [facility]) Social History Tobacco Use Types Packs/Day Years Used Date Smoking Tobacco: Never Smokeless Tobacco: Never Alcohol Use Standard Drinks/Week Comments No 0 (1 standard drink = 0.6 oz pur e alcohol) Sex Assigned at Date Recorded Not on file documented as of this encounter Miscellaneous Notes * Telephone Encounter - Rayne Nicole L.P.N. - 03/03/2020 10:55 AM EDT Called patient. Message left I was sending instructions regarding his medication prior to his procedure. He is to call me at [phone] with any questions./dh * Telephone Encounter - Alonso Maya MD - 02/28/2020 6:11 PM EDT Pt cva was > 90 days ago ok to hold anticoagulants as per your protocol ie plavix x 7 days and the eliquis x 2 days prior to the procedure * Telephone Encounter - Rayne Meeks.P.N. - 02/25/2020 2:[address] Maya, This patient is on Eliquis & Plavix. He is scheduled for a Colonoscopy on Tuesday04/01/2020. Normally we would hold Eliquis for 2 days prior to procedure & Plavix for 7 days prior to procedure. Please advise how long to hold each of these medications prior to his upcoming Colonoscopy. * Telephone Encounter - Rayne Nicole L.P.N. - 12/31/2019 2:08 PM EDT Rescheduled to 04/01/2020 @ 3:30 PM * Telephone Encounter - Rayne Nicole L.P.N. - 10/19/2019 1:02 PM EST Colonoscopy Tuesday01/08/2020 at 11:00 AM W/ Dr Lopes [facility]. Patient on Apixaban./dg * Telephone Encounter - Dennise Lowe - 10/19/2019 11:57 AM EST Patient is on blood thinners, is scheduel for 01/08/[address] Lopes. documented in this encounter Plan of Treatment Not on file documented as of this encounter Visit Diagnoses Not on filedocumented in this encounter Care Teams Assembler Plastic Boat Relationship Specialty Start Date End Date Alonso Maya MD [address] [place] [address] PCP - General Internal Medicine 03/14/12 2 Case Frankel [address] [phone] PCP - General Internal Medicine 10/02/21 2 Giovani Choi [address] [place] [address] PCP - General Internal Medicine 10/13/22 documented as of this encounter
--- OUTSIDE RECORDS SUMMARY | 2024-10-22 09:03 | XMS_ITS | Encounter Summary ---
Author Organization [facility] Address [address] [place] [address] Care Team Providers Care Slack Cooper Name Role Phone Alonso Maya MD Primary Care Provider [phone] Case Frankel Primary Care Provider Unavail able Giovani Choi Primary Care Provider Unavailab le Encounter Details Date Type Department Care Team Description 04/10/2015 Cloud Physicist Report Medical Records [address] [place], [place] [id number] Narendra Herzog MD Social History Tobacco Use Types Packs/Day [...] on filedocumented in this encounter Care Teams Slack Cooper Relationship Specialty Start Date End Date Alonso Maya MD [address] [place] [address] PCP - General Internal Medicine 03/14/12 10/01/21 Case Frankel [address] [place], [place] [phone] PCP - General Internal Medicine 10/02/21 10/12/22 Giovani Choi [address] [place], [place] [address] PCP - General Internal Medicine 10/13/22 documented as of this encounter
--- OUTSIDE RECORDS SUMMARY | 2024-10-22 09:03 | XMS_ITS | Encounter Summary ---
Author Organization [facility] Address [address] [place] [address] Care Team Providers Care Carding Supervisor Name Role Phone Alonso Maya MD Primary Care Provider [phone] Case Frankel Primary Care Provider Unavail able Giovani Choi Primary Care Provider Unavailab le Encounter Details Date Type Department Care Team Description 10/30/2019 Orders Only Medical Records [address] [place] [address] Ronaldo Garcia MD [address] [place] [address] Social History Tobacco Use Types Packs/Day [...] Name Priority Date/Time Associated Diagnosis Comments OUTSIDE ECHO Routine 10/26/2019 documented in this encounter Results * OUTSIDE ECHO (10/26/2019) Ronaldo Garcia MD CARDIOLOGY documented in this encounter Visit Diagnoses Not on filedocumented in this encounter Care Teams Carding Supervisor Relationship Specialty Start Date End Date Alonso Maya MD [address] [place] [address] PCP - General Internal Medicine 03/14/12 10/01/21 Case Frankel [address] [place] [address] PCP - General Internal Medicine 10/02/21 10/12/22 Giovani Choi [address] [place] [address] PCP - General Internal Medicine 10/13/22 documented as of this encounter
--- OUTSIDE RECORDS SUMMARY | 2024-10-22 09:03 | XMS_ITS | Encounter Summary ---
Author Organization [facility] Address [address] [place] [address] Care Team Providers Care Keypunch Operators Supervisor Name Role Phone Alonso Maya MD Primary Care Provider [phone] Case Frankel Primary Care Provider Unavail able Giovani Choi Primary Care Provider Unavailab le Reason for Visit * Reason Onset Date Comments Provider Call Back 12/09/2020 Encounter Details Date Type Department Care Team Description 12/09/2020 Telephone Adult Medicine [address] [id number] Alonso Maya MD [address] [place] [address] Provider Call Back Social History Tobacco Use [...] Telephone Encounter - Bharti Boswell PA-C - 12/09/2020 5:00 PM EDT Patient is safe to get the COVID-19 vaccine. * Telephone Encounter - Val Love M.A. - 12/09/2020 4:56 PM EDT Please see msg below and advise * Telephone Encounter - Raymundo Culp - 12/09/2020 12:17 PM EDT Caller requesting call back from provider: Is the caller the patient? YES If caller is not the patient, what is the callers name? N/A Callers relationship to patient? N/A If person calling is not the patient themselves, is there a verbal release in FYI or permanent comments for this person: N/A Reason for call back: Pt is scheduled to get the covid-19 vaccine and would like to know if he should have any concerns given his medical history. Caller offered to speak with the nurse for assistance: YES Response: Patient offered to speak with nurse for assistance and patient agreed. Message forwarded to nurse. documented in this encounter Plan of Treatment Not on file documented as of this encounter Visit Diagnoses Not on filedocumented in this encounter Care Teams Keypunch Operators Supervisor Relationship Specialty Start Date End Date Alonso Maya MD [address] [place], [place] [phone] PCP - General Internal Medicine 03/14/12 10/01/21 Case Frankel [address] [place] [address] PCP - General Internal Medicine 10/02/21 10/12/22 Giovani Choi [address] [phone] PCP - General Internal Medicine 10/13/22 documented as of this encounter
== END 2024-10-22 09:13 | disposition home or self-care (01) ==
PROVIDERS: PCP Internal Medicine; Visit Provider Internal Medicine
DX: J45.909 Unspecified asthma, uncomplicated (principal); R06.83 Snoring; G47.33 Obstructive sleep apnea (adult) (pediatric); R06.00 Dyspnea, unspecified
CPT/HCPCS: 99213

== ENCOUNTER → 2024-10-22 08:34 | Outpatient (BNVA) | payer MEDICARE, MEDICAID, SELFPAY | PROVIDERS: PCP Internal Medicine; Visit Provider Internal Medicine | DX: J45.909 Unspecified asthma, uncomplicated (principal); G47.33 Obstructive sleep apnea (adult) (pediatric); R06.83 Snoring; R06.00 Dyspnea, unspecified | CPT/HCPCS: 99212 ==

== ENCOUNTER 2024-10-29 09:39 | Outpatient (REF) | payer MEDICARE, MEDICAID, SELFPAY ==
--- NOTE | ~2024-10-29 | US_ITS ---
EXAMINATION: US ABDOMEN LIMITED WITH LIVER ELASTOGRAPHY HISTORY: K75.81 - Nonalcoholic steatohepatitis (GOLDEN) TECHNIQUE: Real-time grayscale ultrasound imaging of the right upper quadrant was performed and images were reviewed. COMPARISON: Comparison is made with the prior examination dated 11/08/2013. FINDINGS: Liver: The right lobe of the liver measures 17.4 cm in size. The left lobe of the liver measures 9.9 cm in size. The liver demonstrates increased echotexture, consistent with steatosis. There is a 1.0 x 1.3 x 1.4 cm septated cyst in the right lobe. No intrahepatic biliary ductal dilatation is identified. There is normal hepatopedal flow in the portal vein. Ultrasound elastography of the liver was performed with 10 separate measurements of the liver parenchyma with the patient in the supine position. Measurements were obtained approximately 2 cm below Charles's capsule and perpendicular to the capsule. Images are of satisfactory quality. The median shear wave velocity is 1.32 m/s. The interquartile range/median (IQR/median) is 0.04. Gallbladder and biliary tree: The gallbladder is unremarkable, without evidence of calculi, wall thickening, or pericholecystic fluid. There is no sonographic Cadena sign. The common bile duct is normal in caliber measuring 4 mm. Right Kidney: The right kidney measures 11.2 cm in length. The right kidney is unremarkable, without evidence of masses, hydronephrosis, or calculi. Pancreas: The pancreatic head, neck, and body are unremarkable. The pancreatic tail is obscured by bowel gas. Abdominal aorta and inferior vena cava: The visualized portions of the abdominal aorta and inferior vena cava are normal in caliber. There is no free fluid in the right upper quadrant. US/US abdomen higuera w elastography IMPRESSION: Hepatomegaly and hepatic steatosis. 1.4 cm hepatic cyst. The median shear wave velocity in the liver is 1.32 m/s, corresponding to a median liver stiffness of 5.29 kPa. The IQR/median value is 0.04. This is indicative of a quality data set. Findings are indicative of a low elastography value which rules out advanced chronic liver disease in asymptomatic patients. REFERENCE: Society of Radiologists in Ultrasound Liver Stiffness Thresholds (2020): LIVER STIFFNESS THRESHOLDS: *Shear wave velocity less than 1.3 m/s (Liver Stiffness equal or less than 5 kPa): High probability of being normal. *Shear wave velocity less than 1.7 m/s (Liver Stiffness less than 9 kPa): In the absence of other known clinical signs, rules out compensated advanced chronic liver disease. *Shear wave velocity between 1.7-2.1 m/s (Liver Stiffness 9-13 kPa): Suggestive of compensated advanced chronic liver disease but need further test for confirmation. *Shear wave velocity between 2.1-2.4 m/s (Liver Stiffness 13-17 kPa): Rules in compensated advanced chronic liver disease. *Shear wave velocity greater than 2.4 m/s (Liver Stiffness over 17 kPa): Suggestive of clinically significant portal hypertension. QUALITY OF DATA SET: *IQR/Median value equal or less than 0.15 implies a quality data set. *IQR/Median value over 0.15 implies a poor quality data set. SIGNIFICANT CHANGE FROM PRIOR EXAM: Significant change if liver stiffness measurement is 10% or greater from prior exam. OTHER CONSIDERATIONS: The stage of liver fibrosis may be overestimated in the setting of acute hepatitis, liver inflammation, elevated liver function tests, hepatic vascular congestion, obstructive cholestasis, non-fasting state, and infiltrative diseases such as amyloidosis and lymphoma. In some patients with NAFLD, the liver stiffness thresholds for compensated advanced chronic liver disease may be lower. In causes other than viral hepatitis and NAFLD, liver stiffness thresholds are not well established. Electronically signed by: Case Lott MD 10/29/2024 02:35 PM EDT
--- OUTSIDE RECORDS SUMMARY | 2024-10-29 10:32 | XMS_ITS | Clinical Summary ---
Author Organization [facility] Address [address] [place] [address] Care Team Providers Care Fashion Editor Name Role Phone Alonso Maya MD Primary Care Provider [phone] Allergies Active Allergy Reactions Criticality Noted Date [...] Antigen (p24) (06/02/2019 12:38 PM EDT) Pathologist [facility] [place] HIV-1/2 Antibody Negative Negative HOSPITAL LAB HIV-1 [...] Inactivated Comments 06/02/2019 12:38 PM Care Teams Fashion Editor Relationship Specialty Start Date End Date Alonso Maya MD [address] [place] [address] PCP - General 06/02/19
--- OUTSIDE RECORDS SUMMARY | 2024-10-29 10:32 | XMS_ITS | Clinical Summary ---
Author Organization [facility] it Address [id number] [place] [phone] Care Team Providers Care Web Programmer Name Role Phone Giovani Choi MD Primary Care Provider [phone] Surgical History Surgery Date Site/Laterality Comments VARICOSE VEIN SURGERY PROCEDURE: [place] LIGJ DIVJ &/EXCJ VARICOSE VEIN CLUSTER 1 LEG WISDOM TOOTH EXTRACTION PROCEDURE: HISTORICAL WISDOM TEETH EXTRACTION OTHER SURGICAL HISTORY 03/09/2014 PROCEDURE: [place] RESECTION RIBS EXTRAPLEURAL ALL STAGES; COMMENT: Right side; initial work releated injury OTHER SURGICAL HISTORY 03/17/2021 PROCEDURE: [place] THYMECTOMY PRTL/TOT RAD MEDSTNL DSJ SPX; COMMENT: [...] Documents on File Type Date Recorded 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
== END 2024-10-29 09:40 | disposition home or self-care (01) ==
LOC: HO.US 09:39
PROVIDERS: PCP Internal Medicine; Visit Provider Internal Medicine Gastroenterology
DX: K75.81 Nonalcoholic steatohepatitis (NASH) (principal); K74.60 Unspecified cirrhosis of liver; R79.89 Other specified abnormal findings of blood chemistry
CPT/HCPCS: 76705; 76981

== ENCOUNTER → 2024-10-29 09:43 | Outpatient (BNV) | payer MEDICARE, MEDICAID, SELFPAY | PROVIDERS: PCP Internal Medicine; Visit Provider Radiology Diagnostic Radiology | DX: K76.0 Fatty (change of) liver, not elsewhere classified (principal); K76.89 Other specified diseases of liver; R16.0 Hepatomegaly, not elsewhere classified | CPT/HCPCS: 76705 ==

== ENCOUNTER 2024-11-13 07:22 | Day surgery (SDC) | payer MEDICARE, MEDICAID, SELFPAY ==
--- OUTSIDE RECORDS SUMMARY | 2024-10-10 06:25 | XMS_ITS | Clinical Summary ---
Author Organization [employer] [facility] it Address [address] [place] [id number] Care Team Providers Care Design Technology Professor Name Role Phone Giovani Choi MD Primary Care Provider [phone] Surgical History Surgery Date Site/Laterality Comments VARICOSE VEIN SURGERY PROCEDURE: [place] LIGJ DIVJ &/EXCJ VARICOSE VEIN CLUSTER 1 LEG WISDOM TOOTH EXTRACTION PROCEDURE: HISTORICAL WISDOM TEETH EXTRACTION OTHER SURGICAL HISTORY 03/09/2014 PROCEDURE: [place] RESECTION RIBS EXTRAPLEURAL ALL STAGES; COMMENT: Right side; initial work releated injury OTHER SURGICAL HISTORY 03/17/2021 PROCEDURE: [place] THYMECTOMY PRTL/TOT RAD MEDSTNL DSJ SPX; COMMENT: R VATS da [place] thymectomy and excision of intermedius tunnel mass Medical History Medical History Date Comments GERD (gastroesophageal reflux disease) DX:GERD (gastroesophageal reflux disease) Osteoarthritis, hip, bilateral 10/04/2017 D X:Osteoarthritis, hip, bilateral Family History Medical History Relation Name Comments Prostate cancer Brother Alcohol/Drug Father Prostate cancer Maternal Grandfather Breast cancer Maternal Grandmother Arthri tis Heart attack Mother Hyperlipidemia Mother Arthritis Hypertension Mother Brain cancer Breast cancer Sister Relation Name Status Comments Brother Father Maternal Grandfather Maternal Grandmother Mother Sister Social History Tobacco Use Types Packs/Day Years Used Date Smoking Tobacco: Never Smokeless Tobacco: Never Alcohol Use Standard Drinks/Week Comments No 0 (1 standard drink = 0.6 oz pur e alcohol) Sex and Gender Information Value Date Recorded Sex Assigned at Not on file Legal Sex Male 5:34 PM EST Gender Identity Not on file Sexual Orientation Not on file Obstetrics History Last Filed Vital Signs Vital Sign Reading Time Taken Comments Blood Pressure 132/85 10/15/2022 3:26 PM EST Sitting L Arm Pulse 97 10/15/2022 3:26 PM EST Temperature - - Respiratory Rate - - Oxygen Saturation - - Inhaled Oxygen Concentration - - Weight 115 kg (254 lb 9.6 oz) 3 3:26 PM EST Height 182.9 cm (6') 10/15/2022 3:26 PM EST Body Mass Index 34.53 10/15/2022 3:26 PM EST Plan of Treatment Health Maintenance Due Date Last Done Comments Hepatitis B Vaccines (1 of 3 - 19+ 3-dose series) 1985 Pneumococcal Vaccine: 50+ Ye ars (1 of 1 - PCV) 2016 Zoster Vaccines (1 of 2) 2016 Cholesterol Screening (Lipid Panel) 07/31/2022 Colorectal Cancer Screening: Colonoscopy 07/31/2022 Depression Screening 07/31/2022 HIV Screening 07/31/2022 Hepatitis C Screening 07/31/2022 Social Influencers of Health Screening 07/31/2022 DTaP,Tdap,and Td Vaccines (2 - Td or Tdap) 10/19/2023 10/19/2013 COVID-19 Vaccine (2 - 2023-2 5 season) 2024 12/23/2020 Influenza Vaccine (#1) 2024 HIB Vaccines Aged Out No longer eligi ble based on patient's age to complete this topic HPV Vaccines Aged Out No longer eligi ble based on patient's age to complete this topic Hepatitis A Vaccines Aged Out No long er eligible based on patient's age to complete this topic IPV Vaccines Aged Out No longer eligi ble based on patient's age to complete this topic MMR Vaccines Aged Out No longer eligi ble based on patient's age to complete this topic Meningococcal ACWY Vaccine Aged Out N o longer eligible based on patient's age to complete this topic Meningococcal B Vacine Aged Out No lo nger eligible based on patient's age to complete this topic Pneumococcal Vaccine: Pediat rics (0 to 5 Years) and At-Risk Patients (6 to 64 Years) Aged Out No longer eligi ble based on patient's age to complete this topic RSV Immunization Patients Un orin 20 months Aged Out No longer eligible b ased on patient's age to complete this topic Varicella Vaccines Aged Out No longer eligible based on patient's age to complete this topic Advance Directives Documents on File Type Date Recorded Patient Java Sql Developer Expl anation Health Care Decision (hx) 03/18/2021 AD HICKEY DIRECTIVE Health Care Decision (hx) 03/18/2021 AD HICKEY DIRECTIVE Health Care Decision (hx) 03/18/2021 AD HICKEY DIRECTIVE Health Care Decision (hx) 03/18/2021 AD HICKEY DIRECTIVE Health Care Decision (hx) 03/18/2021 AD HICKEY DIRECTIVE Care Teams Design Technology Professor Relationship Specialty Start Date End Date Giovani Choi MD [address] [place], [place] PCP - General 10/13/22
--- OUTSIDE RECORDS SUMMARY | 2024-10-10 06:25 | XMS_ITS | Clinical Summary ---
Author Organization [facility] Address [address] [place] [address] Care Team Providers Care Family Psychologist Name Role Phone Alonso Maya MD Primary Care Provider [phone] Allergies Active Allergy Reactions Criticality Noted Date Comments Diclofenac Hives Medium 06/02/2019 Medications Medication Sig Dispensed Refills Start Date End Date Status hydrOXYzine pamoate (VISTARIL) 25 MG capsule TAKE 1 CAPSULE BY MOUTH UP TO 3X DAILY NEEDED FOR ANXIETY/PANIC 1 05/02/2019 Active OMEprazole (PriLOSEC) 40 MG capsule 06/01/2019 Active prazosin (MINIPRESS) 1 MG capsule TAKE 1-3 CAPSULE BY MOUTH EVERY NIGHT NEEDED FOR NIGHTMARES 1 05/02/2019 Active sertraline (ZOLOFT) 100 MG tablet 05/30/2019 Active traZODone (DESYREL) 100 MG tablet TAKE 1/2 -1 TABLET BY MOUTH EVERY NIGHT NEEDED FOR SLEEP 1 05/02/2019 Active aspirin enteric coated (ECOTRIN LOW STRENGTH) 81 MG EC tabletIndications:B asilar artery stenosis with infarction (HCC) Take 1 tablet (81 mg total) by mouth daily. Do not start before June 08, 2019. 30 tablet 3 06/08/2019 Active atorvastatin (LIPITOR) 80 MG tabletIndications:B asilar artery stenosis with infarction (HCC) Take 1 tablet (80 mg total) by mouth nightly. 30 tablet 06/07/2019 Active clopidogrel (PLAVIX) 75 MG tabletIndications:B asilar artery stenosis with infarction (HCC) Take 1 tablet (75 mg total) by mouth daily. Do not start before June 08, 2019. 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 Cerebellar stroke 06/02/2019 Left pontine stroke 06/02/2019 Immunizations Name Administration Dates Next Due Influenza Inactivated/Split Preservative Free IM 06/07/2019() Social History Tobacco Use Types Packs/Day Years Used Date Smoking Tobacco: Never Sex and Gender Information Value Date Recorded Sex Assigned at Not on file Gender Identity Not on file Sexual Orientation Not on file Last Filed Vital Signs Vital Sign Reading Time Taken Comments Blood Pressure 100/80 06/07/2019 12:19 PM EDT Pulse 80 06/07/2019 12:19 PM EDT Temperature 37 ??C (98.6 ??F) 06/07/2019 12:19 PM EDT Respiratory Rate 18 06/07/2019 4:00 AM EDT Oxygen Saturation 97% 06/07/2019 12:19 PM EDT Inhaled Oxygen Concentration - - Weight 98.2 kg (216 lb 7.9 oz) 06/02/2019 3:30 P M EDT Height 182.9 cm (6') 06/02/2019 3:30 PM EDT Body Mass Index 29.36 06/02/2019 3:30 PM EDT Plan of Treatment Health Maintenance Due Date Last Done Comments Hepatitis C Virus Screening 1966 DTaP/Tdap/Td Vaccines (1 - Tdap) 1985 Hepatitis B Vaccines (1 of 3 - 19+ 3-dose series) 03/22 Colonoscopy 2011 Pneumococcal Vaccines 50+ (1 of 1 - PCV) 2016 Zoster (Shingles) Vaccine (1 of 2) 2016 Influenza Vaccine 03/22/2024 COVID-19 Vaccine (1 - 2023- season) 2024 HIV Screening Completed 06/02/2019 Procedures Procedure Name Priority Date/Time Associated Diagnosis Comments RAPID HIV-1/2 AB AND P24 AG REFLEX TO CONFIRMATION Routine 06/02/2019 12:38 PM EDT from Last 3 Months or Most Recently Relevant to Health Maintenance Results * Rapid HIV Antibody and HIV Antigen (p24) (06/02/2019 12:38 PM EDT) Pathologist [facility] HIV-1/2 Antibody Negative Negative [facility] HIV-1 Antigen (p24) Negative Negative HOSPITAL [facility] Comment:Alere Determine HIV- 1/2 Ag/Ab Combo is a qualitative immunoassay for the detection of HIV-1/2 antibodies and p24 antigen. 06/02/2019 12:3 8 PM EDT 06/02/2019 12:51 PM EDT Socorro Palacio MD LAB BLOOD ORDERABLES [facility]PITAL [facility] from Last 3 Months or Most Recently Relevant to Health Maintenance Advance Directives * Full Code (Latest Code Status on File) Date Activated Date Inactivated Comments 06/02/2019 12:38 PM Care Teams Family Psychologist Relationship Specialty Start Date End Date Alonso Maya MD [address] [place] [id number] PCP - General 06/02/19
[2024-11-09 14:08] VITALS: BMI 34.4
[2024-11-13 08:37] VITALS: BMI 32.3
[2024-11-13] MEDS: Lactated Ringers 1,000 ML 80 ML IVCONT (08:42)
[2024-11-13 08:50] VITALS: BP 135/90; PULSE 89; RESP 18; TEMP 36.8; O2SAT 95
--- NOTE | 2024-11-13 08:55 | MHC.SHP ---
Pre-Procedural Eval Section A - 24 Hr Update-Section A only Date of Service: 11/13/24 Section B - Complete if H&P > 30 days Chief Complaint: Encounter for screening for malignant neoplasm of Relevant Family History (Specify if Yes): No Relevant Social History: None Present Medications: see Short Stay Collaborative assessment Medical History: Significant History (Snoring Asthma Somnolence [place] (obstructive sleep apnea) Obesity (BMI 30-39.9) Elevated cholesterol HTN (hypertension) PFO (patent foramen ovale) Atrial flutter Tremor, anxiety related On anticoagulant therapy Kidney stones Arthritis GERD (gastroesophageal reflux disease) COPD (chronic obstructive pu) History of Previous Operations: Relevant previous surgery/procedure and date(s) (History of total left hip replacement Hx of colonoscopy History of right hip replacement Hx of surgical procedure History of varicose vein ligation and stripping H/O removal of cyst) Allergies: Allergies Allergy/AdvReac Type Severity Reaction Status Date / Time diclofenac [From VOLTAREN] Allergy Severe SEVERE Verified 10/22/24 08:53 RASH, FACIAL SWELLING, hives Review of Systems Sugical H&P ROS: Negative: Constitution, Cardiovascular, Respiratory, Neurological, Psychiatric, Hem-Onc, Allergic/Immunologic, Gastrointestinal, Genitourinary, Musculoskeletal, Integumentary, Endocrine and Eyes/Ears/Nose/Throat Exam Surgical H&P Exam: Normal: HEENT, Normal: Heart, Normal: Lungs, Normal: Extremities, Normal: Abdomen, Normal: Skin and Normal: Neurological Plan Diagnosis/Plan: Unchanged I have reviewed the history and physical and performed a pertinent physical examination on my patient. No changes have occurred unless specified. Time Spent With Patient Time: Total time managing care of this patient today ____ minutes.
--- NOTE | 2024-11-13 10:22 | HO.OPN-COLON ---
Colonoscopy Operative Note Operative Note Date of Service: 11/13/24 Narrative: Operative Information Procedure Description: Colonoscopy Indication: screening Anesthesia: MAC COLONOSCOPY Instrument: Olympus variable stiffness adult scope 190L Colonoscopy Monitoring: Vital signs and clinical assessment, continuous EKG monitoring, Pulse oximetry, Carbon Dioxide monitoring and blood pressure monitoring were done throughout the procedure. Colon withdrawal time was 10 minutes. Procedure: The patient was placed in the left lateral decubitis position and pre-procedure medications were administered. After a digital rectal examination of the ano-rectum, the video colonoscope was inserted into the rectum and advanced through the colon to the cecum/TI. The colonoscope was slowly withdrawn in a retrograde panoramic fashion and the colon mucosa was carefully examined including a retroflexed view of the rectum. Findings and interventions are described below. Procedure Difficulty: easy Findings: Terminal Ileum-normal Cecum:normal Ascending Colon: normal Transverse Colon -normal Descending Colon:12 mm sessile polyp removed with cold snare Sigmoid Colon: mild diverticulosis, x3 sessile polyps 4-6 mm removed with cold forceps Rectum: Retroflexion with small internal hemorrhoids seen, grade I Anorectum - normal Intervention: cold forceps, cold snare Colon preparation: [place] Bowel Preparation Scale Right colon; 1-2 Transverse colon: 2 Left colon; 1-2 (0 = Unprepared colon segment with mucosa not seen due to solid stool that cannot be cleared. 1 = Portion of mucosa of the colon segment seen, but other areas of the colon segment not well seen due to staining, residual stool and/or opaque liquid. 2 = Minor amount of residual staining, small fragments of stool and/or opaque liquid, but mucosa of colon segment seen well. 3 = Entire mucosa of colon segment seen well with no residual staining, small fragments of stool or opaque liquid) Impression and Post Procedure Diagnosis: diverticulosis colon polyps x 4 internal hemorrhoids Plan: High fiber diet leaflet Avoid straining at stool, epsom salts and sitz bath, anusol supps or cream Repeat Colonoscopy in 1 year or earlier if clinically indicated Above findings were reviewed with the patient and relevant handouts were provided if indicated.
[2024-11-13 10:32] VITALS: BP 112/87; PULSE 80; RESP 15; TEMP 36.1; O2SAT 94
[2024-11-13 10:47] VITALS: BP 125/78; PULSE 75; RESP 16; O2SAT 96
[2024-11-13 11:02] VITALS: BP 123/95; PULSE 75; RESP 16; TEMP 36.2; O2SAT 98
== END 2024-11-13 11:24 | disposition home or self-care (01) ==
PROVIDERS: PCP Internal Medicine; Visit Provider Internal Medicine Gastroenterology
PROC: 0DJD8ZZ Inspection of Lower Intestinal Tract, Via Natural or Artificial Opening Endoscopic (ICD-10-PCS; CPT 45378; principal; 2024-11-13 10:20)
DX: Z12.11 Encounter for screening for malignant neoplasm of colon (principal); Z86.0101 Personal history of adenomatous and serrated colon polyps; D12.4 Benign neoplasm of descending colon; D12.5 Benign neoplasm of sigmoid colon; K57.30 Diverticulosis of large intestine without perforation or abscess without bleeding; K64.0 First degree hemorrhoids; K75.81 Nonalcoholic steatohepatitis (NASH); K76.0 Fatty (change of) liver, not elsewhere classified; K52.839 Microscopic colitis, unspecified; K21.9 Gastro-esophageal reflux disease without esophagitis; I10 Essential (primary) hypertension; E78.00 Pure hypercholesterolemia, unspecified; I48.91 Unspecified atrial fibrillation; J44.9 Chronic obstructive pulmonary disease, unspecified; G47.33 Obstructive sleep apnea (adult) (pediatric); R79.89 Other specified abnormal findings of blood chemistry; R79.82 Elevated C-reactive protein (CRP); F41.9 Anxiety disorder, unspecified; E66.9 Obesity, unspecified; Z86.73 Personal history of transient ischemic attack (TIA), and cerebral infarction without residual deficits; Z79.01 Long term (current) use of anticoagulants; Z88.8 Allergy status to other drugs, medicaments and biological substances; Z98.890 Other specified postprocedural states
CPT/HCPCS: 45385; 45380; 88305; J2003; J2704

== ENCOUNTER → 2024-11-13 07:22 | Outpatient (BNV) | payer MEDICARE, MEDICAID, SELFPAY | PROVIDERS: PCP Internal Medicine; Visit Provider Internal Medicine Gastroenterology | DX: Z12.11 Encounter for screening for malignant neoplasm of colon (principal); D12.5 Benign neoplasm of sigmoid colon; D12.4 Benign neoplasm of descending colon; K64.0 First degree hemorrhoids | CPT/HCPCS: 45380; 45385 ==

== ENCOUNTER 2024-11-29 12:57 | Outpatient (REF) | payer MEDICARE, MEDICAID, SELFPAY ==
--- NOTE | ~2024-11-29 | XR_ITS ---
EXAMINATION: XR HIP, LEFT CLINICAL INFORMATION: LEFT HIP PAIN COMPARISON: 06/23/2022. TECHNIQUE: Two views of the left hip. FINDINGS: Total left hip arthroplasty in place. Femoral and acetabular components intact, well seated, in anatomic alignment. No evidence of periprosthetic lucency or fracture. No evidence of subsidence. No evidence of polyethylene wear. No significant change. Normal-appearing soft tissues. XR/XR hip LT min 2V IMPRESSION: Left hip replacement without complication evident. Electronically signed by: Raymundo Valente MD 11/29/2024 03:23 PM EDT
--- OUTSIDE RECORDS SUMMARY | 2024-11-29 15:36 | XMS_ITS | Clinical Summary ---
Author Organization [facility] Address [address] [place] [address] Care Team Providers Care Product Development Carpenter Name Role Phone Alonso Maya MD Primary Care Provider [phone] Allergies Active Allergy Reactions Criticality Noted Date [...] (p24) (06/02/2019 12:38 PM EDT) Pathologist [facility] HIV-1/2 Antibody Negative Negative [facility]OSPITAL [facility] HIV-1 [...] Inactivated Comments 06/02/2019 12:38 PM Care Teams Product Development Carpenter Relationship Specialty Start Date End Date Alonso Maya MD PCP - General 06/02/19
--- OUTSIDE RECORDS SUMMARY | 2024-11-29 15:36 | XMS_ITS | Clinical Summary ---
Author Organization [facility] it Address [id number] [place] [id number] Care Team Providers Care Making Line Worker Name Role Phone Giovani Choi MD Primary Care Provider [phone] Surgical History Surgery Date Site/Laterality Comments VARICOSE VEIN SURGERY PROCEDURE: [place] LIGJ DIVJ &/EXCJ VARICOSE VEIN CLUSTER 1 LEG WISDOM TOOTH EXTRACTION PROCEDURE: HISTORICAL WISDOM TEETH EXTRACTION OTHER SURGICAL HISTORY 03/09/2014 PROCEDURE: [place] RESECTION RIBS EXTRAPLEURAL ALL STAGES; COMMENT: Right side; initial work releated injury OTHER SURGICAL HISTORY 03/17/2021 PROCEDURE: [place] THYMECTOMY PRTL/TOT RAD MEDSTNL DSJ SPX; COMMENT: [...] 2023-2 5 season) 2024 12/23/2020 Influenza Vaccine (Season Ended) 2025 HIB Vaccines Aged Out No longer eligi [...] age to complete this topic Meningococcal B Vaccine Aged Out No l onger eligible based on patient's age to complete [...] Documents on File Type Date Recorded Patient Expl anation Health Care Decision (hx) 03/18/2021 AD HICKEY DIRECTIVE Health Care Decision (hx) 03/18/2021 AD HICKEY DIRECTIVE Health Care Decision (hx) 03/18/2021 AD HICKEY DIRECTIVE Health Care Decision (hx) 03/18/2021 AD HICKEY DIRECTIVE Health Care Decision (hx) 03/18/2021 AD HICKEY DIRECTIVE Care Teams Making Line Worker Relationship Specialty Start Date End Date Giovani Choi MD [address] [facility] [place] PCP - General 10/13/22
== END 2024-11-29 12:58 | disposition home or self-care (01) ==
LOC: HO.HMGCX 12:57
PROVIDERS: PCP Internal Medicine; Visit Provider Internal Medicine
DX: M25.552 Pain in left hip (principal)
CPT/HCPCS: 73502

== ENCOUNTER → 2024-11-29 13:06 | Outpatient (BNV) | payer MEDICARE, MEDICAID, SELFPAY | PROVIDERS: PCP Internal Medicine; Visit Provider Radiology Diagnostic Radiology | DX: R10.32 Left lower quadrant pain (principal) | CPT/HCPCS: 73502 ==

== ENCOUNTER → 2024-12-12 07:57 | Outpatient (BNVA) | payer MEDICARE, MEDICAID, SELFPAY | PROVIDERS: PCP Internal Medicine; Visit Provider Internal Medicine Gastroenterology | DX: Z13.79 Encounter for other screening for genetic and chromosomal anomalies (principal) | CPT/HCPCS: 99211 ==

== ENCOUNTER 2025-03-04 08:36 | Outpatient (AMB) | payer MEDICARE, MEDICAID, SELFPAY ==
--- NOTE | 2025-03-04 08:37 | MHC.OFFVIS ---
Intake Visit Reasons: Telehealth 6 months f/u Intake Note: Edward presents as a telehealth 6 month follow up. CC: States that he is not having any concerns at this time. Firearms Specialist Required: No Allergies diclofenac (From VOLTAREN) Allergy (Severe, Verified 03/04/25 08:38) SEVERE RASH, FACIAL SWELLING, hives HPI HPI Telehealth 6 months f/u: Details: 59 yr old m being seen for f/u RECAP colonoscopy 08/14 x 5 polyps removed, mild diverticulosis prior hx of polyps removed at colonoscopy at [facility] repeat [place] 11/13- x 4 adenomas removed Genetic testing --- neg for mutations INTERIM: He feels well no drinking or smoking no abdo pain, nausea, abn bowel s he made lifestyle changes, eating more fiber and oatmeal, less processed foods he has fatty liver, LFT are mildly elevated, CT a/P 2020 with steatosis F2 on fibrosure EXAM: GENERAL: The patient is well developed and nontoxic. VITAL SIGNS:see workflow HEENT: Nonicteric sclerae, PERRLA, EOMI. Oropharynx clear. Moist mucous membranes. Conjunctivae appear well perfused. No thyroid mass. CHEST: Chest wall is nontender. HEART: Regular rate and rhythm without murmurs. LUNGS: Clear to auscultation bilaterally. ABDOMEN: Soft, positive bowel sounds, nontender, no organomegaly.no flank tenderness SKIN: No rash, no excessive bruising, petechiae, or purpura. NEUROLOGIC: Cranial nerves II-XII intact without motor/sensory deficit. Psych: normal affect A/P: 1/ colon polyps, 2/ MASLD, F2 on fibrosure--neg serologies PLAN: 1/ repeat LFT, if still high then trial of rezdiffra 2/ repeat colon later in the year with 2 d prep and stop eliquis 2 d before [facility] Medical History Tremor PTSD (post-traumatic stress disorder) Encephalopathy H/O alcohol abuse Embolic cerebral infarction Borderline personality disorder Depression with anxiety Basilar artery stenosis Cerebral infarction Snoring Asthma Somnolence ACMDEN (obstructive sleep apnea) Obesity (BMI 30-39.9) Elevated cholesterol HTN (hypertension) PFO (patent foramen ovale) Atrial flutter Tremor, anxiety related On anticoagulant therapy Kidney stones Arthritis GERD (gastroesophageal reflux disease) COPD (chronic obstructive pulmonary disease) Anxiety and depression Dyspnea on exertion CVA (cerebral vascular accident) Atrial fibrillation Surgical History History of total left hip replacement Hx of colonoscopy History of right hip replacement Hx of surgical procedure History of varicose vein ligation and stripping H/O removal of cyst Family History Mother No problems noted. Father No problems noted. Maternal Uncle Colon cancer Social History Household Members: None Housing: House Are you a primary hearing care practitioner to a significant other at home: No Do you presently have visiting nurse or other home services: No Alcohol intake: never Comment: patient refused alarm Patient Tobacco Use Status: Never used Tobacco service: No Current occupational status: disabled Assessment & Plan Assessment & Plan (1) Abnormal LFTs: Code(s): R79.89 - Other specified abnormal findings of blood chemistry Category: Medical Plan: as above (2) Personal history of colonic polyps: Code(s): Z86.010 - Personal history of colon polyps Category: Medical Plan: as above Coding Level of Care Code Est Pt Level 3 (21064) Diagnoses Abnormal LFTs R79.89 Personal history of colonic polyps Z86.010
--- OUTSIDE RECORDS SUMMARY | 2025-03-04 08:41 | XMS_ITS | Clinical Summary ---
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
--- OUTSIDE RECORDS SUMMARY | 2025-03-04 08:41 | XMS_ITS | Clinical Summary ---
Author Organization [facility] Address [address] [place] [address] Care Team Providers Care Brewing Technician Name Role Phone Alonso Maya MD Primary Care Provider Unavaila ble Allergies Active Allergy Reactions Criticality Noted Date Comments Diclofenac Hives Medium 06/02/2019 Medications hydrOXYzine pamoate (VISTARIL) 25 MG capsule TAKE 1 CAPSULE BY MOUTH UP TO 3X DAILY NEEDED FOR ANXIETY/PANIC 1 9 Active OMEprazole (PriLOSEC) 40 MG capsule 9 Active prazosin (MINIPRESS) 1 MG capsule TAKE 1-3 CAPSULE BY MOUTH EVERY NIGHT NEEDED FOR NIGHTMARES 1 9 Active sertraline (ZOLOFT) 100 MG tablet 9 Active traZODone (DESYREL) 100 MG tablet TAKE 1/2 -1 TABLET BY MOUTH EVERY NIGHT NEEDED FOR SLEEP 9 Active aspirin enteric coated (ECOTRIN LOW STRENGTH) 81 MG EC tabletIndicatio ns:Basilar artery stenosis with infarction (HCC) Take 1 tablet (81 mg total) by mouth daily. Do not start before June 08, 2019. 30 tablet 3 9 Active atorvastatin (LIPITOR) 80 MG tabletIndicatio ns:Basilar artery stenosis with infarction (HCC) Take 1 tablet (80 mg total) by mouth nightly. 30 tablet 9 Active clopidogrel (PLAVIX) 75 MG tabletIndicatio ns:Basilar artery stenosis with infarction (HCC) Take 1 tablet (75 mg total) by mouth daily. Do not start before June 08, 2019. 30 tablet 3 9 Active Active Problems Problem Noted Date Diagnosed Date Basilar artery stenosis with infarction 06/02/20 Cerebellar stroke 06/02/2019 Left pontine stroke 06/02/2019 Immunizations Immunization Administration Dates Next Due Influenza Inactivated/Split Preservative Free IM 06/07/2019() Social History Tobacco Use Types Packs/Day Years Used Date Smoking Tobacco: Never Sex and Gender Information Value Date Recorded Sex Assigned at Not on file Legal Sex Male 6:29 PM EST Gender Identity Not on file Sexual Orientation Not on file Last Filed Vital Signs Vital Sign Reading Time Taken Comments Blood Pressure 100/80 06/07/2019 12:19 PM EDT Pulse 80 06/07/2019 12:19 PM EDT Temperature 37 C (98.6 F) 06/07/2019 12:19 PM EDT Respiratory Rate 18 [...] Zoster (Shingles) Vaccine (1 of 2) 2016 COVID-19 Vaccine (1 - 2023- season) 2024 Influenza Vaccine 03/22/2025 HIV Screening Completed 06/02/2019 Procedures Procedure Name Priority Date/Time Associated Diagnosis Comments RAPID HIV-1/2 AB AND P24 AG REFLEX TO CONFIRMATION Routine 06/02/2019 12:38 PM EDT from Last 3 Months or Most Recently Relevant to Health Maintenance Results * Rapid HIV Antibody and HIV Antigen (p24) (06/02/2019 12:38 PM EDT) HIV-1/2 Antibody Negative Negative [facility]OSPITAL [facility] HIV-1 Antigen (p24) Negative Negative [facility]OSPITAL [facility] Comment:Alere Determine HIV- 1/2 Ag/Ab Combo is a qualitative immunoassay for the detection of HIV-1/2 antibodies and p24 antigen. 06/02/2019 12:3 8 PM EDT 06/02/2019 12:51 PM EDT us Socorro Palacio MD LAB BLOOD ORDERABLES Final Re sult HOSPITAL LAB from Last 3 Months or Most Recently Relevant to Health Maintenance Insurance MEDICAID OUT OF STATE [facility] [place] [address] Advance Directives * Full Code (Latest Code Status on File) Date Activated Date Inactivated Comments 06/02/2019 12:38 PM Care Teams Brewing Technician Relationship Specialty Start Date End Date Alonso Maya MD PCP - General 06/02/19
--- OUTSIDE RECORDS SUMMARY | 2025-03-04 08:41 | XMS_ITS | Encounter Summary ---
Author Organization [facility] Address [address] [place] [address] Care Team Providers Care Info Specialist Name Role Phone Alonso Maya MD Primary Care Provider [phone] Case Frankel Primary Care Provider Unavail able Giovani Choi Primary Care Provider Unavailab le Reason for Visit * Reason Onset Date Comments PT-1 09/21/2019 Encounter Details Date Type Department Care Team Description 09/21/2019 Telephone Adult Medicine [facility] [address] [place] [address] [phone] Alonso Maya MD [address] [place] [address] [phone] PT-1 Social History Tobacco Use Types Packs/Day Years Used Date Smoking Tobacco: Never Smokeless Tobacco: Never Alcohol Use Standard Drinks/Week Comments No 0 (1 standard drink = 0.6 oz pur e alcohol) Sex Assigned at Date Recorded Not on file documented as of this encounter Miscellaneous Notes * Telephone Encounter - Jose Quinteros M.A. - 09/30/2019 2:44 PM EST [id number] * Telephone Encounter - Jarrett Berkowitz - 09/21/2019 11:15 AM EST [facility] Medicaid Group new provider or submitter number is [id number] Verify and document patients [place] Health insurance ID # (NOT [facility] ID): [id number] Payor: WORKERS COMP / Plan: WORKERS [place]ENSATION/[place] / Product Type: OTHER Patient mailing address: [address] [place] [phone] Telephone Information: Work Phone Not on file. Mobile Not on file. Pt. demographics verified? YES If not accurate, update registration. Is this a NEW request or a RENEWAL? New Name of treating facility: [facility] Name (first & last) of treating provider? required : Alonso Maya What is the medical reason why the patient is seeing the above provider? Follow up Address/Zip code for treating provider: [address] [place] [address] Phone # for treating provider: [phone] Is the provider in the [facility] network (do they accept [place] Health insurance)? YES What specialtly is this provider? Adult medicine When is the visit scheduled for? 10/26/19 How often you will be seeing this particular provider? Every 4 months Do you have friends or family who can transport you to this visit? NO If yes, do not complete request. Is there anything stopping you from using public transportation? If yes, explain. : NO Is there a medical reason (diagnosis) why you are unable to use public transportation? If yes, explain: yes - handicapped and trouble breathing Is this is for an Adult Day [...] on filedocumented in this encounter Care Teams Info Specialist Relationship Specialty Start Date End Date Alonso Maya MD [address] [place] [id number] PCP - General Internal Medicine 03/14/12 10/01/21 Case Frankel [address] [place] [id number] PCP - General Internal Medicine 10/02/21 2 Giovani Choi [address] [place] [address] PCP - General Internal Medicine 10/13/22 documented as of this encounter
== END 2025-03-04 10:16 | disposition home or self-care (01) ==
PROVIDERS: Visit Provider Internal Medicine Gastroenterology
DX: R79.89 Other specified abnormal findings of blood chemistry (principal); Z86.0100 Personal history of colon polyps, unspecified
CPT/HCPCS: 99213

== ENCOUNTER → 2025-03-04 08:36 | Outpatient (BNVA) | payer MEDICARE, MEDICAID, SELFPAY | PROVIDERS: Visit Provider Internal Medicine Gastroenterology | DX: Q21.12 Patent foramen ovale (principal); I48.92 Unspecified atrial flutter; R06.00 Dyspnea, unspecified; R94.31 Abnormal electrocardiogram [ECG] [EKG]; R79.89 Other specified abnormal findings of blood chemistry; Z86.73 Personal history of transient ischemic attack (TIA), and cerebral infarction without residual deficits; Z86.0100 Personal history of colon polyps, unspecified; Z79.01 Long term (current) use of anticoagulants; Z79.2 Long term (current) use of antibiotics; Z79.52 Long term (current) use of systemic steroids; Z79.899 Other long term (current) drug therapy | CPT/HCPCS: 93005; 99212 ==

== ENCOUNTER 2025-03-04 08:56 | Outpatient (AMB) | payer MEDICARE, MEDICAID, SELFPAY ==
--- NOTE | 2025-03-04 09:33 | MHC.OFFVIS ---
Vital Signs 03/04/25 09:36 Height 6 ft 1 in Weight 244 lb 4.355 oz BMI 32.2 BP 130/86 Blood Pressure Location Lt brachial Position Sitting Pulse 82 Pulse Source Monitor Intake Visit Reasons: 6 month follow-up Intake Note: 6 mth f/up Electrical And Instrumentation Mechanic Required: No Accompanied by: Self / Same As Patient Allergies diclofenac (From VOLTAREN) Allergy (Severe, Verified 03/04/25 08:38) SEVERE RASH, FACIAL SWELLING, hives Medication List - Last Reconciled 03/04/25 by Anders German MD acetaminophen ER 1,300 mg PO Q8H apixaban (Eliquis) 5 mg PO BID aspirin 81 mg PO DAILY atorvastatin 80 mg PO BEDTIME baclofen 10 mg PO TID celecoxib 200 mg PO DAILY diazepam 5 mg PO TID PRN lisinopril 10 mg PO DAILY metoprolol tartrate 25 mg PO BID multivitamin 1 tab PO DAILY omeprazole 20 mg PO DAILY prednisone 20 mg PO DAILY 5 days primidone 150 mg PO TID propranolol 20 mg PO BID quetiapine 400 mg PO BEDTIME PRN sertraline 2 tabs PO DAILY tamsulosin 0.4 mg PO BEDTIME 14 days trazodone 100 mg PO BEDTIME HPI Comments Details: Pleasant 59-year-old gentleman who was referred to us for perioperative cardiovascular risk assessment for right hip surgery. He has background history of atrial fibrillation, DVT / PE and CVA. He has been on Eliquis. he is saying since the stroke he has been short of breath with minimal exertion. He has seen Dr. Sanchez for pulmonology and he has been found to have mild obstructive lung disease. His dyspnea is out of proportion to the lung disease. He is a lifelong nonsmoker. He has no exertional chest discomfort. He has tremors in his hands for which he has seen Neurology in the past but no obvious improvement has happened. he has significant anxiety which mostly developed after the stroke. Received his chart from [facility] which showed that he had a fenestrated PFO with [id number]-jx-jvae shunting noticed on JIMMY. He saw [facility]iology after discharge. I had a discussion with Dr. Reji Gomez who saw the patient after discharge from [facility]. It appears he had a cardiac event monitor which showed atrial flutter. It was decided to start the patient on Eliquis and not disclose the patent [place] ovale unless he develops another episode of TIA/stroke. Since then he has been taking Eliquis and has been stable. We did stress testing and echocardiography which did not show any significant issues. His transthoracic echocardiography with bubble study did not show a PFO but it appears with JIMMY done in [facility] he had a clear PFO reported which was noted to be fenestrated and complex. He continues to be is fairly short of breath but he has been told by pulmonology that this is all related to anxiety. He was taught some breathing exercises and he plans to start doing them. He is concerning left hip surgery now. He underwent right hip replacement uneventfully. 03/02/23: He returns for follow-up. He is saying he underwent bilateral hip replacement and has been recovering well. He is exercising. He has atypical left-sided needle like sensation off and on lasting for few seconds. He is still complaining of dyspnea and is saying that pulmonology has told him that this is due to anxiety. He has a PFO and I have checked his oxygen level laying and standing and it does not change with upright posture. 09/07/23: He returns for follow-up. He is getting non anginal left-sided chest pains as before. He is saying his breathing is similar to before. He has noticed some wheezing recently when the cord weather. He is taking primidone for tremors and tremors are improving. 03/12/24: He is here for follow-up. He is saying that he has good and bad days but mostly good days. When he gets symptoms he notices that he is wheezing and is short of breath. Taking medications regularly. Compliant with Eliquis. 09/10/24: He returns for f/u. He has been feeling good. Continues to have shortness of breath but he feels that he is more adjusted to this. He is trying to exercise on bike and eating more vegetables and fruits. Blood pressure is well controlled. 03/04/2025: He is here for follow-up. He is saying that he feels great. He is riding his bike. No chest discomfort. Continues to have some breathing issues but has been told her these are linked with anxiety in his taking medications for that. Overall clinically stable. Taking Eliquis regularly. [facility] Medical History Tremor PTSD (post-traumatic stress disorder) Encephalopathy H/O alcohol abuse Embolic cerebral infarction Borderline personality disorder Depression with anxiety Basilar artery stenosis Cerebral infarction Snoring Asthma Somnolence [place] (obstructive sleep apnea) Obesity (BMI 30-39.9) Elevated cholesterol HTN (hypertension) PFO (patent foramen ovale) Atrial flutter Tremor, anxiety related On anticoagulant therapy Kidney stones Arthritis GERD (gastroesophageal reflux disease) COPD (chronic obstructive pulmonary disease) Anxiety and depression Dyspnea on exertion CVA (cerebral vascular accident) Atrial fibrillation Surgical History History of total left hip replacement Hx of colonoscopy History of right hip replacement Hx of surgical procedure History of varicose vein ligation and stripping H/O removal of cyst Family History Mother No problems noted. Father No problems noted. Maternal Uncle Colon cancer Social History Household Members: None Housing: House Are you a primary care management associate to a significant other at home: No Do you presently have visiting nurse or other home services: No Alcohol intake: never Comment: patient refused alarm Patient Tobacco Use Status: Never used Tobacco service: No Current occupational status: disabled Review of Systems Const Denies chills, Denies fatigue, Denies fever(s), Denies frequent falls, Denies weakness, Denies weight gain and Denies weight loss ENT Denies dizziness Card Denies chest pain, Denies leg edema, Denies lightheadedness, Denies palpitations, Denies dyspnea and Denies dyspnea on exertion Resp Denies cough, Denies dyspnea and Denies dyspnea on exertion GI Denies hematochezia Musc Denies abnormal gait, Denies muscle weakness, Denies numbness, Denies radiating pain into limb and Denies tingling Neuro Denies abnormal gait, Denies dizziness, Denies frequent falls, Denies numbness, Denies tingling and Denies weakness Endo Denies fatigue and Denies palpitations Physical Exam Vital Signs: Last Vital Signs Pulse 82 03/04/25 09:36 BP 130/86 03/04/25 09:36 BMI result Body Mass Index 32.2 GENERAL APPEARANCE: in no acute distress, pleasant. NECK: no carotid bruit, no jugular venous distention. SKIN: no suspicious lesions, warm and dry. HEART: no murmurs, regular rate and rhythm. LUNGS: Clear to auscultation.. ABDOMEN: soft, nontender. EXTREMITIES: no edema. No tremors. PERIPHERAL PULSES: equal. NEUROLOGIC: No gross deficits, AAO X 3 Office Procedures EKG Details: Normal sinus rhythm 82 beats per minute, normal axis, inferior T-wave inversions, poor R-wave progression, QTC 415 milliseconds. 18079-[id number], Complete Assessment & Plan Assessment & Plan (1) Atrial flutter: Code(s): I48.92 - Unspecified atrial flutter Category: Medical (2) Dyspnea on exertion: Comment: Most likely Functional . MAY BE SEC TO POOR PHYSICAL CONDITIONING , AND ANXIETY . Code(s): R06.00 - Dyspnea, unspecified Category: Medical (3) CVA (cerebral vascular accident): Comment: 05/2019 Code(s): I63.9 - Cerebral infarction, unspecified Category: Medical (4) Dyspnea on exertion: Code(s): R06.00 - Dyspnea, unspecified Category: Medical Plan Pleasant 59 year gentleman here for follow-up. He has history of previous CVA and was found to have a PFO. His workup revealed atrial flutter and was started on Eliquis and PFO was not closed. He has done well since then and has no further CVA/TIA. He has chronic dyspnea. He follows up with pulmonology. Clinically stable and not heart failure. No bleeding concerns with apixaban. We will repeat echocardiography. He will see us back in 6 months. Thank you for allowing me to participate in the care of your patient. Please feel free to contact me if you have any questions. Orders: Orders CA echo transthorac w con Today R06.00 - Dyspnea, unspecified Coding Level of Care Code Est Pt Level 4 (52943) Diagnoses Atrial flutter I48.92 Dyspnea on exertion R06.00 CVA (cerebral vascular accident) I63.9 CPT Codes EKG - CPT: 23762-[id number], Complete ([id number])
[2025-03-04 09:36] VITALS: BP 130/86; PULSE 82; BMI 32.2
== END 2025-03-04 09:55 | disposition home or self-care (01) ==
LOC: HO.HCS 08:57
PROVIDERS: PCP Internal Medicine; Visit Provider Internal Medicine Cardiovascular Disease
DX: I48.92 Unspecified atrial flutter (principal); R06.00 Dyspnea, unspecified; I63.9 Cerebral infarction, unspecified
CPT/HCPCS: 93010; 99214

== ENCOUNTER 2025-03-19 07:23 | Outpatient (REF) | payer MEDICARE, MEDICAID, SELFPAY ==
--- OUTSIDE RECORDS SUMMARY | 2025-03-19 07:26 | XMS_ITS | Clinical Summary ---
Author Organization [employer] [facility] it Address [id number] [place] [id number] Care Team Providers Care Pneumatic Tester Name Role Phone Giovani Choi MD Primary Care Provider [phone] Surgical History Surgery Date Site/Laterality Comments VARICOSE VEIN SURGERY PROCEDURE: NE LIGJ DIVJ &/EXCJ VARICOSE VEIN CLUSTER 1 LEG WISDOM TOOTH EXTRACTION PROCEDURE: HISTORICAL WISDOM TEETH EXTRACTION OTHER SURGICAL HISTORY 03/09/2014 PROCEDURE: NE RESECTION RIBS EXTRAPLEURAL ALL STAGES; COMMENT: Right side; initial work releated injury OTHER SURGICAL HISTORY 03/17/2021 PROCEDURE: NE THYMECTOMY PRTL/TOT RAD MEDSTNL DSJ SPX; COMMENT: [...] Panel) 07/31/2022 Colorectal Cancer Screening: Colonoscopy 07/31/2022 HIV Screening 07/31/2022 Hepatitis C Screening 07/31/2022 Social Influencers of Health Screening 07/31/2022 DTaP,Tdap,and Td Vaccines (2 - Td or Tdap) 10/19/2023 10/19/2013 COVID-19 Vaccine (2 - 2023-2 5 season) 2024 12/23/2020 Depression Screening 08/22/2024 Influenza Vaccine (#1) 2025 HIB Vaccines Aged [...] Documents on File Type Date Recorded Patient Package Car Driver Expl anation Health Care Decision (hx) 03/18/2021 AD HICKEY DIRECTIVE Health Care Decision (hx) 03/18/2021 AD HICKEY DIRECTIVE Health Care Decision (hx) 03/18/2021 AD HICKEY DIRECTIVE Health Care Decision (hx) 03/18/2021 AD HICKEY DIRECTIVE Health Care Decision (hx) 03/18/2021 AD HICKEY DIRECTIVE Care Teams Pneumatic Tester Relationship Specialty Start Date End Date Giovani Choi MD [address] [place] PCP - General 10/13/22
[2025-03-19 08:58] LABS: Anion Gap 11 (12-20)
[2025-03-19 09:06] LABS: Albumin Level 4.4 g/dL (3.5-5.0); Alkaline Phosphatase 80 U/L (39-117); Aspartate Amino Transferase 33 U/L (5-37); Blood Urea Nitrogen 21 mg/dL (9-16); Calcium 8.9 mg/dL (8.4-10.2); Carbon Dioxide 26 mmol/L (22-29); Chloride 112 mmol/L (96-108); Estimated Glomerular Filt Rate > 60; Potassium 4.0 mmol/L (3.3-5.1); Sodium 145 mmol/L (135-145); Total Protein 7.8 g/dL (6.5-8.0)
[2025-03-19 09:56] LABS: Alanine Aminotransferase 34 U/L (0-40)
== END 2025-03-19 07:24 | disposition home or self-care (01) ==
LOC: HO.LAB 07:23
PROVIDERS: Visit Provider Internal Medicine Gastroenterology
DX: I65.1 Occlusion and stenosis of basilar artery (principal); R25.1 Tremor, unspecified; K75.81 Nonalcoholic steatohepatitis (NASH); Z79.01 Long term (current) use of anticoagulants; Z79.82 Long term (current) use of aspirin; Z86.73 Personal history of transient ischemic attack (TIA), and cerebral infarction without residual deficits; Z79.899 Other long term (current) drug therapy
CPT/HCPCS: 36415; 80053; 99212

== ENCOUNTER 2025-03-19 07:44 | Outpatient (AMB) | payer MEDICARE, MEDICAID, SELFPAY ==
--- OUTSIDE RECORDS SUMMARY | 2025-03-19 07:47 | XMS_ITS | Encounter Summary ---
Author Organization [facility] Address [address] [place] [address] Care Team Providers Care Demonstrator Electric [employer]iances Name Role Phone Alonso Maya MD Primary Care Provider [phone] Case Frankel Primary Care Provider Unavail able Giovani Choi Primary Care Provider Unavailab le Reason for Visit * Reason Onset Date Comments PT-1 09/21/2019 Encounter Details Date Type Department Care Team Description 09/21/2019 Telephone Adult Medicine [facility] [address] [place] [address] [id number] Alonso Maya MD [address] [place] [address] [id number] PT-1 Social History Tobacco Use Types Packs/Day Years Used Date Smoking Tobacco: Never Smokeless Tobacco: Never Alcohol Use Standard Drinks/Week Comments No 0 (1 standard drink = 0.6 oz pur e alcohol) Sex Assigned at Date Recorded Not on file documented as of this encounter Miscellaneous Notes * Telephone Encounter - Jose Quinteros M.A. - 09/30/2019 2:44 PM EST [id number] * Telephone Encounter - Jarrett Berkowitz - 09/21/2019 11:15 AM EST [place] Medicaid Group new provider or submitter number is [id number] Verify and document patients [place] Health insurance ID # (NOT [facility] ID): [id number] Payor: WORKERS COMP / Plan: WORK[place]ENS[place] / Product Type: OTHER Patient mailing address: [address] [place] [phone] Telephone Information: Work Phone Not on file. Mobile Not on file. Pt. demographics verified? YES If not accurate, update registration. Is this a NEW request or a RENEWAL? New Name of treating facility: [facility] Name (first & last) of treating provider? required : Alonso Maya What is the medical reason why the patient is seeing the above provider? Follow up Address/Zip code for treating provider: [address] [place] [address] Phone # for treating provider: [phone] Is the provider in the [facility] [employer] network (do they accept [place] Health insurance)? YES What specialtly is this [...] on filedocumented in this encounter Care Teams Demonstrator Electric [employer] Appliances Relationship Specialty Start Date End Date Alonso Maya MD [address] [place] [phone] PCP - General Internal Medicine 03/14/12 10/01/21 Case Frankel [address] [place] [address] PCP - General Internal Medicine 10/02/21 2 Giovani Choi [address] [place] [address] PCP - General Internal Medicine 10/13/22 documented as of this encounter
--- NOTE | 2025-03-19 08:31 | A.OFFVIS_ITS ---
Vital Signs 03/19/25 08:32 Height 6 ft 1 in Intake Visit Reasons: Follow up Allergies diclofenac (From VOLTAREN) Allergy (Severe, Verified 03/19/25 08:39) SEVERE RASH, FACIAL SWELLING, hives Medication List - Last Reconciled 03/19/25 by Frances Whitten CNP acetaminophen ER 1,300 mg PO Q8H apixaban (Eliquis) 5 mg PO BID aspirin 81 mg PO DAILY atorvastatin 80 mg PO BEDTIME baclofen 10 mg PO TID celecoxib 200 mg PO DAILY diazepam 5 mg PO TID PRN lisinopril 10 mg PO DAILY metoprolol tartrate 25 mg PO BID multivitamin 1 tab PO DAILY omeprazole 20 mg PO DAILY prednisone 20 mg PO DAILY 5 days propranolol 20 mg PO BID 90 days quetiapine 400 mg PO BEDTIME PRN sertraline 2 tabs PO DAILY tamsulosin 0.4 mg PO BEDTIME 14 days trazodone 100 mg PO BEDTIME HPI Comments Details: 59 y/o man with h/o alcohol abuse, anxiety disorder, personality disorder, insomnia, bilateral hip arthritis affecting his walking, mid basilar artery stenosis, a thrombus in that part of the artery that was treated with anticoagulation in the past, and associated cerebellar infarct in 2018. He had an episode where he blacked out in 05/2024 (He remembered shaking someone's hand and then coming to sitting in his car. He did not remember going to or getting into his car). He was tapered off primidone due to taking Eliquis. He was not taking metoprolol at this time. He was taking propranolol 20mg twice a day and tremors were stable. Tremors were worse with physical activity and has the day went on, usually after 12pm. He had to hold cup steady with two hands, otherwise no difficulty eating, drinking, or swallowing. Balance was off at times. [facility] Medical History (Updated 03/19/25 @ 08:51 by Frances Whitten CNP) Cerebellar infarction Tremor PTSD (post-traumatic stress disorder) Encephalopathy H/O alcohol abuse Embolic cerebral infarction Borderline personality disorder Depression with anxiety Basilar artery stenosis Cerebral infarction Snoring Asthma Somnolence [place] (obstructive sleep apnea) Obesity (BMI 30-39.9) Elevated cholesterol HTN (hypertension) PFO (patent foramen ovale) Atrial flutter Tremor, anxiety related On anticoagulant therapy Kidney stones Arthritis GERD (gastroesophageal reflux disease) COPD (chronic obstructive pulmonary disease) Anxiety and depression Dyspnea on exertion CVA (cerebral vascular accident) Atrial fibrillation Surgical History History of total left hip replacement Hx of colonoscopy History of right hip replacement Hx of surgical procedure History of varicose vein ligation and stripping H/O removal of cyst Family History Mother No problems noted. Father No problems noted. Maternal Uncle Colon cancer Social History Household Members: None Housing: House Are you a primary child care worker to a significant other at home: No Do you presently have visiting nurse or other home services: No Alcohol intake: never Comment: patient refused alarm Patient Tobacco Use Status: Never used Tobacco service: No Current occupational status: disabled Review of Systems Const Denies chills, Denies daytime sleepiness, Denies difficulty sleeping, Denies fatigue, Denies fever(s), Denies frequent falls, Denies headache(s), Denies increased appetite, Denies poor appetite, Denies snoring, Denies weakness, Denies weight gain and Denies weight loss Eyes Denies loss of vision ENT Denies vertigo, Denies dizziness and Denies headache(s) Card Denies chest pain at rest, Denies chest pain with activity, Denies syncope, Denies leg edema and Denies palpitations Resp Denies snoring GI Denies constipation, Denies heartburn, Denies diarrhea and Denies nausea Denies urinary frequency, Denies urinary incontinence and Denies urinary urgency Musc Reports abnormal gait (balance difficulty), Denies numbness and Denies tingling Skin/Breast Denies dry skin and Denies rash Neuro Reports abnormal gait (balance difficulty), Denies vertigo, Denies dizziness, Denies syncope, Denies frequent falls, Denies headache(s), Denies lack of coordination, Denies loss of vision, Denies memory loss, Denies numbness, Denies restless legs, Denies seizure-like activity, Denies tingling, Denies paresthesias, Reports tremor(s) and Denies weakness Psych Denies anxiety, Denies depression, Denies auditory hallucinations, Denies memory loss, Denies visual hallucinations and Denies suicidal ideation Endo Denies fatigue and Denies palpitations Physical Exam Const Other: General Appearance:? normal, in no acute distress. Skin:? no rashes, no significant birthmarks. Heart:? S1, S2 normal, no murmurs. Lungs:? clear anteriorly and posteriorly. Extremities:? no edema. Psych:? alert, oriented, cognitive function intact, cooperative with exam. Neuro Other: Mental Status:?Normal attention, orientation, memory and affect.? Cranial Nerves:?Pupils are equal, round and reactive to light. External occular muscles are intact. Visual galarza are full. Face is symmetrical. Facial sensations are normal. Tongue is midline. Palate elevates symmetrically. Shoulder shrugging is normal. Hearing to bedside conversation is normal. Motor Examination:?B/L arm and leg hyperreflexia with flexor plantars. Sensory Exam:?....? Coordination:?No ataxia,?no titubation.? Gait Exam: Within normal limits. Cerebellar Signs:?Tbbpfx-hm-cobi and mqli-hd-lshm is normal.? Extrapyramidal System:?No tremor, rigidity with normal facial expressions.? Pronator Drift:?Not present.? Involuntary Movements:?moderate b/l hand postural tremor. Speech:?Speech tremor. Results Reviewed Results Reviewed: MRI brain WO at [facility] in Oct 2022: small b/l cerebellar embolic looking chronic infarcts, no obvious vascular lesion CT and CTA brain and neck at [facility] in 2018: small right cerebellar infarct, mid basilar artery stenosis CTA brain at [facility] in Aug 2019: resolution of thrombus in basilar, not stenosis CT head at [facility] in Jul 2024: Mild cerebellar atrophy EEG at office in Jul 2024: WNL Assessment & Plan Assessment & Plan (1) Tremor: Code(s): R25.1 - Tremor, unspecified Category: Medical Plan: He was advised he should not take both metoprolol and propranolol as these are similar medications. He was not taking metoprolol at this time. Continue propranolol 20mg twice a day. (2) Basilar artery stenosis: Code(s): I65.1 - Occlusion and stenosis of basilar artery Category: Medical Plan: Continue Eliquis and statin. (3) History of stroke: Code(s): Z86.73 - Personal history of transient ischemic attack (TIA), and cerebral infarction without residual deficits Category: Medical Plan . Coding Level of Care Code Est Pt Level 4 (49558) Diagnoses Tremor R25.1 Basilar artery stenosis I65.1 History of stroke Z86.73
== END 2025-03-19 08:54 | disposition home or self-care (01) ==
LOC: HO.HSM 07:45
PROVIDERS: Visit Provider Registered Nurse
DX: R25.1 Tremor, unspecified (principal); I65.1 Occlusion and stenosis of basilar artery; Z86.73 Personal history of transient ischemic attack (TIA), and cerebral infarction without residual deficits
CPT/HCPCS: 99214

== ENCOUNTER → 2025-04-17 10:15 | Outpatient (REF) | payer MEDICARE, MEDICAID, SELFPAY ==
--- NOTE | 2025-04-17 10:18 | CA_ITS ---
Transthoracic Echocardiogram Patient (Last, First, Middle): Edward Shaw E Gender: Male Date of : 1965 Age: 60 Procedure Date: 04/17/2025 Procedure Type: Transthoracic Echocardiogram Location: OP Height: 182.88 cm Weight: 111.13 kg BSA: 2.32 m2 Heart Rate: bpm BP: 128 / 70 mmHg Bingo Usher: CRISTOBAL/ARMEN Referring MD: Anders German MD Symptoms: R06.00 - Dyspnea, unspecified Study Quality: Fair, contrast ECG Rhythm: Sinus Conclusions: - The left ventricular systolic function is normal. The calculated ejection fraction is 64% by biplane method. - No obvious valvular pathology seen on this study. Findings Procedure Information Contrast agent, definity, is being given per protocol without apparent complications. Left Ventricle Normal left ventricular cavity size. There is normal left ventricular wall thickness. The left ventricular systolic function is normal. The calculated ejection fraction is 64% by biplane method. There is no evidence of regional wall motion abnormalities. Diastolic function is normal for age. Right Ventricle Normal right ventricular cavity size and systolic function. Atria Both atria are normal in size. Aortic Valve There is a normal trileaflet aortic valve. There is no aortic valve stenosis. There is no aortic valve regurgitation. Mitral Valve The mitral valve appears normal. There is no mitral valve regurgitation. There is no mitral valve stenosis. Pulmonic Valve The pulmonic valve is likely normal. Tricuspid Valve There is trace tricuspid valve regurgitation. There is no evidence of pulmonary hypertension. Great Vessels The asc aorta is normal in size. Venous The inferior vena cava is normal in size and collapses greater than 50% with inspiration. Pericardium/Pleural Prominent epicardial adipose tissue noted. There is no evidence of pericardial effusion. Prior Study Comparison No significant change compared to prior study dated: 11/27/2021. Recommendations, Care & Conclusions No obvious valvular pathology seen on this study. Measurements 2D Linear Measurements IVSd: 1.01 0.6-0.9/0.6-1.0 cm LVIDd: 3.75 3.9-5.3/4.2-5.9 cm LVIDd Index: 1.62 2.4-3.2/2.2-3.1 cm/m2 LVIDs: 2.74 2.0-3.6 cm LVPWd: 1.05 0.7-1.1 cm LA Diam: 3.20 2.7-3.8/3.0-4.0 cm LAIDs Index: 1.38 1.5-2.3 cm/m2 LV Mass: 149.12 67-162/88-224 g LV Mass Index: 64.28 43-95/49-115 g/m2 LVOT Diam: 2.30 3.0+(-)1.3 cm 2D Systolic Function EF 4C: 65.70 >55% EF 2C: 63.40 >55% EF BiP: 63.80 >55% Mitral Valve MV Pk E: 0.58 MV PK A: 0.64 MV Decel Time: 275.00 E/A: 0.90 E'Lateral: 11.00 E'Medial: 6.42 E/E' Med: 9.10 E/E' Lat: 5.30 PHT: 81.00 MVA PHT: 2.72 Decel [place]: 2.12 Aortic Valve AoV Pk Juan Manuel: 1.26 AoV Mn Juan Manuel: 0.86 AoV VTI: 0.24 AoV Pk Grad: 6.00 Aov Mn Grad: 3.00 GALLO Cont.VTI: 3.33 LVOT LVOT Pk Juan Manuel: 1.06 LVOT Mn Juan Manuel: 0.69 LVOT VTI: 0.19 LVOT Pk Grad: 4.00 LVOT Mn Grad: 2.00 LVOT Diam: 2.30 LVOT Area: 4.15 Diastolic Function MV Pk E: 0.58 MV Pk A: 0.64 E/A: 0.90 E'Medial: 6.42 E/E' Med: 9.10 E' Laterial: 11.00 E/E' Lat: 5.30 Right Ventricle TAPSE (mm): 18.80 TVS' Juan Manuel: 10.70 Tricuspid Valve TR Pk Juan Manuel: 2.29 TR Pk Grad: 21.00 RA Press: 3.00 RVSP: 24.00 Great Vessels Aorta Sinus of Valsalva: 3.40 2.0-3.5 cm Ao Asc: 3.50 2.1-3.4 cm Ao Arch: 3.10 Pulmonary Valve PV Pk Juan Manuel: 0.59 Peak PV Grad: 1.00 Updated in Other Vendor System with Status of Final Jean Garcia MD electronically signed on 04/19/2025 3:51:00 PM with status of Final
--- OUTSIDE RECORDS SUMMARY | 2025-04-17 11:04 | XMS_ITS | Clinical Summary ---
Author Organization [facility] Address [address] [place] [address] Care Team Providers Care Kitchen Help Handyman Name Role Phone Alonso Maya MD Primary [...] Health Maintenance Insurance MEDICAID OUT OF STATE [facility] [place] [id number] Advance Directives * Full Code (Latest Code Status on File) Date Activated Date Inactivated Comments 06/02/2019 12:38 PM Care Teams Kitchen Help Handyman Relationship Specialty Start Date End Date Alonso Maya MD PCP - General 06/02/19
--- OUTSIDE RECORDS SUMMARY | 2025-04-17 11:04 | XMS_ITS | Clinical Summary ---
Author Organization Em [employer] [facility] it Address [id number] [place] [id number] Care Team Providers Care Compliance Analyst Name Role Phone Giovani Choi MD Primary Care Provider [phone] Surgical History Surgery Date Site/Laterality Comments VARICOSE VEIN SURGERY PROCEDURE: PA LIGJ DIVJ &/EXCJ VARICOSE VEIN CLUSTER 1 LEG WISDOM TOOTH EXTRACTION PROCEDURE: HISTORICAL WISDOM TEETH EXTRACTION OTHER SURGICAL HISTORY 03/09/2014 PROCEDURE: [place] RESECTION RIBS EXTRAPLEURAL ALL STAGES; COMMENT: Right side; initial work releated injury OTHER SURGICAL HISTORY 03/17/2021 PROCEDURE: [place] THYMECTOMY PRTL/TOT RAD MEDSTNL DSJ SPX; COMMENT: [...] Depression Screening 08/22/2024 Influenza Vaccine (#1) 2025 RSV Immunization Adult Patie nts (1 - 1-dose 75+ series) 2041 HIB Vaccines Aged Out No longer eligi [...] Documents on File Type Date Recorded Patient 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
== END ==
LOC: HO.CARD 10:15
PROVIDERS: Visit Provider Internal Medicine Cardiovascular Disease
DX: R06.00 Dyspnea, unspecified (principal)
CPT/HCPCS: 93306; Q9957

== ENCOUNTER → 2025-04-17 10:18 | Outpatient (BNV) | payer MEDICARE, MEDICAID, SELFPAY | PROVIDERS: Visit Provider Internal Medicine | DX: R06.00 Dyspnea, unspecified (principal) | CPT/HCPCS: 93306 ==

== ENCOUNTER 2025-04-25 14:20 | Outpatient (AMB) | payer MEDICARE, MEDICAID, SELFPAY ==
--- NOTE | 2025-04-25 14:37 | MHC.OFFVIS ---
Vital Signs 04/25/25 14:38 Height 6 ft 1 in Weight 243 lb 9.773 oz BMI 32.1 BP 110/70 Blood Pressure Location Lt brachial Position Sitting Pulse 72 Pulse Source Pulse Oximeter Pulse Oximetry (%) 95 Oxygen Delivery Method Room Air Intake Visit Reasons: wheezing Intake Note: pt is here for follow up and states he still does have some short of breath with stairs, carrying things, food shopping and showers are difficult. House Moving Supervisor Required: No Allergies diclofenac (From [employer]) Allergy (Severe, Verified 04/25/25 14:59) SEVERE RASH, FACIAL SWELLING, hives Medication List - Last Reconciled 04/25/25 by Dipesh Sanchez MD acetaminophen ER 1,300 mg PO Q8H apixaban (Eliquis) 5 mg PO BID aspirin 81 mg PO DAILY atorvastatin 80 mg PO BEDTIME baclofen 10 mg PO TID celecoxib 200 mg PO DAILY diazepam 5 mg PO TID PRN lisinopril 10 mg PO DAILY metoprolol tartrate 25 mg PO BID multivitamin 1 tab PO DAILY omeprazole 20 mg PO DAILY propranolol 20 mg PO BID 90 days quetiapine 400 mg PO BEDTIME PRN sertraline 2 tabs PO DAILY tamsulosin 0.4 mg PO BEDTIME 14 days trazodone 100 mg PO BEDTIME PRN Do you need a note to return to daycare/school/sports/work: No HPI HPI wheezing: Details: This 60 years old gentleman is here for 6 months follow-up . His main complaint is getting short of breath on exertion like climbing stairs or walking up hill. It is mainly because of his obesity and restrictive lung disease. He has lost about 7 lb in the last 6 months and claims that he definitely feels better. He is not as short of breath has he used to be. He has very little. cough or wheezing He does have mild nasal congestion and postnasal drip off and on due to allergic rhinitis. But does not need any medication for this issue. He say is he sleeps good he always sleeps on his sides . His home-based sleep study did not show any sign of sleep apnea but he has excessive snoring ., which is not as bothersome as it was before. [facility] Medical History Cerebellar infarction Tremor PTSD (post-traumatic stress disorder) Encephalopathy H/O alcohol abuse Embolic cerebral infarction Borderline personality disorder Depression with anxiety Basilar artery stenosis Cerebral infarction Snoring Asthma Somnolence [place] (obstructive sleep apnea) Obesity (BMI 30-39.9) Elevated cholesterol HTN (hypertension) PFO (patent foramen ovale) Atrial flutter Tremor, anxiety related On anticoagulant therapy Kidney stones Arthritis GERD (gastroesophageal reflux disease) COPD (chronic obstructive pulmonary disease) Anxiety and depression Dyspnea on exertion CVA (cerebral vascular accident) Atrial fibrillation Surgical History History of total left hip replacement Hx of colonoscopy History of right hip replacement Hx of surgical procedure History of varicose vein ligation and stripping H/O removal of cyst Family History Mother No problems noted. Father No problems noted. Maternal Uncle Colon cancer Social History Household Members: None Housing: House Are you a primary primary health care nurse to a significant other at home: No Do you presently have visiting nurse or other home services: No Alcohol intake: never Comment: patient refused alarm Patient Tobacco Use Status: Never used Tobacco service: No Current occupational status: disabled Review of Systems Const Details: Appears anxious , talks fast . All systems reviewed & are unremarkable except as noted in HPI and below Eyes Reports no additional complaints ENT Reports no additional complaints Card Denies chest pain, Reports irregular heart rhythm and Denies leg edema Resp Reports as per HPI GI Reports no additional complaints Reports no additional complaints Musc Reports arthralgias (hips) Skin/Breast Reports system reviewed and no additional complaints, except as documented Neuro Reports lack of coordination and Reports tremor(s) (hands) Psych Reports anxiety Endo Reports no additional complaints Physical Exam Vital Signs: Last Vital Signs Pulse 72 04/25/25 14:38 BP 110/70 04/25/25 14:38 Pulse Ox 95 04/25/25 14:38 Oxygen Delivery Method Room Air 04/25/25 14:38 BMI result Body Mass Index 32.1 Const General: comfortable (Somewhat anxious.), no acute distress, alert and awake Orientation/consciousness: patient oriented x3 HEENT Head: Yes normal to inspection General nose exam: No nasal polyps present and No nasal discharge present Face and sinus: Yes sinuses nontender Mouth: oropharynx abnormals (OROPHARYNX IS SOMEWHAT CROWDED, MALLAMPATI CLASS 4) Throat: Yes posterior oropharynx normal Eyes General: appearance normal, both eyes and all related structures Neck Neck: Yes normal visual inspection, Yes no lymphadenopathy, Yes trachea midline, Yes no JVD and Yes other (NECK CIRCUMFERENCE 17 IN) Thyroid: Thyroid normal Chest Chest palpation & inspection: normal inspection of the chest, normal palpation of entire chest wall and no tenderness Resp Other: PERCUSSION NOTE IS RESONANT, BREATH SOUNDS ARE EQUAL ON BOTH SIDES NO WHEEZES OR RHONCHI ARE HEARD Effort & Inspection: normal respiratory effort Auscultation: clear to auscultation bilaterally, no crackles, no rhonchi and no wheezes Percussion: percussion normal Cardio Palpation: normal PMI Rate: regular rate Rhythm: regular rhythm Heart sounds: no gallops and no murmurs Peripheral pulses: Peripheral pulses 2+ throughout GI Palpation (GI): Soft to palpation, nontender, No hepatosplenomegaly present and no masses Auscultation: normal bowel sounds Back/Spine/Pelvis Thoracic/Lumbar Spine: thoracic and lumbar spine normal to inspection Skin General skin exam: no rashes or lesions noted Neuro General: patient oriented x3 and no focal motor deficits Cranial nerves: Yes CN's II-XII intact bilaterally Extrem General: Yes normal to inspection, Yes no clubbing, cyanosis or edema and Yes no calf tenderness Psych Appearance: grossly normal and well kempt Speech and movement: Normal speech and movement present Affect: Anxious affect present Assessment & Plan Assessment & Plan (1) Asthma: Comment: HE DOES HAVE MILD INTERMITTENT BRONCHIAL ASTHMA LIKE SYMPTOMS., NO REAL WHEEZING ATTACKS CANNOT USE ALBUTEROL BECAUSE IT INCREASES THE TREMORS AND CAUSES ANXIETY. HE ALSO COULD NOT USE LEVALBUTEROL. MOSTLY THE SYMPTOMS ARE PRODUCED BY EXERCISE LIKE GOING UPSTAIRS OR WALKING UP HILL Code(s): J45.909 - Unspecified asthma, uncomplicated Category: Medical Plan: Advised to slow down if he starts having any shortness of breath or wheezing (2) Dyspnea on exertion: Comment: Most likely Functional . MAY BE SEC TO POOR PHYSICAL CONDITIONING ,OBESITY AND ANXIETY . Code(s): R06.00 - Dyspnea, unspecified Category: Medical Plan: ADVISED TO CONTINUE LOSING SOME WEIGHT. DO DEEP BREATHING EXERCISES 2 OR 3 TIMES A DAY. (3) Obesity (BMI 30-39.9): Comment: Patient is moderately obese, his obesity is more abdominal and truncal. This does place him at a high risk of obstructive sleep apnea. Currently not able to do much exercise but he has started walking daily . Code(s): E66.9 - Obesity, unspecified Category: Medical Plan: CONTINUE WALKING DAILY, REDUCE THE INTAKE OF CARBOHYDRATES. AIM TO LOSE 1 OR 2 LB EVERY MONTH (4) Snoring: Comment: PER SLEEP STUDY HE DID SHOW EXCESSIVE AMOUNT OF SNORING BUT NO SLEEP APNEA. HE DID HAVE A MILD NOCTURNAL HYPOXEMIA, NOT SIGNIFICANT . Code(s): R06.83 - Snoring Category: Medical Plan: AGAIN THE MAIN TREATMENT IS TO LOSE WEIGHT, AND ALSO ENFORCED THAT HE SHOULD NEVER SLEEP IN SUPINE POSITION. Coding Level of Care Code Est Pt Level 3 (21702) Diagnoses Asthma J45.909 Dyspnea on exertion R06.00 Obesity (BMI 30-39.9) E66.9 Snoring R06.83
[2025-04-25 14:38] VITALS: BP 110/70; PULSE 72; O2SAT 95; BMI 32.1
--- OUTSIDE RECORDS SUMMARY | 2025-04-25 15:41 | XMS_ITS | Clinical Summary ---
Author Organization [facility] Address [address] [place] [address] Care Team Providers Care Sausage Cutter Name Role Phone Alonso Maya MD Primary Care Provider [phone] Allergies Active Allergy Reactions Criticality Noted Date [...] Health Maintenance Insurance MEDICAID OUT OF STATE [facility] [place] [address] Advance Directives * Full Code (Latest Code Status on File) Date Activated Date Inactivated Comments 06/02/2019 12:38 PM Care Teams Sausage Cutter Relationship Specialty Start Date End Date Alonso Maya MD PCP - General 06/02/19
--- OUTSIDE RECORDS SUMMARY | 2025-04-25 15:41 | XMS_ITS | Clinical Summary ---
Author Organization [employer] [facility] it Address [id number] [place] [id number] Care Team Providers Care Production Truck Driver Name Role Phone Giovani Choi MD Primary Care Provider [phone] Surgical History Surgery Date Site/Laterality Comments VARICOSE VEIN SURGERY PROCEDURE: [place] LIGJ DIVJ &/EXCJ VARICOSE VEIN CLUSTER 1 LEG WISDOM TOOTH EXTRACTION PROCEDURE: HISTORICAL WISDOM TEETH EXTRACTION OTHER SURGICAL HISTORY 03/09/2014 PROCEDURE: [place] RESECTION RIBS EXTRAPLEURAL ALL STAGES; COMMENT: Right side; initial work releated injury OTHER SURGICAL HISTORY 03/17/2021 PROCEDURE: [place] THYMECTOMY PRTL/TOT RAD MEDSTNL DSJ SPX; COMMENT: [...] Documents on File Type Date Recorded Patient [place] Expl anation Health Care Decision (hx) 03/18/2021 AD HICKEY DIRECTIVE Health Care Decision (hx) 03/18/2021 AD HICKEY DIRECTIVE Health Care Decision (hx) 03/18/2021 AD HICKEY DIRECTIVE Health Care Decision (hx) 03/18/2021 AD HICKEY DIRECTIVE Health Care Decision (hx) 03/18/2021 AD HICKEY DIRECTIVE Care Teams Production Truck Driver Relationship Specialty Start Date End Date Giovani Choi MD [address] [place] [facility] [place] PCP - General 10/13/22
== END 2025-04-25 15:01 | disposition home or self-care (01) ==
LOC: HO.HPS 14:21
PROVIDERS: Visit Provider Internal Medicine
DX: J45.909 Unspecified asthma, uncomplicated (principal); R06.00 Dyspnea, unspecified; E66.9 Obesity, unspecified; R06.83 Snoring
CPT/HCPCS: 99213

== ENCOUNTER → 2025-04-25 14:20 | Outpatient (BNVA) | payer MEDICARE, MEDICAID, SELFPAY | PROVIDERS: Visit Provider Internal Medicine | DX: J45.909 Unspecified asthma, uncomplicated (principal); R06.00 Dyspnea, unspecified; E66.9 Obesity, unspecified; R06.83 Snoring; Z68.32 Body mass index [BMI] 32.0-32.9, adult | CPT/HCPCS: 99212 ==

== ENCOUNTER 2025-05-29 15:08 | Outpatient (AMB) | payer MEDICARE, MEDICAID, SELFPAY ==
[2025-05-29 15:11] VITALS: BP 130/80; PULSE 80; RESP 18; TEMP 36.2; O2SAT 95; BMI 31.6
--- NOTE | 2025-05-29 15:11 | A.OFFPC_ITS ---
Vital Signs 05/29/25 15:11 Height 6 ft 1 in Weight 239 lb 8 oz BMI 31.6 BP 130/80 Blood Pressure Location Lt brachial Position Sitting Respiration 18 Pulse 80 Pulse Source Pulse Oximeter Temp 97.1 F Temp Source Temporal Artery Scan Pulse Oximetry (%) 95 Oxygen Delivery Method Room Air Intake Visit Reasons: Reschedule est care/ bp Television Tube Inspector Required: No Accompanied by: Self / Same As Patient Allergies diclofenac (From [facility]) Allergy (Severe, Verified 05/29/25 16:10) SEVERE RASH, FACIAL SWELLING, hives Medication List - Last Reconciled 05/29/25 by JOVANY Ruggiero acetaminophen ER 1,300 mg PO Q8H apixaban (Eliquis) 5 mg PO BID aspirin 81 mg PO DAILY atorvastatin 80 mg PO BEDTIME baclofen 10 mg PO TID celecoxib 200 mg PO DAILY diazepam 5 mg PO TID PRN lisinopril 10 mg PO DAILY metoprolol tartrate 25 mg PO BID multivitamin 1 tab PO DAILY omeprazole 20 mg PO DAILY propranolol 20 mg PO BID 90 days quetiapine 400 mg PO BEDTIME PRN sertraline 2 tabs PO DAILY sodium,potassium,mag sulfates 17.5-3.13-1.6 gram (Suprep Bowel Prep Kit) DILUTE each bottle with 16oz of water; drink first bottle 4pm evening before procedure AND second bottle at 10pm; follow each bottle with at least 32 oz.of water within 1 hour after each bottle tamsulosin 0.4 mg PO BEDTIME 14 days trazodone 100 mg PO BEDTIME PRN Tobacco use date assessed: 05/29/25 Dental Screening Dental Screen Date: 05/29/25 Did you have a dental visit in the last 12 months?: No Did you have a dental problem in the last 6 months where you did not have access to dental care?: No Was dental information given to patient?: No HPI Reschedule est care/ bp HPI Details The patient is presenting to establish care. Previous PCP: Dr. 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 He was supposed to have hip replaced 06/05/2019. Reports that he was just checked for CAMDEN and he was told that he does not need cpap machine. Colonoscopy: will be completed in July Medications: Family HX: Problem: The patient is a 60-year-old male presenting for a follow-up visit after missing two appointments due to a stroke and associated tremors. The patient experienced a stroke on June 02, 2019, which was followed by another stroke shortly thereafter. He was scheduled for hip replacement surgery at the time, which was postponed due to the stroke. The stroke led to the discovery of atrial fibrillation, which was previously undiagnosed. Post-stroke, the patient developed tremors, primarily affecting the upper body, which have been attributed to anxiety by his healthcare providers. He is currently on medication for tremors, but they persist, impacting his daily activities. The patient has a history of hip replacement surgery and blood clots, which required surgical intervention to prevent complications. He also suffered a rib fracture that went undiagnosed for a year, nearly puncturing his lung. The patient reports shortness of breath and fatigue, which he attributes to his breathing issues and overall lack of energy. He denies any chest pain or headaches but experiences variable bowel habits. He is scheduled for a colonoscopy in July and has been managing his fatty liver through diet and cholesterol medication. right side of chest is tender naturally from post procedure. [facility] Medical History Cerebellar infarction Tremor PTSD (post-traumatic stress disorder) Encephalopathy H/O alcohol abuse Embolic cerebral infarction Borderline personality disorder Depression with anxiety Basilar artery stenosis Cerebral infarction Snoring Asthma Somnolence CAMDEN (obstructive sleep apnea) Obesity (BMI 30-39.9) Elevated cholesterol HTN (hypertension) PFO (patent foramen ovale) Atrial flutter Tremor, anxiety related On anticoagulant therapy Kidney stones Arthritis GERD (gastroesophageal reflux disease) COPD (chronic obstructive pulmonary disease) Anxiety and depression Dyspnea on exertion CVA (cerebral vascular accident) Atrial fibrillation Surgical History History of total left hip replacement Hx of colonoscopy History of right hip replacement Hx of surgical procedure History of varicose vein ligation and stripping H/O removal of cyst Family History Mother No problems noted. Father No problems noted. Maternal Uncle Colon cancer Social History Household Members: None Housing: House Are you a primary director medicare sales to a significant other at home: No Do you presently have visiting nurse or other home services: No Alcohol intake: never Comment: patient refused alarm Patient Tobacco Use Status: Never used Tobacco e-Cigarette/Vaping Use: Never Used service: No Current occupational status: disabled Cognitive needs: No Hearing needs: No Vision needs: Yes Questionnaire Thrive Questionnaire Date Thrive assessed: 02/01/25 I am a: Patient What is your living situation today?: I have a steady place to live Within the past 12 months, did the food you bought not last and you didn't have the money to get more?: I choose not to answer this question Within the past 12 months, did you worry whether your food would run out before you got money to buy more?: I choose not to answer this question Do you have trouble paying for medicines?: No Do you have trouble getting transportation to medical appointments?: No Do you have trouble paying your heating and electricity bill?: Yes Do you have trouble taking care of your child, family member or friend?: No Do you have trouble with day-to-day activities such as bathing, preparing meals, shopping, managing finances, etc.?: Yes Are you currently unemployed and looking for a job?: I choose not to answer this question Are you interested in more education?: No Please select the resources that you would like help with: Utilities Currently or been in a relationship where the following occur: I choose not to answer THRIVE Score: 1 AUDIT C Alcohol Use Questionnaire (AUDIT-C) 1. How often do you have a drink containing alcohol?: Never Total Score: 0 SARA-7 AMB Questionnaire SARA-7 Date SARA - 7 assessed: 05/29/25 Source: Developed by Drs. Case Luis, Pau cMcauley, Neil Austin and colleagues, with an educational pankaj from [employer]. Review of Systems Const Denies headache(s) Eyes Denies loss of vision ENT Denies vertigo, Denies dizziness, Denies headache(s) and Denies sore throat Card Denies chest pain, Denies leg edema, Denies lightheadedness and Reports dyspnea (Chronic) Resp Denies cough, Denies hemoptysis, Reports dyspnea (Chronic) and Denies wheezing GI Denies abdominal pain, Denies melena, Denies constipation, Denies diarrhea and Denies vomiting Denies dysuria, Denies urinary frequency and Denies urinary urgency Musc Denies arthralgias, Denies joint swelling, Denies numbness and Denies tingling Neuro Denies Abnormal speech present, Denies behavioral changes, Denies vertigo, Denies dizziness, Denies headache(s), Denies loss of vision, Denies memory loss, Denies numbness, Denies tingling and Reports tremor(s) (Upper body and arms) Psych Reports anxiety, Denies behavioral changes, Denies depression, Denies memory loss and Denies panic attacks Akin/Lymph Denies easy bleeding and Denies easy bruising Aller/Immun Denies wheezing Physical exam (Primary Care) Vital Signs: Last Vital Signs Temp 97.1 F 05/29/25 15:11 Pulse 80 05/29/25 15:11 Resp 18 05/29/25 15:11 BP 130/80 05/29/25 15:11 Pulse Ox 95 05/29/25 15:11 Oxygen Delivery Method Room Air 05/29/25 15:11 BMI result Body Mass Index 31.6 Tobacco/Smoking Status: Tobacco use Status Tobacco use date assessed 05/29/25 05/29/25 15:12 Patient Tobacco Use Status Never used Tobacco 05/29/25 15:12 e-Cigarette/Vaping Use Never Used 05/29/25 15:54 Thrive Assessment: Date of Thrive Assessment Date Thrive assessed 02/01/25 05/29/25 15:12 Currently or been in a relationship where the following occur: I choose not to answer Const General: healthy appearing, no acute distress, alert and awake Nutritional Appearance: well nourished Orientation/consciousness: oriented to person, oriented to place and oriented to time HENMT Ears: TM's normal bilaterally General nose exam: Normal nasal mucous membranes and turbinates present Eyes Conjunctivae: conjunctivae normal Sclerae: sclerae normal Pupils: Equal, round and reactive pupils present Neck Neck: Yes no lymphadenopathy and Yes no JVD Thyroid: Thyroid normal Carotids: no bruits Resp Effort & Inspection: normal respiratory effort and not tachypneic Auscultation: no crackles, no rales, no rhonchi and no wheezes Cardio Rate: regular rate Rhythm: regular rhythm Heart sounds: no murmurs and normal S1 and S2 GI Palpation (GI): Soft to palpation, nontender, no hepatomegaly and no splenomegaly Auscultation: normal bowel sounds General: Yes no CVA tenderness Back/Spine/Pelvis Back: no CVA tenderness Skin General skin exam: no rashes or lesions noted and dry skin Neuro General: oriented to person, oriented to place and oriented to time Cranial nerves: Yes Equal, round and reactive pupils present Speech: No Abnormal speech present Gait exam (Neuro): Normal gait present Motor exam (neuro): Tremors during motor activity present (upper body and bilateral arms) Extrem Right upper extremity: full ROM Left upper extremity: full ROM Right lower extremity: full ROM; no edema Left lower extremity: full ROM; no edema Psych Mental Status: mental status grossly normal Speech and movement: Normal speech and movement present Affect: normal affect Attitude: cooperative Thought process: Normal thought process present Coding Level of Care Code New Pt Level 4 (80701) Diagnoses Anxiety and depression F41.9; F32.A Tremor, anxiety related R25.1; F41.9 Atrial fibrillation, unspecified type I48.91 Atrial fibrillation type: unspecified Dyspnea on exertion R06.00 Cerebrovascular accident (CVA), unspecified mechanism I63.9 CVA mechanism: unspecified Time Spent (min) 38 Assessment & Plan Assessment & Plan (1) Anxiety and depression: Comment: Patient does have H/O chronic Anxiety , and Depression , being treated with meds , and is stable . But I think it flares up every now and then. Some of his wheezing is related to anxiety. Code(s): F41.9 - Anxiety disorder, unspecified; F32.A - Depression, unspecified Category: Medical Plan: The patient experiences significant anxiety, which is being managed with therapy and medication. Follow up with therapist and psychiatrist as scheduled. (2) Tremor, anxiety related: Comment: Both arms Code(s): R25.1 - Tremor, unspecified; F41.9 - Anxiety disorder, unspecified Category: Medical Plan: The patient developed tremors post-stroke, which are being managed with medication. The tremors are believed to be exacerbated by anxiety, and the patient is under the care of a therapist. (3) Atrial fibrillation: Code(s): I48.91 - Unspecified atrial fibrillation Category: Medical Qualifiers: Atrial fibrillation type: unspecified Qualified Code(s): I48.91 - Unspecified atrial fibrillation Plan: The patient experienced a stroke in May 2019, which led to the discovery of atrial fibrillation. He is currently on blood thinners to manage this condition and prevent further strokes. Continue apixaban 5 bid and atorvastatin 80mg at bedtime. Follow up with cardiology as scheduled (4) Dyspnea on exertion: Comment: Most likely Functional . MAY BE SEC TO POOR PHYSICAL CONDITIONING ,OBESITY AND ANXIETY . Code(s): R06.00 - Dyspnea, unspecified Category: Medical Plan: Encouraged to increase his activity gradually. Take rest periods as needed. Follow up with pulmonolgy as scheduled (5) CVA (cerebral vascular accident): Comment: 05/2019 Code(s): I63.9 - Cerebral infarction, unspecified Category: Medical Qualifiers: CVA mechanism: unspecified Qualified Code(s): I63.9 - Cerebral infarction, unspecified Plan: The patient experienced a stroke in May 2019, which led to the discovery of atrial fibrillation. He is currently on blood thinners to manage this condition and prevent further strokes. Orders: Orders Complete Blood Count Auto Diff 05/29/25 E66.9 - Obesity, unspecified, F32.A - Depression, unspecified, F41.9 - Anxiety disorder, unspecified, G47.33 - Obstructive sleep apnea (adult) (pediatric), I48.91 - Unspecified atrial fibrillation, M16.12 - Unilateral primary osteoarthritis, left hip, R06.00 - Dyspnea, unspecified, R25.1 - Tremor, unspecified, R79.89 - Other specified abnormal findings of blood chemistry, Z96.641 - Presence of right artificial hip joint Comprehensive [place]. Panel Fast 05/29/25 E66.9 - Obesity, unspecified, F32.A - Depression, unspecified, F41.9 - Anxiety disorder, unspecified, G47.33 - Obstructive sleep apnea (adult) (pediatric), I48.91 - Unspecified atrial fibrillation, M16.12 - Unilateral primary osteoarthritis, left hip, R06.00 - Dyspnea, unspecified, R25.1 - Tremor, unspecified, R79.89 - Other specified abnormal findings of blood chemistry, Z96.641 - Presence of right artificial hip joint Vitamin D 25-OH Total 05/29/25 E66.9 - Obesity, unspecified, F32.A - Depression, unspecified, F41.9 - Anxiety disorder, unspecified, G47.33 - Obstructive sleep apnea (adult) (pediatric), I48.91 - Unspecified atrial fi brillation, M16.12 - Unilateral primary osteoarthritis, left hip, R06.00 - Dyspnea, unspecified, R25.1 - Tremor, unspecified, R79.89 - Other specified abnormal findings of blood chemistry, Z96.641 - Presence of right artificial hip joint Lipid Panel 05/29/25 E66.9 - Obesity, unspecified, F32.A - Depression, unspecified, F41.9 - Anxiety disorder, unspecified, G47.33 - Obstructive sleep apnea (adult) (pediatric), I48.91 - Unspecified atrial fibrillation, M16.12 - Unilateral primary osteoarthritis, left hip, R06.00 - Dyspnea, unspecified, R25.1 - Tremor, unspecified, R79.89 - Other specified abnormal findings of blood chemistry, Z96.641 - Presence of right artificial hip joint UA CC w/rflx Micro + Cult 05/29/25 E66.9 - Obesity, unspecified, F32.A - Depression, unspecified, F41.9 - Anxiety disorder, unspecified, G47.33 - Obstructive sleep apnea (adult) (pediatric), I48.91 - Unspecified atrial fibrillation, M16.12 - Unilateral primary osteoarthritis, left hip, R06.00 - Dyspnea, unspecified, R25.1 - Tremor, unspecified, R79.89 - Other specified abnormal findings of blood chemistry, Z96.641 - Presence of right artificial hip joint TSH reflex Free T4 05/29/25 E66.9 - Obesity, unspecified, F32.A - Depression, unspecified, F41.9 - Anxiety disorder, unspecified, G47.33 - Obstructive sleep apnea (adult) (pediatric), I48.91 - Unspecified atrial fibrillation, M16.12 - Unilateral primary osteoarthritis, left hip, R06.00 - Dyspnea, unspecified, R25.1 - Tremor, unspecified, R79.89 - Other specified abnormal findings of blood chemistry, Z96.641 - Presence of right artificial hip joint
== END 2025-05-29 16:48 | disposition home or self-care (01) ==
LOC: HO.HMCH 15:09
DX: F41.9 Anxiety disorder, unspecified (principal); F32.A Depression, unspecified; R25.1 Tremor, unspecified; I48.91 Unspecified atrial fibrillation; R06.00 Dyspnea, unspecified; I63.9 Cerebral infarction, unspecified

== ENCOUNTER → 2025-05-29 15:08 | Outpatient (BNVA) | payer MEDICARE, MEDICAID, SELFPAY | DX: R06.02 Shortness of breath (principal); E66.9 Obesity, unspecified; I48.91 Unspecified atrial fibrillation; R25.1 Tremor, unspecified; R53.83 Other fatigue; F41.9 Anxiety disorder, unspecified; F32.A Depression, unspecified; R06.00 Dyspnea, unspecified; G47.33 Obstructive sleep apnea (adult) (pediatric); M16.12 Unilateral primary osteoarthritis, left hip; R79.89 Other specified abnormal findings of blood chemistry; Z96.641 Presence of right artificial hip joint; Z86.73 Personal history of transient ischemic attack (TIA), and cerebral infarction without residual deficits; Z68.31 Body mass index [BMI] 31.0-31.9, adult | CPT/HCPCS: 96127; 99202 ==

== ENCOUNTER 2025-06-12 07:47 | Outpatient (REF) | payer MEDICARE, MEDICAID, SELFPAY ==
--- OUTSIDE RECORDS SUMMARY | 2025-06-12 07:51 | XMS_ITS | Clinical Summary ---
Author Organization [facility] it Address [address] [place] [phone] Care Team Providers Care Siebel Administrator Name Role Phone Giovani Choi MD Primary Care Provider [phone] Surgical History Surgery Date Site/Laterality Comments VARICOSE VEIN SURGERY PROCEDURE: [place] LIGJ DIVJ &/EXCJ VARICOSE VEIN CLUSTER 1 LEG WISDOM TOOTH EXTRACTION PROCEDURE: HISTORICAL WISDOM TEETH EXTRACTION OTHER SURGICAL HISTORY 03/09/2014 PROCEDURE: [place] RESECTION RIBS EXTRAPLEURAL ALL STAGES; COMMENT: Right side; initial work releated injury OTHER SURGICAL HISTORY 03/17/2021 PROCEDURE: [place] THYMECTOMY PRTL/TOT RAD MEDSTNL DSJ SPX; COMMENT: [...] Health Maintenance Due Date Last Done Comments Colorectal Cancer Screening: Colonoscopy 1966 Hepatitis B Vaccines (1 of 3 - 19+ 3-dose series) 1985 Pneumococcal Vaccine: 50+ Ye ars (1 of 1 - PCV) 2016 Zoster Vaccines (1 of 2) 2016 Cholesterol Screening (Lipid Panel) 07/31/2022 HIV Screening 07/31/2022 Hepatitis C Screening 07/31/2022 Social Influencers of Health Screening 07/31/2022 DTaP,Tdap,and Td Vaccines (2 - Td or Tdap) 10/19/2023 10/19/2013 Depression Screening 08/22/2024 COVID-19 Vaccine (2 - 2024-2 6 season) 2025 12/23/2020 Influenza Vaccine (#1) 2025 RSV Immunization Adult [...] Documents on File Type Date Recorded Patient Switch Technician Expl anation Health Care Decision (hx) 03/18/2021 AD HICKEY DIRECTIVE Health Care Decision (hx) 03/18/2021 AD HICKEY DIRECTIVE Health Care Decision (hx) 03/18/2021 AD HICKEY DIRECTIVE Health Care Decision (hx) 03/18/2021 AD HICKEY DIRECTIVE Health Care Decision (hx) 03/18/2021 AD HICKEY DIRECTIVE Care Teams Siebel Administrator Relationship Specialty Start Date End Date Giovani Choi MD [address] [place] [address] [place] PCP - General 10/13/22
--- OUTSIDE RECORDS SUMMARY | 2025-06-12 07:51 | XMS_ITS | Clinical Summary ---
Author Organization [facility] Address [address] [place] [address] Care Team Providers Care Booth Operator Name Role Phone Alonso Maya MD Primary Care Provider [phone] Allergies Active Allergy Reactions Criticality Noted Date [...] Vaccine (1 of 2) 2016 Influenza Vaccine 03/22/2025 COVID-19 Vaccine (1 - season) 2025 RSV Vaccine 50 years and old er and Patients (1 - 1-dose 75+ series) 2041 HIV Screening Completed 06/02/2019 Procedures Procedure Name [...] Health Maintenance Insurance MEDICAID OUT OF STATE [facility] [place] [address] Advance Directives * Full Code (Latest Code Status on File) Date Activated Date Inactivated Comments 06/02/2019 12:38 PM Care Teams Booth Operator Relationship Specialty Start Date End Date Alonso Maya MD PCP - General 06/02/19
[2025-06-12 08:08] LABS: MANUAL DIFF FLAG NO
[2025-06-12 08:54] LABS: Hematocrit 44.9 % (42.0-52.0); Hemoglobin 15.6 g/dl (14.0-18.0); Imm Gran Abs Auto 0.02 X10*3/uL (0.00-0.03); Imm Gran Pct Auto 0.3 % (0.0-0.4); Lymphocytes Absolute Auto 2.5 X10*3/uL (1.2-4.9); Mean Corpuscular HGB Conc 34.7 g/dl (31.0-36.0); Mean Corpuscular Hemoglobin 32.2 pg (27.0-33.0); Mean Corpuscular Volume 92.8 fL (80.0-98.0); NRBC Abs Auto 0.000 X10*3/uL (0.0-0.012); NRBC Pct Auto 0.0 /100WBC (0.0-0.2); Platelet Count 167 X10*3/uL (160-400); Red Blood Count 4.84 X10*6/uL (4.60-5.80); White Blood Count 6.2 X10*3/uL (4.8-10.8)
[2025-06-12 09:39] LABS: Alanine Aminotransferase 47 U/L (0-40); Albumin Level 4.2 g/dL (3.5-5.0); Alkaline Phosphatase 81 U/L (39-117); Anion Gap 13 (12-20); Aspartate Amino Transferase 33 U/L (5-37); Blood Urea Nitrogen 13 mg/dL (9-16); Calcium 8.6 mg/dL (8.4-10.2); Carbon Dioxide 24 mmol/L (22-29); Chloride 110 mmol/L (96-108); Cholesterol 175 mg/dL (<200); Estimated Glomerular Filt Rate > 60; HDL Cholesterol 39 mg/dL (>40); Potassium 3.7 mmol/L (3.3-5.1); Sodium 143 mmol/L (135-145); Total Protein 7.4 g/dL (6.5-8.0); Triglycerides 204 mg/dL (<150)
[2025-06-12 09:49] LABS: Appearance Urine Clear; Glucose Urine UA Negative (Negative); PH 5.5 (5.0-9.0); Specific Gravity - Urine 1.025 (1.005-1.025); UMIC TRIGGER UACC YES
== END 2025-06-12 07:48 | disposition home or self-care (01) ==
LOC: HO.LAB 07:47
DX: M16.12 Unilateral primary osteoarthritis, left hip (principal); R79.89 Other specified abnormal findings of blood chemistry; G47.33 Obstructive sleep apnea (adult) (pediatric); F41.9 Anxiety disorder, unspecified; F32.A Depression, unspecified; R25.1 Tremor, unspecified; I48.91 Unspecified atrial fibrillation; R06.00 Dyspnea, unspecified; E66.9 Obesity, unspecified; Z96.641 Presence of right artificial hip joint
CPT/HCPCS: 36415; 80053; 80061; 81001; 81003; 82306; 84443; 85025

== ENCOUNTER 2025-07-05 13:30 | Outpatient (REF) | payer MEDICARE, MEDICAID, SELFPAY ==
--- NOTE | ~2025-07-05 | US_ITS ---
EXAMINATION: US RETROPERITONEAL LIMITED (RENAL ONLY) CLINICAL INFORMATION: N 20.0. COMPARISON: May 24, 2024. TECHNIQUE: Real-time ultrasound kidneys using grayscale technique. FINDINGS: RIGHT KIDNEY: 12 x 7 x 7 cm (SAG x AP x TRV). Volume: 281 cc. Normal echotexture. Renal cortical thickness is normal. No hydronephrosis. No solid or cystic lesion. LEFT KIDNEY: 12 x 7 x 6 cm (SAG x AP x TRV). Volume: 255 cc. Normal echotexture. No hydronephrosis. There is a 5.6 cm exophytic thin septated anechoic lesion in the upper pole/midportion. No flow on color Doppler interrogation. There is a 0.4 cm anechoic lesion. US/US renal BI IMPRESSION: No hydronephrosis. No gross nephrolithiasis. Cystic lesions, largest 5.6 cm, left kidney.. Electronically signed by: Alejo Browning MD 07/05/2025 02:18 PM AYAN
--- OUTSIDE RECORDS SUMMARY | 2025-07-05 19:50 | XMS_ITS | Clinical Summary ---
Author Organization [facility] Address [address] [place] [address] Care Team Providers Care Radar Engineer Name Role Phone Alonso Maya MD Primary Care Provider [phone] Allergies Active Allergy Reactions Criticality Noted Date [...] Health Maintenance Insurance MEDICAID OUT OF STATE [facility] [place] [address] Advance Directives * Full Code (Latest Code Status on File) Date Activated Date Inactivated Comments 06/02/2019 12:38 PM Care Teams Radar Engineer Relationship Specialty Start Date End Date Alonso Maya MD PCP - General 06/02/19
--- OUTSIDE RECORDS SUMMARY | 2025-07-05 19:50 | XMS_ITS | Clinical Summary ---
Author Organization Em [facility] it Address [address] [place] [phone] Care Team Providers Care Construction Driver Name Role Phone Giovani Choi MD Primary Care Provider [phone] Surgical History Surgery Date Site/Laterality Comments VARICOSE VEIN SURGERY PROCEDURE: [place] LIGJ DIVJ &/EXCJ VARICOSE VEIN CLUSTER 1 LEG WISDOM TOOTH EXTRACTION PROCEDURE: HISTORICAL WISDOM TEETH EXTRACTION OTHER SURGICAL HISTORY 03/09/2014 PROCEDURE: [place] RESECTION RIBS EXTRAPLEURAL ALL STAGES; COMMENT: Right side; initial work releated injury OTHER SURGICAL HISTORY 03/17/2021 PROCEDURE: [place] THYMECTOMY PRTL/TOT RAD MEDSTNL DSJ SPX; COMMENT: [...] Documents on File Type Date Recorded Patient Returned Goods Receiving Clerk Expl anation Health Care Decision (hx) 03/18/2021 AD HICKEY DIRECTIVE Health Care Decision (hx) 03/18/2021 AD HICKEY DIRECTIVE Health Care Decision (hx) 03/18/2021 AD HICKEY DIRECTIVE Health Care Decision (hx) 03/18/2021 AD HICKEY DIRECTIVE Health Care Decision (hx) 03/18/2021 AD HICKEY DIRECTIVE Care Teams Construction Driver Relationship Specialty Start Date End Date Giovani Choi MD [address] [place] [address] [place] PCP - General 10/13/22
== END 2025-07-05 13:31 | disposition home or self-care (01) ==
LOC: HO.US 13:30
PROVIDERS: Visit Provider Urology
DX: N20.0 Calculus of kidney (principal)
CPT/HCPCS: 76775

== ENCOUNTER → 2025-07-05 13:34 | Outpatient (BNV) | payer MEDICARE, MEDICAID, SELFPAY | PROVIDERS: Visit Provider Radiology Diagnostic Radiology | DX: N28.1 Cyst of kidney, acquired (principal) | CPT/HCPCS: 76775 ==

== ENCOUNTER 2025-07-17 10:12 | Outpatient (AMB) | payer MEDICARE, MEDICAID, SELFPAY ==
--- NOTE | 2025-07-17 10:18 | A.OFFVIS_ITS ---
Intake Visit Reasons: 1Y Ultrasound(set) Intake Note: Reason for Visit: Ultrasound Results Urology Meds: Tamsulosin Blood Thinners: Aspirin, Eliquis Labs: None Imaging: Renal Ultrasound 07/05/2025 Last PVR: None Patient reports he has not had any kidney pain since his last kidney stone Province Archivist Required: No Accompanied by: Self / Same As Patient Allergies diclofenac (From VOLTAREN) Allergy (Severe, Verified 07/17/25 10:28) SEVERE RASH, FACIAL SWELLING, hives HPI Comments Details: Edward is a pleasant male. He is a patient of Dr Choi. He is seen for the following urologic conditions - nephrolithiasis - renal cyst Yearly stone follow-up MRI renal cyst Bosniak 2 Renal ultrasound consistent with cyst Had recent kidney stone and it passed with tamsulosin Did have blood secondary to Eliquis Recommend lemon water Nephrolithiasis Seen at the emergency room February 2021 Distal left ureteric stone - Was able to pass with medical expulsion therapy Renal imaging CT scan - 03/11 left distal ureteric stone 3 mm with perinephric stranding, 5 mm stone lower pole right side - 10/13 renal ultrasound left renal cysts stable 3-5 cm, no evidence of stones - 03/13 renal MRI, Bosniak 2 4 cm cyst left side, no evidence stones - 03/14 renal MRI, Bosniak 2 4 cm lesion and no evidence of stones Therapeutic plan - increase fluid intake - interval surveillance [facility] Medical History Cerebellar infarction Tremor PTSD (post-traumatic stress disorder) Encephalopathy H/O alcohol abuse Embolic cerebral infarction Borderline personality disorder Depression with anxiety Basilar artery stenosis Cerebral infarction Snoring Asthma Somnolence CAMDEN (obstructive sleep apnea) Obesity (BMI 30-39.9) Elevated cholesterol HTN (hypertension) PFO (patent foramen ovale) Atrial flutter Tremor, anxiety related On anticoagulant therapy Kidney stones Arthritis GERD (gastroesophageal reflux disease) COPD (chronic obstructive pulmonary disease) Anxiety and depression Dyspnea on exertion CVA (cerebral vascular accident) Atrial fibrillation Surgical History History of total left hip replacement Hx of colonoscopy History of right hip replacement Hx of surgical procedure History of varicose vein ligation and stripping H/O removal of cyst Family History Mother No problems noted. Father No problems noted. Maternal Uncle Colon cancer Social History Household Members: None Housing: House Are you a primary healthcare recruiter to a significant other at home: No Do you presently have visiting nurse or other home services: No Alcohol intake: never Comment: patient refused alarm Patient Tobacco Use Status: Never used Tobacco e-Cigarette/Vaping Use: Never Used service: No Current occupational status: disabled Cognitive needs: No Hearing needs: No Vision needs: Yes Review of Systems Const Denies chills and Denies fever(s) Card Reports no additional complaints and Denies syncope Resp Denies cough GI Denies abdominal pain and Denies heartburn Reports as per HPI and Denies change in libido Neuro Denies syncope Psych Denies change in libido Endo Denies change in libido Physical Exam Const General: cooperative, healthy appearing, comfortable and no acute distress Orientation/consciousness: patient oriented x3 HEENT Face and sinus: Yes normal facial exam Mouth: moist mucous membranes Neck Neck: Yes normal visual inspection, Yes full ROM and Yes trachea midline Chest Chest palpation & inspection: normal inspection of the chest Resp Effort & Inspection: normal respiratory effort, able to speak in complete sentences and no respiratory distress GI Inspection: Yes normal to inspection Back/Spine/Pelvis Cervical Spine: normal cervical lordosis Thoracic/Lumbar Spine: thoracic and lumbar spine normal to inspection Skin General skin exam: no rashes or lesions noted Neuro General: patient oriented x3, gait normal, tone normal and moves all extremities Extrem General: Yes normal to inspection and Yes capillary refill normal Assessment & Plan Assessment & Plan (1) Nephrolithiasis: Code(s): N20.0 - Calculus of kidney Category: Medical (2) Complex renal cyst: Code(s): N28.1 - Cyst of kidney, acquired Category: Medical Plan Twelve month follow-up renal ultrasound Orders: Orders US renal BI 12 Months N28.1 - Cyst of kidney, acquired Medications: Discontinued tamsulosin Discontinued Reason: Patient Completed Course 0.4 mg PO BEDTIME 14 days 14 caps 0RF Patient Instructions: This note is constructed using voice recognition software. While every effort has been made to ensure accuracy double spindle shaper operator errors may have been included. Imaging studies, laboratory and physical exam results were discussed and reviewed in detail. No major barriers to patient understanding were identified. An opportunity to ask questions regarding the treatment plan was provided. All questions were answered. The patient expressed understanding and agreement with the above treatment plan. The patient is aware they should contact our office by phone for worsening of their current condition or the appearance of new urologic symptoms. Compliance is encouraged with any medications and followup testing that is ordered. It is a privilege to participate in the urologic care of your patient. If you have any questions or concerns regarding treatment for the above conditions, or other urologic issues, please do not hesitate to contact me. The office telephone contact is [phone]. Sincerely, Dr Wiley Christie MD, [facility] - Urology Compassionate Specialist Care for the Genitourinary System Coding Level of Care Code Est Pt Level 4 (88639) Diagnoses Nephrolithiasis N20.0 Complex renal cyst N28.1
--- OUTSIDE RECORDS SUMMARY | 2025-07-17 11:57 | XMS_ITS | Clinical Summary ---
Author Organization [facility] Address [address] [place] [address] Care Team Providers Care Hall Porter Name Role Phone Alonso Maya MD Primary Care Provider [phone] Allergies Active Allergy Reactions Criticality Noted Date [...] Maintenance Insurance MEDICA[place] [facility] [place] [address] Advance Directives * Full Code (Latest Code Status on File) Date Activated Date Inactivated Comments 06/02/2019 12:38 PM Care Teams Hall Porter Relationship Specialty Start Date End Date Alonso Maya MD PCP - General 06/02/19
--- OUTSIDE RECORDS SUMMARY | 2025-07-17 11:57 | XMS_ITS | Clinical Summary ---
Author Organization [facility] it Address [id number] [place] [id number] Care Team Providers Care Executive Creative Director Name Role Phone Giovani Choi MD Primary Care Provider [phone] Surgical History Surgery Date Site/Laterality Comments VARICOSE VEIN SURGERY PROCEDURE: [place] LIGJ DIVJ &/EXCJ VARICOSE VEIN CLUSTER 1 LEG WISDOM TOOTH EXTRACTION PROCEDURE: HISTORICAL WISDOM TEETH EXTRACTION OTHER SURGICAL HISTORY 03/09/2014 PROCEDURE: [place] RESECTION RIBS EXTRAPLEURAL ALL STAGES; COMMENT: Right side; initial work releated injury OTHER SURGICAL HISTORY 03/17/2021 PROCEDURE: [place] THYMECTOMY PRTL/TOT RAD MEDSTNL DSJ SPX; COMMENT: [...] Documents on File Type Date Recorded Patient Publicity Person Expl anation Health Care Decision (hx) 03/18/2021 AD HICKEY DIRECTIVE Health Care Decision (hx) 03/18/2021 AD HICKEY DIRECTIVE Health Care Decision (hx) 03/18/2021 AD HICKEY DIRECTIVE Health Care Decision (hx) 03/18/2021 AD HICKEY DIRECTIVE Health Care Decision (hx) 03/18/2021 AD HICKEY DIRECTIVE Care Teams Executive Creative Director Relationship Specialty Start Date End Date Giovani Choi MD [address] [place] [address] [place] PCP - General 10/13/22
== END 2025-07-17 11:04 | disposition home or self-care (01) ==
LOC: HO.HUSH 10:13
PROVIDERS: Visit Provider Urology
DX: N20.0 Calculus of kidney (principal); N28.1 Cyst of kidney, acquired
CPT/HCPCS: 99214

== ENCOUNTER → 2025-07-17 10:12 | Outpatient (BNVA) | payer MEDICARE, MEDICAID, SELFPAY | PROVIDERS: Visit Provider Urology | DX: N20.0 Calculus of kidney (principal); N28.1 Cyst of kidney, acquired; Z79.01 Long term (current) use of anticoagulants; Z79.82 Long term (current) use of aspirin | CPT/HCPCS: 99212 ==

== ENCOUNTER 2025-07-23 05:38 | Day surgery (SDC) | payer MEDICARE, MEDICAID, SELFPAY ==
--- OUTSIDE RECORDS SUMMARY | 2025-06-20 07:30 | XMS_ITS | Clinical Summary ---
Author Organization [facility] it Address [address] [place] [phone] Care Team Providers Care Shareholder Name Role Phone Giovani Choi MD Primary Care Provider [phone] Surgical History Surgery Date Site/Laterality Comments VARICOSE [...] Documents on File Type Date Recorded Patient Rn Ostomy Expl anation Health Care Decision (hx) 03/18/2021 AD HICKEY DIRECTIVE Health Care Decision (hx) 03/18/2021 AD HICKEY DIRECTIVE Health Care Decision (hx) 03/18/2021 AD HICKEY DIRECTIVE Health Care Decision (hx) 03/18/2021 AD HICKEY DIRECTIVE Health Care Decision (hx) 03/18/2021 AD HICKEY DIRECTIVE Care Teams Shareholder Relationship Specialty Start Date End Date Giovani Choi MD [address] [place] [address] [place] PCP - General 10/13/22
--- OUTSIDE RECORDS SUMMARY | 2025-06-20 07:30 | XMS_ITS | Clinical Summary ---
Author Organization [facility] Address [address] [place] [address] Care Team Providers Care Lawn And Garden Technician Name Role Phone Alonso Maya MD Primary Care Provider [phone] Allergies Active Allergy Reactions Criticality Noted Date [...] Health Maintenance Insurance MEDICAID OUT OF STATE [facility] [place] [id number] Advance Directives * Full Code (Latest Code Status on File) Date Activated Date Inactivated Comments 06/02/2019 12:38 PM Care Teams Lawn And Garden Technician Relationship Specialty Start Date End Date Alonso Maya MD PCP - General 06/02/19
[2025-07-17 15:04] VITALS: BMI 32.1
[2025-07-23 06:37] VITALS: BMI 32.5
[2025-07-23] MEDS: Lactated Ringers 1,000 ML 100 ML IVCONT (06:55)
[2025-07-23 07:08] VITALS: BP 114/87; PULSE 70; RESP 18; TEMP 36.6; O2SAT 96
--- NOTE | 2025-07-23 07:23 | HO.ANESPROP2 ---
Documented by User: China Sotelo NP 07/17/25 13:53 HPI - Anesthesia Eval Consult details Narrative: 60 yr old male for colonoscopy s/p colonoscopy with MAC 10/2024 CVA 2019 in setting of afib: on eliquis Post CVA tremors: managed with propranolol PMFSH Active Problems Active Problems: All Active Problems (Updated 05/30/25 @ 23:27 by JOVANY Ruggiero) History of stroke (Acute) Basilar artery stenosis (Acute) Tremor (Acute) Abnormal LFTs (Acute) Personal history of colonic polyps (Acute) Complex renal cyst (Acute) S/P total left hip arthroplasty (Acute) Osteoarthritis of left hip (Acute) Status post total hip replacement, right (Acute) Preop cardiovascular exam (Acute) Dyspnea on exertion (Acute) Nephrolithiasis (Acute) Osteoarthritis of right hip (Acute) Tremor, anxiety related (Acute) Snoring (Acute) Asthma (Acute) Atrial flutter (Acute) Atrial fibrillation (Acute) Somnolence (Acute) CAMDEN (obstructive sleep apnea) (Acute) Obesity (BMI 30-39.9) (Acute) Anxiety and depression (Acute) Dyspnea on exertion (Acute) CVA (cerebral vascular accident) (Acute) Past Medical History Medical History Tremor PTSD (post-traumatic stress disorder) Encephalopathy H/O alcohol abuse Embolic cerebral infarction Borderline personality disorder Depression with anxiety Basilar artery stenosis Snoring Asthma Somnolence CAMDEN (obstructive sleep apnea) Obesity (BMI 30-39.9) Elevated cholesterol HTN (hypertension) PFO (patent foramen ovale) Atrial flutter Tremor, anxiety related On anticoagulant therapy Kidney stones Arthritis GERD (gastroesophageal reflux disease) COPD (chronic obstructive pulmonary disease) Anxiety and depression Dyspnea on exertion CVA (cerebral vascular accident) Atrial fibrillation Family History Family History Mother No problems noted. Father No problems noted. Maternal Uncle Colon cancer Family history of problems with anesthesia: No Surgical History Surgical History History of total left hip replacement Hx of colonoscopy History of right hip replacement Hx of surgical procedure History of varicose vein ligation and stripping H/O removal of cyst History of Problems with Anesthesia: No Social History Social History Household Members: None Housing: House Are you a primary patient care to a significant other at home: No Do you presently have visiting nurse or other home services: No Alcohol intake: never Comment: patient refused alarm Patient Tobacco Use Status: Never used Tobacco e-Cigarette/Vaping Use: Never Used Have you been hit, kicked, punched, or otherwise hurt by someone within the past year? If so, by whom?: No Are you DNR?: No Advance Directives: No Advance Directives Information Provided: Yes service: No Current occupational status: disabled Cognitive needs: No Hearing needs: No Vision needs: Yes Meds Allergies Allergy/AdvReac Type Severity Reaction Status Date / Time diclofenac (From VOLTAREN) Allergy Severe SEVERE Verified 07/23/25 06:39 RASH, FACIAL SWELLING, hives Home Medications ?Medication ?Instructions ?Recorded ?Confirmed ?Last Taken ?Type atorvastatin 80 mg tablet 80 mg PO BEDTIME 09/28/21 07/17/25 08/05/24 History diazepam 5 mg tablet 5 mg PO TID PRN Anxiety 09/28/21 07/17/25 08/06/24 22:00 History sertraline 100 mg tablet 2 tab PO DAILY 12/02/21 07/17/25 08/05/24 History quetiapine 400 mg tablet 400 mg PO BEDTIME PRN Anxiety 01/28/22 07/17/25 08/05/24 History multivitamin 1 tab PO DAILY 03/12/24 07/17/25 08/05/24 History lisinopril 10 mg tablet 10 mg PO DAILY 09/03/24 07/17/25 Unknown History metoprolol tartrate 25 mg tablet 25 mg PO BID 09/03/24 07/17/25 07/23/25 History acetaminophen 650 mg 1,300 mg PO Q8H 02/27/25 07/17/25 Unknown History tablet,extended release aspirin 81 mg tablet,delayed 81 mg PO DAILY 02/27/25 07/17/25 Unknown History release baclofen 10 mg tablet 10 mg PO TID 02/27/25 07/17/25 Unknown History celecoxib 200 mg capsule 200 mg PO DAILY 02/27/25 07/17/25 Unknown History omeprazole 20 mg capsule,delayed 20 mg PO DAILY 02/27/25 07/17/25 07/23/25 History release trazodone 100 mg tablet 100 mg PO BEDTIME PRN Insomnia 04/25/25 07/17/25 Unknown History Exam Pertinent Lab Results Pertinent Lab Results: Laboratory Tests 06/12/25 08:00 WBC 6.2 RBC 4.84 Hgb 15.6 Hct 44.9 Plt Count 167 Sodium 143 Potassium 3.7 Chloride 110 H Carbon Dioxide 24 BUN 13 Creatinine 0.85 Narrative Narrative: ECHO 03/2025 Conclusions: - The left ventricular systolic function is normal. The calculated ejection fraction is 64% by biplane method. - No obvious valvular pathology seen on this study. EKG 02/2025 Normal sinus rhythm, rate 82 Cannot rule out anterior infarct, age undetermined T wave abnormality, consider inferior ischemia Assessment and Plan Final Anesthetic Review Family History of Problems with Anesthesia: No History of Problems with Anesthesia: No Documented by User: Gina Bryan DO 07/23/25 07:25 HPI - Anesthesia Eval Consult details Narrative: 60 yr old male for colonoscopy s/p colonoscopy with MAC 10/2024 CVA 2019 in setting of afib: on eliquis. Upper body weakness. Post CVA tremors: managed with propranolol [facility] Past Medical History Medical History Tremor PTSD (post-traumatic stress disorder) Encephalopathy H/O alcohol abuse Embolic cerebral infarction Borderline personality disorder Depression with anxiety Basilar artery stenosis Snoring Asthma Somnolence CAM[place] (obstructive sleep apnea) Obesity (BMI 30-39.9) Elevated cholesterol HTN (hypertension) PFO (patent foramen ovale) Atrial flutter Tremor, anxiety related On anticoagulant therapy Kidney stones Arthritis GERD (gastroesophageal reflux disease) COPD (chronic obstructive pulmonary disease) Anxiety and depression Dyspnea on exertion CVA (cerebral vascular accident) Atrial fibrillation Family History Family History Mother No problems noted. Father No problems noted. Maternal Uncle Colon cancer Family history of problems with anesthesia: No Surgical History Surgical History History of total left hip replacement Hx of colonoscopy History of right hip replacement Hx of surgical procedure History of varicose vein ligation and stripping H/O removal of cyst History of Problems with Anesthesia: No Social History Social History Household Members: None Housing: House Are you a primary patient care to a significant other at home: No Do you presently have visiting nurse or other home services: No Alcohol intake: never Comment: patient refused alarm Patient Tobacco Use Status: Never used Tobacco e-Cigarette/Vaping Use: Never Used Have you been hit, kicked, punched, or otherwise hurt by someone within the past year? If so, by whom?: No Are you DNR?: No Advance Directives: No Advance Directives Information Provided: Yes service: No Current occupational status: disabled Cognitive needs: No Hearing needs: No Vision needs: Yes Meds Allergies Allergy/AdvReac Type Severity Reaction Status Date / Time diclofenac (From VOLTAREN) Allergy Severe SEVERE Verified 07/23/25 06:39 RASH, FACIAL SWELLING, hives Home Medications ?Medication ?Instructions ?Recorded ?Confirmed ?Last Taken ?Type atorvastatin 80 mg tablet 80 mg PO BEDTIME 09/28/21 07/17/25 08/05/24 History diazepam 5 mg tablet 5 mg PO TID PRN Anxiety 09/28/21 07/17/25 08/06/24 22:00 History sertraline 100 mg tablet 2 tab PO DAILY 12/02/21 07/17/25 08/05/24 History quetiapine 400 mg tablet 400 mg PO BEDTIME PRN Anxiety 01/28/22 07/17/25 08/05/24 History multivitamin 1 tab PO DAILY 03/12/24 07/17/25 08/05/24 History lisinopril 10 mg tablet 10 mg PO DAILY 09/03/24 07/17/25 Unknown History metoprolol tartrate 25 mg tablet 25 mg PO BID 09/03/24 07/17/25 07/23/25 History acetaminophen 650 mg 1,300 mg PO Q8H 02/27/25 07/17/25 Unknown History tablet,extended release aspirin 81 mg tablet,delayed 81 mg PO DAILY 02/27/25 07/17/25 Unknown History release baclofen 10 mg tablet 10 mg PO TID 02/27/25 07/17/25 Unknown History celecoxib 200 mg capsule 200 mg PO DAILY 02/27/25 07/17/25 Unknown History omeprazole 20 mg capsule,delayed 20 mg PO DAILY 02/27/25 07/17/25 07/23/25 History release trazodone 100 mg tablet 100 mg PO BEDTIME PRN Insomnia 04/25/25 07/17/25 Unknown History Exam Exam Date and Time: 07/23/25 0720 Height,Weight and Vital Signs: Height 6 ft 1 in Weight 111.584 kg Vital Signs Temperature 97.9 F 07/23/25 07:08 Pulse Rate 70 07/23/25 07:08 Respiratory Rate 18 07/23/25 07:08 Blood Pressure 114/87 07/23/25 07:08 Pulse Oximetry 96 07/23/25 07:08 Oxygen Delivery Method Room Air 07/23/25 07:08 Temperature 97.9 F 07/23/25 07:08 Pulse Rate 70 07/23/25 07:08 Respiratory Rate 18 07/23/25 07:08 Blood Pressure 114/87 07/23/25 07:08 Pulse Oximetry 96 07/23/25 07:08 Oxygen Delivery Method Room Air 07/23/25 07:08 Airway Mallampati Class: III TM Dist: <=3cm Neck ROM: Full Loose/Missing/Broken Teeth: No (patient denies any loose or broken teeth) Heart: S1S2 Lungs: CTAB Assessment and Plan Assessment Anesthesia Assessment: Anesthesia Plan Discussed and Chart Reviewed Final Anesthetic Review Family History of Problems with Anesthesia: No History of Problems with Anesthesia: No NPO: Yes ASA Class: III Final Preanesthetic Review: No Changes in Pt Med Stat, Meds/Allgs Chart Reviewed, Consent Obtained/Reviewed and Anes Risks/Benef Reviewed Patient Risk: Intermediate Procedure Risk: Low Anesthetic Plan Anesthetic Plan: MAC: and Agree w/ Assess. and Plan Disposition: Standard PACU
--- NOTE | 2025-07-23 07:40 | P.HPSUR_ITS ---
Pre-Procedural Eval Section A - 24 Hr Update-Section A only Date of Service: 07/23/25 Section B - Complete if H&P > 30 days Chief Complaint: screening Relevant Family History (Specify if Yes): No Relevant Social History: None Present Medications: see Short Stay Collaborative assessment Medical History: Significant History (Tremor PTSD (post-traumatic stress disorder) Encephalopathy H/O alcohol abuse Embolic cerebral infarction Borderline personality disorder Depression with anxiety Basilar artery stenosis Cerebral infarction Snoring Asthma Somnolence CAMDEN (obstructive sleep apnea) Obesity (BMI 30-39.9) Elevated cholest) History of Previous Operations: Relevant previous surgery/procedure and date(s) (History of total left hip replacement Hx of colonoscopy History of right hip replacement Hx of surgical procedure History of varicose vein ligation and stripping H/O removal of cyst) Allergies: Allergies Allergy/AdvReac Type Severity Reaction Status Date / Time diclofenac (From VOLTAREN) Allergy Severe SEVERE Verified 07/23/25 06:39 RASH, FACIAL SWELLING, hives Review of Systems Sugical H&P ROS: Negative: Constitution, Cardiovascular, Respiratory, Neurological, Psychiatric, Hem-Onc, Allergic/Immunologic, Gastrointestinal, G enitourinary, Musculoskeletal, Integumentary, Endocrine and Eyes/Ears/Nose/Throat Exam Surgical H&P Exam: Normal: HEENT, Normal: Heart, Normal: Lungs, Normal: Extremities, Normal: Abdomen, Normal: Skin and Normal: Neurological Plan Diagnosis/Plan: Unchanged I have reviewed the history and physical and performed a pertinent physical examination on my patient. No changes have occurred unless specified. Time Spent With Patient Time: Total time managing care of this patient today ____ minutes.
--- NOTE | 2025-07-23 08:02 | HO.OPN-COLON ---
Colonoscopy Operative Note Operative Note Date of Service: 07/23/25 Narrative: Operative Information Procedure Description: Colonoscopy Indication: hx of colon polyps Anesthesia: MAC COLONOSCOPY Instrument: Olympus variable stiffness pediatric scope 190L Colonoscopy Monitoring: Vital signs and clinical assessment, continuous EKG monitoring, Pulse oximetry, Carbon Dioxide monitoring and blood pressure monitoring were done throughout the procedure. Colon withdrawal time was 11 minutes. Procedure: The patient was placed in the left lateral decubitis position and pre-procedure medications were administered. After a digital rectal examination of the ano-rectum, the video colonoscope was inserted into the rectum and advanced through the colon to the cecum/TI. The colonoscope was slowly withdrawn in a retrograde panoramic fashion and the colon mucosa was carefully examined including a retroflexed view of the rectum. Findings and interventions are described below. Procedure Difficulty: easy Findings: Terminal Ileum-normal Cecum:normal Ascending Colon: 6-7 mm sessile polyp removed with cold forceps Transverse Colon -normal Descending Colon:normal Sigmoid Colon: mild diverticulosis, x 2 sessile polyps 5-7 mm removed with cold snare Rectum: Retroflexion with small internal hemorrhoids seen, grade I Anorectum - normal Intervention: cold snare, cold forceps Colon preparation: Wheeler Bowel Preparation Scale Right colon; 2 Transverse colon: 2 Left colon; 2 (0 = Unprepared colon segment with mucosa not seen due to solid stool that cannot be cleared. 1 = Portion of mucosa of the colon segment seen, but other areas of the colon segment not well seen due to staining, residual stool and/or opaque liquid. 2 = Minor amount of residual staining, small fragments of stool and/or opaque liquid, but mucosa of colon segment seen well. 3 = Entire mucosa of colon segment seen well with no residual staining, small fragments of stool or opaque liquid) Impression and Post Procedure Diagnosis: diverticulosis colon polyps x3 internal hemorrhoids Plan: High fiber diet leaflet Avoid straining at stool, epsom salts and sitz bath, anusol supps or cream Repeat Colonoscopy in 2-3 years or earlier if clinically indicated Above findings were reviewed with the patient and relevant handouts were provided if indicated.
[2025-07-23 08:05] VITALS: BP 94/60; PULSE 68; RESP 12; TEMP 36.8; O2SAT 93
[2025-07-23 08:20] VITALS: BP 102/69; PULSE 67; RESP 18; TEMP 36.4; O2SAT 94
== END 2025-07-23 09:28 | disposition home or self-care (01) ==
PROVIDERS: Visit Provider Internal Medicine Gastroenterology
PROC: 0DJD8ZZ Inspection of Lower Intestinal Tract, Via Natural or Artificial Opening Endoscopic (ICD-10-PCS; CPT 45378; principal; 2025-07-23 07:30)
DX: Z12.11 Encounter for screening for malignant neoplasm of colon (principal); Z86.0101 Personal history of adenomatous and serrated colon polyps; R79.89 Other specified abnormal findings of blood chemistry; K64.0 First degree hemorrhoids; K57.30 Diverticulosis of large intestine without perforation or abscess without bleeding; D12.2 Benign neoplasm of ascending colon; D12.5 Benign neoplasm of sigmoid colon
CPT/HCPCS: 45380; 45385; 88305; J2003; J2704

== ENCOUNTER → 2025-07-23 05:38 | Outpatient (BNV) | payer MEDICARE, MEDICAID, SELFPAY | PROVIDERS: Visit Provider Internal Medicine Gastroenterology | DX: Z12.11 Encounter for screening for malignant neoplasm of colon (principal); D12.2 Benign neoplasm of ascending colon; K57.30 Diverticulosis of large intestine without perforation or abscess without bleeding; K64.0 First degree hemorrhoids; D12.5 Benign neoplasm of sigmoid colon | CPT/HCPCS: 45380; 45385 ==